=== PATIENT | female | born 1960 | race Caucasian/White ===

== ENCOUNTER 2020-02-20 22:32 | Inpatient (IN) | payer MEDICAID, SELFPAY ==
--- NOTE | 2020-02-20 22:30 | ECHOD_ITS ---
Reason For Study: Arrhythmia Procedure This was a 2D Doppler, Color Flow transthoracic echocardiogram. Exam performed portable in patient room. Left Ventricle Normal size and thickness. The estimated ejection fraction is 65 %. Stage 1 diastolic dysfunction. No regional wall motion abnormalities noted. Right Ventricle Normal size and thickness. Normal systolic function. Atria Normal left atrium. Normal right atrium. Normal atrial septum. Mitral Valve The mitral valve is structurally normal. No prolapse or stenosis seen. Tricuspid Valve Normal tricuspid valve. Unable to estimate RV systolic pressure due to insufficient tricuspid regurgitant envelope. Aortic Valve Normal aortic valve. Trisinus/trileaflet aortic valve. Pulmonic Valve Normal pulmonic valve. Great Vessels Normal aortic root. Normal arch. Normal inferior vena cava. Pericardium/Pleural No pericardial effusion. MMode/2D Measurements & Calculations LVIDd: 4.0 cm IVSd: 0.87 cm LA dimension: 3.6 cm LVIDs: 2.2 cm LVPWd: 1.1 cm RVDd: 2.5 cm FS: 43.5 % LAV(MOD-bp): 28.8 ml LA A4 area: 12.6 cm2 RA A4 area: 10.4 cm2 LAV(MOD-bp) Indexed: 16.4 ml/m2 LAV(MOD-sp2): 27.7 ml LAV(MOD-sp4): 26.9 ml Time Measurements MV dec time: 0.27 sec Doppler Measurements & Calculations MV E max john: 60.9 cm/sec Lat Peak E' John: 8.5 cm/sec Med Peak E' John: 6.6 cm/sec MV A max john: 83.6 cm/sec E/E' lat: 7.2 E/E' med: 9.2 MV E/A: 0.73 MV V2 max: 94.4 cm/sec MV P1/2t max john: 66.4 cm/sec Ao V2 max: 139.6 cm/sec MV max P.6 mmHg MV P1/2t: 81.4 msec Ao max P.8 mmHg MV V2 mean: 49.4 cm/sec MV dec slope: 239.2 cm/sec2 Ao V2 mean: 88.8 cm/sec MV mean P.1 mmHg MVA(P1/2t): 2.7 cm2 Ao mean P.5 mmHg MV V2 VTI: 20.1 cm Ao V2 VTI: 22.8 cm LV V1 max: 102.5 cm/sec PA V2 max: 108.8 cm/sec LV V1 max P.2 mmHg LV V1 mean P.0 mmHg LV V1 mean: 64.5 cm/sec LV V1 VTI: 18.1 cm Interpretation Summary The estimated ejection fraction is 65 %. Stage 1 diastolic dysfunction. Unable to estimate RV systolic pressure due to insufficient tricuspid regurgitant envelope. Pt appears to have a significant amount of ascites noted around liver; recommend clinical correlation. There is no comparison study available. Ordering Physician: Zoraida Thurman Referring Physician: Denia Adrian Performed By: Anurag Page RCS
--- NOTE | 2020-02-20 22:32 | EKG12_ITS ---
Test Reason : CP ADMISSION Blood Pressure : / mmHG Vent. Rate : 078 BPM Atrial Rate : 078 BPM P-R Int : 142 ms QRS Dur : 090 ms QT Int : 392 ms P-R-T Axes : 042 026 047 degrees QTc Int : 446 ms Normal sinus rhythm Nonspecific T wave abnormality Abnormal ECG No previous ECGs available Confirmed by MARYA KAUR ([id number]), state editor DANYELLE BALDERAS ([id number]) on 02/29/2020 7:50:45 AM Referred By: GABBI Confirmed By:MARYA KAUR
--- NOTE | 2020-02-20 23:15 | PCM.HP.STD ---
Problem List (1) Chest pain Status: Acute Qualifiers: Chest pain type: unspecified Qualified Code(s): R07.9 - Chest pain, unspecified (2) Ovarian cancer Status: Chronic Qualifiers: Laterality: unspecified laterality Qualified Code(s): C56.9 - Malignant neoplasm of unspecified ovary (3) Hypothyroidism Status: Chronic Qualifiers: Hypothyroidism type: unspecified Qualified Code(s): E03.9 - Hypothyroidism, unspecified (4) Anxiety and depression Status: Chronic (5) HLD (hyperlipidemia) Status: Chronic Qualifiers: Hyperlipidemia type: unspecified Qualified Code(s): E78.5 - Hyperlipidemia, unspecified (6) Diabetes mellitus, type II Status: Chronic Qualifiers: Diabetes mellitus prison insulin use: without prison use Diabetes mellitus complication status: with other specified complication Qualified Code(s): E11.69 - Type 2 diabetes mellitus with other specified complication (7) Former tobacco use Status: Chronic History of Present Illness Date of Admission: 02/20/20 Chief Complaint: Chest pain, dyspnea The patient is a 59 y/o F w/ PMHx: Tobacco use, Depression and Anxiety, Diabetes mellitus type II, Ovarian CA with metastatic disease with recent evaluation with pending port placement the upcoming Wednesday per report following with Oncology per her report with history of recent presentations to [place] ED with abdominal pain, distention with ascites associated with her metastatic CA who now presents to the [facility] as direct admission from [place] ED on 02/20/20 secondary to history of chest discomfort with associated dyspnea, worse with exertion with near syncopal sensation over the last several days with episodes of nausea and occasional emesis however she has been having this since diagnosis of her metastatic cancer and further describes her chest discomfort is midsternal, pressure-like in sensation with no radiation prompting her outside ED evaluation. She notes at its worst discomfort is 10 of 10 in severity, currently 1-2 out of 10 in severity. Outside [place] ED evaluation included: VS: 103/55, 36.9, 98, 14, 99% on RA CBC: WBC 7.3, Hgb 14.2, Plts 229 without marked shift CMP: BUN/Cr 19/0.8, Na 131, K 4.3, Total bili 1.8 Trop: 12, repeat 11 (high sensitivity, < 12 or 18 without change unremarkable, obtained over 1 hour) EKG: Sinus tachycardia without acute evidence of ischemia CXR: No acute cardiopulmonary findings, atelectasis, minimal effusion D-dimer: 14,000 CTPA performed but bolus timing off, noted only in main pulmonary arteries, throid nodules, 10 mm subcarinal nodule coags: normal Medications: Fentanyl, morphine, ASA, therapeutic lovenox x 1. Past Medical History Past Medical History (Chronic Problems): Chronic Problems Ovarian cancer (Chronic) Hypothyroidism (Chronic) Anxiety and depression (Chronic) HLD (hyperlipidemia) (Chronic) Diabetes mellitus, type II (Chronic) Former tobacco use (Chronic) Home Medications: Ambulatory Orders Medication Instructions Recorded Atorvastatin Calcium 20 mg PO QHS 02/20/20 Cetirizine HCl 10 mg PO QHS 02/20/20 Dexamethasone [Decadron] 4 mg PO Q6H 02/20/20 Docusate Sodium 100 mg PO BID 02/20/20 Levothyroxine [Synthroid] 25 mcg PO DAILY 02/20/20 Melatonin 3 mg PO QHS 02/20/20 Ondansetron HCl [Zofran] 4 mg PO PRN PRN 02/20/20 Oxycodone [Oxyir] 5 mg PO Q6H PRN PRN 02/20/20 Polyethylene Glycol 3350 [Miralax] 17 gm PO DAILY 02/20/20 Potassium Chloride 20 meq PO DAILY 02/20/20 Reglan 10 mg PO TID 02/20/20 Surgical History: - - Unclear gallbladder intervention as noted stones removed but her gallbladder was not, x1. 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 Tobacco Use: Non-smoker Alcohol: None Drugs: None - *Family History Maternal History Items: Diabetes Paternal History Items: - - Patient denies any market paternal family history including heart disease, diabetes or cancer. Review of Systems Constitutional: Reports: Anorexia, Malaise, Weakness, Fatigue. Denies: Chills, Fever, Weight Change HEENT: Denies: Head Aches, Sinus Congestion, Sinus Drainage Cardiovascular: Reports: Chest Pain, Chest Pressure, Light Headedness, Syncope - Near syncope sensation.. Denies: Chest Tightness, Heaviness, Orthopnea, Palpitations Respiratory: Reports: Shortness of Breath, Shortness of breath upon exertion. Denies: Cough, Shortness of breath at rest, Sputum production Gastrointestinal: Reports: Abdominal Pain, Nausea, Vomiting Genitourinary: Denies: Dysuria Musculoskeletal: Reports: Joint Pain. Denies: Joint Tenderness Skin: Denies: Rash, Wounds Neurological: Denies: Numbness, Tingling, Focal weakness Psychiatric: Reports: Anxiety, Depression. Denies: Homicidal Ideations, Suicidal Ideations Hematologic/ Lymphatic: Denies: Easy Bruising, Easy Bleeding VTE Information - Inpt Only VTE Present on Admission: No VTE Mechan Device Prophylaxis: SCD's VTE Pharm Prophylaxis ordered?: Yes Patient Problems: Active and Suspected Problems Chest pain (Acute) Subjective: Patient seated upright in the PCU bed, no acute distress, chest discomfort improved since transfer. Objective: Physical Examination: General: awake, alert, oriented x 3 and cooperative, seated upright in PCU bed in no apparent distress. Skin: normal color, turgor, no icterus, cyanosis. HEENT: AT/NC, EOMI, PERRLA, MMM, lacking dentition, no carotid bruits or JVD noted. Lungs: CTA bilaterally, moderate effort, moderate decrease BL bases, no rales, ronchi or wheezing. Heart: Regular rate and rhythm; no gallop, rub audible. Abdomen: soft, despite chronic abdominal discomfort with metastatic ovarian cancer no specific tenderness with palpation with no rebound or guarding associated, mildly distended, normal BS, no HSM. Extremities: no cyanosis, clubbing, or edema. Neurological: patient awake, alert, oriented x 3; cognitive function appears baseline intact; pupils equally reactive to light and accomodation; cranial nerves II-XII grossly normal, moving all 4 extremities, no focal deficits, strength moderately global decrease secondary to acute complaints. Psychiatric: affect appears fatigued otherwise normal, no acute evidence of depressive or anxiety feelings. - Physical Exam Current Medications Acetaminophen (Tylenol) 650 mg PO Q6H PRN PRN PRN Reason: Pain Score 1-10/Temp > 100.7 F Al Hydroxide/Mg Hydroxide (Mylanta Ii) 30 ml PO Q6H PRN PRN PRN Reason: Gastric Burning Albuterol Sulfate (Ventolin Aerosols) 2.5 mg INHALATION Q2H PRN PRN PRN Reason: Dyspnea, wheezing Aspirin (Ecotrin) 81 mg PO DAILY@0800 [facility] Dextrose (D50w Syringe) 0 gm IV X1 PRN; Protocol PRN Reason: Hypoglycemia Enoxaparin Sodium (Lovenox) 100 mg SC Q12 ANGELA Famotidine (Pepcid) 20 mg PO BID ANGELA Glucagon () 1 mg IM .X1 PRN PRN Reason: Hypoglycemia Guaifenesin (Robitussin) 20 ml PO Q4H PRN PRN PRN Reason: COUGH Hydralazine HCl (Apresoline Iv) 10 mg IV Q4H PRN PRN PRN Reason: SBP > 160 Sodium Chloride () 1,000 mls @ 100 mls/hr IV .Q10H ANGELA Insulin Human Lispro (Humalog Kwikpen (Bkc)) 0 unit SC ACHS ANGELA; Protocol Iopamidol (Contrast Allergy Check) 0 ml IV X1 ANGELA Magnesium Hydroxide (Milk Of Magnesia) 30 ml PO DAILY PRN PRN PRN Reason: Constipation Melatonin (Melatonin) 3 mg PO QHS PRN PRN PRN Reason: INSOMNIA Morphine Sulfate () 4 mg IV Q3H PRN PRN PRN Reason: Pain Score 6-10/10 Nitroglycerin (Nitrostat) 0.4 mg SUBLINGUAL Q5M PRN PRN Reason: CARDIAC/CHEST PAIN Ondansetron HCl (Zofran) 4 mg IV Q8H PRN PRN PRN Reason: NAUSEA/VOMITING Oxycodone HCl (Oxyir) 5 mg PO Q4H PRN PRN PRN Reason: Pain Score 4-5/10 Prochlorperazine Edisylate (Compazine Iv) 5 mg IV Q4H PRN PRN PRN Reason: Breakthrough Nausea/Vomiting Psyllium Hydrophilic Mucilloid (Metamucil) 1 packet PO DAILY PRN PRN PRN Reason: Constipation Senna/Docusate Sodium (Senokot-S, Tania-Colace) 2 tablet PO BID PRN PRN PRN Reason: Constipation Throat Lozenges (Cepacol Sore Throat Lozenge) 1 lozenge MUCOUS MEM Q2H PRN PRN PRN Reason: SORE THROAT Assessment/Plan All Active Problems Chest pain (Acute) The patient is a 59 y/o F w/ PMHx: Tobacco use, Depression and Anxiety, Diabetes mellitus type II, Ovarian CA with metastatic disease with recent evaluation with pending port placement the upcoming Wednesday per report following with Oncology per her report with history of recent presentations to [place] ED with abdominal pain, distention with ascites associated with her metastatic CA who now presents to the [facility] as direct admission from [place] ED on 02/20/20 secondary to history of chest discomfort with associated dyspnea, worse with exertion with near syncopal sensation. 1. Chest Pain with exertional dyspnea: EKG in ED initially sinus tachycardia with no acute evidence of ischemia with repeat following hydration sinus rhythm, CXR w/ no acute cardiopulmonary findings with minimal effusion and some mild atelectasis with follow-up CTPA with unfortunate air in bolus timing with no obvious evidence of pulmonary emboli in the main pulmonary arteries, initial troponin and repeat after 1 hour as high-sensitivity negative x2. Will admit as direct to PCU, place on a monitored bed to assure no acute myocardial infarction with serial cardiac enzymes and EKGs. Given poor timing of CT would plan overnight hydration judiciously given ascites history with repeat CTPA in a.m. and if unremarkable may need to pursue cardiac stress testing. ECHO also requested. We will continue therapeutic Lovenox pending these results. Requested that ED prior to transfer administer aspirin therapy and therapeutic Lovenox x1. ASA, NG, morphine. 2. Ovarian cancer with metastatic disease: Recently diagnosed with history of frequent [facility] ED evaluations and admissions per discussion with ED physician for abdominal distention with ascites with planned upcoming evaluation with [facility] oncology and planned upcoming port placement. May possibly be etiology for patient presentation. High risk for VTE. 3. Hypothyroidism: Continue home synthroid regimen. 4. Diabetes mellitus type II: Previously on medications however discontinued per her report with recent cancer diagnosis, n.p.o. currently, resume ADA once appropriate, accu checks w/ ISS. 5. Tobacco Abuse: Encouraged continued cessation as patient recently quit 2 to 3 weeks prior with prior to this 1 pack/day since she been 16 years old, inpatient consultation per RT, NR if desired. 6. Hyperlipidemia: Continue home statin regimen. AM FLP. 7. Anxiety and depression: We will continue patient home Zoloft regimen once clarified. 8. DVT prophylaxis: SCDs, therapeutic Lovenox. 9. 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 Patient currently residing with her . Encouraged her especially given recent diagnosis to request assist from case management/social work job titles for information about setting these items up. Discussed CODE status at length including difference between FULL code, DNR-CCA and DNR-CC status. Following discussions about the differences in these status, requested Full Code. Advanced Care Planning Face to Face Time: 16 minutes. OBSV E&M: 88691 Initial observation care L3 Procedures: 66922 Advncd Care Plan 30 Min
[2020-02-20 23:19] VITALS: PULSE 81; BMI 25.3
[2020-02-20 23:20] VITALS: BP 126/70; PULSE 88; RESP 18; TEMP 37; O2SAT 99
[2020-02-20] MEDS: Enoxaparin 80 MG/0.8 ML Syringe 70 MG SC (23:46)
[2020-02-21] VITALS (12 sets, daily range): BP systolic 101–119; BP diastolic 63–70; PULSE 81–97; RESP 14–18; TEMP 36.7–36.8; O2SAT 93–100; BMI 25.3
[2020-02-21] MEDS: oxyCODONE 5 MG Tablet PO ×3 (00:33→21:37)
[2020-02-21] MEDS: proCHLORPERazine 10 MG/2 ML Vial 5 MG IV (05:11)
--- NOTE | 2020-02-21 05:55 | EKG12_ITS ---
Test Reason : AM EKG Blood Pressure : / mmHG Vent. Rate : 085 BPM Atrial Rate : 085 BPM P-R Int : 142 ms QRS Dur : 088 ms QT Int : 384 ms P-R-T Axes : 043 029 050 degrees QTc Int : 456 ms Sinus rhythm with Premature atrial complexes Nonspecific T wave abnormality Abnormal ECG When compared with ECG of 21-FEB-2020 00:05, MANUAL COMPARISON REQUIRED, DATA IS UNCONFIRMED Confirmed by MARYA KAUR ([id number]), make up editor DANYELLE BALDERAS ([id number]) on 02/29/2020 7:51:19 AM Referred By: GABBI Confirmed By:MARYA KAUR
[2020-02-21 06:22] LABS: Absolute Lymphocyte Count 1.43 X10^3/uL (0.83-4.51); Absolute Neutrophil Count 5.9 X10^3/uL (2.0-7.7); Basophil# 0.02 X10^3/uL; Basophil% 0.2 % (0-1); Eosinophil# 0.06 X10^3/uL; Eosinophils% 0.7 % (0-5); Hematocrit 39.5 % (37-47); Hemoglobin 13.1 g/dL (12.0-15.0); Lymphocyte # 1.43 X10^3/ul (4.0); Lymphocyte % 17.5 % (19-41); Mean Corp Hgb Conc 33.2 g/dL (32-36); Mean Corpuscular Hgb 31.3 pg (27.0-32.0); Mean Corpuscular Volume 94.5 fL (81-99); Mean Platelet Vol. 9.9 fl (6.2-12.0); Monocyte# 0.79 X10^3/uL; Monocyte% 9.7 % (0-10); NRBC Flagged by Analyzer 0 % (0-5); Neutrophil # 5.85 X10^3/uL (2.7-7.7); Neutrophil % 71.5 % (47-70); Platelet Count 197 K/mm3 (150-450); RBC Distribution Width CV 14.1 % (11.6-14.6); RBC Distribution Width SD 47.8 fl (35.1-43.9); Red Blood Count 4.18 M/mm3 (4.2-5.4); White Blood Count 8.2 K/mm3 (4.4-11.0)
[2020-02-21 06:35] LABS: Bedside Glucose 95 mg/dL (70-110)
[2020-02-21 06:51] LABS: ALB/GLOB Ratio 0.8 RATIO (0.9-2.4); AST(SGOT) 20 U/L (15-37); Alanine Aminotransfer ALT/SGPT 20 U/L (13-56); Albumin, Serum 2.4 g/dL (3.2-5.0); Alkaline Phosphatase 115 U/L (45-117); Anion Gap 9 (5-15); BUN 18 mg/dL (7-18); BUN/Creat Ratio 27.5 RATIO (10-20); Calcium,Total 8.5 mg/dL (8.5-10.1); Chloride 100 mmol/L (98-107); Cholesterol 145 mg/dL (200); Creatinine, Serum 0.66 mg/dL (0.55-1.02); EST Glomerular Filtration Rate 99 mL/min (>60); Est Glom Filt Rate - Afr Amer 119 mL/min (>60); Globulin 3.2 g/dL (2.2-4.2); Glucose 98 mg/dL (74-106); High Density Lipoprotein 39 mg/dL; Potassium 3.8 mmol/L (3.5-5.1); Protein, Total 5.6 g/dL (6.4-8.2); Sodium Level 136 mmol/L (136-145); Triglycerides 171 mg/dL; Very Low Density Lipoprotein 34 mg/dL (5-40)
--- NOTE | 2020-02-21 08:00 | NURSING ---
pt off unit for CTA chest
--- NOTE | 2020-02-21 08:00 | CT_ITS ---
STUDY: CTA CHEST REASON FOR EXAM: Female, 59 years old. CHEST PAIN, DYSPNEA. OVARIAN CANCER-NEW DIAGNOSES RADIATION DOSAGE (If Supplied By Facility): CTDIvol = ( 7.77 ) mGy, DLP = ( 560.78 ) mGycm TECHNIQUE: The examination was performed with the intravenous administration of 75 ML ISOVUE 370. Post-processing of the angiographic images was performed, with multiplanar reformation and 3D reconstruction. Individualized dose optimization techniques were used for this CT. COMPARISON: None. FINDINGS: Small bilateral benign appearing axillary lymph nodes. Normal enhancement of the main pulmonary artery and right and left pulmonary arteries. Normal enhancement of the bilateral peripheral pulmonary arteries. There is no demonstrated pulmonary embolism. Normal thoracic aorta and visualized great vessels. There is no demonstrated aortic dissection. Normal heart and pericardium. Normal mediastinum. Normal hilar regions. Normal visualized trachea and bronchi. The lungs are well expanded. Normal pulmonary parenchyma. Small left pleural effusion. Minimal right pleural thickening. Atelectasis and/or infiltrates at both lung bases worse on the left side. Normal chest wall structures. There are degenerative changes of thoracic spine. There is evidence of a ascites with fluid surrounding the liver and spleen. CT/CTA Chest W/WO Contrast IMPRESSION: Small left pleural effusion with a left basilar atelectasis and/or infiltrate. Minimal thickening of the right pleural space with minimal right basilar atelectasis. No evidence of pulmonary embolism. Ascites. Electronically Signed: Ezequiel Heredia, at 8:47 EDT , Service support ,
--- NOTE | 2020-02-21 08:05 | NURSING ---
pt taken from unit at this time for stress test
[2020-02-21] MEDS: 0.9% Saline Lock 10 ML Syringe IV ×2 (08:59→16:06)
[2020-02-21] MEDS: Aspirin E.C. 81 MG Tablet PO (09:00)
[2020-02-21] MEDS: Famotidine 20 MG Tablet PO ×2 (09:00→21:37)
--- NOTE | 2020-02-21 11:01 | NURSING ---
pt off unit for stress test
--- NOTE | 2020-02-21 12:55 | STRESSREP_ITS ---
Stress Test Report Date: 02-21-2020 Procedure: Pharmacologic stress nuclear imaging study Indications: Chest pain; Dyspnea on exertion Consent: Per the patient Procedure: The patient underwent pharmacologic (Regadenoson) evaluation with a peak heart rate of 142 beats per minute (87 %predicted maximal heart rate) and a peak blood pressure of 128/72 mmHg. The baseline ECG demonstrated normal sinus rhythm. The peak pharmacologic ECG demonstrated no obvious ECG changes. There was a rare PVC during recovery. [There was no complaint of chest discomfort during pharmacologic infusion or recovery]. The examination was discontinued secondary to completion of protocol. Impression: 1. Pharmacologic (Regadenoson) evaluation 2. Peak pharmacologic ECG with no obvious ECG changes. 3. There was a rare PVC during recovery. 4. Nuclear images pending Myocardial perfusion imaging study: Technique: The patient was injected with 12.0 millicuries of technetium 99m Cardiolite and subsequently rest SPECT Cardiolite nuclear imaging was obtained in the horizontal long, vertical long, and short axis views. The patient underwent pharmacologic (Regadenoson) evaluation with a peak heart rate of 142 beats per minute (87 % percent predicted maximal heart rate) and a peak blood pressure of 128/72 mmHg. The patient was injected with 36.0 millicuries of technetium 99m Cardiolite and subsequently stress SPECT Cardiolite nuclear imaging was obtained in the horizontal long, vertical long, and short axis views. A gated Cardiolite study at peak stress was obtained. Interpretation: Rest and stress SPECT Cardiolite nuclear imaging status post realignment, normalization, and attenuation correction demonstrate relative uniform tracer uptake and myocardial perfusion appearing within normal limits. [There is end systolic thickening and brightening]. [The gated Cardiolite study demonstrates myocardial thickening and inward wall motion]. The reported LVEF is 66 %. Impression: 1. Relative uniform tracer uptake and myocardial perfusion appearing within normal limits. 2. The gated Cardiolite study reports an LVEF of 66 %. This note was generated with [employer] software. It may contain incorrect words, spelling, and punctuation that were not noted in checking the note before signing.
--- NOTE | 2020-02-21 13:36 | CASEMGMT ---
DEX CALDWELL assessment: Face to Face with patient for initial transition planning/care coordination assessment. RN PAULETTE introduced self and role at [facility], pt voices understanding and consents to assessment at this time. Pt is lying in bed in no distress at this time. Pt is A/Ox4 at this time and answers all questions appropriately at this time. Care providers, pharmacy, and demographics verified/updated at this time. Presentation: Direct admit from [facility] for CP, dyspnea-recent dx with ovarian CA w/ mets-pt states is scheduled to get port placed on 02/22 Admitting dx: CP, dyspnea PCP: Denia Gamino Specialists: [facility] onc Preferred Pharmacy: [facility] Insurance: [employer] Prescription Benefit: [employer] Living Will/HPOA: Pt states does not have LW/HPOA but would like to complete at this time. Vasu SW aware, voices understanding. LNOK: Kevin Raymundo nader Living Arrangements: Pt states lives with nader in 1 story home and initially states difficulty caring for self but states it's because 'I want to sleep all the time.' Pt state bathes/dresses self and states has no appetite for meals. Pt is independent with ADL's. Pt states that she feels safe at home. Transportation: Pt states does have some difficulty with transportation and this RN PAULETTE asked if pt utilizes [facility] transportation and she states she does when she has enough time to set up. DME/HHC: Pt states no current DME or need for any at this time. Pt states no hx of HHC or SNF in the past. Pt states no concerns with going home at time of discharge. Pt states is on disability. Pt states quit smoking cigarettes about 3 weeks ago and does not drink ETOH. Pt states no further questions/concerns/needs at this time. CM to follow for any further discharge planning/needs. Advised pt to ask for CM if any further questions/concerns/needs arise, voices understanding. Pt Goal: Home Plan: [place] [place]
[2020-02-21 14:26] LABS: Bedside Glucose 130 mg/dL (70-110)
--- NOTE | 2020-02-21 14:32 | PCM.NTREPORT ---
Nutrition Therapy Report - History Nutrition Services has been consulted to:: Manage nutrient details of diet order Current diet / nutrition support order:: NPO - Anthropometric Measurements Height:: 5 ft 5 in Weight:: 69 kg Body Mass Index (BMI):: 25.3 - Relevant Labs Relevant Labs:: RBC 4.18 M/mm3 (4.2-5.4) L 02/21/20 06:05 RDW Std Deviation 47.8 fl (35.1-43.9) H 02/21/20 06:05 Neut % (Auto) 71.5 % (47-70) H 02/21/20 06:05 Lymph % (Auto) 17.5 % (19-41) L 02/21/20 06:05 BUN/Creatinine Ratio 27.5 RATIO (10-20) H 02/21/20 06:05 Total Bilirubin 1.40 mg/dL (0.20-1.00) H 02/21/20 06:05 Total Protein 5.6 g/dL (6.4-8.2) L 02/21/20 06:05 Albumin 2.4 g/dL (3.2-5.0) L 02/21/20 06:05 Albumin/Globulin Ratio 0.8 RATIO (0.9-2.4) L 02/21/20 06:05 HDL Cholesterol 39 mg/dL (40-) L 02/21/20 06:05 - Assessment Food / Nutrition-Related History:: Recently dx w/ cancer- has not started treatments yet. Describes appetite as not good for a couple of months. States she was able to eat very little by mouth d/t emesis after eating. Normally does not follow a special diet at home. SMBG daily- no issues w/ hyper or hypoglycemia reported. UBW 180# 2 months ago, CBW 152.1#-27.9#/15.5% wt loss is significant for malnutrition. - Nutrition Diagnosis Problem / Etiology / Signs & Symptoms (PES):: Acute, severe malnutrition related to emesis w/ eating as evidenced by 27.9#/15.5% wt loss x 2 months, estimated PO intake less than 50% of estimated nutritional needs for > 5 days Evidence of Malnutrition Exists:: Yes Severe PCM:: Acute Illness - Nutrition Intervention Nutrition Prescription:: [id number] calories/day, 70-80 g protein/day - Food / Nutrient Delivery Interventions Summary of nutrition intervention:: Pt has not had protein drinks before. States she does not like milk but is agreeable to trying Ensure when diet advanced. Education provided. Nutrition support ordered as / adjusted to:: advance diet as tolerated to regular. 120mL Ensure Enlive 4x/day when diet ordered Nutrition education provided?: Yes - Discussed oncology symptom management. Handout provided. - MNT Monitoring Further MNT monitoring and evaluation required?: Yes MNT Follow-up in:: 3-5 days - consider enteral nutrition support if unable to tolerate PO diet
--- NOTE | 2020-02-21 14:54 | DCINST_ITS ---
- Discharge Diagnoses Current Active Problems: Current Active and Chronic Problems Chest pain (Acute) Ovarian cancer (Chronic) Hypothyroidism (Chronic) Anxiety and depression (Chronic) HLD (hyperlipidemia) (Chronic) Diabetes mellitus, type II (Chronic) Former tobacco use (Chronic) You will use the following diet at home:: No restrictions Discharge Activity: Return to Normal Activity Instructions: ED Chest Pain NonCardiac Allergies/Adverse Reactions: Allergies metformin Allergy (Verified 02/20/20 23:22) Rash Medications to take at Discharge Atorvastatin Calcium 20 mg PO QHS 02/20/20 Cetirizine HCl 10 mg PO QHS 02/20/20 Dexamethasone [Decadron] 4 mg PO Q6H 02/20/20 Docusate Sodium 100 mg PO BID 02/20/20 Levothyroxine [Synthroid] 25 mcg PO DAILY 02/20/20 Melatonin 3 mg PO QHS 02/20/20 Ondansetron HCl [Zofran] 4 mg PO PRN PRN 02/20/20 Oxycodone [Oxyir] 5 mg PO Q6H PRN PRN 02/20/20 Polyethylene Glycol 3350 [Miralax] 17 gm PO DAILY 02/20/20 Potassium Chloride 20 meq PO DAILY 02/20/20 Reglan 10 mg PO TID 02/20/20 Primary Care Physician: Denia Adrian MD [Primary Care Provider] - Please follow up with your Primary Care Physician in: 1 to 2 weeks Test Results: Test results from this visit will be discussed in further detail at your follow- up appointment, if applicable. Proposed Discharge Date: 02/21/20
--- NOTE | 2020-02-21 14:55 | PCM.DC.SUM ---
Discharge Date and Diagnosis - Problem List Patient Problems: Active and Suspected Problems Chest pain (Acute) Date of Admission: 02/20/20 Date of Discharge: 02/21/20 - Primary Discharge Diagnosis Acute Problems: Active Problems Chest pain (Acute) - Secondary Discharge Diagnosis Chronic Problems: Chronic Problems Ovarian cancer (Chronic) Hypothyroidism (Chronic) Anxiety and depression (Chronic) HLD (hyperlipidemia) (Chronic) Diabetes mellitus, type II (Chronic) Former tobacco use (Chronic) Hospital Course and Treatment Imaging Results: Clinical Impression(s) from Imaging Studies Chest CTA 02/21/20 08:00 IMPRESSION: Small left pleural effusion with a left basilar atelectasis and/or infiltrate. Minimal thickening of the right pleural space with minimal right basilar atelectasis. No evidence of pulmonary embolism. Ascites. Electronically Signed: Ezequiel Heredia, at 8:47 EDT , Service support , Summary of Care Provided: The patient is a 59 year old F underlying history of ovarian CA with recurrent ascites, dyslipidemia who was transferred from [facility] with chest pain Patient was placed on a monitored bed underwent subsequent evaluation with CTA of the chest which was negative for PE. She also had a 2D echo which was all unremarkable underwent a nuclear stress test which was negative for stress-induced ischemia patient subsequently discharged home instructed to follow-up with PCP for subsequent care. Patient Problems: Active and Suspected Problems Chest pain (Acute) Objective: GENERAL: cooperative HEENT: Atraumatic; EYES; Anicteric, Normal Conjunctiva NECK; supple, normal thyroid, RESPIRATORY: Diminished to auscultation CARDIOVASCULAR: Regular S1 S2, GI: soft, normoactive bowel sounds, : No Renal angle tenderness; EXTREMITIES: No edema, no clubbing, MUSCULOSKELETAL: no muscle waisting NEURO: Awake; no lateralizing signs. SKIN: No Rash PSYCH; Flat affect - Physical Exam Vitals/I&O's: Vital Signs Temp Pulse Resp BP Pulse Ox 98.1 F 97 16 118/70 94 02/21/20 14:00 02/21/20 14:00 02/21/20 14:00 02/21/20 14:00 02/21/20 14:00 Oxygen Delivery Method Room Air Weight: 69 kg Body Mass Index (BMI) 25.3 Intake and Output for Last 24 Hours 02/19/20 02/20/20 02/21/20 23:59 23:59 23:59 Intake Total 100 / 100 1150 / 1150 Balance 100 / 100 1150 / 1150 Laboratory Results 02/21/20 00:20: Magnesium 2.0, Troponin I < 0.015 02/21/20 03:38: Troponin I < 0.015 02/21/20 06:05: WBC 8.2, RBC 4.18 L, Hgb 13.1, Hct 39.5, MCV 94.5, MCH 31.3, MCHC 33.2, RDW Std Deviation 47.8 H, RDW Coeff of Frank 14.1, Plt Count 197, MPV 9.9, Immature Gran % (Auto) 0.400, Neut % (Auto) 71.5 H, Lymph % (Auto) 17.5 L, [place] % (Auto) 9.7, Eos % (Auto) 0.7, Baso % (Auto) 0.2, Absolute Neuts (auto) 5.9, Absolute Lymphs (auto) 1.43, Nucleated RBC % 0 02/21/20 06:05: Sodium 136, Potassium 3.8, Chloride 100, Carbon Dioxide 27.0, Anion Gap 9, BUN 18, Creatinine 0.66, Estim Creat Clear Calc 83.60, Est GFR (MDRD) Af Amer 119, Est GFR (MDRD) Non-Af 99, BUN/Creatinine Ratio 27.5 H, Glucose 98, Calcium 8.5, Total Bilirubin 1.40 H, AST 20, ALT 20, Alkaline Phosphatase 115, Troponin I < 0.015, Total Protein 5.6 L, Albumin 2.4 L, Globulin 3.2, Albumin/Globulin Ratio 0.8 L, Triglycerides 171, Cholesterol 145, LDL Cholesterol 72, VLDL Cholesterol 34, HDL Cholesterol 39 L 02/21/20 06:34: POC Glucose 95 02/21/20 14:09: POC Glucose 130 H Current Medications Acetaminophen (Tylenol) 650 mg PO Q6H PRN PRN PRN Reason: Pain Score 1-10/Temp > 100.7 F Al Hydroxide/Mg Hydroxide (Mylanta Ii) 30 ml PO Q6H PRN PRN PRN Reason: Gastric Burning Albuterol Sulfate (Ventolin Aerosols) 2.5 mg INHALATION Q2H PRN PRN PRN Reason: Dyspnea, wheezing Aspirin (Ecotrin) 81 mg PO DAILY@0800 [facility] Last Admin: 02/21/20 09:00 Dose: 81 mg Documented by: Dextrose (D50w Syringe) 0 gm IV X1 PRN; Protocol PRN Reason: Hypoglycemia Enoxaparin Sodium (Lovenox) 70 mg SC Q12 [facility] Last Admin: 02/20/20 23:46 Dose: 70 mg Documented by: Famotidine (Pepcid) 20 mg PO BID [facility] Last Admin: 02/21/20 09:00 Dose: 20 mg Documented by: Glucagon () 1 mg IM .X1 PRN PRN Reason: Hypoglycemia Guaifenesin (Robitussin) 20 ml PO Q4H PRN PRN PRN Reason: COUGH Hydralazine HCl (Apresoline Iv) 10 mg IV Q4H PRN PRN PRN Reason: SBP > 160 Sodium Chloride () 1,000 mls @ 100 mls/hr IV .Q10H [facility] Last Admin: 02/21/20 14:07 Dose: Not Given Documented by: Sodium Chloride () 250 mls @ 15 mls/hr IV .[id number] PRN PRN Reason: Saline Flush Sodium Chloride () 250 mls @ 15 mls/hr IV .[id number] PRN PRN Reason: Additional IVPB Infusion Insulin Human Lispro (Humalog Kwikpen (Bkc)) 0 unit SC ACHS [facility]; Protocol Last Admin: 02/21/20 14:11 Dose: Not Given Documented by: Magnesium Hydroxide (Milk Of Magnesia) 30 ml PO DAILY PRN PRN PRN Reason: Constipation Melatonin (Melatonin) 3 mg PO QHS PRN PRN PRN Reason: INSOMNIA Morphine Sulfate () 4 mg IV Q3H PRN PRN PRN Reason: Pain Score 6-10/10 Nitroglycerin (Nitrostat) 0.4 mg SUBLINGUAL Q5M PRN PRN Reason: CARDIAC/CHEST PAIN Ondansetron HCl (Zofran) 4 mg IV Q8H PRN PRN PRN Reason: NAUSEA/VOMITING Oxycodone HCl (Oxyir) 5 mg PO Q4H PRN PRN PRN Reason: Pain Score 4-5/10 Last Admin: 02/21/20 05:11 Dose: 5 mg Documented by: Prochlorperazine Edisylate (Compazine Iv) 5 mg IV Q4H PRN PRN PRN Reason: Breakthrough Nausea/Vomiting Last Admin: 02/21/20 05:11 Dose: 5 mg Documented by: Psyllium Hydrophilic Mucilloid (Metamucil) 1 packet PO DAILY PRN PRN PRN Reason: Constipation Senna/Docusate Sodium (Senokot-S, Tania-Colace) 2 tablet PO BID PRN PRN PRN Reason: Constipation Sodium Chloride () 10 - 40 ml IV UD PRN PRN Reason: SALINE FLUSH Last Admin: 02/21/20 08:59 Dose: 10 ml Documented by: Throat Lozenges (Cepacol Sore Throat Lozenge) 1 lozenge MUCOUS MEM Q2H PRN PRN PRN Reason: SORE THROAT Discharge Activity: Return to Normal Activity Home Medications: Medications to take at Discharge Atorvastatin Calcium 20 mg PO QHS 02/20/20 Cetirizine HCl 10 mg PO QHS 02/20/20 Dexamethasone [Decadron] 4 mg PO Q6H 02/20/20 Docusate Sodium 100 mg PO BID 02/20/20 Levothyroxine [Synthroid] 25 mcg PO DAILY 02/20/20 Melatonin 3 mg PO QHS 02/20/20 Ondansetron HCl [Zofran] 4 mg PO PRN PRN 02/20/20 Oxycodone [Oxyir] 5 mg PO Q6H PRN PRN 02/20/20 Polyethylene Glycol 3350 [Miralax] 17 gm PO DAILY 02/20/20 Potassium Chloride 20 meq PO DAILY 02/20/20 Reglan 10 mg PO TID 02/20/20 Primary Care Physician: Denia Adrian MD [Primary Care Provider] - Please follow up with your Primary Care Physician in: 1 to 2 weeks Patient Instructions: ED Chest Pain NonCardiac Disposition: Home Minutes spent on discharge:: 35 Patient Condition:: Stable Medical Necessity - Tobacco Use Smoking Status: Former smoker - Patient quit cigarette tobacco usage 2 to 3 weeks prior to current presentation with prior to this 1 pack/day since she was 16 years old. Tobacco Use: Non-smoker Meaningful Use Info Meaningful Use Diagnoses (Choose all that apply): None applicable OBSV E&M: 59196 Observation care discharge
--- NOTE | 2020-02-21 15:25 | CASEMGMT ---
SW completed a Healthcare Power of Primary Class Teacher and Healthcare Living Will with patient. Copies were made and given to patient along with originals. A copy of each was also placed in her paper chart. Caryl LIU
--- NOTE | 2020-02-21 15:50 | NURSING ---
1000 lovenox not given to patient at time returned to unit. Awaited result of testing and then patient stated that she wanted to wait until right before she left to have injection, since she will not have at home. Notified at this time that discharge has been cancelled.
[2020-02-21] MEDS: 0.9% Normal Saline 1,000 ML 100 ML IV ×2 (16:06)
[2020-02-21] MEDS: Enoxaparin 80 MG/0.8 ML Syringe 70 MG SC (16:07)
[2020-02-21 16:31] LABS: Bedside Glucose 121 mg/dL (70-110)
--- NOTE | 2020-02-21 17:33 | PCM.CONS.GEN ---
Problem List (1) Ovarian cancer Status: Chronic Qualifiers: Laterality: unspecified laterality Qualified Code(s): C56.9 - Malignant neoplasm of unspecified ovary Reason for Consult Date of Consultation: 02/21/20 History of Present Illness: The patient is a 59 year old F who I have been asked to see by Dr. Shanks for surgical placement of a port during this hospitalization as patient is in need of IV chemotherapy for ovarian cancer. The patient's assembler final oncologist is Dr. Estephania Flood and apparently the patient has found difficulty in actually making and attending the appointments that have been made for her for port placement at [facility]. The patient apparently presented with chest pain and underwent chest pain protocol which is not been remarkable. She is felt to be at high risk for DVT pulmonary embolus and is been placed on Lovenox 70 mg subcutaneously twice daily. She complains of intermittent nonspecific abdominal pain but claims that she is tolerating food intake without nausea or vomiting and passing flatus. States that she has not had any surgery on her abdomen other than a previous and tubal ligation. She states that she has not had any previous ports placed or any head and chest or neck surgery Past Medical History Past Medical History (Chronic Problems): Chronic Problems Ovarian cancer (Chronic) Hypothyroidism (Chronic) Anxiety and depression (Chronic) HLD (hyperlipidemia) (Chronic) Diabetes mellitus, type II (Chronic) Former tobacco use (Chronic) Allergies metformin Allergy (Verified 02/20/20 23:22) Rash Home Medications: Ambulatory Orders Medication Instructions Recorded Atorvastatin Calcium 20 mg PO QHS 02/20/20 Cetirizine HCl 10 mg PO QHS 02/20/20 Dexamethasone [Decadron] 4 mg PO Q6H 02/20/20 Docusate Sodium 100 mg PO BID 02/20/20 Levothyroxine [Synthroid] 25 mcg PO DAILY 02/20/20 Melatonin 3 mg PO QHS 02/20/20 Ondansetron HCl [Zofran] 4 mg PO PRN PRN 02/20/20 Oxycodone [Oxyir] 5 mg PO Q6H PRN PRN 02/20/20 Polyethylene Glycol 3350 [Miralax] 17 gm PO DAILY 02/20/20 Potassium Chloride 20 meq PO DAILY 02/20/20 Reglan 10 mg PO TID 02/20/20 Surgical History: - - Unclear gallbladder intervention as noted stones removed but her gallbladder was not, x1. 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 Tobacco Use: Non-smoker Alcohol: None Drugs: None - *Family History Maternal History Items: Diabetes Paternal History Items: - - Patient denies any market paternal family history including heart disease, diabetes or cancer. Review of Systems Constitutional: Denies: Chills, Fever HEENT: Denies: Difficulty Swallowing Cardiovascular: Reports: Chest Pain Respiratory: Reports: Shortness of Breath Gastrointestinal: Reports: Abdominal Pain Musculoskeletal: Denies: Leg Pain Endocrine: Reports: Change in Body Habitus, - - [place] bloating Hematologic/ Lymphatic: Denies: Adenopathy Patient Problems: Active and Suspected Problems Chest pain (Acute) - Physical Exam Vitals/I&O's: Vital Signs Temp Pulse Resp BP Pulse Ox 98.1 F 97 16 118/70 94 02/21/20 14:00 02/21/20 14:00 02/21/20 14:00 02/21/20 14:00 02/21/20 14:00 Oxygen Delivery Method Room Air Weight: 152 lb 1.903 oz Body Mass Index (BMI) 25.3 Intake and Output for Last 24 Hours 02/19/20 02/20/20 02/21/20 23:59 23:59 23:59 Intake Total 100 / 100 1510 / 1510 Balance 100 / 100 1510 / 1510 General: Alert, Oriented x3, Cooperative, No apparent distress HEENT: Atraumatic Oral: Moist Mucosa Neck: Supple, No JVD, Negative Carotid Bruits Lungs: Clear to auscultation, - - Diminished in the bases Cardiovascular: Regular rate, Regular Rhythm Abdomen: Soft, Distended, - - Slight tenderness right upper quadrant Extremities: No Calf Tenderness Neurological: - - Cognition intact Psych/Mental Status: Normal Affect Laboratory Results 02/21/20 00:20: Magnesium 2.0, Troponin I < 0.015 02/21/20 03:38: Troponin I < 0.015 02/21/20 06:05: WBC 8.2, RBC 4.18 L, Hgb 13.1, Hct 39.5, MCV 94.5, MCH 31.3, MCHC 33.2, RDW Std Deviation 47.8 H, RDW Coeff of Frank 14.1, Plt Count 197, MPV 9.9, Immature Gran % (Auto) 0.400, Neut % (Auto) 71.5 H, Lymph % (Auto) 17.5 L, [place] % (Auto) 9.7, Eos % (Auto) 0.7, Baso % (Auto) 0.2, Absolute Neuts (auto) 5.9, Absolute Lymphs (auto) 1.43, Nucleated RBC % 0 02/21/20 06:05: Sodium 136, Potassium 3.8, Chloride 100, Carbon Dioxide 27.0, Anion Gap 9, BUN 18, Creatinine 0.66, Estim Creat Clear Calc 83.60, Est GFR (MDRD) Af Amer 119, Est GFR (MDRD) Non-Af 99, BUN/Creatinine Ratio 27.5 H, Glucose 98, Calcium 8.5, Total Bilirubin 1.40 H, AST 20, ALT 20, Alkaline Phosphatase 115, Troponin I < 0.015, Total Protein 5.6 L, Albumin 2.4 L, Globulin 3.2, Albumin/Globulin Ratio 0.8 L, Triglycerides 171, Cholesterol 145, LDL Cholesterol 72, VLDL Cholesterol 34, HDL Cholesterol 39 L 02/21/20 06:34: POC Glucose 95 02/21/20 14:09: POC Glucose 130 H 02/21/20 16:12: POC Glucose 121 H Current Medications Acetaminophen (Tylenol) 650 mg PO Q6H PRN PRN PRN Reason: Pain Score 1-10/Temp > 100.7 F Al Hydroxide/Mg Hydroxide (Mylanta Ii) 30 ml PO Q6H PRN PRN PRN Reason: Gastric Burning Albuterol Sulfate (Ventolin Aerosols) 2.5 mg INHALATION Q2H PRN PRN PRN Reason: Dyspnea, wheezing Aspirin (Ecotrin) 81 mg PO DAILY@0800 [facility] Last Admin: 02/21/20 09:00 Dose: 81 mg Documented by: Dextrose (D50w Syringe) 0 gm IV X1 PRN; Protocol PRN Reason: Hypoglycemia Enoxaparin Sodium (Lovenox) 70 mg SC Q12 [facility] Last Admin: 02/21/20 16:07 Dose: 70 mg Documented by: Famotidine (Pepcid) 20 mg PO BID [facility] Last Admin: 02/21/20 09:00 Dose: 20 mg Documented by: Glucagon () 1 mg IM .X1 PRN PRN Reason: Hypoglycemia Guaifenesin (Robitussin) 20 ml PO Q4H PRN PRN PRN Reason: COUGH Hydralazine HCl (Apresoline Iv) 10 mg IV Q4H PRN PRN PRN Reason: SBP > 160 Sodium Chloride () 1,000 mls @ 100 mls/hr IV .Q10H [facility] Last Admin: 02/21/20 16:06 Dose: 100 mls/hr Documented by: Sodium Chloride () 250 mls @ 15 mls/hr IV .[id number] PRN PRN Reason: Saline Flush Sodium Chloride () 250 mls @ 15 mls/hr IV .[id number] PRN PRN Reason: Additional IVPB Infusion Cefazolin Sodium 2 gm/ Sodium (Chloride) 110 mls @ 150 mls/hr IV X1 ONE Stop: 02/22/20 11:43 Insulin Human Lispro (Humalog Kwikpen (Bkc)) 0 unit SC [facility]; Protocol Last Admin: 02/21/20 16:13 Dose: Not Given Documented by: Magnesium Hydroxide (Milk Of Magnesia) 30 ml PO DAILY PRN PRN PRN Reason: Constipation Melatonin (Melatonin) 3 mg PO QHS PRN PRN PRN Reason: INSOMNIA Morphine Sulfate () 4 mg IV Q3H PRN PRN PRN Reason: Pain Score 6-10/10 Nitroglycerin (Nitrostat) 0.4 mg SUBLINGUAL Q5M PRN PRN Reason: CARDIAC/CHEST PAIN Ondansetron HCl (Zofran) 4 mg IV Q8H PRN PRN PRN Reason: NAUSEA/VOMITING Oxycodone HCl (Oxyir) 5 mg PO Q4H PRN PRN PRN Reason: Pain Score 4-5/10 Last Admin: 02/21/20 05:11 Dose: 5 mg Documented by: Prochlorperazine Edisylate (Compazine Iv) 5 mg IV Q4H PRN PRN PRN Reason: Breakthrough Nausea/Vomiting Last Admin: 02/21/20 05:11 Dose: 5 mg Documented by: Psyllium Hydrophilic Mucilloid (Metamucil) 1 packet PO DAILY PRN PRN PRN Reason: Constipation Senna/Docusate Sodium (Senokot-S, Tania-Colace) 2 tablet PO BID PRN PRN PRN Reason: Constipation Sodium Chloride () 10 - 40 ml IV UD PRN PRN Reason: SALINE FLUSH Last Admin: 02/21/20 16:06 Dose: 10 ml Documented by: Throat Lozenges (Cepacol Sore Throat Lozenge) 1 lozenge MUCOUS MEM Q2H PRN PRN PRN Reason: SORE THROAT Assessment/Plan All Active Problems Chest pain (Acute) I have offered the patient an placement of a right internal jugular port possible placement on the left. I have described the technique, benefit, risk, alternatives. She has had an opportunity to ask and have questions answered. We will check a COVID-19 test. We will schedule her for procedure tomorrow as an add-on procedure. I will subsequently have her Lovenox held. She has had an opportunity to ask and have questions answered. We will proceed at her discretion. I appreciate the opportunity of assisting with her surgical care. Agusto Christine M.D., F.A.C.S.
--- NOTE | 2020-02-21 19:06 | PCM.PN.HOSP ---
Patient Problems: Active and Suspected Problems Chest pain (Acute) Reason for Visit: Chest Pain Subjective: The patient is a 59 year old F underlying history of ovarian CA with recurrent ascites, dyslipidemia who was transferred from [facility] with chest pain Objective: GENERAL: cooperative HEENT: Atraumatic; EYES; Anicteric, Normal Conjunctiva NECK; supple, normal thyroid, RESPIRATORY: Diminished to auscultation CARDIOVASCULAR: Regular S1 S2, GI: soft, normoactive bowel sounds, : No Renal angle tenderness; EXTREMITIES: No edema, no clubbing, MUSCULOSKELETAL: no muscle waisting NEURO: Awake; no lateralizing signs. SKIN: No Rash PSYCH; Flat affect Vitals/I&O's: Vital Signs Temp Pulse Resp BP Pulse Ox 98.1 F 93 16 118/70 94 02/21/20 14:00 02/21/20 17:48 02/21/20 14:00 02/21/20 14:00 02/21/20 14:00 Oxygen Delivery Method Room Air Weight: 69 kg Body Mass Index (BMI) 25.3 Intake and Output for Last 24 Hours 02/19/20 02/20/20 02/21/20 23:59 23:59 23:59 Intake Total 100 / 100 1510 / 1510 Balance 100 / 100 1510 / 1510 Laboratory Results 02/21/20 00:20: Magnesium 2.0, Troponin I < 0.015 02/21/20 03:38: Troponin I < 0.015 02/21/20 06:05: WBC 8.2, RBC 4.18 L, Hgb 13.1, Hct 39.5, MCV 94.5, MCH 31.3, MCHC 33.2, RDW Std Deviation 47.8 H, RDW Coeff of Frank 14.1, Plt Count 197, MPV 9.9, Immature Gran % (Auto) 0.400, Neut % (Auto) 71.5 H, Lymph % (Auto) 17.5 L, [place] % (Auto) 9.7, Eos % (Auto) 0.7, Baso % (Auto) 0.2, Absolute Neuts (auto) 5.9, Absolute Lymphs (auto) 1.43, Nucleated RBC % 0 02/21/20 06:05: Sodium 136, Potassium 3.8, Chloride 100, Carbon Dioxide 27.0, Anion Gap 9, BUN 18, Creatinine 0.66, Estim Creat Clear Calc 83.60, Est GFR (MDRD) Af Amer 119, Est GFR (MDRD) Non-Af 99, BUN/Creatinine Ratio 27.5 H, Glucose 98, Calcium 8.5, Total Bilirubin 1.40 H, AST 20, ALT 20, Alkaline Phosphatase 115, Troponin I < 0.015, Total Protein 5.6 L, Albumin 2.4 L, Globulin 3.2, Albumin/Globulin Ratio 0.8 L, Triglycerides 171, Cholesterol 145, LDL Cholesterol 72, VLDL Cholesterol 34, HDL Cholesterol 39 L 02/21/20 06:34: POC Glucose 95 02/21/20 14:09: POC Glucose 130 H 02/21/20 16:12: POC Glucose 121 H Current Medications Acetaminophen (Tylenol) 650 mg PO Q6H PRN PRN PRN Reason: Pain Score 1-10/Temp > 100.7 F Al Hydroxide/Mg Hydroxide (Mylanta Ii) 30 ml PO Q6H PRN PRN PRN Reason: Gastric Burning Albuterol Sulfate (Ventolin Aerosols) 2.5 mg INHALATION Q2H PRN PRN PRN Reason: Dyspnea, wheezing Aspirin (Ecotrin) 81 mg PO DAILY@0800 [facility] Last Admin: 02/21/20 09:00 Dose: 81 mg Documented by: Dextrose (D50w Syringe) 0 gm IV X1 PRN; Protocol PRN Reason: Hypoglycemia Enoxaparin Sodium (Lovenox) 70 mg SC Q12 [facility] Last Admin: 02/21/20 16:07 Dose: 70 mg Documented by: Famotidine (Pepcid) 20 mg PO BID [facility] Last Admin: 02/21/20 09:00 Dose: 20 mg Documented by: Glucagon () 1 mg IM .X1 PRN PRN Reason: Hypoglycemia Guaifenesin (Robitussin) 20 ml PO Q4H PRN PRN PRN Reason: COUGH Hydralazine HCl (Apresoline Iv) 10 mg IV Q4H PRN PRN PRN Reason: SBP > 160 Sodium Chloride () 1,000 mls @ 100 mls/hr IV .Q10H [facility] Last Admin: 02/21/20 16:06 Dose: 100 mls/hr Documented by: Sodium Chloride () 250 mls @ 15 mls/hr IV .[id number] PRN PRN Reason: Saline Flush Sodium Chloride () 250 mls @ 15 mls/hr IV .[id number] PRN PRN Reason: Additional IVPB Infusion Cefazolin Sodium 2 gm/ Sodium (Chloride) 110 mls @ 150 mls/hr IV X1 ONE Stop: 02/22/20 11:43 Insulin Human Lispro (Humalog Kwikpen (Bkc)) 0 unit SC [facility]; Protocol Last Admin: 02/21/20 16:13 Dose: Not Given Documented by: Magnesium Hydroxide (Milk Of Magnesia) 30 ml PO DAILY PRN PRN PRN Reason: Constipation Melatonin (Melatonin) 3 mg PO QHS PRN PRN PRN Reason: INSOMNIA Morphine Sulfate () 4 mg IV Q3H PRN PRN PRN Reason: Pain Score 6-10/10 Nitroglycerin (Nitrostat) 0.4 mg SUBLINGUAL Q5M PRN PRN Reason: CARDIAC/CHEST PAIN Ondansetron HCl (Zofran) 4 mg IV Q8H PRN PRN PRN Reason: NAUSEA/VOMITING Oxycodone HCl (Oxyir) 5 mg PO Q4H PRN PRN PRN Reason: Pain Score 4-5/10 Last Admin: 02/21/20 05:11 Dose: 5 mg Documented by: Prochlorperazine Edisylate (Compazine Iv) 5 mg IV Q4H PRN PRN PRN Reason: Breakthrough Nausea/Vomiting Last Admin: 02/21/20 05:11 Dose: 5 mg Documented by: Psyllium Hydrophilic Mucilloid (Metamucil) 1 packet PO DAILY PRN PRN PRN Reason: Constipation Senna/Docusate Sodium (Senokot-S, Tania-Colace) 2 tablet PO BID PRN PRN PRN Reason: Constipation Sodium Chloride () 10 - 40 ml IV UD PRN PRN Reason: SALINE FLUSH Last Admin: 02/21/20 16:06 Dose: 10 ml Documented by: Throat Lozenges (Cepacol Sore Throat Lozenge) 1 lozenge MUCOUS MEM Q2H PRN PRN PRN Reason: SORE THROAT STROKE Vital Signs/Narrative: Vital Signs Pulse 02/21/20 17:48 93 Medical Necessity - Tobacco Use Smoking Status: Former smoker - Patient quit cigarette tobacco usage 2 to 3 weeks prior to current presentation with prior to this 1 pack/day since she was 16 years old. Tobacco Use: Non-smoker Assessment/Plan All Active Problems Chest pain (Acute) The patient is a 59 year old F underlying history of ovarian CA with recurrent ascites, dyslipidemia who was transferred from [facility] with chest pain 1. Chest pain Patient was placed on a monitored bed underwent subsequent evaluation with CTA of the chest which was negative for PE. She also had a 2D echo which was all unremarkable underwent a nuclear stress test which was negative for stress-induced ischemia 2. Ovarian CA with recurrent ascites ?Case was discussed with patient's oncologist Dr. Flood who felt patient ascites was contributing to significant GERD and chest pain. Patient has however not been able to have a port secured due to cancellation of follow-up. Decision was made to have patient have the port placed [place] currently admitted to prevent recurrent visits to the ED consult was subsequently placed to Dr. Christine with plans for patient to undergo port placement on 02/22/2020. 3. Dyslipidemia -Patient is on statin therapy, continued at home dose 4. Hypothyroidism - Patient is on levothyroxine home dose continued 5. Beatties mellitus type II ?Currently managed with diet only 6. Depression with anxiety ?Patient is on SSRI at home 7. Tobacco dependence - Counseled on cessation, offered nicotine patch for tobacco cravings 8. DVT prophylaxis; Lovenox. OBSV E&M: 60214 Subsequent observation care L3
[2020-02-21 22:15] LABS: Bedside Glucose 105 mg/dL (70-110)
[2020-02-22] VITALS (14 sets, daily range): BP systolic 96–123; BP diastolic 61–75; PULSE 73–95; RESP 16–20; TEMP 36.1–36.9; O2SAT 93–100; BMI 26.3
[2020-02-22] MEDS: 0.9% Normal Saline 1,000 ML 100 ML IV ×2 (01:58→09:48)
[2020-02-22 05:32] LABS: Absolute Lymphocyte Count 1.38 X10^3/uL (0.83-4.51); Absolute Neutrophil Count 6.2 X10^3/uL (2.0-7.7); Basophil# 0.02 X10^3/uL; Basophil% 0.2 % (0-1); Eosinophil# 0.06 X10^3/uL; Eosinophils% 0.7 % (0-5); Hemoglobin 13.4 g/dL (12.0-15.0); Lymphocyte # 1.38 X10^3/ul (4.0); Lymphocyte % 16.4 % (19-41); Mean Corp Hgb Conc 33.5 g/dL (32-36); Mean Corpuscular Hgb 31.1 pg (27.0-32.0); Mean Corpuscular Volume 92.8 fL (81-99); Mean Platelet Vol. 10.2 fl (6.2-12.0); Monocyte# 0.69 X10^3/uL; Monocyte% 8.2 % (0-10); NRBC Flagged by Analyzer 0 % (0-5); Neutrophil # 6.23 X10^3/uL (2.7-7.7); Neutrophil % 73.9 % (47-70); Platelet Count 231 K/mm3 (150-450); RBC Distribution Width CV 13.9 % (11.6-14.6); RBC Distribution Width SD 47.2 fl (35.1-43.9); Red Blood Count 4.31 M/mm3 (4.2-5.4); White Blood Count 8.4 K/mm3 (4.4-11.0)
[2020-02-22 05:49] LABS: International Normalized Ratio 1.1; Partial Thromboplast Time 35.5 Seconds (24.1-36.2); Prothrombin Time (Protime)PT. 13.9 SECONDS (11.7-14.9)
[2020-02-22 05:51] LABS: Bedside Glucose 126 mg/dL (70-110)
[2020-02-22 05:58] LABS: Anion Gap 9 (5-15); BUN 15 mg/dL (7-18); BUN/Creat Ratio 20.1 RATIO (10-20); Calcium,Total 8.3 mg/dL (8.5-10.1); Chloride 101 mmol/L (98-107); Creatinine, Serum 0.75 mg/dL (0.55-1.02); EST Glomerular Filtration Rate 85 mL/min (>60); Est Glom Filt Rate - Afr Amer 102 mL/min (>60); Estimated Creatinine Clearance 73.57 ml/min; Glucose 130 mg/dL (74-106); Magnesium 1.9 mg/dL (1.6-2.6); Potassium 3.4 mmol/L (3.5-5.1); Sodium Level 135 mmol/L (136-145)
[2020-02-22] MEDS: Ondansetron 4 MG/2 ML Vial IV (08:02)
[2020-02-22] MEDS: 0.9% Saline Lock 10 ML Syringe IV ×2 (08:02→15:27)
[2020-02-22] MEDS: Morphine 4 MG/ML Syringe IV ×2 (08:02→15:26)
[2020-02-22] MEDS: Cefazolin 2 GM in 0.9% Normal Saline 100 ML IV (09:48)
[2020-02-22 09:56] LABS: Bedside Glucose 105 mg/dL (70-110)
[2020-02-22] MEDS: Bupivacaine Mpf 0.5% 30 ML VIAL (11:27)
--- NOTE | 2020-02-22 11:55 | PCM.PN.BLA ---
Progress Note Despite being n.p.o. after midnight the patient had nausea preoperatively with a small amount of bilious emesis. This could suggest that she has ileus or evolving bowel obstruction. If she is discharged today then she should be made an appointment to see gynecologic oncology still this week or if not very early next week Agusto Christine M.D., F.A.C.S.
--- NOTE | 2020-02-22 11:56 | OP.PCM_ITS ---
Problem List (1) Ovarian cancer Status: Chronic Qualifiers: Laterality: unspecified laterality Qualified Code(s): C56.9 - Malignant neoplasm of unspecified ovary Report of Operation Date of Procedure: 02/22/20 Pre-Operative Diagnosis: Metastatic ovarian cancer Post-Operative Diagnosis: Same Surgery/Procedure Performed:: Right internal jugular 6 Kinyarwanda PowerPort placement Description of Surgical Findings:: Timeout and informed consent was obtained. 59-year-old female taken the operating placement table. Because of preoperative nausea and small amount of emesis she underwent general endotracheal intubation esthesia. Ancef 2 g intravenously had been written to be given preoperatively. Unfortunately this was given over an hour preoperatively on the nursing floor. Because of that she was given an additional 1 g IV at the time of her surgery. The right neck and chest were sterilely prepped and draped. Ultrasound was used to identify the right internal jugular vein. Under ultrasound guidance 1% lidocaine mixed 50-50 with 0.5% Marcaine was instilled as a local anesthetic. A micropuncture needle was used to gain access to the right internal jugular vein followed by Seldinger wire advancement. Local was instilled down upon the right chest wall. Midclavicular line second intercostal space transverse incision was created and using electrocautery a subcutaneous pocket was created. The tubing was tunneled from the chest to the neck site. Then I placed a micropuncture sheath over the wire exchanged out the wire for an 035 J-wire fluoroscopy demonstrated good positioning. Sheath dilator was placed. The wire and dilator were removed. The catheter was fed through the sheath. The sheath was split. The catheter was positioned at the SVC atrial junction. It was amputated to length connected to the port secured with the port attachment device. The port was placed in the pocket secured there with 2-0 silk. The subdermal edges were approximated up to 3-0 Vicryl. The neck site closed with interrupted 5-0 Vicryl subdermal stitch. The port was accessed and aspirated easily was flushed with saline and then 2 cc of heparinized saline. Steri-Strips and Telfa and OpSite dressings applied. Sponge and instrument and needle counts were reported to the surgeon to be correct. Specimens none. Drains none. Blood loss minimal. The patient was taken to the recovery room in satisfactory condition without apparent complication. Stat portable chest x-ray is pending. Agusto Christine M.D., F.A.C.S. Type of Anesthesia:: General Anesthesiologist: Salvatore Mccabe
--- NOTE | 2020-02-22 12:01 | DCINST_ITS ---
Discharge Diet: No Restrictions - Pain medication may cause nausea. You should typically eat light foods as you take your pain medication. Discharge Activity: Return to Normal Activity Additional Activity Instructions:: May not drive, work with heavy equipment, or sign legal documents for [address] if you are no longer taking narcotic pain medications. You may drive when you are no longer taking pain medications. Additional Dressing/Incision Instructions:: Leave the bandage on for 2-3 days. When you remove the bandage, leave the steri-strips intact until they fall off. Instructions: ED Chest Pain NonCardiac Allergies/Adverse Reactions: Allergies metformin Allergy (Verified 02/20/20 23:22) Rash Medications to take at Discharge Atorvastatin Calcium 20 mg PO QHS 02/20/20 Cetirizine HCl 10 mg PO QHS 02/20/20 Dexamethasone [Decadron] 4 mg PO Q6H 02/20/20 Docusate Sodium 100 mg PO BID 02/20/20 Levothyroxine [Synthroid] 25 mcg PO DAILY 02/20/20 Melatonin 3 mg PO QHS 02/20/20 Ondansetron HCl [Zofran] 4 mg PO PRN PRN 02/20/20 Oxycodone [Oxyir] 5 mg PO Q6H PRN PRN 02/20/20 Polyethylene Glycol 3350 [Miralax] 17 gm PO DAILY 02/20/20 Potassium Chloride 20 meq PO DAILY 02/20/20 Reglan 10 mg PO TID 02/20/20 Primary Care Physician: Denia Adrian MD [Primary Care Provider] - Please follow up with your Primary Care Physician in: 1 to 2 weeks Test Results: Test results from this visit will be discussed in further detail at your follow- up appointment, if applicable. Please Follow Up With: Agusto Christine MD - [phone] When: Notify my office with any concerns Proposed Discharge Date: 02/21/20
--- NOTE | 2020-02-22 12:16 | RAD_ITS ---
STUDY: X-RAY CHEST REASON FOR EXAM: Female, 59 years old. PORT PLACEMENT TECHNIQUE: Single AP portable view of the chest. COMPARISON: None. FINDINGS: A right-sided portacatheter has been placed. The tip is at the junction of the superior vena cava and right atrium. Blunting of left costophrenic angle with mild increased markings at the left lung base. There is no demonstrated pleural abnormality. Normal size heart. Normal mediastinum and rox. Normal visualized pulmonary arteries. Normal visualized aortic arch and descending thoracic aorta. There are degenerative changes of the visualized thoracic spine. Normal visualized ribs, clavicles, and shoulders. There is no demonstrated abnormality of the visualized soft tissue structures of the upper abdomen. RAD/CXR for Line Placement IMPRESSION: The tip of the right portacatheter is at the junction of the superior vena cava and right kidney. Blunting of the left costophrenic angle with mild increased markings at the left lung base. Electronically Signed: Ezequiel Heredia, at 12:28 EDT , Service support ,
[2020-02-22] MEDS: Famotidine 20 MG Tablet PO (13:20)
--- NOTE | 2020-02-22 15:35 | CASEMGMT ---
Social Work Multiple attempts to speak with patient about possible depression, new cancer dx, and to provide counseling and transportation resources. Will continue to attempt. Lisset Robles MSW TITLE DEPARTMENT MANAGER
[2020-02-22 15:40] LABS: Bedside Glucose 99 mg/dL (70-110)
--- NOTE | 2020-02-22 16:42 | CASEMGMT ---
Social Work SW spoke with pt regarding transportation resources and information on support groups and counseling services available. Pt was appreciative of resources. REGGIE Baker
--- NOTE | 2020-02-28 12:27 | CASEMGMT ---
Social Work followup phone call: Date of Discharge: 02/22/20 Reason for followup call: resources provided to pt for depression as well as for transportation needs. Duration of call: 2 minutes Outcome of call: Per pt spouse, pt not available at this time as she is at dialysis. Message not left. REGGIE Baker
== END 2020-02-22 18:25 | disposition home or self-care (01) | DRG 203 ==
PROVIDERS: Surgery; Admitting Provider Family Medicine; PCP Internal Medicine; Visit Provider Internal Medicine
PROC: 0JH63WZ Insertion of Totally Implantable Vascular Access Device into Chest Subcutaneous Tissue and Fascia, Percutaneous Approach (ICD-10-PCS; principal; 2020-02-22 07:15)
DX: R07.89 Other chest pain (principal); R06.09 Other forms of dyspnea; C79.9 Secondary malignant neoplasm of unspecified site; C56.9 Malignant neoplasm of unspecified ovary; E03.9 Hypothyroidism, unspecified; E78.5 Hyperlipidemia, unspecified; E11.9 Type 2 diabetes mellitus without complications; F41.9 Anxiety disorder, unspecified; F32.9 Major depressive disorder, single episode, unspecified; Z79.891 Long term (current) use of opiate analgesic; Z79.899 Other long term (current) drug therapy; Z87.891 Personal history of nicotine dependence; R11.2 Nausea with vomiting, unspecified; K21.9 Gastro-esophageal reflux disease without esophagitis
CPT/HCPCS: 36415; 71045; 71275; 77001; 78452; 80048; 80053; 80061; 82962; 83735; 84484; 85025; 85610; 85730; 87635; 93005; 93017; 93306; 94799; 97802; 99251; 99406; A9500; J7030; Q9967; A4216; G0463; J2405; J2785; U0003

== ENCOUNTER → 2020-03-01 12:23 | Outpatient (CLI) | payer MEDICAID, SELFPAY ==
[2020-02-22 07:54] VITALS: BMI 26.3
--- NOTE | 2020-03-01 | FLU_PTH ---
PATIENT: LIVIER BULLOCK LOC: U#:[id number] AGE/SX: 64/F ROOM: RE03/01/[address]: Dr. Estephania Flood MD : 1960 BED: DIS: SPEC #: [id number] RECD: 03/01/20 13:33 STATUS: PANKAJ REAntoni #: [id number] MANN: 03/01/20 00:[address]: Estephania Flood DEPT: CYTOLOGY RECD BY: Emile Reich ENTERED: 03/04/20 09:37 SP TYPE: Fluid OTHR DR: Dr. Denia Adrian MD Tissues: PARACENTESIS FLUID Procedures: Special Stain Group II Surgery Specimen Level IV Cytospin Fluid HEADER OPERATION: Ultrasound-guided left paracentesis PRE-OP DIAGNOSIS: Ascites TISSUE SUBMITTED: Paracentesis fluid for cytology DIAGNOSIS CYTOLOGY Paracentesis fluid for cytology (cytospin and cell block): Malignant cells present derived from metastatic carcinoma, consistent with ovarian primary. See comment. CARLITA:jez 03/07/20 COMMENT Immunohistochemistry ([id number]) supports the above diagnosis. Correlation with clinical, radiologic findings and appropriate follow up are necessary. As per EMR, the patient has history of metastatic ovarian carcinoma undergoing chemotherapy. Case has been reviewed in consultation with Dr. Alvarado who concurs with the above diagnosis. IDC:AM CYTOLOGY STUDY Slides are reviewed. CYTOLOGY GROSS Received is 70 ml of red cloudy fluid labeled with the patient's name and and designated per the requisition as paracentesis. Submitted for cytology preparation including cell block. / jez 03/04/20 TC:0 CPT: 32388, 86274
--- NOTE | 2020-03-01 | IMM_PTH ---
PATIENT: LIVIER BULLOCK LOC: U#:[id number] AGE/SX: 64/F ROOM: RE03/01/[address]: Dr. Estephania Flood MD : 1960 BED: DIS: SPEC #: [id number] RECD: 03/05/20 12:20 STATUS: PANKAJ REQ #: [id number] MANN: 03/01/20 00:[address]: Estephania Flood DEPT: IMMUNOHISTOCHEMISTRY RECD BY: Yolanda Levin ENTERED: 03/05/20 12:21 SP TYPE: IMMUNO OTHR DR: Dr. Denia Adrian MD Tissues: PARACENTESIS FLUID Procedures: CA-125 (add) Rell Ret (add) CEA (add) CK20 (add) CK5-6 (add) CK7 (add) CK8 (add) MACRO (add) MAMM (add) NC (add) TTF1 (add) Vimentin (add) GATA3 (add) ER (initial) PHYSICIAN & INSTITUTION [address] [address] SPECIMEN INFORMATION: Tissue Source: Paracentesis fluid Clinical Info: Ascites Specimen Number: [id number] CPT code: 54168, 52969 x13 METHODOLOGY: Deparaffinized sections of prefer/formalin-fixed tissue or PAP/DQ stained slides are incubated with monoclonal/polyclonal antibodies/oligonucleotide probes. Localization is made via biotin free immunoperoxidase method. Appropriate controls are performed and reacted as expected. Results on target cell population are indicated in the following table: RESULTS: ANTIBODY / CLONE RESULT ER (6F11) negative NC (1E2) negative Mammaglobin (31A5) negative GATA3 (L50-823) negative CK7 (OV-TL12/30) positive CK8 (30ngpjO20) positive CK20 (KS20.8) negative Vimentin (V9) negative Macro (HAM-56) negative TTF-1 (8G7G3/1) negative CALRET (polyclonal) negative CA125 (OC125) positive CEA (11-7/TF-3HB-1) positive, a few cells CK5-6 (D5 & 1684) negative These tests were developed and their performance characteristics determined by [facility]. They may not have been cleared or approved by the U.S. Food and Drug Administration. The FDA has determined that such clearance or approval is not necessary. The above immunohistochemical/dualISH markers are ordered and reviewed by the Pathologist. INTERPRETATION: Paracentesis fluid: Malignant cells present derived from metastatic carcinoma, consistent with ovarian primary. SJ:jez 03/07/20 Case has been reviewed in consultation with Dr. Alvarado who concurs with the above diagnosis. IDC:AM
--- NOTE | 2020-03-01 12:30 | US_ITS ---
PROCEDURE: Ultrasound guided paracentesis. DATE OF EXAMINATION: March 01, 2020. INDICATION: Female, 59 years old. Ascites. PHYSICIAN: Ezequiel Heredia M.D. TECHNIQUE: The risks, benefits, and alternatives to the procedure were explained to the patient. The specific risks of bleeding, infection, and damage to bowel were detailed and accepted. Witnessed informed consent was obtained. The abdomen was ultrasonographically surveyed. An appropriate pocket of fluid was identified at the left lower quadrant. The skin were cleaned and prepped in the usual sterile fashion. Using ultrasound guidance, the peritoneal cavity was accessed with a 5-[place] paracentesis needle/catheter system. The trocar was removed. A total of 5780 ml of blood-tinged fluid were removed from the peritoneal cavity. The catheter was removed and a sterile dressing was applied. A 80 mL sample was sent to the laboratory. The procedure was well tolerated. US/Paracentesis with US IMPRESSION: Ultrasound guided paracentesis. Electronically Signed: Ezequiel Heredia, at 14:04 EDT , Service support ,
[2020-03-01 12:45] VITALS: BP 101/64; BP 94/64; PULSE 107; PULSE 98; PULSE 99; RESP 14; RESP 16; RESP 18; TEMP 36.6; O2SAT 95; O2SAT 98; O2SAT 99
== END ==
PROVIDERS: PCP Internal Medicine; Referring Provider Internal Medicine Hematology & Oncology; Visit Provider Internal Medicine Hematology & Oncology
DX: R18.0 Malignant ascites (principal)
CPT/HCPCS: 49083; 88108; 88305; 88313

== ENCOUNTER 2020-03-01 13:19 | Emergency (ER) | payer MEDICAID, SELFPAY ==
[2020-02-22 07:54] VITALS: BMI 26.3
[2020-03-01 13:20] VITALS: BP 116/105; PULSE 97; RESP 18; TEMP 36.5; O2SAT 97; BMI 24.0
--- NOTE | 2020-03-01 13:39 | VDLE_ITS ---
Reason For Study: Swelling RIGHT LEFT GSV is normal. GSV is normal. CFV is compressible, spontaneous, phasic, CFV is compressible, spontaneous, phasic, competent and demonstrates normal competent, and demonstrates normal augmentation. augmentation. FV is compressible, spontaneous, phasic, FV is compressible, spontaneous, phasic, competent and demonstrates normal competent and demonstrates normal augmentation. augmentation. POP V is compressible, spontaneous, phasic, POP V is compressible, spontaneous, phasic, competent and demonstrates normal competent and demonstrates normal augmentation. augmentation. T/P Trunk is compressible. T/P Trunk is compressible. PTV is compressible. PTV is compressible. RT PerV is compressible. LT PerV is compressible. Procedure Exam performed portable in ED. A preliminary report was called and/or faxed to [facility]. Interpretation Summary No evidence for acute deep venous thrombosis bilateral lower extremities with patent and compressible bilateral great saphenous veins. Ordering Physician: Sarah Banegas Referring Physician: Denia Adrian Performed By: Loreto Vrik RVT
--- NOTE | 2020-03-01 13:39 | CT_ITS ---
STUDY: CT ABDOMEN AND PELVIS WITHOUT CONTRAST REASON FOR EXAM: Female, 59 years old. Pelvic pain, lower abdomen swelling, bilateral lower extremity edema, s/p paracentesis today (5800mL removed). Hx ovarian cancer with chemotherapy, diabetes, cholecystectomy. RADIATION DOSAGE (If Supplied By Facility): CTDIvol = ( 9.51 ) mGy, DLP = ( 402.85 ) mGycm TECHNIQUE: Transaxial images were obtained from the dome of the diaphragm to the symphysis pubis without oral contrast, and without intravenous contrast. Sagittal and coronal images were reconstructed. Individualized dose optimization techniques were used for this CT. COMPARISON: None. FINDINGS: Small to moderate-sized left pleural effusion with left basilar atelectasis. Minimal right pleural effusion. The visualized portions of the heart are within normal limits. Small amount of perihepatic and perisplenic fluid. There is a diffuse contour abnormality of the liver consistent with cirrhotic changes. There are surgical clips in the gallbladder fossa consistent with a prior cholecystectomy. There is mild splenomegaly. Normal pancreas. Normal bilateral adrenal glands. Mild to moderate degree of right hydronephrosis and right hydroureter down to the midportion of the ureter. Cortical thinning and scar in the upper lateral portion of the right kidney. Nonobstructive right intrarenal calculi. There is evidence of a 4 mm calculus in the distal portion of the right ureter. Normal left kidney. Normal visualized stomach. Normal small intestine. Normal colon. The appendix is visualized and appears normal. Normal abdominal aorta. Normal inferior vena cava. There is borderline retroperitoneal lymphadenopathy with enlarged nodes no greater than 10mm in the short axis diameter. There is evidence of a peritoneal and omental metastasis. Normal urinary bladder. There is free fluid in the pelvis. There is a 5.3 cm by centimeter by 6.8 cm inhomogeneous soft tissue mass in the pelvis extending to the left side of the pelvis. This may represent either inhomogeneous fibroid uterus versus ovarian mass. Correlation with ultrasound is recommended if clinically indicated. Normal abdominal wall. Normal osseous structures. CT/Abdomen/Pelvis W IV Cont ONLY IMPRESSION: Ascites. Small to moderate size left pleural effusion with left basilar atelectasis and tiny right pleural effusion. Findings suggestive of omental and peritoneal metastasis. 4 mm calculus in the distal portion of the right ureter causing mild to moderate degree of right hydronephrosis and right hydroureter. Inhomogeneous mass in the pelvis as described which may be either an enlarged fibroid uterus versus an adnexal mass. Correlation with ultrasound is recommended. Electronically Signed: Ezequiel Heredia, at 14:53 EDT , Service support ,
--- NOTE | 2020-03-01 13:40 | ED.DCSUM_ITS ---
History of Present Illness Chief Complaint: Abd Pain Informant: Patient Onset: Yesterday Current Severity: Moderate Maximum Severity: Moderate Narrative: Patient presents with increased lower abdominal pain and lower extremity swelling. She has a history of ovarian cancer. Last chemotherapy was 2 days ago. Patient states she developed lower abdominal pain last evening. She came into the hospital today for a scheduled ultrasound-guided paracentesis. They took 5800 cc of fluid off of her abdomen but she continued to have pain so presented to the emergency room. She denies fever or chills. She does complain of swelling in her lower abdomen and in both legs. - Past Medical History (1) Anxiety and depression Status: Chronic (2) Diabetes mellitus, type II Status: Chronic (3) HLD (hyperlipidemia) Status: Chronic (4) Hypothyroidism Status: Chronic (5) Ovarian cancer Status: Chronic Past Medical History - Allergies and Home Meds Allergies/Adverse Reactions: Allergies metformin Allergy (Verified 03/01/20 13:26) Rash Primary Care Physician: Denia Adrian MD [Primary Care Provider] - Doctors: Dr. Flood Prior records reviewed: Yes Surgical History: - - Unclear gallbladder intervention as noted stones removed but her gallbladder was not, x1. Smoking Status: Former smoker - Family History Maternal Family History: Reports: Diabetes Paternal Family History: Reports: - - Patient denies any market paternal family history including heart disease, diabetes or cancer. Review of Systems General: Denies: Chills, Fever Eyes: Denies: Visual changes - bilaterally ENT: Denies: Bilateral ear pain Cardiovascular: Denies: Chest pain Respiratory: Denies: Dyspnea, Cough Gastrointestinal: Reports: Abdominal pain, Nausea, Vomiting Genitourinary: Denies: Dysuria Musculoskeletal: Reports: Swelling Skin: Denies: Rash Neurological: Denies: Headache, Weakness, Parasthesia, Numbness Hematologic: Denies: Easy bruising, Easy bleeding Allergy: Denies: Uticaria Physical Exam Vital Signs/Narrative: Vital Signs Temp Pulse Resp BP Pulse Ox 03/01/20 13:20 97.7 F L 97 18 116/105 H 97 Inital Vital Signs reviewed: Yes General: Well nourished, Well developed Head: Normocephalic ENT: Moist mucous membranes Neck: Supple Cardiovascular: Regular rate, Regular rhythm Respiratory: No distress, CTA bilaterally Abdomen: Soft, Tender - Mild lower abdominal tenderness.. Negative for: Guarding, Rebound tenderness Extremities: Edema - 2-3+ edema bilateral lower extremities. Skin: Pallor Neurological: Alert, Oriented x3 Psychological: Normal affect Diagnostic/Tx/Re-eval Impressions Abdomen/Pelvis CT 03/01/20 13:39 IMPRESSION: Ascites. Small to moderate size left pleural effusion with left basilar atelectasis and tiny right pleural effusion. Findings suggestive of omental and peritoneal metastasis. 4 mm calculus in the distal portion of the right ureter causing mild to moderate degree of right hydronephrosis and right hydroureter. Inhomogeneous mass in the pelvis as described which may be either an enlarged fibroid uterus versus an adnexal mass. Correlation with ultrasound is recommended. Electronically Signed: Ezequiel Heredia, at 14:53 EDT , Service support , 03/01/20 13:39 Abdomen/Pelvis W IV Cont ONLY [CT] Stat Laboratory Results 03/01/20 03/01/20 03/01/20 13:40 13:40 15:21 WBC 5.3 RBC 4.01 L Hgb 12.3 Hct 36.8 L MCV 91.8 MCH 30.7 MCHC 33.4 RDW Std Deviation 48.2 H RDW Coeff of Frank 14.5 Plt Count 205 MPV 9.9 Immature Gran % (Auto) 0.600 Neut % (Auto) 86.9 H Lymph % (Auto) 7.[address] [place] % (Auto) 2.5 Eos % (Auto) 3.0 Baso % (Auto) 0.0 Absolute Neuts (auto) 4.6 Absolute Lymphs (auto) 0.37 L Nucleated RBC % 0 Rouleaux 2+ Sodium 136 Potassium 3.6 Chloride 98 Carbon Dioxide 27.0 Anion Gap 11 BUN 39 H Creatinine 0.92 Estim Creat Clear Calc 59.98 Est GFR (MDRD) Af Amer 80 Est GFR (MDRD) Non-Af 66 BUN/Creatinine Ratio 42.2 H Glucose 149 H Calcium 8.6 Urine Color Yellow Urine Clarity Sl. Cloudy Urine pH 5.0 Ur Specific [place] 1.020 Urine Protein 30 H Urine Glucose (UA) Normal Urine Ketones 15 H Urine Occult Blood 25 H Urine Nitrite Negative Urine Bilirubin Negative Urine Urobilinogen 1 H Ur Leukocyte Esterase 25 H Urine RBC 0 SEEN Urine WBC 10-25 SEEN Ur Squamous Epith Cells 0-5 SEEN Ur Transition Epith Cell 0-5 SEEN Urine Bacteria 1+ Urine Mucus 0 SEEN - Medical Decision Making Patient was initially given fentanyl, Zofran, and IV fluids. Blood work is unremarkable. Urine does show some sign of infection. Urine culture was sent and she will be treated with a 3-day course of Bactrim. CT scan does reveal a 4 mm right distal ureter stone. She will be given prescriptions for Flomax, Zofran, Bactrim, and ibuprofen. I will ensure she has enough oxycodone for pain control. She is referred to Dr. Long and her case was discussed with him on the phone. ED Disposition - Plan for ED Patient: Disposition: Home or Assisted Living Diagnosis: Kidney stone Instructions: ED Renal Stone w Colic Prescriptions: Smz/Tmp Ds [Bactrim Ds] 1 tab PO BID #6 tab Transmission Status: Pending to [id number] Tamsulosin HCl [Flomax] 0.4 mg PO DAILY #7 cap Transmission Status: Pending to [id number] Ibuprofen 600 mg PO TID PRN PRN #12 tab PRN Reason: Pain Score 4-10/10 Transmission Status: Pending to [id number] Oxycodone [Oxyir] 5 mg PO Q6H PRN PRN 4 Days #14 tablet PRN Reason: Pain Score 4-10/10 Transmission Status: Received by [id number] Ondansetron [Zofran Odt] 4 mg PO Q8H PRN PRN #10 tab PRN Reason: Nausea Transmission Status: Pending to [id number] Referrals: Tonio Long MD [STAFF PHYSICIAN] - 3-5 Days if not improving
[2020-03-01 13:45] VITALS: BP 102/61; PULSE 84; RESP 18; TEMP 36.5; O2SAT 97
[2020-03-01 13:47] LABS: Absolute Lymphocyte Count 0.37 X10^3/uL (0.83-4.51); Absolute Neutrophil Count 4.6 X10^3/uL (2.0-7.7); Eosinophil# 0.16 X10^3/uL; Hematocrit 36.8 % (37-47); Hemoglobin 12.3 g/dL (12.0-15.0); Lymphocyte # 0.37 X10^3/ul (4.0); Mean Corp Hgb Conc 33.4 g/dL (32-36); Mean Corpuscular Hgb 30.7 pg (27.0-32.0); Mean Corpuscular Volume 91.8 fL (81-99); Mean Platelet Vol. 9.9 fl (6.2-12.0); Monocyte# 0.13 X10^3/uL; Monocyte% 2.5 % (0-10); NRBC Flagged by Analyzer 0 % (0-5); Neutrophil # 4.57 X10^3/uL (2.7-7.7); Neutrophil % 86.9 % (47-70); POSITIVE DIFFERENTIAL YES; Platelet Count 205 K/mm3 (150-450); RBC Distribution Width CV 14.5 % (11.6-14.6); RBC Distribution Width SD 48.2 fl (35.1-43.9); Red Blood Count 4.01 M/mm3 (4.2-5.4); White Blood Count 5.3 K/mm3 (4.4-11.0)
[2020-03-01 13:49] LABS: Differential Indicated SCAN CRITERIA MET
[2020-03-01] MEDS: Ondansetron 4 MG/2 ML Vial IV (13:53)
[2020-03-01] MEDS: 0.9% Normal Saline 1,000 ML 150 ML IV (13:53)
[2020-03-01] MEDS: fentaNYL 100 MCG/2 ML Ampul 25 MCG IV (13:53)
[2020-03-01 14:02] LABS: Anion Gap 11 (5-15); BUN 39 mg/dL (7-18); BUN/Creat Ratio 42.2 RATIO (10-20); Calcium,Total 8.6 mg/dL (8.5-10.1); Chloride 98 mmol/L (98-107); Creatinine, Serum 0.92 mg/dL (0.55-1.02); EST Glomerular Filtration Rate 66 mL/min (>60); Est Glom Filt Rate - Afr Amer 80 mL/min (>60); Estimated Creatinine Clearance 59.98 ml/min; Glucose 149 mg/dL (74-106); Potassium 3.6 mmol/L (3.5-5.1); Sodium Level 136 mmol/L (136-145)
[2020-03-01 14:06] LABS: Rouleaux 2+
[2020-03-01 15:27] LABS: Mucous, Urine 0 SEEN /hpf (<or=2+); Red Blood Cells-Urine 0 SEEN /hpf (0-5)
[2020-03-01 15:39] LABS: Color, Urine Yellow (Yellow); Glucose, Dipstick Normal (Normal); Ketone-Dipstick 15 mg/dl (Negative); Leukocyte Esterase-Dipstick 25 /ul (Negative); Nitrite-Dipstick Negative (Negative); Occult Blood-Urine 25 /ul (Negative); Protein-Dipstick 30 mg/dl (Negative); Urine Bilirubin Dipstick Negative (Negative); Urine Clarity Sl. Cloudy (Clear); Urine Urobilinogen 1 mg/dl (Normal)
[2020-03-01 15:52] VITALS: BP 147/98; PULSE 135; RESP 28; O2SAT 97
[2020-03-01 16:12] LABS: Squamous Epithelial Cells - UA 0-5 SEEN /hpf (5-10); Transitional Epithelial - Ur 0-5 SEEN /hpf (0-5)
[2020-03-01 16:13] LABS: Bacteria 1+ /hpf (None Seen); White Blood Cells 10-25 SEEN /hpf (0-5)
[2020-03-01] MEDS: oxyCODONE 5 MG Tablet PO (16:22)
[2020-03-01] MEDS: Ketorolac 15 MG/ML Vial IV (16:35)
[2020-03-01 17:16] VITALS: BP 108/91; PULSE 88; RESP 16; O2SAT 97
== END 2020-03-01 17:55 | disposition home or self-care (01) ==
PROVIDERS: Emergency Provider Emergency Medicine; PCP Internal Medicine
DX: N20.0 Calculus of kidney (principal); R18.0 Malignant ascites; C56.9 Malignant neoplasm of unspecified ovary; F41.9 Anxiety disorder, unspecified; F32.9 Major depressive disorder, single episode, unspecified; E11.9 Type 2 diabetes mellitus without complications; E78.5 Hyperlipidemia, unspecified; E03.9 Hypothyroidism, unspecified; Z79.891 Long term (current) use of opiate analgesic; Z79.899 Other long term (current) drug therapy; Z87.891 Personal history of nicotine dependence
CPT/HCPCS: 36591; 49083; 74177; 80048; 81001; 85025; 87077; 87086; 87088; 87186; 88108; 88305; 88313; 88341; 88342; 93970; 96361; 96374; 96375; 99285; J7030; P9612; Q9967; A4216; J2405

== ENCOUNTER 2020-03-02 13:47 | Inpatient (IN) | payer MEDICAID, SELFPAY ==
[2020-03-01 13:20] VITALS: BMI 24.0
[2020-03-02 10:29] VITALS: BMI 24.5
[2020-03-02 10:30] VITALS: BP 101/53; PULSE 77; RESP 18; TEMP 36.2; O2SAT 98
[2020-03-02] MEDS: 0.9% Normal Saline 1,000 ML 150 ML IV ×3 (10:30→23:25)
--- NOTE | 2020-03-02 10:32 | PCM.HP.STD ---
History of Present Illness Date of Admission: 03/02/20 Chief Complaint: syncope The patient is a 59 year old F with an extensive PMH as outlined who was admitted with a complaint of syncope. She was admitted with a complaint of syncope. Patient says she woke up in the middle of the night and went to the bathroom but felt dizzy and fell down. She hit her head and passed out for about a minute, and came around spontaneously. She does not think she had a seizure and sees she had felt dizzy and lightheaded before falling down. She was admitted about a week ago at [facility] for complaints of chest pain and shortness of breath with exertion, and had a cardiac work-up with a negative stress test. Patient was diagnosed with metastatic ovarian cancer about 2 months ago and has been having chemotherapy. She had paracentesis 1 day prior to admission at the [facility] with removal of 5.78 L of blood-tinged fluid. She did not receive any albumin after fluid was removed. She went to [facility] ED where she was found to be orthostatics positive and hypotensive. She was hydrated with IV fluids and transferred to the [facility]. She was directly admitted to [facility]. On arrival, temperature was 97.2 with blood pressure one 1/53, pulse rate of 77 and respiratory of 18. CBC showed WBC of 3.7 with hemoglobin of 11.1 and platelets of 135. Chemistry was unremarkable with creatinine of 0.72. She has been admitted to be managed for syncope due to orthostatic hypotension. Past Medical History Past Medical History (Chronic Problems): Chronic Problems Ovarian cancer (Chronic) Hypothyroidism (Chronic) Anxiety and depression (Chronic) HLD (hyperlipidemia) (Chronic) Diabetes mellitus, type II (Chronic) Former tobacco use (Chronic) Allergies metformin Allergy (Verified 03/01/20 13:26) Rash Home Medications: Ambulatory Orders Medication Instructions Recorded Atorvastatin Calcium 20 mg PO QHS 02/20/20 Cetirizine HCl 10 mg PO QHS 02/20/20 Dexamethasone [Decadron] 4 mg PO Q6H 02/20/20 Docusate Sodium 100 mg PO BID 02/20/20 Levothyroxine [Synthroid] 100 mcg PO DAILY 02/20/20 Melatonin 3 mg PO QHS 02/20/20 Ondansetron HCl [Zofran] 4 mg PO Q8H PRN PRN 02/20/20 Oxycodone [Oxyir] 5 mg PO Q6H PRN PRN 02/20/20 Polyethylene Glycol 3350 [Miralax] 17 gm PO DAILY 02/20/20 Potassium Chloride 20 meq PO DAILY 02/20/20 Reglan 10 mg PO TID 02/20/20 Ibuprofen 600 mg PO TID PRN PRN #12 tab 03/01/20 Ondansetron [Zofran Odt] 4 mg PO Q8H PRN PRN #10 tab 03/01/20 Oxycodone [Oxyir] 5 mg PO Q6H PRN PRN 4 Days #14 tab 03/01/20 Smz/Tmp Ds [Bactrim Ds] 1 tab PO BID #6 tab 03/01/20 Tamsulosin HCl [Flomax] 0.4 mg PO DAILY #7 cap 03/01/20 Surgical History: - - Unclear gallbladder intervention as noted stones removed but her gallbladder was not, x1. 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 Review of Systems Constitutional: Reports: Malaise, Weakness, Fatigue. Denies: Chills, Fever, Weight Change Eyes: Denies: Blurred vision HEENT: Denies: Head Aches, Sinus Congestion, Sinus Drainage Cardiovascular: Denies: Chest Pain, Palpitations Respiratory: Denies: Cough, Shortness of Breath, Shortness of breath at rest, Shortness of breath upon exertion, Sputum production Gastrointestinal: Denies: Abdominal Pain, Nausea, Vomiting Genitourinary: Denies: Dysuria Musculoskeletal: Denies: Joint Pain, Joint Tenderness Skin: Denies: Rash, Wounds Neurological: Denies: Numbness, Tingling, Focal weakness Psychiatric: Denies: Anxiety, Depression, Homicidal Ideations, Suicidal Ideations Hematologic/ Lymphatic: Denies: Easy Bruising, Easy Bleeding VTE Information - Inpt Only VTE Present on Admission: No VTE Pharm Prophylaxis ordered?: Yes - Physical Exam Vitals/I&O's: Weight: 147 lb 4.301 oz Body Mass Index (BMI) 24.5 General: Alert, Oriented x3, Cooperative, No apparent distress, Lethargic HEENT: Atraumatic, PERRLA, EOMI, Normocephalic Oral: Dry Mucosa Neck: Supple, No JVD, Negative Carotid Bruits Lungs: Clear to auscultation, Normal air movement, No rhonchi, No wheeze, No rales Cardiovascular: Regular rate, Regular Rhythm, Normal S1, Normal S2, No murmurs Abdomen: Bowel Sounds Present, Soft, Non Tender, No Hepato-splenomegaly, - - mildly distended, positive shifting dullness- ascites Extremities: No clubbing, No cyanosis, No edema, Capillary Refill Less than 3 Seconds Skin: No rashes, No breakdown Musculoskeletal: No Tenderness to Palpation of Joints or Extremities Lymphatic: No Cervical, Supraclavicular, or Inguinal Adenopathy Neurological: Cranial nerves II-XII grossly intact, Neuro grossly intact, Motor Exam 5/5 strength throughout Psych/Mental Status: Normal Affect, Appropriate, Alert and oriented to time, place, person, mood and affect Assessment/Plan All Active Problems Chest pain (Acute) 59 y/o admitted with a complaint of syncope 1. Syncope due to orthostatic hypotension Orthostatics were positive at outside hospital. Admit to [facility] with telemetry. Check orthostatics. Fall precautions. PT OT consults. Hydrate aggressively with IV fluid normal saline at 150 cc/h. Give IV albumin 25 g once as she had paracentesis with removal of about 5.8 L of fluid and did not receive any albumin afterwards and this is likely contributing to her orthostatic hypotension. 2. Orthostatic hypotension due to paracentesis Under 1. 3. Metastatic ovarian cancer diagnosed ~ 2 months ago follows with Dr Flood undergoing chemotherapy 4. Hypothyroidism: on synthroid 5. Recent diagnosis of kidney stone Patient was diagnosed with kidney stone after she went to the ED yesterday with abdominal pain. She was started on Flomax which is likely also contributing to hypotension. Will DC Flomax. Hydrate with IV fluids. DVT prophylaxis: Lovenox CODE STATUS: Full code Patient counseled extensively about different types of CODE STATUS including full code, DNR CCA and DNR CCA. Patient elects to be full code. Total cqan-od-btmd time 16 minutes. OBSV E&M: 29857 Initial observation care L2 Procedures: 66024 Advncd Care Plan 30 Min
[2020-03-02 11:52] LABS: Hematocrit 33.8 % (37-47); Hemoglobin 11.1 g/dL (12.0-15.0); Mean Corp Hgb Conc 32.8 g/dL (32-36); Mean Corpuscular Volume 94.4 fL (81-99); Mean Platelet Vol. 9.8 fl (6.2-12.0); Platelet Count 135 K/mm3 (150-450); RBC Distribution Width CV 14.3 % (11.6-14.6); RBC Distribution Width SD 48.7 fl (35.1-43.9); Red Blood Count 3.58 M/mm3 (4.2-5.4); White Blood Count 3.7 K/mm3 (4.4-11.0)
[2020-03-02 12:06] LABS: ALB/GLOB Ratio 0.7 RATIO (0.9-2.4); AST(SGOT) 32 U/L (15-37); Alanine Aminotransfer ALT/SGPT 19 U/L (13-56); Alkaline Phosphatase 77 U/L (45-117); Anion Gap 8 (5-15); BUN 27 mg/dL (7-18); BUN/Creat Ratio 37.6 RATIO (10-20); Calcium,Total 7.4 mg/dL (8.5-10.1); Chloride 106 mmol/L (98-107); Creatinine, Serum 0.72 mg/dL (0.55-1.02); EST Glomerular Filtration Rate 89 mL/min (>60); Est Glom Filt Rate - Afr Amer 107 mL/min (>60); Estimated Creatinine Clearance 76.64 ml/min; Globulin 2.7 g/dL (2.2-4.2); Glucose 121 mg/dL (74-106); Magnesium 1.9 mg/dL (1.6-2.6); Potassium 3.5 mmol/L (3.5-5.1); Protein, Total 4.7 g/dL (6.4-8.2); Sodium Level 139 mmol/L (136-145)
[2020-03-02] MEDS: Ondansetron 4 MG/2 ML Vial IV ×2 (12:39→22:12)
[2020-03-02] MEDS: Albumin Human 25% (100 mL) 25 GM/100 ML BAG IV (12:43)
[2020-03-02] MEDS: oxyCODONE 5 MG Tablet PO ×2 (16:10→22:06)
[2020-03-02 16:20] VITALS: BP 109/55; PULSE 80; RESP 16; TEMP 36.8; O2SAT 97
[2020-03-02 16:56] VITALS: PULSE 84
[2020-03-02 19:31] VITALS: BP 112/60; PULSE 76; RESP 18; TEMP 36.7; O2SAT 99
[2020-03-02 20:23] VITALS: PULSE 73
[2020-03-02] MEDS: Atorvastatin Calcium 20 MG Tablet PO (22:06)
[2020-03-03] VITALS (12 sets, daily range): BP systolic 91–110; BP diastolic 52–63; PULSE 67–92; RESP 16–18; TEMP 36.6–36.8; O2SAT 97–99
[2020-03-03] MEDS: oxyCODONE 5 MG Tablet PO ×3 (04:13→18:34)
[2020-03-03] MEDS: Levothyroxine 100 MCG Tablet PO (05:40)
[2020-03-03] MEDS: 0.9% Normal Saline 1,000 ML 150 ML IV (05:40)
[2020-03-03 06:06] LABS: Absolute Neutrophil Count 2.8 X10^3/uL (2.0-7.7); Eosinophil# 0.15 X10^3/uL; Eosinophils% 4.5 % (0-5); Hematocrit 32.6 % (37-47); Hemoglobin 10.6 g/dL (12.0-15.0); Lymphocyte % 11.9 % (19-41); Mean Corp Hgb Conc 32.5 g/dL (32-36); Mean Corpuscular Hgb 30.5 pg (27.0-32.0); Mean Corpuscular Volume 93.9 fL (81-99); Mean Platelet Vol. 10.1 fl (6.2-12.0); Monocyte# 0.04 X10^3/uL; Monocyte% 1.2 % (0-10); NRBC Flagged by Analyzer 0 % (0-5); Neutrophil # 2.75 X10^3/uL (2.7-7.7); Neutrophil % 82.1 % (47-70); POSITIVE DIFFERENTIAL YES; Platelet Count 118 K/mm3 (150-450); RBC Distribution Width CV 14.2 % (11.6-14.6); Red Blood Count 3.47 M/mm3 (4.2-5.4); White Blood Count 3.4 K/mm3 (4.4-11.0)
[2020-03-03 06:09] LABS: Differential Indicated SCAN CRITERIA MET
[2020-03-03 06:31] LABS: Anion Gap 7 (5-15); BUN 20 mg/dL (7-18); BUN/Creat Ratio 29.3 RATIO (10-20); Calcium,Total 7.4 mg/dL (8.5-10.1); Chloride 106 mmol/L (98-107); Creatinine, Serum 0.68 mg/dL (0.55-1.02); EST Glomerular Filtration Rate 94 mL/min (>60); Est Glom Filt Rate - Afr Amer 114 mL/min (>60); Estimated Creatinine Clearance 81.15 ml/min; Glucose 108 mg/dL (74-106); Potassium 3.2 mmol/L (3.5-5.1); Sodium Level 138 mmol/L (136-145)
[2020-03-03 06:50] LABS: Differential Comment SCANNED
[2020-03-03] MEDS: Enoxaparin 40 MG/0.4 ML Syringe SC (08:32)
--- NOTE | 2020-03-03 09:42 | PN_ITS ---
Subjective: Patient seen and examined. SHe complains of feeling weak today and doesnt feel well. She still feels mildly dizzy. She also complains of epigstric pain, and had been vomiting since morning. She complains of frequency of urination, and per her nurse, urine looked cloudy this morning. Review of systems otherwise negative. She has remained hemodynamicallys table today. Labs and vitals reviewed, potassium is 3.2 today. Vitals/I&O's: Vital Signs Temp Pulse Resp BP Pulse Ox 97.9 F 73 18 108/55 L 97 03/03/20 02:00 03/03/20 07:45 03/03/20 02:00 03/03/20 07:19 03/03/20 02:00 Oxygen Delivery Method Room Air Weight: 147 lb 4.301 oz Body Mass Index (BMI) 24.5 Orthostatic Vital Signs Start: 03/03/20 06:40 Freq: 0800 Status: Active Protocol: Activity Type Activity Date Activity User E-Sign Co-Sign Detail Recorded Client Recorded Date Recorded By Document 03/03/20 07:19 CDS [id number] 03/03/20 07:24 CDS 03/03/20 07:19 Orthostatic Vitals Standing -Blood Pressure (90/60-120/80) 91/60 -Extremity Use Left Arm -Pulse Rate (60-100) 92 Sitting -Blood Pressure (90/60-120/80) 107/53 L -Extremity Use Left Arm -Pulse Rate (60-100) 76 Lying -Blood Pressure (90/60-120/80) 108/55 L -Extremity Use Left Arm -Pulse Rate (60-100) 76 Intake and Output for Last 24 Hours 03/01/20 03/02/20 03/03/20 23:59 23:59 23:59 Intake Total 2182.5 / 2182.5 937.5 / 937.5 Output Total 400 / 400 Balance 2182.5 / 2182.5 537.5 / 537.5 General: Alert, Oriented x3, Cooperative, No apparent distress, Lethargic HEENT: Atraumatic, PERRLA, EOMI, Normocephalic Oral: Dry Mucosa Neck: Supple, No JVD, Negative Carotid Bruits Lungs: Clear to auscultation, Normal air movement, No rhonchi, No wheeze, No rales Cardiovascular: Regular rate, Regular Rhythm, Normal S1, Normal S2, No murmurs Abdomen: Bowel Sounds Present, Soft, mild suprapubic and epigastric tenderness, No Hepato-splenomegaly, - - minimally distended, positive shifting dullness- ascites Extremities: No clubbing, No cyanosis, No edema, Capillary Refill Less than 3 Seconds Skin: No rashes, No breakdown Musculoskeletal: No Tenderness to Palpation of Joints or Extremities Lymphatic: No Cervical, Supraclavicular, or Inguinal Adenopathy Neurological: Cranial nerves II-XII grossly intact, Neuro grossly intact, Motor Exam 5/5 strength throughout Psych/Mental Status: Normal Affect, Appropriate, Alert and oriented to time, place, person, mood and affect Laboratory Results 03/02/20 11:40: WBC 3.7 L, RBC 3.58 L, Hgb 11.1 L, Hct 33.8 L, MCV 94.4, MCH 31.0, MCHC 32.8, RDW Std Deviation 48.7 H, RDW Coeff of Frank 14.3, Plt Count 135 L, MPV 9.8 03/02/20 11:40: Sodium 139, Potassium 3.5, Chloride 106, Carbon Dioxide 25.0, Anion Gap 8, BUN 27 H, Creatinine 0.72, Estim Creat Clear Calc 76.64, Est GFR (MDRD) Af Amer 107, Est GFR (MDRD) Non-Af 89, BUN/Creatinine Ratio 37.6 H, Glucose 121 H, Calcium 7.4 L, Magnesium 1.9, Total Bilirubin 0.80, AST 32, ALT 19, Alkaline Phosphatase 77, Total Protein 4.7 L, Albumin 2.0 L, Globulin 2.7, Albumin/Globulin Ratio 0.7 L 03/03/20 05:45: WBC 3.4 L, RBC 3.47 L, Hgb 10.6 L, Hct 32.6 L, MCV 93.9, MCH 30.5, MCHC 32.5, RDW Std Deviation 48.0 H, RDW Coeff of Frank 14.2, Plt Count 118 L, MPV 10.1, Immature Gran % (Auto) 0.300, Neut % (Auto) 82.1 H, Lymph % (Auto) 11.9 L, [place] % (Auto) 1.2, Eos % (Auto) 4.5, Baso % (Auto) 0.0, Absolute Neuts (auto) 2.8, Absolute Lymphs (auto) 0.40 L, Nucleated RBC % 0, Differential Comment SCANNED, Diff Path Review January03/03/20 05:45: Sodium 138, Potassium 3.2 L, Chloride 106, Carbon Dioxide 25.0, Anion Gap 7, BUN 20 H, Creatinine 0.68, Estim Creat Clear Calc 81.15, Est GFR (MDRD) Af Amer 114, Est GFR (MDRD) Non-Af 94, BUN/Creatinine Ratio 29.3 H, Glucose 108 H, Calcium 7.4 L Current Medications Atorvastatin Calcium (Lipitor) 20 mg PO QHS [facility] Last Admin: 03/02/20 22:06 Dose: 20 mg Documented by: Dextrose (D50w Syringe) 0 gm IV X1 PRN; Protocol PRN Reason: Hypoglycemia Enoxaparin Sodium (Lovenox) 40 mg SC DAILY [facility] Last Admin: 03/03/20 08:32 Dose: 40 mg Documented by: Glucagon () 1 mg IM .X1 PRN PRN Reason: Hypoglycemia Sodium Chloride () 250 mls @ 15 mls/hr IV .[id number] PRN PRN Reason: Saline Flush Sodium Chloride () 250 mls @ 15 mls/hr IV .[id number] PRN PRN Reason: Additional IVPB Infusion Sodium Chloride () 1,000 mls @ 150 mls/hr IV .[id number] [facility] Stop: 03/03/20 14:04 Last Admin: 03/03/20 05:40 Dose: 150 mls/hr Documented by: Levothyroxine Sodium (Synthroid) 100 mcg PO DAILY@0600 [facility] Last Admin: 03/03/20 05:40 Dose: 100 mcg Documented by: Nitroglycerin (Nitrostat) 0.4 mg SUBLINGUAL Q5M PRN PRN Reason: CARDIAC/CHEST PAIN Nutritional Formula (Lactose Free) (Glucerna Shake) 120 ml PO 4X/DAY [facility] Ondansetron HCl (Zofran) 4 mg IV Q8H PRN PRN PRN Reason: NAUSEA/VOMITING Last Admin: 03/02/20 22:12 Dose: 4 mg Documented by: Ondansetron HCl (Zofran Odt) 4 mg PO Q8H PRN PRN Reason: NAUSEA/VOMITING Oxycodone HCl (Oxyir) 5 mg PO Q6H PRN PRN PRN Reason: Pain Score 1-10/10 Last Admin: 03/03/20 04:13 Dose: 5 mg Documented by: Sodium Chloride () 10 - 40 ml IV UD PRN PRN Reason: SALINE FLUSH STROKE Vital Signs/Narrative: Vital Signs Pulse Pulse Pulse Pulse BP BP BP 03/03/20 07:45 73 03/03/20 07:19 76 76 92 108/55 L 107/53 L 91/60 Medical Necessity - Tobacco Use Smoking Status: Former smoker Assessment/Plan All Active Problems Chest pain (Acute) 59 y/o admitted with a complaint of syncope 1. Syncope due to orthostatic hypotension * currently on IVF * orthostatics this morning are negative, though BP on standing up is 91/60 * received IV albumin 25gram once. * fall precautions; PT/OT consult * continue IVF @ 125cc/hr * encourage liberal oral fluids * 2. Orthostatic hypotension due to paracentesis * Under 1. * 3. UTI * noted to have cloudy urine this morning and is having frequency of urination. Also a suprapubic pain and tenderness * start IV ceftriaxone; get UA * 4. Metastatic ovarian cancer * diagnosed ~ 2 months ago * follows with Dr Flood * undergoing chemotherapy * 5. Hypothyroidism: on synthroid 6. Recent diagnosis of kidney stone * stable. Flomax dc'd due to orthostatic hypotension * continue gentle hydration with IV fluids. * DVT prophylaxis: Lovenox CODE STATUS: Full code * OBSV E&M: 28915 Subsequent observation care L2
[2020-03-03 10:47] LABS: Color, Urine Yellow (Yellow); Glucose, Dipstick Normal (Normal); Ketone-Dipstick 50 mg/dl (Negative); Leukocyte Esterase-Dipstick Negative /ul (Negative); Nitrite-Dipstick Negative (Negative); Occult Blood-Urine 25 /ul (Negative); Protein-Dipstick 100 mg/dl (Negative); Urine Bilirubin Dipstick Negative (Negative); Urine Clarity Cloudy (Clear); Urine Urobilinogen 1 mg/dl (Normal)
[2020-03-03] MEDS: Glucerna Shake 120 ML LIQUID PO (10:52)
[2020-03-03] MEDS: Ondansetron 4 MG/2 ML Vial IV ×2 (11:01→18:58)
[2020-03-03 11:40] LABS: Bedside Glucose 105 mg/dL (70-110)
[2020-03-03] MEDS: 0.9% Saline Lock 10 ML Syringe IV (12:18)
--- NOTE | 2020-03-03 15:25 | NURSING ---
pt states the oxyir from earlier was effective but now having 10 out of 10 pain in her abd. Grimacing and moans at times.
--- NOTE | 2020-03-03 15:45 | NURSING ---
This nurse informed by Nohelia Anderson RN that pt is having occasional PVC's and pauses on telemonitor. Dr. Condon made aware via cortext and ordered Magnesium level via lab blood draw.
[2020-03-03 15:58] LABS: Magnesium 1.8 mg/dL (1.6-2.6)
[2020-03-03] MEDS: Ceftriaxone 1 GM/50 ML BAG IV (16:08)
[2020-03-03] MEDS: Acetaminophen 325 MG Tablet 650 MG PO (16:08)
[2020-03-03] MEDS: BENZOCAINE/MENTHOL 1 LOZENGE MUCOUS MEM (21:38)
[2020-03-03] MEDS: Atorvastatin Calcium 20 MG Tablet PO (21:38)
[2020-03-04] VITALS (10 sets, daily range): BP systolic 98–125; BP diastolic 52–66; PULSE 76–98; RESP 16–18; TEMP 36.7–36.9; O2SAT 96–98
[2020-03-04] MEDS: Ondansetron ODT 4 MG Tablet PO (00:54)
[2020-03-04] MEDS: oxyCODONE 5 MG Tablet PO ×3 (00:54→21:58)
[2020-03-04] MEDS: Ondansetron 4 MG/2 ML Vial IV ×2 (06:50→14:55)
[2020-03-04] MEDS: Ceftriaxone 1 GM/50 ML BAG IV (09:28)
[2020-03-04] MEDS: Enoxaparin 40 MG/0.4 ML Syringe SC (09:28)
--- NOTE | 2020-03-04 10:08 | PCM.PN.HOSP ---
Reason for Visit: Syncope, orthostatic hypotension and diarrhea Follow-up for right kidney stone Objective: Complaint of diffuse abdominal pain that started on her left side of the abdomen. Denies burning micturition but has increased frequency and urgency. No fever. Patient also complains of nausea and vomiting and is given Phenergan. Has diarrhea about 3 times moderate to large as per nursing staff. Patient said she was recently found kidney stone about a week ago and complained of diffuse abdominal pain. Patient had CT abdomen done on 03/01/2020 and shows mild to moderate degree of right hydroureter down to the midportion of ureter. Cortical thinning and scarring in the upper lateral portion of right kidney. 4 mm calculus in distal portion of the right ureter. Normal left kidney. I talked to her oncologist Dr. Flood. According to him, patient had previous CT scan done outside was probably in [facility]. Vitals/I&O's: Vital Signs Temp Pulse Resp BP Pulse Ox 98.1 F 90 18 125/66 H 97 03/04/20 09:37 03/04/20 09:49 03/04/20 09:37 03/04/20 09:37 03/04/20 09:37 Oxygen Delivery Method Room Air Weight: 147 lb 4.301 oz Body Mass Index (BMI) 24.5 Orthostatic Vital Signs Start: 03/03/20 06:40 Freq: Status: Active Protocol: Activity Type Activity Date Activity User E-Sign Co-Sign Detail Recorded Client Recorded Date Recorded By Document 03/03/20 07:19 CDS [id number] 03/03/20 07:24 CDS 03/03/20 07:19 Orthostatic Vitals Standing -Blood Pressure (90/60-120/80) 91/60 -Extremity Use Left Arm -Pulse Rate (60-100) 92 Sitting -Blood Pressure (90/60-120/80) 107/53 L -Extremity Use Left Arm -Pulse Rate (60-100) 76 Lying -Blood Pressure (90/60-120/80) 108/55 L -Extremity Use Left Arm -Pulse Rate (60-100) 76 Intake and Output for Last 24 Hours 03/02/20 03/03/20 03/04/20 23:59 23:59 23:59 Intake Total 2182.5 / 2182.5 2737.5 / 2737.5 222 / 222 Output Total 500 / 500 200 / 200 Balance 2182.5 / 2182.5 2237.5 / 2237.5 General: Alert, Oriented x3, Cooperative HEENT: Atraumatic, PERRLA, EOMI, Normocephalic Oral: No Gingival or Mucosal Lesions/ Ulcerations, Dry Mucosa Neck: Supple, No JVD, Negative Carotid Bruits, - - Has Mediport Lungs: Clear to auscultation, No rhonchi, No wheeze, No rales, Diminished Cardiovascular: Regular rate, Regular Rhythm, Normal S1, Normal S2, No murmurs Abdomen: Bowel Sounds Present, Soft, Tender - Mild tenderness present over upper abdomen. : Mild bilateral renal angle tenderness. No suprapubic tenderness, - Extremities: No edema, Capillary Refill Less than 3 Seconds Skin: No rashes, No breakdown Musculoskeletal: No Tenderness to Palpation of Joints or Extremities, Arthritic Changes, Muscle Wasting Neurological: Cranial nerves II-XII grossly intact Psych/Mental Status: Normal Affect, Appropriate Laboratory Results 03/03/20 10:16: Urine Color Yellow, Urine Clarity Cloudy, Urine pH 5.0, Ur Specific [place] 1.020, Urine Protein 100 H, Urine Glucose (UA) Normal, Urine Ketones 50 H, Urine Occult Blood 25 H, Urine Nitrite Negative, Urine Bilirubin Negative, Urine Urobilinogen 1 H, Ur Leukocyte Esterase Negative 03/03/20 11:19: POC Glucose 105 03/03/20 11:40: Magnesium 1.8 Current Medications Acetaminophen (Tylenol) 650 mg PO Q6H PRN PRN PRN Reason: Pain Score 1-10/10 Last Admin: 03/03/20 16:08 Dose: 650 mg Documented by: Atorvastatin Calcium (Lipitor) 20 mg PO QHS [facility] Last Admin: 03/03/20 21:38 Dose: 20 mg Documented by: Dextrose (D50w Syringe) 0 gm IV X1 PRN; Protocol PRN Reason: Hypoglycemia Enoxaparin Sodium (Lovenox) 40 mg SC DAILY [facility] Last Admin: 03/04/20 09:28 Dose: 40 mg Documented by: Glucagon () 1 mg IM .X1 PRN PRN Reason: Hypoglycemia Sodium Chloride () 250 mls @ 15 mls/hr IV .[id number] PRN PRN Reason: Saline Flush Last Admin: 03/04/20 06:04 Dose: 15 mls/hr Documented by: Sodium Chloride () 250 mls @ 15 mls/hr IV .[id number] PRN PRN Reason: Additional IVPB Infusion Ceftriaxone Sodium (Rocephin) 1 gm in 50 mls @ 100 mls/hr IV Q24 [facility] Last Admin: 03/04/20 09:28 Dose: 100 mls/hr Documented by: Sodium Chloride () 1,000 mls @ 75 mls/hr IV .[id number] [facility] Levothyroxine Sodium (Synthroid) 100 mcg PO DAILY@0600 [facility] Last Admin: 03/04/20 05:21 Dose: Not Given Documented by: Nitroglycerin (Nitrostat) 0.4 mg SUBLINGUAL Q5M PRN PRN Reason: CARDIAC/CHEST PAIN Nutritional Formula (Lactose Free) (Glucerna Shake) 120 ml PO 4X/DAY [facility] Last Admin: 03/04/20 09:28 Dose: Not Given Documented by: Ondansetron HCl (Zofran) 4 mg IV Q8H PRN PRN PRN Reason: NAUSEA/VOMITING Last Admin: 03/04/20 06:50 Dose: 4 mg Documented by: Ondansetron HCl (Zofran Odt) 4 mg PO Q8H PRN PRN Reason: NAUSEA/VOMITING Last Admin: 03/04/20 00:54 Dose: 4 mg Documented by: Oxycodone HCl (Oxyir) 5 mg PO Q6H PRN PRN PRN Reason: Pain Score 1-10/10 Last Admin: 03/04/20 06:51 Dose: 5 mg Documented by: Promethazine HCl (Phenergan) 12.5 mg IV Q6H PRN PRN PRN Reason: NAUSEA/VOMITING Sodium Chloride () 10 - 40 ml IV UD PRN PRN Reason: SALINE FLUSH Last Admin: 03/03/20 12:18 Dose: 20 ml Documented by: Throat Lozenges (Cepacol Sore Throat Lozenge) 1 lozenge MUCOUS MEM Q2H PRN PRN PRN Reason: SORE THROAT Last Admin: 03/03/20 21:38 Dose: 1 lozenge Documented by: STROKE Vital Signs/Narrative: Vital Signs Temp Pulse Resp BP Pulse Ox 03/04/20 09:49 90 03/04/20 09:37 98.1 F 76 18 125/66 H 97 03/04/20 07:30 92 Medical Necessity - Tobacco Use Smoking Status: Former smoker Assessment/Plan All Active Problems Chest pain (Acute) This is a 59-year-old female with history of ovarian cancer, had first cycle of chemotherapy on 02/28/[address] Flood was directly admitted from [place] ER for syncope. 1. Syncope due to orthostatic hypotension: Patient is still has orthostatic hypotension, feeling weak and abdominal pain. Patient having diarrhea and vomiting. Continue IV fluid. IV albumin 25 g once ordered. PT and OT. 2. Orthostatic hypotension due to paracentesis, nausea and vomiting and post chemotherapeutic adverse effect. Diarrhea with suspicion of C. difficile as patient was on Bactrim at home: Stool for C. difficile, occult blood, leukocytes and enteric bacteriology panel ordered. If negative, will order Imodium for symptomatic control of diarrhea. 3. UTI: Patient complain of suprapubic pain and tenderness. Increased frequency and urgency but denies dysuria. On IV ceftriaxone. UA is negative for pyuria, nitrite. Urine culture ordered. 4. Metastatic ovarian cancer with paracentesis: Diagnosed 2 months ago. Follow[address] with Dr Flood. Patient had 5.8 L paracentesis done on 03/01/2020. 5. Hypothyroidism: on synthroid 6. Recent diagnosis of kidney stone: Flomax resumed. CT scan reviewed and shows 4 mm stone in distal right ureter with right hydroureter, mild to moderate in severity. Urologist Dr. Long consulted. DVT prophylaxis: Lovenox CODE STATUS: Full code Total time of the visit including total time spent in counseling or coordination of care, (more than 50% of the total time, spent in obtaining medical information from nurses and other ancillary care providers), discussion with oncologist, Dr. Flood and urologist Dr. Long, review of labs and imaging is 30 minutes Inpatient E&M: [id number] [facility] Hosp L3
[2020-03-04] MEDS: 0.9% Saline Lock 10 ML Syringe IV ×5 (10:26→22:33)
[2020-03-04] MEDS: proMETHazine 25 MG/ML Syringe 12.5 MG IV ×2 (10:26→22:33)
[2020-03-04] MEDS: 0.9% Normal Saline 1,000 ML 75 ML IV (10:34)
[2020-03-04 10:45] LABS: Anion Gap 6 (5-15); BUN 16 mg/dL (7-18); BUN/Creat Ratio 24.1 RATIO (10-20); Calcium,Total 7.7 mg/dL (8.5-10.1); Chloride 106 mmol/L (98-107); Creatinine, Serum 0.66 mg/dL (0.55-1.02); EST Glomerular Filtration Rate 97 mL/min (>60); Est Glom Filt Rate - Afr Amer 118 mL/min (>60); Glucose 133 mg/dL (74-106); Potassium 3.1 mmol/L (3.5-5.1); Sodium Level 139 mmol/L (136-145)
--- NOTE | 2020-03-04 11:43 | CASEMGMT ---
Social Work Note CHAPITO reviewed chart. Pt was recently at [facility] 02/20/2020-02/22/2020 and was provided resources for transportation, support groups, and counseling. Pt was recently diagnosed with Metastatic Ovarian Cancer. SW met with pt and introduced self and role at [facility]. Pt is alert and orientated x3. Pt states that she hasn't really had a chance to review resources yet. SW asked pt about any depressive symptoms currently and pt denied. Pt denied the need for any additional resources or any needs or concerns at this time. SW completed Palliative Care screening tool. Pt scored 3, doesn't meet criteria for referral at this time. Loreto Raymundo ASSISTANT FACILITY MANAGER, FACILITIES SUPERVISOR
[2020-03-04 12:18] LABS: Pathologist Review Reviewed
[2020-03-04] MEDS: Albumin Human 25% (100 mL) 25 GM/100 ML BAG IV (14:35)
--- NOTE | 2020-03-04 15:15 | CHAPLAIN ---
Type of Pastoral Visit _x__ Initial Visit ___ Follow-up Visit ___ On-call Visit ___ General Patient Visit ___ Spiritual Assessment ___ Family Conference ___ Bereavement ___ Rapid Response ___ Code Blue ___ Other (describe below) Pastoral Care Referral From ___ Patient ___ Family _x__ Nurse ___ Physician ___ Reheater Helper ___ Continuous Improvement Engineer ___ Other (describe below) Sacrament/Intervention ___ Active listening ___ Anointing ___ Mu-Ism ___ Bereavement ___ Communion ___ Mayr exploration ___ ___ Life review ___ Prayer ___ Reconciliation ___ Sacrament of Sick _x__ Supportive presence ___ Wedding ___ Other (describe below) Pastoral Comments patient states that she is not feeling good and does not need anything; pt offered spiritual and emotional care support but says I am fine
--- NOTE | 2020-03-04 16:45 | CON.PCM_ITS ---
Reason for Consult Date of Consultation: 03/04/20 Reason for Consultation: Right ureteral calculi History of Present Illness: The patient is a 59 year old female admitted to the hospital with abdominal pain CAT scan was done demonstrates a stone in the distal right ureter with mild hy dronephrosis unclear if she is passed a stone but she still having abdominal pain nausea vomiting Past Medical History Past Medical History (Chronic Problems): Chronic Problems Ovarian cancer (Chronic) Hypothyroidism (Chronic) Anxiety and depression (Chronic) HLD (hyperlipidemia) (Chronic) Diabetes mellitus, type II (Chronic) Former tobacco use (Chronic) Allergies metformin Allergy (Verified 03/01/20 13:26) Rash Home Medications: Ambulatory Orders Medication Instructions Recorded Atorvastatin Calcium 20 mg PO QHS 02/20/20 Cetirizine HCl 10 mg PO QHS 02/20/20 Dexamethasone [Decadron] 4 mg PO Q6H 02/20/20 Docusate Sodium 100 mg PO BID 02/20/20 Levothyroxine [Synthroid] 100 mcg PO DAILY 02/20/20 Melatonin 3 mg PO QHS 02/20/20 Ondansetron HCl [Zofran] 4 mg PO Q8H PRN PRN 02/20/20 Oxycodone [Oxyir] 5 mg PO Q6H PRN PRN 02/20/20 Polyethylene Glycol 3350 [Miralax] 17 gm PO DAILY 02/20/20 Potassium Chloride 20 meq PO DAILY 02/20/20 Reglan 10 mg PO TID 02/20/20 Ibuprofen 600 mg PO TID PRN PRN #12 tab 03/01/20 Smz/Tmp Ds [Bactrim Ds] 1 tab PO BID #6 tab 03/01/20 Tamsulosin HCl [Flomax] 0.4 mg PO DAILY #7 cap 03/01/20 Surgical History: - - Unclear gallbladder intervention as noted stones removed but her gallbladder was not, x1. Psychiatric History: Anxiety, Depression [employer]OM[employer] History: ovarian cancer Lives: Spouse/ Significant Other Smoking Status: Former smoker Alcohol: None Drugs: None - *Family History Maternal History Items: Diabetes Paternal History Items: - - Patient denies any market paternal family history including heart disease, diabetes or cancer. Review of Systems Constitutional: Denies: Chills, Fever, Weight Change HEENT: Denies: Head Aches, Sinus Congestion, Sinus Drainage Cardiovascular: Denies: Chest Pain, Palpitations Respiratory: Denies: Cough, Shortness of breath at rest, Sputum production Gastrointestinal: Denies: Abdominal Pain, Nausea, Vomiting Genitourinary: Denies: Dysuria Musculoskeletal: Denies: Joint Pain, Joint Tenderness Skin: Denies: Rash, Wounds Neurological: Denies: Numbness, Tingling, Focal weakness Psychiatric: Denies: Anxiety, Depression, Homicidal Ideations, Suicidal Ideations Hematologic/ Lymphatic: Denies: Easy Bruising, Easy Bleeding Physical Exam - Physical Exam Vital Signs Temp 98.1 F 03/04/20 09:37 Pulse 94 03/04/20 11:27 Resp 18 03/04/20 09:37 BP 125/66 H 03/04/20 09:37 Pulse Ox 97 03/04/20 09:37 Intake & Output 03/02/20 03/03/20 03/04/20 23:59 23:59 23:59 Intake Total 2182.5 / 2182.5 2737.5 / 2737.5 351.75 / 351.75 Output Total 500 / 500 300 / 300 Balance 2182.5 / 2182.5 2237.5 / 2237.5 51.75 / 51.75 Weight: 66.8 kg 66.8 kg Intake: Oral 180 / 180 750 / 750 Intake, IV Amount 2001.5 / 2001.5 1986.5 / 1986.5 351.75 / 351.75 0.9% Normal Saline 1,000 ML @ 1902.5 / 1902.5 1937.5 / 1937.5 150 mls/hr IV .Q6H40M [facility] Rx#: [id number] 0.9% Normal Saline 250 ML @ 15 301.75 / 301.75 mls/hr IV .[id number] PRN Rx#: [id number] Albumin Human 25% (100 mL) 25 100 / 100 GM/100 ML25 gm In 100 ml @ 60 mls/hr IV X1 ONE Rx#:[id number] Rocephin 1 gm In 50 ml @ 100 50 / 50 50 / 50 mls/hr IV Q24 [facility] Rx#:[id number] Output: Urine 400 / 400 200 / 200 Emesis 100 / 100 100 / 100 Other: Number of Voids 1 3 Number of Bowel Movements 3 General: Alert, Oriented x3 HEENT: Atraumatic Oral: Moist Mucosa Neck: Supple Lungs: Normal air movement Cardiovascular: Regular rate Abdomen: Soft Laboratory Tests Past 24 Hrs 03/03/20 03/04/20 05:45 10:14 Diff Path Review Reviewed Sodium 139 Potassium 3.1 L Chloride 106 Carbon Dioxide 27.0 Anion Gap 6 BUN 16 Creatinine 0.66 Estim Creat Clear Calc 83.60 Est GFR (MDRD) Af Amer 118 Est GFR (MDRD) Non-Af 97 BUN/Creatinine Ratio 24.1 H Glucose 133 H Calcium 7.7 L Assessment/Plan All Active Problems Chest pain (Acute) 59-year-old female with a right ureteral calculi obstruction still symptomatic plan to proceed with cystoscopy right ureteroscopy laser lithotripsy of stone and stent placement wire on the schedule for this Wednesday n.p.o. at midnight
[2020-03-04] MEDS: Tamsulosin HCl 0.4 MG Capsule PO (18:26)
[2020-03-04] MEDS: Menthol/Lanolin/Calamine/Znox 113 GM Tube 1 APPLIC TOPICAL (21:44)
[2020-03-04] MEDS: Atorvastatin Calcium 20 MG Tablet PO (21:45)
[2020-03-05] VITALS (11 sets, daily range): BP systolic 102–117; BP diastolic 51–65; PULSE 81–97; RESP 14–20; TEMP 36.8; O2SAT 97–98
--- NOTE | 2020-03-05 | IMM_PTH ---
PATIENT: LIVIER BULLOCK LOC: MS3 U#:[id number] AGE/SX: 59/F ROOM: MS319 RE03/04/[address]: Dr. Marcos Garcia MD : 1960 BED: 1 DIS: 03/08/2020 SPEC #: [id number] RECD: 03/07/20 12:08 STATUS: SOUT REQ #: [id number] MANN: 03/05/20 00:[address]: Marcos Garcia DEPT: IMMUNOHISTOCHEMISTRY RECD BY: Yolanda Levin ENTERED: 03/07/20 12:09 SP TYPE: IMMUNO OTHR DR: MD Dr. Bay Villanueva DO Dr. Eric Jopperi, DO Dr. Juan Miguel Proano, MD Dr. Lapman Lun, MD Dr. Robert Leininger, MD Tissues: PARACENTESIS FLUID Procedures: Calretinin (initial) CA-125 (add) CK7 (add) CK8 (add) Vimentin (add) PHYSICIAN & [place] [id number] SPECIMEN INFORMATION: Tissue Source: Paracentesis fluid Clinical Info: Ascites Specimen Number: [id number] CPT code: 24342, 09088 x4 METHODOLOGY: Deparaffinized sections of prefer/formalin-fixed tissue or PAP/DQ stained slides are incubated with monoclonal/polyclonal antibodies/oligonucleotide probes. Localization is made via biotin free immunoperoxidase method. Appropriate controls are performed and reacted as expected. Results on target cell population are indicated in the following table: RESULTS: ANTIBODY / CLONE RESULT CALRET (polyclonal) negative Vimentin (V9) negative CK7 (OV-TL12/30) positive CK8 (15wfshQ21) positive, focal and weak CA125 (OC125) positive These tests were developed and their performance characteristics determined by [facility]. They may not have been cleared or approved by the U.S. Food and Drug Administration. The FDA has determined that such clearance or approval is not necessary. The above immunohistochemical/dualISH markers are ordered and reviewed by the Pathologist. INTERPRETATION: Paracentesis fluid: Malignant cells present derived from metastatic carcinoma, consistent with ovarian primary. CARLITA:jez 03/08/20
[2020-03-05 05:54] LABS: Absolute Neutrophil Count 0.5 X10^3/uL (2.0-7.7); Basophil# 0.01 X10^3/uL; Basophil% 0.9 % (0-1); Eosinophil# 0.07 X10^3/uL; Eosinophils% 6.3 % (0-5); Hematocrit 28.7 % (37-47); Hemoglobin 9.6 g/dL (12.0-15.0); Mean Corp Hgb Conc 33.4 g/dL (32-36); Mean Corpuscular Volume 92.6 fL (81-99); Mean Platelet Vol. 10.1 fl (6.2-12.0); Monocyte# 0.02 X10^3/uL; Monocyte% 1.8 % (0-10); NRBC Flagged by Analyzer 0 % (0-5); Neutrophil # 0.49 X10^3/uL (2.7-7.7); Neutrophil % 44.2 % (47-70); POSITIVE COUNT YES; POSITIVE DIFFERENTIAL YES; POSITIVE MORPHOLOGY YES; Platelet Count 74 K/mm3 (150-450); RBC Distribution Width CV 14.1 % (11.6-14.6); RBC Distribution Width SD 47.7 fl (35.1-43.9)
[2020-03-05 06:19] LABS: Differential Indicated SCAN CRITERIA MET; White Blood Count 1.1 K/mm3 (4.4-11.0)
[2020-03-05 06:34] LABS: Differential Comment SCANNED
[2020-03-05] MEDS: proMETHazine 25 MG/ML Syringe 12.5 MG IV (06:38)
[2020-03-05] MEDS: 0.9% Saline Lock 10 ML Syringe IV ×3 (06:38→15:52)
[2020-03-05] MEDS: Levothyroxine 100 MCG Tablet PO (06:39)
[2020-03-05] MEDS: Menthol/Lanolin/Calamine/Znox 113 GM Tube 1 APPLIC TOPICAL ×3 (06:42→23:22)
[2020-03-05 07:51] LABS: ALB/GLOB Ratio 0.9 RATIO (0.9-2.4); AST(SGOT) 30 U/L (15-37); Alanine Aminotransfer ALT/SGPT 17 U/L (13-56); Albumin, Serum 2.2 g/dL (3.2-5.0); Alkaline Phosphatase 60 U/L (45-117); Anion Gap 7 (5-15); BUN 14 mg/dL (7-18); BUN/Creat Ratio 21.8 RATIO (10-20); Calcium,Total 7.7 mg/dL (8.5-10.1); Chloride 106 mmol/L (98-107); Creatinine, Serum 0.64 mg/dL (0.55-1.02); EST Glomerular Filtration Rate 101 mL/min (>60); Est Glom Filt Rate - Afr Amer 122 mL/min (>60); Estimated Creatinine Clearance 86.22 ml/min; Globulin 2.4 g/dL (2.2-4.2); Glucose 110 mg/dL (74-106); Potassium 3.1 mmol/L (3.5-5.1); Protein, Total 4.6 g/dL (6.4-8.2); Sodium Level 140 mmol/L (136-145)
--- NOTE | 2020-03-05 07:55 | RAD_ITS ---
STUDY: X-RAY CHEST REASON FOR EXAM: Female, 59 years old. Tachypnea TECHNIQUE: Single AP portable view of the chest. COMPARISON: Comparison is made with prior study dated March 02, 2020. FINDINGS: A right-sided port catheter is in situ. The tip is at the junction of the superior vena cava and right atrium. EKG electrodes are seen. Mild increased markings at the left lung base with blunting of the left costophrenic angle. Soft tissue density with air is seen along the medial aspect of the spine behind the heart shadow and left lower lobe suggestive of a hiatal hernia. Normal size heart. Normal mediastinum and rox. Normal visualized pulmonary arteries. Normal visualized aortic arch and descending thoracic aorta. Normal visualized thoracic spine. Normal visualized ribs, clavicles, and shoulders. Findings suggestive of a hiatal hernia. RAD/Chest 1 View (Portable) IMPRESSION: Blunting of the left costophrenic angle with mild increased markings at the left lung bases. Findings suggestive of a hiatal hernia. Electronically Signed: Ezequiel Heredia, at 9:20 EDT , Service support ,
--- NOTE | 2020-03-05 08:06 | PN_ITS ---
Patient Problems: Active and Suspected Problems Neutropenia (Acute) Taxol and carboplatin Diarrhea (Acute) Reason for Visit: Follow-up for nausea, vomiting, diarrhea. Patient was admitted with fall and syncope. Objective: Patient still complains of pain on the right side of abdomen. Had 3-4vomiting, yellowish/bilious in nature. Also had 3-4 times of loose bowel movement with no obvious blood. Blood pressure on lower side 98/52 last night the morning 102/59. No obvious fever patient felt subjective chills. No tachypnea or hypoxia. Patient was seen by urologist Dr. Trejo for right ureteral stone with right hydroureter and plan for cystoscopy on Wednesday. Vitals/I&O's: Vital Signs Temp Pulse Resp BP Pulse Ox 98.3 F 91 16 102/59 L 98 03/05/20 03:22 03/05/20 04:24 03/05/20 03:22 03/05/20 03:22 03/05/20 03:22 Oxygen Delivery Method Room Air Weight: 147 lb 4.301 oz Body Mass Index (BMI) 24.5 Orthostatic Vital Signs Start: 03/03/20 06:40 Freq: Status: Active Protocol: Activity Type Activity Date Activity User E-Sign Co-Sign Detail Recorded Client Recorded Date Recorded By Document 03/03/20 07:19 CDS [id number] 03/03/20 07:24 CDS 03/03/20 07:19 Orthostatic Vitals Standing -Blood Pressure (90/60-120/80) 91/60 -Extremity Use Left Arm -Pulse Rate (60-100) 92 Sitting -Blood Pressure (90/60-120/80) 107/53 L -Extremity Use Left Arm -Pulse Rate (60-100) 76 Lying -Blood Pressure (90/60-120/80) 108/55 L -Extremity Use Left Arm -Pulse Rate (60-100) 76 Intake and Output for Last 24 Hours 03/03/20 03/04/20 03/05/20 23:59 23:59 23:59 Intake Total 2737.5 / 2737.5 1751.75 / 2231.75 780 / 780 Output Total 500 / 500 300 / 300 Balance 2237.5 / 2237.5 1451.75 / 1931.75 780 / 780 General: Alert, Oriented x3, Cooperative HEENT: Atraumatic, PERRLA, EOMI, Normocephalic Neck: Supple, No JVD, Negative Carotid Bruits Lungs: Clear to auscultation, No rhonchi, No wheeze, No rales, Diminished - Diminished on the left lung base. Cardiovascular: Regular rate, Regular Rhythm, Normal S1, Normal S2, No murmurs Abdomen: Bowel Sounds Present, Soft, Non-Distended, Tender - Mild tenderness present on the right lower quadrant. : Mild right renal angle tenderness. No right angle fullness or swelling. No suprapubic tenderness. Extremities: No edema, Capillary Refill Less than 3 Seconds Skin: No rashes, No breakdown, - - Mild bruise on the right side of forehead Musculoskeletal: No Tenderness to Palpation of Joints or Extremities, Arthritic Changes Neurological: Cranial nerves II-XII grossly intact Psych/Mental Status: Normal Affect, Appropriate Microbiology Past 72 Hours 03/04/20 19:55 Stool C. difficile DNA Amplification - Final 03/04/20 19:55 Stool Stool Lactoferrin - Final 03/04/20 19:55 Stool Stool Occult Blood (FOREST) - Final Occult Blood Positive Laboratory Results 03/03/20 05:45: Diff Path Review Reviewed 03/04/20 10:14: Sodium 139, Potassium 3.1 L, Chloride 106, Carbon Dioxide 27.0, Anion Gap 6, BUN 16, Creatinine 0.66, Estim Creat Clear Calc 83.60, Est GFR (MDRD) Af Amer 118, Est GFR (MDRD) Non-Af 97, BUN/Creatinine Ratio 24.1 H, Glucose 133 H, Calcium 7.7 L 03/05/20 05:25: WBC 1.1 L*, RBC 3.10 L, Hgb 9.6 L, Hct 28.7 L, MCV 92.6, MCH 31.0, MCHC 33.4, RDW Std Deviation 47.7 H, RDW Coeff of Frank 14.1, Plt Count 74 L , MPV 10.1, Immature Gran % (Auto) 1.800 H, Neut % (Auto) 44.2 L, Lymph % (Auto) 45.0 H, [place] % (Auto) 1.8, Eos % (Auto) 6.3 H, Baso % (Auto) 0.9, Absolute Neuts (auto) 0.5 L, Absolute Lymphs (auto) 0.50 L, Nucleated RBC % 0, Differential Comment SCANNED, Diff Path Review January foll 03/05/20 05:25: Sodium 140, Potassium 3.1 L, Chloride 106, Carbon Dioxide 27.0, Anion Gap 7, BUN 14, Creatinine 0.64, Estim Creat Clear Calc 86.22, Est GFR (MDRD) Af Amer 122, Est GFR (MDRD) Non-Af 101, BUN/Creatinine Ratio 21.8 H, Glucose 110 H, Calcium 7.7 L, Total Bilirubin 0.70, AST 30, ALT 17, Alkaline Phosphatase 60, Total Protein 4.6 L, Albumin 2.2 L, Globulin 2.4, Albumin/Globulin Ratio 0.9 03/05/20 05:25: Phosphorus Pending, Magnesium Pending 03/05/20 07:40: COVID-19 (SHAW) Pending Current Medications Acetaminophen (Tylenol) 650 mg PO Q6H PRN PRN PRN Reason: Pain Score 1-10/10 Last Admin: 03/03/20 16:08 Dose: 650 mg Documented by: Atorvastatin Calcium (Lipitor) 20 mg PO QHS ANGELA Last Admin: 03/04/20 21:45 Dose: 20 mg Documented by: Calamine/Phenol (Calmoseptine Ointment) 1 applic TOPICAL TID ANGELA; Protocol Last Admin: 03/05/20 06:42 Dose: 1 applicatio Documented by: Dextrose (D50w Syringe) 0 gm IV X1 PRN; Protocol PRN Reason: Hypoglycemia Glucagon () 1 mg IM .X1 PRN PRN Reason: Hypoglycemia Sodium Chloride () 250 mls @ 15 mls/hr IV .[id number] PRN PRN Reason: Saline Flush Last Infusion: 03/04/20 11:23 Dose: 0 mls/hr Documented by: Sodium Chloride () 250 mls @ 15 mls/hr IV .[id number] PRN PRN Reason: Additional IVPB Infusion Ceftriaxone Sodium (Rocephin) 1 gm in 50 mls @ 100 mls/hr IV Q24 ANGELA Last Infusion: 03/04/20 10:03 Dose: Infused Documented by: Sodium Chloride () 1,000 mls @ 999 mls/hr IV .Q1H1M ONE Stop: 03/05/20 08:23 Sodium Chloride () 1,000 mls @ 100 mls/hr IV .Q10H [facility] Potassium Chloride () 10 meq in 100 mls @ 100 mls/hr IV BOLUS Q1H [facility] Stop: 03/05/20 11:59 Levothyroxine Sodium (Synthroid) 100 mcg PO DAILY@0600 [facility] Last Admin: 03/05/20 06:39 Dose: 100 mcg Documented by: Nitroglycerin (Nitrostat) 0.4 mg SUBLINGUAL Q5M PRN PRN Reason: CARDIAC/CHEST PAIN Nutritional Formula (Lactose Free) (Glucerna Shake) 120 ml PO 4X/DAY [facility] Last Admin: 03/04/20 21:45 Dose: Not Given Documented by: Ondansetron HCl (Zofran) 4 mg IV Q8H PRN PRN PRN Reason: NAUSEA/VOMITING Last Admin: 03/04/20 14:55 Dose: 4 mg Documented by: Ondansetron HCl (Zofran Odt) 4 mg PO Q8H PRN PRN Reason: NAUSEA/VOMITING Last Admin: 03/04/20 00:54 Dose: 4 mg Documented by: Oxycodone HCl (Oxyir) 5 mg PO Q6H PRN PRN PRN Reason: Pain Score 1-10/10 Last Admin: 03/04/20 21:58 Dose: 5 mg Documented by: Potassium Chloride (Potassium Chl Soln) [facility] Promethazine HCl (Phenergan) 12.5 mg IV Q6H PRN PRN PRN Reason: NAUSEA/VOMITING Last Admin: 03/05/20 06:38 Dose: 12.5 mg Documented by: Sodium Chloride () 10 - 40 ml IV UD PRN PRN Reason: SALINE FLUSH Last Admin: 03/05/20 06:38 Dose: 20 ml Documented by: Tamsulosin HCl (Flomax) 0.4 mg PO DAILY@1730 [facility] Last Admin: 03/04/20 18:26 Dose: 0.4 mg Documented by: Throat Lozenges (Cepacol Sore Throat Lozenge) 1 lozenge MUCOUS MEM Q2H PRN PRN PRN Reason: SORE THROAT Last Admin: 03/03/20 21:38 Dose: 1 lozenge Documented by: STROKE Vital Signs/Narrative: Vital Signs Pulse 03/05/20 04:24 91 Medical Necessity - Tobacco Use Smoking Status: Former smoker Assessment/Plan All Active Problems Chest pain (Acute) Neutropenia (Acute) Diarrhea (Acute) This is a 59-year-old female with history of ovarian cancer, had first cycle of chemotherapy on 02/28/[address] Flood was directly admitted from [place] ER for syncope. 1. Syncope due to orthostatic hypotension: Patient is still has orthostatic hypotension, feeling weak and abdominal pain. Patient having diarrhea and vomiting. Continue IV fluid. IV albumin 25 g once ordered. PT and OT. 03/05: Blood pressure on lower side. Lactic acid ordered. 1 L IV fluid normal saline ordered and then 100 mils per hour. 2. Orthostatic hypotension due to paracentesis, nausea and vomiting and post chemotherapeutic adverse effect. Diarrhea with suspicion of C. difficile as patient was on Bactrim at home 02/23: Stool for C. difficile negative. Occult blood positive. Stool for leukocytes positive. Enteric bacteriology panel negative. If negative, will order Imodium for symptomatic control of diarrhea. 3. Asymptomatic bacteriuria/colonization/suspicion of peritonitis: Increased frequency and urgency but denies dysuria. On IV ceftriaxone. UA is negative for pyuria, nitrite. Urine culture from 03/01 shows E. coli less than 1000 colonies suggestive of asymptomatic bacteriuria. There was plan for discharge on Bactrim by ER physician patient was later on admitted. Discussed with ID Dr. Kelly and advised paracentesis for cell count, chemistry, culture. 4. Metastatic ovarian cancer with paracentesis: Diagnosed 2 months ago[address] Follow[address] with Dr Flood. Patient had 5.8 L paracentesis done on 03/01/2020. There is no ascitic fluid labs. There is also suspicion of peritonitis as patient is having diffuse abdominal pain but mainly on the right side. Patient had 2 doses of 25 g IV albumin. Patient will need IV albumin at time of paracentesis. PT/INR ordered. 5. Hypothyroidism: on synthroid 6. Recent diagnosis of kidney stone: Flomax resumed. CT scan reviewed and shows 4 mm stone in distal right ureter with right hydroureter, mild to moderate in severity. Urologist Dr. Long consulted. 02/23: Flomax discontinued because of low blood pressure. Plan for cystoscopy on 03/06. 7. Severe protein calorie malnutrition associated with subcutaneous loss of fat and mild muscle atrophy: Regional Geodetic Advisor consult DVT prophylaxis: Lovenox discontinued CODE STATUS: Full code Total time of the visit including total time spent in counseling or coordination of care, (more than 50% of the total time, spent in obtaining medical information from nurses and other ancillary care providers), discussion with consultants Dr. Kelly, Dr. Flood and urologist Dr. Long, review of labs and imaging is 30 minutes Inpatient E&M: [id number] [facility] L[facility]
--- NOTE | 2020-03-05 08:07 | PCM.CONS.B ---
Problem List (1) Ovarian cancer Status: Chronic Qualifiers: Laterality: left Qualified Code(s): C56.2 - Malignant neoplasm of left ovary (2) Neutropenia Status: Acute Qualifiers: Neutropenia type: secondary to cancer chemotherapy Qualified Code(s): D70.1 - Agranulocytosis secondary to cancer chemotherapy; T45.1X5A - Adverse effect of antineoplastic and immunosuppressive drugs, initial encounter Comment: Taxol and carboplatin (3) Diarrhea Status: Acute Qualifiers: Diarrhea type: unspecified type Qualified Code(s): R19.7 - Diarrhea, unspecified - Consult Date of Consult: 03/05/[address] Garcia regarding patient with ovarian cancer present with near syncope and neutropenia after chemotherapy. My final recommendation will be communicated to Dr. Garcia by electronic medical records - Reason for Consult History of Present Illness Date of Admission: 03/02/20 The patient is a 59 year old F with an extensive PMH as outlined who was admitted with a complaint of syncope. e. Patient says she woke up in the middle of the night and went to the bathroom but felt dizzy and fell down after a large-volume paracentesis on Wednesday for malignant ascites. She did not had any seizure riveting, and sees she had felt dizzy and lightheaded before falling down. She was admitted about a week ago at [facility] for complaints of chest pain and shortness of breath with exertion, and had a cardiac work-up with a negative stress test. She was diagnosed with metastatic ovarian cancer about 2 months ago, but was told to start chemotherapy because of social determinant and follow-up. She started her first cycle of chemotherapy with paclitaxel carboplatin last Wednesday and she had paracentesis 1 day prior to admission at the [facility] with removal of 5.78 L of blood-tinged fluid. She did not receive any albumin after fluid was removed. She went to [facility] ED where she was found to be orthostatics positive and hypotensive. She was hydrated with IV fluids and transferred to the [facility] further evaluation. She was started on Bactrim last week because of urinary tract infection. She was directly admitted to [facility]. On arrival, temperature was 97.2 with blood pressure one 1/53, pulse rate of 77 and respiratory of 18. CBC showed WBC of 3.7 with hemoglobin of 11.1 and platelets of 135. Chemistry was unremarkable with creatinine of 0.72. She started an increased diarrhea the last couple days with abdominal pain. She had 2 previous paracentesis in [place] and also in my office. Past Medical History Past Medical History (Chronic Problems): Chronic Problems Ovarian cancer (Chronic) Hypothyroidism (Chronic) Anxiety and depression (Chronic) HLD (hyperlipidemia) (Chronic) Diabetes mellitus, type II (Chronic) Former tobacco use (Chronic) Allergies metformin Allergy (Verified 03/01/20 13:26) Rash Home Medications: Ambulatory Orders Medication Instructions Recorded Atorvastatin Calcium 20 mg PO QHS 02/20/20 Cetirizine HCl 10 mg PO QHS 02/20/20 Dexamethasone [Decadron] 4 mg PO Q6H 02/20/20 Docusate Sodium 100 mg PO BID 02/20/20 Levothyroxine [Synthroid] 100 mcg PO DAILY 02/20/20 Melatonin 3 mg PO QHS 02/20/20 Ondansetron HCl [Zofran] 4 mg PO Q8H PRN PRN 02/20/20 Oxycodone [Oxyir] 5 mg PO Q6H PRN PRN 02/20/20 Polyethylene Glycol 3350 [Miralax] 17 gm PO DAILY 02/20/20 Potassium Chloride 20 meq PO DAILY 02/20/20 Reglan 10 mg PO TID 02/20/20 Ibuprofen 600 mg PO TID PRN PRN #12 tab 03/01/20 Ondansetron [Zofran Odt] 4 mg PO Q8H PRN PRN #10 tab 03/01/20 Oxycodone [Oxyir] 5 mg PO Q6H PRN PRN 4 Days #14 tab 03/01/20 Smz/Tmp Ds [Bactrim Ds] 1 tab PO BID #6 tab 03/01/20 Tamsulosin HCl [Flomax] 0.4 mg PO DAILY #7 cap 03/01/20 Surgical History: - - Unclear gallbladder intervention as noted stones removed but her gallbladder was not, x1. 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 Review of Systems Constitutional: Reports: Malaise, Weakness, Fatigue. Denies: Chills, Fever, Weight Change Eyes: Denies: Blurred vision HEENT: Denies: Head Aches, Sinus Congestion, Sinus Drainage Cardiovascular: Denies: Chest Pain, Palpitations Respiratory: Denies: Cough, Shortness of Breath, Shortness of breath at rest, Shortness of breath upon exertion, Sputum production Gastrointestinal: Denies: Abdominal Pain, Nausea, Vomiting Genitourinary: Denies: Dysuria Musculoskeletal: Denies: Joint Pain, Joint Tenderness Skin: Denies: Rash, Wounds Neurological: Denies: Numbness, Tingling, Focal weakness Psychiatric: Denies: Anxiety, Depression, Homicidal Ideations, Suicidal Ideations Hematologic/ Lymphatic: Denies: Easy Bruising, Easy Bleeding VTE Information - Inpt Only VTE Present on Admission: No VTE Pharm Prophylaxis ordered?: Yes - Physical Exam Vitals/I&O's: Weight: 147 lb 4.301 oz Body Mass Index (BMI) 24.5 Vital Signs - 24 hr Temp Pulse Resp BP Pulse Ox 03/05/20 04:24 91 03/05/20 03:22 98.3 F 93 16 102/59 L 98 03/05/20 00:00 91 03/04/20 21:36 98.2 F 82 16 98/52 L 96 03/04/20 21:00 78 03/04/20 17:55 82 03/04/20 17:49 98.5 F 80 16 111/60 97 03/04/20 11:27 94 03/04/20 09:49 90 03/04/20 09:37 98.1 F 76 18 125/66 H 97 General: Alert, Oriented x3, Cooperative, No apparent distress, HEENT: Atraumatic, PERRLA, EOMI, Normocephalic Oral: Dry Mucosa Neck: Supple, No JVD, Negative Carotid Bruits Lungs: Clear to auscultation, Normal air movement, No rhonchi, No wheeze, No rales Cardiovascular: Regular rate, Regular Rhythm, Normal S1, Normal S2, No murmurs Abdomen: Bowel Sounds Present, slightly generalized tender, No Hepato-splenomegaly, - - mildly distended, positive shifting dullness- ascites Extremities: No clubbing, No cyanosis, No edema, Capillary Refill Less than 3 Seconds Skin: No rashes, No breakdown Musculoskeletal: No Tenderness to Palpation of Joints or Extremities Lymphatic: No Cervical, Supraclavicular, or Inguinal Adenopathy Neurological: Cranial nerves II-XII grossly intact, Neuro grossly intact, Motor Exam 5/5 strength throughout Psych/Mental Status: Normal Affect, Appropriate, Alert and oriented to time, place, person, mood and affect Assessment/Plan All Active Problems Mrs. Lynn is a 59-year-old female with stage IIIc ovarian cancer, severe protein and caloric malnutrition with malignant ascites who presented with near syncope after chemotherapy and paracentesis. She also presented with neutropenia with possible infection (bacterial peritonitis & UTI). 1. Stage III ovarian cancer; status-post first cycle of Pacitaxel & carboplatin Plan: -Continue supportive care; zofran for nausea - LMWH for DVT prophylaxis 2. Neutropenia secondary to chemotherapy Plan: -Start Granix 300mcg sq daily 3. Severe protein and caloric malnutrition secondary to above Plan: -Dietary consult and nutritional therapy 4. Diarrhea and heme positive stool -C. difficile is negative -Malabsorption and chemotherapy related Plan: -Continue supportive care and Imodium as needed 5. Possible bacterial peritonitis versus UTI -On Rocephin Plan: -Consult ID -Possible repeat paracentesis for bacterial culture and cell counts -Urology on board. cc: Dr. Denia Gamino, Dr. Estephania Flood, Dr. Marcos Garcia Office Visits / Consults: [id number] New
[2020-03-05] MEDS: 0.9% Normal Saline 1,000 ML 999 ML IV (08:20)
[2020-03-05] MEDS: Potassium Chloride 10mEq/100mL 10 MEQ/100 ML IV.SOLN. 100 MEQ IV BOLUS ×4 (08:26→13:32)
[2020-03-05 08:35] LABS: Magnesium 1.6 mg/dL (1.6-2.6); Phosphorus 1.5 mg/dL (2.5-4.9)
[2020-03-05 08:47] LABS: Lactic Acid 0.9 mmol/L (0.4-1.9)
[2020-03-05] MEDS: TBO-FILGRASTIM 300 MCG/0.5 ML ML SC (09:36)
[2020-03-05] MEDS: 0.9% Normal Saline 1,000 ML 100 ML IV ×2 (09:36→21:58)
--- NOTE | 2020-03-05 10:02 | CON.PCM_ITS ---
Reason for Consult: abd pain Consulted by: Dr. Garcia History of Present Illness: The patient is a 59 year old F with recent dx of ovarian cancer, started chemo last week, presented with orthostasis and fall at home. Paracentesis done 03/01. Went to [place] ED, transferred here, was given bactrim for suspected uti. No dysuria or other urinary symptoms. No fever or chills, no cough or SOB. Having abd pain across her abd, stabbing, not improving with BM. Had some loose stool yesterday, cdiff was neg. On ceftriaxone, not feeling better. No redness or drainage at recent paracentesis site. No issues with R chest port. No sick contacts, no change in taste/smell. Full ROS performed and neg except as noted above. - Medical History Past Medical History (Chronic Problems): Chronic Problems Ovarian cancer (Chronic) Hypothyroidism (Chronic) Anxiety and depression (Chronic) HLD (hyperlipidemia) (Chronic) Diabetes mellitus, type II (Chronic) Former tobacco use (Chronic) Allergies/Adverse Reactions: Allergies metformin Allergy (Verified 03/01/20 13:26) Rash Home Medications: Ambulatory Orders Medication Instructions Recorded Atorvastatin Calcium 20 mg PO QHS 02/20/20 Cetirizine HCl 10 mg PO QHS 02/20/20 Dexamethasone [Decadron] 4 mg PO Q6H 02/20/20 Docusate Sodium 100 mg PO BID 02/20/20 Levothyroxine [Synthroid] 100 mcg PO DAILY 02/20/20 Melatonin 3 mg PO QHS 02/20/20 Ondansetron HCl [Zofran] 4 mg PO Q8H PRN PRN 02/20/20 Oxycodone [Oxyir] 5 mg PO Q6H PRN PRN 02/20/20 Polyethylene Glycol 3350 [Miralax] 17 gm PO DAILY 02/20/20 Potassium Chloride 20 meq PO DAILY 02/20/20 Reglan 10 mg PO TID 02/20/20 Ibuprofen 600 mg PO TID PRN PRN #12 tab 03/01/20 Smz/Tmp Ds [Bactrim Ds] 1 tab PO BID #6 tab 03/01/20 Tamsulosin HCl [Flomax] 0.4 mg PO DAILY #7 cap 03/01/20 - Social History SMOKING STATUS:: Former smoker Vital Signs Temp Pulse Resp BP Pulse Ox 98.3 F 91 16 102/59 L 98 03/05/20 03:22 03/05/20 04:24 03/05/20 03:22 03/05/20 03:22 03/05/20 03:22 Oxygen Delivery Method Room Air Weight: 66.8 kg Body Mass Index (BMI) 24.5 Orthostatic Vital Signs Start: 03/03/20 06:40 Freq: Status: Active Protocol: Activity Type Activity Date Activity User E-Sign Co-Sign Detail Recorded Client Recorded Date Recorded By Document 03/03/20 07:19 CDS [id number] 03/03/20 07:24 CDS 03/03/20 07:19 Orthostatic Vitals Standing -Blood Pressure (90/60-120/80) 91/60 -Extremity Use Left Arm -Pulse Rate (60-100) 92 Sitting -Blood Pressure (90/60-120/80) 107/53 L -Extremity Use Left Arm -Pulse Rate (60-100) 76 Lying -Blood Pressure (90/60-120/80) 108/55 L -Extremity Use Left Arm -Pulse Rate (60-100) 76 Microbiology Past 72 Hours 03/04/20 19:55 C. difficile DNA Amplification - Final Stool 03/04/20 19:55 Stool Lactoferrin - Final Stool 03/04/20 19:55 Stool Occult Blood (FOREST) - Final Stool Occult Blood Positive Laboratory Tests Past 24 Hrs 03/03/20 03/04/20 03/05/20 05:45 10:14 05:25 WBC 1.1 L* RBC 3.10 L Hgb 9.6 L Hct 28.7 L MCV 92.6 MCH 31.0 MCHC 33.4 RDW Std Deviation 47.7 H RDW Coeff of Frank 14.1 Plt Count 74 L MPV 10.1 Immature Gran % (Auto) 1.800 H Neut % (Auto) 44.2 L Lymph % (Auto) 45.0 H [place] % (Auto) 1.8 Eos % (Auto) 6.3 H Baso % (Auto) 0.9 Absolute Neuts (auto) 0.5 L Absolute Lymphs (auto) 0.50 L Nucleated RBC % 0 Differential Comment SCANNED Diff Path Review Reviewed January Sodium 139 Potassium 3.1 L Chloride 106 Carbon Dioxide 27.0 Anion Gap 6 BUN 16 Creatinine 0.66 Estim Creat Clear Calc 83.60 Est GFR (MDRD) Af Amer 118 Est GFR (MDRD) Non-Af 97 BUN/Creatinine Ratio 24.1 H Glucose 133 H Lactic Acid Calcium 7.7 L Phosphorus Magnesium Total Bilirubin AST ALT Alkaline Phosphatase Total Protein Albumin Globulin Albumin/Globulin Ratio COVID-19 (SHAW) 03/05/20 03/05/20 03/05/20 05:25 05:25 07:40 WBC RBC Hgb Hct MCV MCH MCHC RDW Std Deviation RDW Coeff of Frank Plt Count MPV Immature Gran % (Auto) Neut % (Auto) Lymph % (Auto) [place] % (Auto) Eos % (Auto) Baso % (Auto) Absolute Neuts (auto) Absolute Lymphs (auto) Nucleated RBC % Differential Comment Diff Path Review Sodium 140 Potassium 3.1 L Chloride 106 Carbon Dioxide 27.0 Anion Gap 7 BUN 14 Creatinine 0.64 Estim Creat Clear Calc 86.22 Est GFR (MDRD) Af Amer 122 Est GFR (MDRD) Non-Af 101 BUN/Creatinine Ratio 21.8 H Glucose 110 H Lactic Acid Calcium 7.7 L Phosphorus 1.5 L Magnesium 1.6 Total Bilirubin 0.70 AST 30 ALT 17 Alkaline Phosphatase 60 Total Protein 4.6 L Albumin 2.2 L Globulin 2.4 Albumin/Globulin Ratio 0.9 COVID-19 (SHAW) Not Detected 03/05/20 08:10 WBC RBC Hgb Hct MCV MCH MCHC RDW Std Deviation RDW Coeff of Frank Plt Count MPV Immature Gran % (Auto) Neut % (Auto) Lymph % (Auto) [place] % (Auto) Eos % (Auto) Baso % (Auto) Absolute Neuts (auto) Absolute Lymphs (auto) Nucleated RBC % Differential Comment Diff Path Review Sodium Potassium Chloride Carbon Dioxide Anion Gap BUN Creatinine Estim Creat Clear Calc Est GFR (MDRD) Af Amer Est GFR (MDRD) Non-Af BUN/Creatinine Ratio Glucose Lactic Acid 0.9 Calcium Phosphorus Magnesium Total Bilirubin AST ALT Alkaline Phosphatase Total Protein Albumin Globulin Albumin/Globulin Ratio COVID-19 (SHAW) - Other Studies Radiology: [] reviewed Other Studies: [] Route of nutrition/ use of supplements: [] Nutritional Intake: [] IV Site: [] Khanna Catheter: [] - Physical Exam General: Alert, Oriented x3, Cooperative, No apparent distress HEENT: Atraumatic, PERRLA, EOMI Neck: Supple, No Nodes Lungs: Clear to auscultation, Normal air movement Cardiovascular: Regular rate, Regular Rhythm, No murmurs Abdomen: Distended, Tender - mild Extremities: No edema Skin: No rashes IV Site: Central Line, without redness Musculoskeletal: No Tenderness to Palpation of Joints or Extremities Neurological: Cranial nerves II-XII grossly intact - Assessment/Plan Antibiotics: [] Assessment/Plan: [] Active and Suspected Problems Neutropenia (Acute) Taxol and carboplatin Diarrhea (Acute) With abd pain, would recommend paracentesis. No fever here. Now neutropenic. Dr. Flood following. Recent UA with mild pyuria, but less than 1k ecoli. Cdiff neg, covid neg. Cont ceftriaxone for now. Will follow, thank you, d/w Dr. Garcia.
--- NOTE | 2020-03-05 10:03 | US_ITS ---
PROCEDURE: Ultrasound guided paracentesis. DATE OF EXAMINATION: March 05, 2020. INDICATION: Female, 59 years old. Ascites. PHYSICIAN: Ezequiel Heredia M.D. TECHNIQUE: The risks, benefits, and alternatives to the procedure were explained to the patient. The specific risks of bleeding, infection, and damage to bowel were detailed and accepted. Witnessed informed consent was obtained. The abdomen was ultrasonographically surveyed. An appropriate pocket of fluid was identified at the right lower quadrant. The skin were cleaned and prepped in the usual sterile fashion. Using ultrasound guidance, the peritoneal cavity was accessed with a 5-Yakut paracentesis needle/catheter system. The trocar was removed. A total of 2500 ml of blood tinge fluid were removed from the peritoneal cavity. A 100 mL sample was sent to the laboratory for analysis. The catheter was removed and a sterile dressing was applied. The procedure was well tolerated. US/Paracentesis with US IMPRESSION: Ultrasound guided paracentesis. Electronically Signed: Ezequiel Heredia, at 14:45 EDT , Service support ,
[2020-03-05] MEDS: Ceftriaxone 1 GM/50 ML BAG IV (10:59)
[2020-03-05 11:57] LABS: International Normalized Ratio 1.1; Partial Thromboplast Time 31.6 Seconds (24.1-36.2)
--- NOTE | 2020-03-05 14:15 | FLU_PTH ---
PATIENT: LIVIER BULLOCK LOC: MS3 U#:[id number] AGE/SX: 59/F ROOM: MS319 RE03/04/[address]: Dr. Marcos Garcia MD : 1960 BED: 1 DIS: 03/08/2020 SPEC #: [id number] RECD: 03/05/20 14:25 STATUS: SOUT REQ #: [id number] MANN: 03/05/20 14:[address]: Marcos Garcia DEPT: CYTOLOGY RECD BY: Tor Hanley ENTERED: 03/06/20 08:57 SP TYPE: Fluid OTHR DR: MD Dr. Dioni Villanueva DO Dr. Juan Miguel Proano, MD Dr. Lapman Lun, MD Dr. Robert Leininger, MD Tissues: PARACENTESIS FLUID Procedures: Special Stain Group II Surgery Specimen Level IV Cytospin Fluid HEADER OPERATION: Paracentesis fluid PRE-OP DIAGNOSIS: Ascites TISSUE SUBMITTED: Paracentesis fluid for cytology DIAGNOSIS CYTOLOGY Paracentesis fluid for cytology (cytospin and cell block): Malignant cells present derived from metastatic carcinoma, consistent with ovarian primary. See comment. CARLITA:jze 03/07/20 COMMENT Immunohistochemistry ([id number]) supports the above diagnosis. Please make reference to previous cytology ([id number]) Paracentesis fluid for cytology with diagnosis of malignant cells present derived from metastatic carcinoma, consistent with ovarian primary. Case has been reviewed in consultation with Dr. Alvarado who concurs with the above diagnosis. IDC:AM CYTOLOGY STUDY Slides are reviewed. CYTOLOGY GROSS Received is 70 ml of red cloudy fluid labeled with the patient's name and and designated per the requisition as paracentesis. Submitted for cytology preparation including cell block. / jez 03/06/20 TC:0 CPT: 12178, 59474
--- NOTE | 2020-03-05 14:23 | NURSING ---
pt off unit for paracentesis at this time.
--- NOTE | 2020-03-05 14:25 | CASEMGMT ---
RN CM Chart review: Patient was admitted 02/20/20-02/22/20 for chest pain with negative stress test. Patient had port placed during this stay. Patient was discharged to home. See RN CM assessment from 02/21/2020. SW provided transportation, support group, and counseling information Patient readmitted on 03/02/2020 for syncope and orthostatic hypotension. Patient had paracentesis on 03/01 at [facility] with removal of 5.78L of fluids. Patient has history of metastatic ovarian cancer, with resources given at previous visit. CM to follow for discharge plans. Disposition plan: Patient to discharge home with family support and follow-up plans in place.
[2020-03-05 14:55] LABS: Body Fluid Mononuclear WBC # 0.438 10^3/uL; Body Fluid Mononuclear WBC % 96.3 %; Body Fluid Polynuclear WBC # 0.017 10^3/uL; Body Fluid Polynuclear WBC % 3.7 %; Body Fluid Total Cells Counted 0.793 10^3/ul; Red Cell Count/Body Fluid 0.047 10^6/ul; White Blood Count/Body Fluid 0.455 10^3/uL
[2020-03-05 15:32] LABS: Cytology, Body Fluid / CSF SEE PATHOLOGY REPORT
[2020-03-05 15:36] LABS: Appearance/Body Fluid CLOUDY; Auto B Fluid Analyzer BKGD Ct COUNTS W/IN LIMITS (W/IN LIMITS); Color/Body Fluid RED; Source- Body Fluid OTHER
[2020-03-05 15:37] LABS: Body Fluid QC Type(s) BF3Q; Lymphocytes 33 %; Mesothelial Cells 52 %; Monocytes 5 %; Neutrophil (Segs) 1 %; Other Cell Type/BF 9 %
[2020-03-05] MEDS: Albumin Human 25% (100 mL) 25 GM/100 ML BAG IV (15:42)
[2020-03-05 16:20] LABS: Glucose, Body Fluid 113 mg/dL (40-70); LDH,Body Fluid 313 Units/l (Not Establ.); Protein, Body Fluid 2.5 g/dL (Not Establ.)
[2020-03-05] MEDS: oxyCODONE 5 MG Tablet PO (22:15)
[2020-03-05] MEDS: Atorvastatin Calcium 20 MG Tablet PO (23:23)
[2020-03-06] VITALS (16 sets, daily range): BP systolic 101–117; BP diastolic 55–69; PULSE 77–100; RESP 16–18; TEMP 36.3–37.1; O2SAT 94–99; BMI 24.5
[2020-03-06] MEDS: Menthol/Lanolin/Calamine/Znox 113 GM Tube 1 APPLIC TOPICAL ×2 (05:11→22:22)
[2020-03-06] MEDS: Ondansetron 4 MG/2 ML Vial 8 MG IV ×2 (05:11→16:57)
--- NOTE | 2020-03-06 05:55 | EKG12_ITS ---
Test Reason : PRE-OP Blood Pressure : / mmHG Vent. Rate : 084 BPM Atrial Rate : 084 BPM P-R Int : 146 ms QRS Dur : 100 ms QT Int : 402 ms P-R-T Axes : 029 034 147 degrees QTc Int : 475 ms Normal sinus rhythm Nonspecific T wave abnormality Abnormal ECG When compared with ECG of 21-FEB-2020 04:54, Premature atrial complexes are no longer Present Confirmed by FELISA LANDRY, SHAD ([id number]), general expeditor DANYELLE BALDERAS ([id number]) on 03/11/2020 9:55:30 AM Referred By: DR MELISSA Confirmed By:EDDIE ROBERTO MD
[2020-03-06 06:33] LABS: Absolute Lymphocyte Count 0.42 X10^3/uL (0.83-4.51); Absolute Neutrophil Count 0.4 X10^3/uL (2.0-7.7); Basophil# 0.01 X10^3/uL; Eosinophil# 0.06 X10^3/uL; Eosinophils% 6.2 % (0-5); Hematocrit 26.9 % (37-47); Hemoglobin 8.9 g/dL (12.0-15.0); Lymphocyte # 0.42 X10^3/ul (4.0); Lymphocyte % 43.3 % (19-41); Mean Corp Hgb Conc 33.1 g/dL (32-36); Mean Corpuscular Hgb 30.7 pg (27.0-32.0); Mean Corpuscular Volume 92.8 fL (81-99); Mean Platelet Vol. 10.7 fl (6.2-12.0); Monocyte# 0.04 X10^3/uL; Monocyte% 4.1 % (0-10); NRBC Flagged by Analyzer 0 % (0-5); Neutrophil # 0.43 X10^3/uL (2.7-7.7); Neutrophil % 44.4 % (47-70); POSITIVE COUNT YES; POSITIVE DIFFERENTIAL YES; POSITIVE MORPHOLOGY YES; Platelet Count 52 K/mm3 (150-450); RBC Distribution Width SD 47.3 fl (35.1-43.9)
[2020-03-06] MEDS: proMETHazine 25 MG/ML Syringe 12.5 MG IV (06:42)
[2020-03-06 06:43] LABS: Differential Indicated SCAN CRITERIA MET
[2020-03-06 07:06] LABS: AST(SGOT) 25 U/L (15-37); Alanine Aminotransfer ALT/SGPT 15 U/L (13-56); Albumin, Serum 2.2 g/dL (3.2-5.0); Alkaline Phosphatase 57 U/L (45-117); Anion Gap 3 (5-15); BUN 8 mg/dL (7-18); BUN/Creat Ratio 16.9 RATIO (10-20); Calcium,Total 7.2 mg/dL (8.5-10.1); Chloride 109 mmol/L (98-107); Creatinine, Serum 0.47 mg/dL (0.55-1.02); EST Glomerular Filtration Rate 144 mL/min (>60); Est Glom Filt Rate - Afr Amer 174 mL/min (>60); Globulin 2.2 g/dL (2.2-4.2); Glucose 102 mg/dL (74-106); Protein, Total 4.4 g/dL (6.4-8.2); Sodium Level 140 mmol/L (136-145)
[2020-03-06 07:19] LABS: Differential Comment SCANNED; Platelet Estimate MKD DEC (ADEQ)
[2020-03-06 08:00] LABS: Hemoglobin A1c 5.7 % (3.8-5.6)
--- NOTE | 2020-03-06 08:33 | PN_ITS ---
Patient Problems: Active and Suspected Problems Neutropenia (Acute) Taxol and carboplatin Diarrhea (Acute) Reason for Visit: Follow-up for hypertension, nausea, vomiting, pancytopenia with predominant leukopenia and right ureteric stone. Objective: Patient has no fever. Blood pressure has improved to 110/57, no tachycardia. Patient still feels generalized abdominal pain although CT scan shows right ureteric stone. Patient had 2500 mL of total blood tinge paracentesis on 03/05/2020. On physical exam General: Alert, Oriented x3, Cooperative HEENT: Atraumatic, PERRLA, EOMI, Normocephalic Neck: Supple, No JVD, Negative Carotid Bruits Lungs: Clear to auscultation, No rhonchi, No wheeze, No rales, Diminished - Diminished on the left lung base. Cardiovascular: Regular rate, Regular Rhythm, Normal S1, Normal S2, No murmurs Abdomen: Bowel Sounds Present, Soft, Non-Distended, diffuse mild to moderate tenderness present. : Mild right renal angle tenderness. No right angle fullness or swelling. No suprapubic tenderness. Extremities: Mild edema, Capillary Refill Less than 3 Seconds Skin: No rashes, No breakdown, - - Mild bruise on the right side of forehead Musculoskeletal: No Tenderness to Palpation of Joints or Extremities, Arthritic Changes Neurological: Cranial nerves II-XII grossly intact Psych/Mental Status: Normal Affect, Appropriate Vitals/I&O's: Vital Signs Temp Pulse Resp BP Pulse Ox 98.3 F 77 18 110/57 L 98 03/06/20 04:09 03/06/20 04:29 03/06/20 04:09 03/06/20 04:09 03/06/20 04:09 Oxygen Delivery Method [3] Room Air Oxygen Delivery Method [2] Room Air Oxygen Delivery Method [1 ( Room Air Initial Baseline)] Oxygen Delivery Method Room Air Weight: 147 lb 4.301 oz Body Mass Index (BMI) 24.5 Orthostatic Vital Signs Start: 03/03/20 06:40 Freq: Status: Active Protocol: Activity Type Activity Date Activity User E-Sign Co-Sign Detail Recorded Client Recorded Date Recorded By Document 03/03/20 07:19 CDS [id number] 03/03/20 07:24 CDS 03/03/20 07:19 Orthostatic Vitals Standing -Blood Pressure (90/60-120/80) 91/60 -Extremity Use Left Arm -Pulse Rate (60-100) 92 Sitting -Blood Pressure (90/60-120/80) 107/53 L -Extremity Use Left Arm -Pulse Rate (60-100) 76 Lying -Blood Pressure (90/60-120/80) 108/55 L -Extremity Use Left Arm -Pulse Rate (60-100) 76 Intake and Output for Last 24 Hours 03/04/20 03/05/20 03/06/20 23:59 23:59 23:59 Intake Total 1751.75 / 2231.75 3423.5 / 3743.5 320 / 320 Output Total 300 / 300 3500 / 3500 2600 / 2600 Balance 1451.75 / 1931.75 -76.5 / 243.5 -2280 / -2280 Microbiology Past 72 Hours 03/04/20 10:45 Stool Enteric Bacteriology - Final 03/04/20 19:55 Stool C. difficile DNA Amplification - Final 03/04/20 19:55 Stool Stool Lactoferrin - Final 03/04/20 19:55 Stool Stool Occult Blood (FOREST) - Final Occult Blood Positive Laboratory Results 03/05/20 05:25: Phosphorus 1.5 L, Magnesium 1.6 03/05/20 07:40: COVID-19 (SHAW) Not Detected 03/05/20 08:10: Lactic Acid 0.9 03/05/20 11:30: PT 14.0, INR 1.1, APTT 31.6 03/05/20 14:15: Fluid Source OTHER, Fluid Color RED, Fluid Appearance CLOUDY, Fluid WBC 0.455, Fluid RBC 0.047, Fluid Tot Cell Count 0.793 H, Fld Polynuclear WBCs # 0.017, Fld Polynuclear WBCs % 3.7, Fluid Mononuclear WBCs 0.438, Fld Mononuclear WBCs % 96.3, Fluid Neutrophils 1, Fluid Lymphocytes 33, Fluid Monocytes 5, Fld Mesothelial Cells 52, Fluid Other Cells 9, Fl Pathologist Comment May follow, Fluid Comment 2 Not Reportable 03/05/20 14:15: Fluid Amylase Pending 03/05/20 14:15: Miscellaneous Cytology Pending 03/05/20 14:28: Miscellaneous Test Pending 03/05/20 14:28: Fluid Glucose 113 H, Fluid Total Protein 2.5, Fluid LDH 313 03/06/20 05:52: WBC 1.0 L*, RBC 2.90 L, Hgb 8.9 L, Hct 26.9 L, MCV 92.8, MCH 30.7, MCHC 33.1, RDW Std Deviation 47.3 H, RDW Coeff of Frank 14.0, Plt Count 52 L , MPV 10.7, Immature Gran % (Auto) 1.000 H, Neut % (Auto) 44.4 L, Lymph % (Auto) 43.3 H, Bertie % (Auto) 4.1, Eos % (Auto) 6.2 H, Baso % (Auto) 1.0, Absolute Neuts (auto) 0.4 L, Absolute Lymphs (auto) 0.42 L, Nucleated RBC % 0, Differential Comment SCANNED, Diff Path Review January, Platelet Estimate MKD 03/06/20 05:52: Sodium 140, Potassium 3.0 L, Chloride 109 H, Carbon Dioxide 28.0, Anion Gap 3 L, BUN 8, Creatinine 0.47 L, Estim Creat Clear Calc 117.40, Est GFR (MDRD) Af Amer 174, Est GFR (MDRD) Non-Af 144, BUN/Creatinine Ratio 16.9, Glucose 102, Calcium 7.2 L, Total Bilirubin 0.80, AST 25, ALT 15, Alkaline Phosphatase 57, Total Protein 4.4 L, Albumin 2.2 L, Globulin 2.2, Albumin/Globulin Ratio 1.0 03/06/20 05:52: Hemoglobin A1c 5.7 H Current Medications Acetaminophen (Tylenol) 650 mg PO Q6H PRN PRN PRN Reason: Pain Score 1-10/10 Last Admin: 03/03/20 16:08 Dose: 650 mg Documented by: Atorvastatin Calcium (Lipitor) 20 mg PO QHS [facility]GELA Last Admin: 03/05/20 23:23 Dose: 20 mg Documented by: Calamine/Phenol (Calmoseptine Ointment) 1 applic TOPICAL TID [facility]; Protocol Last Admin: 03/06/20 05:11 Dose: 1 applicatio Documented by: Dextrose (D50w Syringe) 0 gm IV X1 PRN; Protocol PRN Reason: Hypoglycemia Glucagon () 1 mg IM .X1 PRN PRN Reason: Hypoglycemia Sodium Chloride () 250 mls @ 15 mls/hr IV .[id number] PRN PRN Reason: Saline Flush Last Infusion: 03/05/20 14:42 Dose: 0 mls/hr Documented by: Sodium Chloride () 250 mls @ 15 mls/hr IV .[id number] PRN PRN Reason: Additional IVPB Infusion Ceftriaxone Sodium (Rocephin) 1 gm in 50 mls @ 100 mls/hr IV Q24 [facility] Last Infusion: 03/05/20 11:29 Dose: Infused Documented by: Sodium Chloride () 1,000 mls @ 100 mls/hr IV .Q10H [facility] Last Admin: 03/05/20 21:58 Dose: 100 mls/hr Documented by: Albumin Human () 25 gm in 100 mls @ 60 mls/hr IV X1 ONE Stop: 03/06/20 09:39 Potassium Phosphate 30 mm/ (Sodium Chloride) 260 mls @ 42 mls/hr IV X1 ONE Stop: 03/06/20 14:11 Magnesium Sulfate 2 gm/ Sodium (Chloride) 104 mls @ 52 mls/hr IV X1 ONE Stop: 03/06/20 09:59 Levothyroxine Sodium (Synthroid) 100 mcg PO DAILY@0600 [facility] Last Admin: 03/06/20 07:31 Dose: Not Given Documented by: Nitroglycerin (Nitrostat) 0.4 mg SUBLINGUAL Q5M PRN PRN Reason: CARDIAC/CHEST PAIN Nutritional Formula (Lactose Free) (Glucerna Shake) 120 ml PO 4X/DAY [facility] Last Admin: 03/05/20 23:23 Dose: Not Given Documented by: Ondansetron HCl (Zofran) 8 mg IV Q6H PRN PRN PRN Reason: NAUSEA/VOMITING Last Admin: 03/06/20 05:11 Dose: 8 mg Documented by: Oxycodone HCl (Oxyir) 5 mg PO Q6H PRN PRN PRN Reason: Pain Score 1-10/10 Last Admin: 03/05/20 22:15 Dose: 5 mg Documented by: Potassium Chloride (Potassium Chl Soln) 40 meq PO BIDCM [facility] Promethazine HCl (Phenergan) 12.5 mg IV Q6H PRN PRN PRN Reason: NAUSEA/VOMITING Last Admin: 03/06/20 06:42 Dose: 12.5 mg Documented by: Sodium Chloride () 10 - 40 ml IV UD PRN PRN Reason: SALINE FLUSH Last Admin: 03/05/20 15:52 Dose: 10 ml Documented by: Tbo-Filgrastim (Granix) 300 mcg SC DAILY [facility] Throat Lozenges (Cepacol Sore Throat Lozenge) 1 lozenge MUCOUS MEM Q2H PRN PRN PRN Reason: SORE THROAT Last Admin: 03/03/20 21:38 Dose: 1 lozenge Documented by: Medical Necessity - Tobacco Use Smoking Status: Former smoker Assessment/Plan All Active Problems Chest pain (Acute) Neutropenia (Acute) Diarrhea (Acute) This is a 59-year-old female with history of ovarian cancer, had first cycle of chemotherapy on 02/28/[address] Flood was directly admitted from [place] [facility] for syncope. 1. Syncope due to orthostatic hypotension: Patient is still has orthostatic hypotension, feeling weak and abdominal pain. Patient having diarrhea and vomiting. Continue IV fluid. IV albumin 25 g once ordered. PT and OT. 03/05: Blood pressure on lower side. Lactic acid ordered. 1 L IV fluid normal saline ordered and then 100 mils per hour. 03/06: 1 more dose of IV albumin 25 g ordered. Cutdown IV fluid to 75 mils per hour. 2. Orthostatic hypotension due to paracentesis, nausea and vomiting and post chemotherapeutic adverse effect. Diarrhea with suspicion of C. difficile as patient was on Bactrim at home 03/05: Stool for C. difficile negative. Occult blood positive. Stool for leukocytes positive. Enteric bacteriology panel negative. If negative, will order Imodium for symptomatic control of diarrhea. 3. Asymptomatic bacteriuria/colonization/suspicion of peritonitis: Increased frequency and urgency but denies dysuria. On IV ceftriaxone. UA is negative for pyuria, nitrite. Urine culture from 03/01 shows E. coli less than 1000 colonies suggestive of asymptomatic bacteriuria. There was plan for discharge on Bactrim by ER physician patient was later on admitted. 03/06: 2500 mL peritoneal blood-tinged tap was done. Glucose 113, total protein 2.5. LDH 213. Total WBC 155 cells, predominantly mononuclear cells. Polynuclear cells 3.7%. Peritoneal fluid Gram stain and culture pending. Rest as mentioned above 4. Metastatic ovarian cancer with paracentesis: Diagnosed 2 months ago[address] Follow[address] with [address] Flood. Patient had 5.8 L paracentesis done on 03/01/2020. There is no ascitic fluid labs. There is also suspicion of peritonitis as patient is having diffuse abdominal pain but mainly on the right side. 5. Hypothyroidism: on synthroid 6. Recent diagnosis of kidney stone: Flomax resumed. CT scan reviewed and shows 4 mm stone in distal right ureter with right hydroureter, mild to moderate in severity. Urologist Dr. Long consulted. 03/05: Flomax discontinued because of low blood pressure. 03/06: Plan for cystoscopy today. 7. Severe protein calorie malnutrition associated with subcutaneous loss of fat and mild muscle atrophy: Construction Area Manager consult DVT prophylaxis: Lovenox discontinued CODE STATUS: Full code Total time of the visit including total time spent in counseling or coordination of care, (more than 50% of the total time, spent in obtaining medical information from nurses and other ancillary care providers), discussion with consultants Dr. Kelly, Dr. Flood and urologist Dr. Long, review of labs and imaging is 30 minutes Inpatient E&M: [id number] [facility] [[email or web address]] Hosp L3
[2020-03-06] MEDS: Albumin Human 25% (100 mL) 25 GM/100 ML BAG IV (09:12)
[2020-03-06] MEDS: TBO-FILGRASTIM 300 MCG/0.5 ML ML SC (09:28)
[2020-03-06] MEDS: 0.9% Normal Saline 1,000 ML 100 ML IV (09:39)
[2020-03-06] MEDS: Ceftriaxone 1 GM/50 ML BAG IV (11:07)
--- NOTE | 2020-03-06 11:38 | NURSING ---
Call placed to Kevin abreu to give daily update, message left
[2020-03-06 11:58] LABS: Pathologist Comment/Body Fluid Reviewed
[2020-03-06 11:59] LABS: Pathologist Review Reviewed
[2020-03-06 12:02] LABS: Magnesium 2.2 mg/dL (1.6-2.6); Phosphorus 1.5 mg/dL (2.5-4.9)
[2020-03-06 13:20] LABS: Bedside Glucose 89 mg/dL (70-110)
--- NOTE | 2020-03-06 13:59 | PCM.OPRPT ---
Report of Operation Date of Procedure: 03/06/20 Pre-Operative Diagnosis: Right ureteral calculi with obstruction Post-Operative Diagnosis: The same Surgery/Procedure Performed:: Cystoscopy, right ureteroscopy, basket extraction of stone and right stent placement Description of Surgical Findings:: 59-year-old female taken back to the operating room at the smooth induction of general anesthesia she was placed supine on the table and indoors in dorsolithotomy position, the urethra vaginally are prepped and draped in usual sterile fashion, went into the bladder with a 21 [place] rigid cystourethroscope cannula cannulated the right ureteral orifice with a Glidewire advanced up to the kidney left the wire in place, next the wire went in with the SlimLine offset Olympus ureteroscope was able to get into the ureter quite easily and atraumatic fashion went up the ureter and encountered the stone it was a small stone I used the basket and extracted the stone from the ureter it was given off as a specimen. I then put a wire up on the right kidney, and then over the wire I placed a stent it was 6 [place] by 26 cm stent left the string on the stent for extraction in a week in the office. Bladder was drained patient acetic was reversed she can see me next week in the office to remove the stent on a string. Type of Anesthesia:: General Drains: stent - Admit VTE Documentation VTE Present on Admission: No VTE Mechan Device Prophylaxis: SCD's
[2020-03-06 14:55] LABS: Bedside Glucose 76 mg/dL (70-110)
[2020-03-06] MEDS: 0.9% Normal Saline 1,000 ML 75 ML IV (15:35)
--- NOTE | 2020-03-06 16:27 | PN.ID_ITS ---
Patient Problems: Active and Suspected Problems Neutropenia (Acute) Taxol and carboplatin Diarrhea (Acute) Subjective: OR today for stone removal. Feeling a little better. Paracentesis done yesterday. No fever. - Physical Exam Vitals/I&O's: Vital Signs Temp Pulse Resp BP Pulse Ox 98.0 F 85 18 108/55 L 95 03/06/20 15:19 03/06/20 15:19 03/06/20 15:19 03/06/20 15:19 03/06/20 15:19 Oxygen Delivery Method [3] Room Air Oxygen Delivery Method [2] Room Air Oxygen Delivery Method [1 ( Room Air Initial Baseline)] Oxygen Delivery Method Room Air Weight: 66.8 kg Body Mass Index (BMI) 24.5 Finger Stick Blood Glucose 76 Orthostatic Vital Signs Start: 03/03/20 06:40 Freq: Status: Active Protocol: Activity Type Activity Date Activity User E-Sign Co-Sign Detail Recorded Client Recorded Date Recorded By Document 03/03/20 07:19 CDS [id number] 03/03/20 07:24 CDS 03/03/20 07:19 Orthostatic Vitals Standing -Blood Pressure (90/60-120/80) 91/60 -Extremity Use Left Arm -Pulse Rate (60-100) 92 Sitting -Blood Pressure (90/60-120/80) 107/53 L -Extremity Use Left Arm -Pulse Rate (60-100) 76 Lying -Blood Pressure (90/60-120/80) 108/55 L -Extremity Use Left Arm -Pulse Rate (60-100) 76 Intake and Output for Last 24 Hours 03/04/20 03/05/20 03/06/20 23:59 23:59 23:59 Intake Total 1751.75 / 2231.75 3423.5 / 3743.5 1860.25 / 1860.25 Output Total 300 / 300 3500 / 3500 2625 / 2625 Balance 1451.75 / 1931.75 -76.5 / 243.5 -764.75 / -764.75 General: Alert, Cooperative, No apparent distress Lungs: Clear to auscultation, Normal air movement Cardiovascular: Regular rate, Regular Rhythm Abdomen: Soft, Non Tender, Non-Distended Skin: No rashes Microbiology Past 72 Hours 03/04/20 14:45 Urine, Clean Catch Urine Culture - Preliminary Yeast Like Organism Gram negative cayetano 03/05/20 14:15 Fluid - Paracentesis (Abd) Gram Stain - Final 03/05/20 14:15 Fluid - Paracentesis (Abd) Body Fluid Culture - Preliminary No growth-Final to follow 03/04/20 10:45 Stool Enteric Bacteriology - Final 03/04/20 19:55 Stool C. difficile DNA Amplification - Final 03/04/20 19:55 Stool Stool Lactoferrin - Final 03/04/20 19:55 Stool Stool Occult Blood (FOR[facility]) - Final Occult Blood Positive Laboratory Results 03/05/20 05:25: Diff Path Review Reviewed 03/05/20 14:15: Fl Pathologist Comment Reviewed 03/06/20 05:52: WBC 1.0 L*, RBC 2.90 L, Hgb 8.9 L, Hct 26.9 L, MCV 92.8, MCH 30.7, MCHC 33.1, RDW Std Deviation 47.3 H, RDW Coeff of Frank 14.0, Plt Count 52 L , MPV 10.7, Immature Gran % (Auto) 1.000 H, Neut % (Auto) 44.4 L, Lymph % (Auto) 43.3 H, Swain % (Auto) 4.1, Eos % (Auto) 6.2 H, Baso % (Auto) 1.0, Absolute Neuts (auto) 0.4 L, Absolute Lymphs (auto) 0.42 L, Nucleated RBC % 0, Differential Comment SCANNED, Diff Path Review January, Platelet Estimate MKD 03/06/20 05:52: Sodium 140, Potassium 3.0 L, Chloride 109 H, Carbon Dioxide 28.0, Anion Gap 3 L, BUN 8, Creatinine 0.47 L, Estim Creat Clear Calc 117.40, Est GFR (MDRD) Af Amer 174, Est GFR (MDRD) Non-Af 144, BUN/Creatinine Ratio 16.9, Glucose 102, Calcium 7.2 L, Total Bilirubin 0.80, AST 25, ALT 15, Alkaline Phosphatase 57, Total Protein 4.4 L, Albumin 2.2 L, Globulin 2.2, Albumin/Globulin Ratio 1.0 03/06/20 05:52: Hemoglobin A1c 5.7 H 03/06/20 11:26: Phosphorus 1.5 L, Magnesium 2.2 03/06/20 13:16: POC Glucose 89 03/06/20 14:48: POC Glucose 76 Current Medications Acetaminophen (Tylenol) 650 mg PO Q6H PRN PRN PRN Reason: Pain Score 1-1010 Last Admin: 03/03/20 16:08 Dose: 650 mg Documented by: Atorvastatin Calcium (Lipitor) 20 mg PO QHS [facility] Last Admin: 03/05/20 23:23 Dose: 20 mg Documented by: Calamine/Phenol (Calmoseptine Ointment) 1 applic TOPICAL TID [facility]; Protocol Last Admin: 03/06/20 12:21 Dose: Not Given Documented by: Dextrose (D50w Syringe) 0 gm IV X1 PRN; Protocol PRN Reason: Hypoglycemia Glucagon () 1 mg IM .X1 PRN PRN Reason: Hypoglycemia Sodium Chloride () 250 mls @ 15 mls/hr IV .[id number] PRN PRN Reason: Saline Flush Last Infusion: 03/05/20 14:42 Dose: 0 mls/hr Documented by: Sodium Chloride () 250 mls @ 15 mls/hr IV .[id number] PRN PRN Reason: Additional IVPB Infusion Ceftriaxone Sodium (Rocephin) 1 gm in 50 mls @ 100 mls/hr IV Q24 [facility] Last Infusion: 03/06/20 11:46 Dose: Infused Documented by: Sodium Chloride () 1,000 mls @ 75 mls/hr IV .[id number] [facility] Last Admin: 03/06/20 15:35 Dose: 75 mls/hr Documented by: Levothyroxine Sodium (Synthroid) 100 mcg PO DAILY@0600 [facility] Last Admin: 03/06/20 07:31 Dose: Not Given Documented by: Nitroglycerin (Nitrostat) 0.4 mg SUBLINGUAL Q5M PRN PRN Reason: CARDIAC/CHEST PAIN Nutritional Formula (Lactose Free) (Ensure Clear) 120 ml PO 4X/DAY [facility] Last Admin: 03/06/20 12:45 Dose: Not Given Documented by: Ondansetron HCl (Zofran) 8 mg IV Q6H PRN PRN PRN Reason: NAUSEA/VOMITING Last Admin: 03/06/20 05:11 Dose: 8 mg Documented by: Oxycodone HCl (Oxyir) 5 mg PO Q6H PRN PRN PRN Reason: Pain Score 1-10/10 Last Admin: 03/05/20 22:15 Dose: 5 mg Documented by: Potassium Chloride (Potassium Chl Soln) 40 meq PO BIDCM [facility] Last Admin: 03/06/20 09:27 Dose: 40 meq Documented by: Promethazine HCl (Phenergan) 12.5 mg IV Q6H PRN PRN PRN Reason: NAUSEA/VOMITING Last Admin: 03/06/20 06:42 Dose: 12.5 mg Documented by: Sodium Chloride () 10 - 40 ml IV UD PRN PRN Reason: SALINE FLUSH Last Admin: 03/05/20 15:52 Dose: 10 ml Documented by: Tbo-Filgrastim (Granix) 300 mcg SC DAILY [facility] Last Admin: 03/06/20 09:28 Dose: 300 mcg Documented by: Throat Lozenges (Cepacol Sore Throat Lozenge) 1 lozenge MUCOUS MEM Q2H PRN PRN PRN Reason: SORE THROAT Last Admin: 03/03/20 21:38 Dose: 1 lozenge Documented by: Medical Necessity - Tobacco Use Smoking Status: Former smoker Route of nutrition/ use of supplements: [] Nutritional Intake: [] IV Site: [] Khanna Catheter: [] - Assessment/Plan Antibiotics: [] Assessment/Plan: [] Active and Suspected Problems Neutropenia (Acute) Taxol and carboplatin Diarrhea (Acute) No fever here. Now neutropenic. Dr. Flood following. Recent UA with mild pyuria, but less than 1k ecoli, repeat ucx now with yeast and minimal GNR. Cdiff neg, covid neg. Cont ceftriaxone for now. Paracentesis with bloody fluid, mild inflammation. Cx pending. Will follow, d/w Dr. Garcia.
[2020-03-06] MEDS: 0.9% Saline Lock 10 ML Syringe IV (16:57)
[2020-03-06] MEDS: Atorvastatin Calcium 20 MG Tablet PO (22:23)
[2020-03-06] MEDS: oxyCODONE 5 MG Tablet PO (22:31)
[2020-03-07] VITALS (10 sets, daily range): BP systolic 111–132; BP diastolic 61–73; PULSE 70–91; RESP 16–18; TEMP 36.5–37.3; O2SAT 94–98
[2020-03-07] MEDS: 0.9% Normal Saline 1,000 ML 75 ML IV (05:03)
[2020-03-07 06:02] LABS: Absolute Lymphocyte Count 0.51 X10^3/uL (0.83-4.51); Absolute Neutrophil Count 0.3 X10^3/uL (2.0-7.7); Eosinophil# 0.05 X10^3/uL; Eosinophils% 5.4 % (0-5); Hematocrit 26.5 % (37-47); Hemoglobin 8.8 g/dL (12.0-15.0); Lymphocyte # 0.51 X10^3/ul (4.0); Lymphocyte % 54.8 % (19-41); Mean Corp Hgb Conc 33.2 g/dL (32-36); Mean Corpuscular Hgb 30.4 pg (27.0-32.0); Mean Corpuscular Volume 91.7 fL (81-99); Mean Platelet Vol. 10.9 fl (6.2-12.0); Monocyte% 10.8 % (0-10); NRBC Flagged by Analyzer 0 % (0-5); Neutrophil # 0.25 X10^3/uL (2.7-7.7); Neutrophil % 26.8 % (47-70); POSITIVE COUNT YES; POSITIVE DIFFERENTIAL YES; POSITIVE MORPHOLOGY YES; RBC Distribution Width CV 13.9 % (11.6-14.6); RBC Distribution Width SD 46.5 fl (35.1-43.9); Red Blood Count 2.89 M/mm3 (4.2-5.4)
[2020-03-07] MEDS: Menthol/Lanolin/Calamine/Znox 113 GM Tube 1 APPLIC TOPICAL ×3 (06:15→21:05)
[2020-03-07 06:17] LABS: Differential Indicated SCAN CRITERIA MET; Platelet Count 45 K/mm3 (150-450); White Blood Count 0.9 K/mm3 (4.4-11.0)
[2020-03-07] MEDS: Ondansetron 4 MG/2 ML Vial 8 MG IV ×2 (06:17→21:08)
[2020-03-07 06:34] LABS: AST(SGOT) 28 U/L (15-37); Alanine Aminotransfer ALT/SGPT 16 U/L (13-56); Albumin, Serum 2.3 g/dL (3.2-5.0); Alkaline Phosphatase 58 U/L (45-117); Anion Gap 7 (5-15); BUN 7 mg/dL (7-18); BUN/Creat Ratio 14.1 RATIO (10-20); Calcium,Total 7.3 mg/dL (8.5-10.1); Chloride 109 mmol/L (98-107); EST Glomerular Filtration Rate 136 mL/min (>60); Est Glom Filt Rate - Afr Amer 164 mL/min (>60); Estimated Creatinine Clearance 110.36 ml/min; Globulin 2.3 g/dL (2.2-4.2); Glucose 91 mg/dL (74-106); Potassium 3.5 mmol/L (3.5-5.1); Protein, Total 4.6 g/dL (6.4-8.2); Sodium Level 140 mmol/L (136-145)
[2020-03-07 06:56] LABS: Atypical Lymphocyte 1+ %; Differential Comment SCANNED; Platelet Estimate MKD DEC (ADEQ)
--- NOTE | 2020-03-07 07:26 | DCINST_ITS ---
Allergies/Adverse Reactions: Allergies metformin Allergy (Verified 03/01/20 13:26) Rash Medications to take at Discharge Atorvastatin Calcium 20 mg PO QHS 02/20/20 Cetirizine HCl 10 mg PO QHS 02/20/20 Dexamethasone [Decadron] 4 mg PO Q6H 02/20/20 Docusate Sodium 100 mg PO BID 02/20/20 Levothyroxine [Synthroid] 100 mcg PO DAILY 02/20/20 Melatonin 3 mg PO QHS 02/20/20 Ondansetron HCl [Zofran] 4 mg PO Q8H PRN PRN 02/20/20 Oxycodone [Oxyir] 5 mg PO Q6H PRN PRN 02/20/20 Polyethylene Glycol 3350 [Miralax] 17 gm PO DAILY 02/20/20 Potassium Chloride 20 meq PO DAILY 02/20/20 Reglan 10 mg PO TID 02/20/20 Ibuprofen 600 mg PO TID PRN PRN #12 tab 03/01/20 Smz/Tmp Ds [Bactrim Ds] 1 tab PO BID #6 tab 03/01/20 Tamsulosin HCl [Flomax] 0.4 mg PO DAILY #7 cap 03/01/20 Primary Care Physician: Denia Adrian MD [Primary Care Provider] - Test Results: Test results from this visit will be discussed in further detail at your follow- up appointment, if applicable. Please Follow Up With: Tonio Long MD - [phone] When: in 2 weeks, please call to make an appointment to get stent out.
[2020-03-07] MEDS: oxyCODONE 5 MG Tablet PO ×2 (08:26→23:56)
[2020-03-07] MEDS: Ceftriaxone 1 GM/50 ML BAG IV (10:23)
[2020-03-07] MEDS: TBO-FILGRASTIM 300 MCG/0.5 ML ML SC (10:24)
[2020-03-07] MEDS: fentaNYL 25 MCG Patch TRANSDERM. (10:36)
[2020-03-07] MEDS: Pantoprazole Sodium 40 MG Tablet PO (11:08)
--- NOTE | 2020-03-07 12:50 | PCM.PN.HOSP ---
Patient Problems: Active and Suspected Problems Neutropenia (Acute) Taxol and carboplatin Diarrhea (Acute) Reason for Visit: Follow-up for abdominal pain, diarrhea, right ureteral stone, pancytopenia with predominant leukopenia and thrombocytopenia. Objective: Seen and examined. Patient blood pressure is improved 132/68, 123/23. No fever or chills. Still complaining of moderate to severe abdominal pain. Very little mobility from bed to bathroom. Had right ureteric stone removal and stent placement. On exam General: Alert, Oriented x3, Cooperative HEENT: Atraumatic, PERRLA, EOMI, Normocephalic Neck: Supple, No JVD, Negative Carotid Bruits Lungs: Clear to auscultation, No rhonchi, No wheeze, No rales, air entry diminished on the left lung base. Cardiovascular: Regular rate, Regular Rhythm, Normal S1, Normal S2, No murmurs Abdomen: Bowel Sounds Present, Soft, Non-Distended, diffuse mild to moderate tenderness present, no rigidity but guarding present : no renal angle tenderness. No angle fullness or swelling. No suprapubic tenderness. Extremities: Mild edema, Capillary Refill Less than 3 Seconds Skin: No rashes, No breakdown, - - Mild bruise on the right side of forehead Musculoskeletal: No Tenderness to Palpation of Joints or Extremities, Arthritic Changes Neurological: Cranial nerves II-XII grossly intact Psych/Mental Status: Normal Affect, Appropriate Vitals/I&O's: Vital Signs Temp Pulse Resp BP Pulse Ox 97.7 F L 87 18 123/73 H 97 03/07/20 09:00 03/07/20 09:00 03/07/20 09:00 03/07/20 09:00 03/07/20 09:00 Oxygen Delivery Method [3] Room Air Oxygen Delivery Method [2] Room Air Oxygen Delivery Method [1 ( Room Air Initial Baseline)] Oxygen Delivery Method Room Air Weight: 147 lb 4.301 oz Body Mass Index (BMI) 24.5 Finger Stick Blood Glucose 76 Orthostatic Vital Signs Start: 03/03/20 06:40 Freq: Status: Active Protocol: Activity Type Activity Date Activity User E-Sign Co-Sign Detail Recorded Client Recorded Date Recorded By Document 03/03/20 07:19 CDS [id number] 03/03/20 07:24 CDS 03/03/20 07:19 Orthostatic Vitals Standing -Blood Pressure (90/60-120/80) 91/60 -Extremity Use Left Arm -Pulse Rate (60-100) 92 Sitting -Blood Pressure (90/60-120/80) 107/53 L -Extremity Use Left Arm -Pulse Rate (60-100) 76 Lying -Blood Pressure (90/60-120/80) 108/55 L -Extremity Use Left Arm -Pulse Rate (60-100) 76 Intake and Output for Last 24 Hours 03/05/20 03/06/20 03/07/20 23:59 23:59 23:59 Intake Total 3423.5 / 3743.5 2120.25 / 2220.25 1800 / 1800 Output Total 3500 / 3500 2880 / 3180 750 / 750 Balance -76.5 / 243.5 -759.75 / -959.75 1050 / 1050 Microbiology Past 72 Hours 03/04/20 14:45 Urine, Clean Catch Urine Culture - Preliminary Yeast Like Organism Gram negative cayetano 03/05/20 14:15 Fluid - Paracentesis (Abd) Gram Stain - Final 03/05/20 14:15 Fluid - Paracentesis (Abd) Body Fluid Culture - Preliminary No growth-Final to follow 03/05/20 14:15 Fluid - Paracentesis (Abd) Anaerobic Culture - Preliminary No growth in 48 hours. 03/04/20 10:45 Stool Enteric Bacteriology - Final 03/04/20 19:55 Stool C. difficile DNA Amplification - Final 03/04/20 19:55 Stool Stool Lactoferrin - Final 03/04/20 19:55 Stool Stool Occult Blood (FOREST) - Final Occult Blood Positive Laboratory Results 03/06/20 13:16: POC Glucose 89 03/06/20 14:48: POC Glucose 76 03/07/20 05:30: WBC 0.9 L*, RBC 2.89 L, Hgb 8.8 L, Hct 26.5 L, MCV 91.7, MCH 30.4, MCHC 33.2, RDW Std Deviation 46.5 H, RDW Coeff of Frank 13.9, Plt Count 45 L*, MPV 10.9, Immature Gran % (Auto) 2.200 H, Neut % (Auto) 26.8 L, Lymph % (Auto) 54.8 H, [place] % (Auto) 10.8 H, Eos % (Auto) 5.4 H, Baso % (Auto) 0.0, Absolute Neuts (auto) 0.3 L, Absolute Lymphs (auto) 0.51 L, Nucleated RBC % 0, Differential Comment SCANNED, Diff Path Review May foll, Atypical Lymphocytes 1+, Platelet Estimate MKD 03/07/20 05:30: Sodium 140, Potassium 3.5, Chloride 109 H, Carbon Dioxide 24.0, Anion Gap 7, BUN 7, Creatinine 0.50 L, Estim Creat Clear Calc 110.36, Est GFR (MDRD) Af Amer 164, Est GFR (MDRD) Non-Af 136, BUN/Creatinine Ratio 14.1, Glucose 91, Calcium 7.3 L, Total Bilirubin 0.90, AST 28, ALT 16, Alkaline Phosphatase 58, Total Protein 4.6 L, Albumin 2.3 L, Globulin 2.3, Albumin/Globulin Ratio 1.0 Current Medications Acetaminophen (Tylenol) 650 mg PO Q6H PRN PRN PRN Reason: Pain Score 1-10/10 Last Admin: 03/03/20 16:08 Dose: 650 mg Documented by: Atorvastatin Calcium (Lipitor) 20 mg PO QHS [facility] Last Admin: 03/06/20 22:23 Dose: 20 mg Documented by: Calamine/Phenol (Calmoseptine Ointment) 1 applic TOPICAL TID [facility]; Protocol Last Admin: 03/07/20 06:15 Dose: 1 applicatio Documented by: Dextrose (D50w Syringe) 0 gm IV X1 PRN; Protocol PRN Reason: Hypoglycemia Fentanyl (Duragesic Patch) 25 mcg TRANSDERM. Q3D [facility] Last Admin: 03/07/20 10:36 Dose: 25 mcg Documented by: Glucagon () 1 mg IM .X1 PRN PRN Reason: Hypoglycemia Sodium Chloride () 250 mls @ 15 mls/hr IV .[id number] PRN PRN Reason: Saline Flush Last Infusion: 03/05/20 14:42 Dose: 0 mls/hr Documented by: Sodium Chloride () 250 mls @ 15 mls/hr IV .[id number] PRN PRN Reason: Additional IVPB Infusion Ceftriaxone Sodium (Rocephin) 1 gm in 50 mls @ 100 mls/hr IV Q24 [facility] Last Infusion: 03/07/20 10:53 Dose: Infused Documented by: Potassium Phosphate 30 mm/ (Sodium Chloride) 260 mls @ 42 mls/hr IV X1 ONE Stop: 03/07/20 17:11 Last Admin: 03/07/20 12:22 Dose: 42 mls/hr Documented by: Levothyroxine Sodium (Synthroid) 100 mcg PO DAILY@0600 [facility] Last Admin: 03/07/20 08:28 Dose: Not Given Documented by: Nitroglycerin (Nitrostat) 0.4 mg SUBLINGUAL Q5M PRN PRN Reason: CARDIAC/CHEST PAIN Nutritional Formula (Lactose Free) (Ensure Clear) 120 ml PO 4X/DAY [facility] Last Admin: 03/07/20 10:35 Dose: Not Given Documented by: Ondansetron HCl (Zofran) 8 mg IV Q6H PRN PRN PRN Reason: NAUSEA/VOMITING Last Admin: 03/07/20 06:17 Dose: 8 mg Documented by: Oxycodone HCl (Oxyir) 5 mg PO Q6H PRN PRN PRN Reason: Pain Score 1-10/10 Last Admin: 03/07/20 08:26 Dose: 5 mg Documented by: Pantoprazole Sodium (Protonix) 40 mg PO DAILY [facility] Last Admin: 03/07/20 11:08 Dose: 40 mg Documented by: [facility]assium [facility]) [facility] Last Admin: 03/07/20 10:31 Dose: 40 meq Documented by: Promethazine HCl (Phenergan) 12.5 mg IV Q6H PRN PRN PRN Reason: NAUSEA/VOMITING Last Admin: 03/06/20 06:42 Dose: 12.5 mg Documented by: Sodium Chloride () 10 - 40 ml IV UD PRN PRN Reason: SALINE FLUSH Last Admin: 03/06/20 16:57 Dose: 20 ml Documented by: Tbo-Filgrastim (Granix) 300 mcg SC DAILY [facility] Last Admin: 03/07/20 10:24 Dose: 300 mcg Documented by: Throat Lozenges (Cepacol Sore Throat Lozenge) 1 lozenge MUCOUS MEM Q2H PRN PRN PRN Reason: SORE THROAT Last Admin: 03/03/20 21:38 Dose: 1 lozenge Documented by: STROKE Vital Signs/Narrative: Vital Signs Temp Pulse Resp BP Pulse Ox 03/07/20 09:00 97.7 F L 87 18 123/73 H 97 Medical Necessity - Tobacco Use Smoking Status: Former smoker Assessment/Plan All Active Problems Chest pain (Acute) Neutropenia (Acute) Diarrhea (Acute) This is a 59-year-old female with history of ovarian cancer, had first cycle of chemotherapy on 02/28/[address] Flood was directly admitted from [place] ER for syncope. 1. Syncope due to orthostatic hypotension: Patient is still has orthostatic hypotension, feeling weak and abdominal pain. Patient having diarrhea and vomiting. Continue IV fluid. IV albumin 25 g once ordered. PT and OT. 03/05: Blood pressure on lower side. Lactic acid ordered. 1 L IV fluid normal saline ordered and then 100 mils per hour. 03/06: 1 more dose of IV albumin 25 g ordered. Cutdown IV fluid to 75 mils per hour. 03/06 blood pressure stable. Discontinue IV fluid. No more IV albumin. Patient still has abdominal pain advised palliative care for pain management although patient still wants to be full code and continue further treatment for ovarian cancer. On 25 mcg fentanyl patch 2. Orthostatic hypotension due to paracentesis, nausea and vomiting and post chemotherapeutic adverse effect. Diarrhea with suspicion of C. difficile as patient was on Bactrim at home 03/05: Stool for C. difficile negative. Occult blood positive. Stool for leukocytes positive. Enteric bacteriology panel negative. If negative, will order Imodium for symptomatic control of diarrhea. 3. Asymptomatic bacteriuria/colonization/suspicion of peritonitis: Increased frequency and urgency but denies dysuria. On IV ceftriaxone. UA is negative for pyuria, nitrite. Urine culture from 03/01 shows E. coli less than 1000 colonies suggestive of asymptomatic bacteriuria. There was plan for discharge on Bactrim by ER physician patient was later on admitted. 03/06: 2500 mL peritoneal blood-tinged tap was done. Glucose 113, total protein 2.5. LDH 213. Total WBC 155 cells, predominantly mononuclear cells. Polynuclear cells 3.7%. Peritoneal fluid Gram stain and culture pending. Repeat urine culture shows gram-negative cayetano less than 1000 colonies and yeastlike organism more than 100,000. Rest as mentioned above 03/07: Peritoneal fluid shows no organisms; full culture pending. 4. Pancytopenia metastatic ovarian cancer with paracentesis: Diagnosed 2 months ago[address] Follows with [address] Flood. Patient had 5.8 L paracentesis done on 03/01/2020. As mentioned above 03/07: Patient continues to have leukopenia, 0.9 thousand, ANC 300 on Granix 10 mg subcu daily. Severe thrombocytopenia 45,000 H&H 8.8 still normochromic anemia secondary to neoplastic ovarian cancer 5. Hypothyroidism: on synthroid 6. Recent diagnosis of kidney stone: Flomax resumed. CT scan reviewed and shows 4 mm stone in distal right ureter with right hydroureter, mild to moderate in severity. Urologist Dr. Long consulted. 03/05: Flomax discontinued because of low blood pressure. 03/06: Plan for cystoscopy today. 03/07: Patient had cystoscopy, right ureteroscopy, basket extraction of stone and right retrograde stent placement. 7. Severe protein calorie malnutrition associated with subcutaneous loss of fat and mild muscle atrophy: Life Agent consult DVT prophylaxis: Lovenox discontinued CODE STATUS: Full code Discharge plan: PT OT and SNF placement Total time of the visit including total time spent in counseling or coordination of care, (more than 50% of the total time, spent in obtaining medical information from nurses and other ancillary care providers), discussion with consultants Dr. Kelly, Dr. Flood and urologist Dr. Long, review of labs and imaging is 30 minutes Inpatient E&M: 72151 Subs Hosp L3
--- NOTE | 2020-03-07 14:19 | CASEMGMT ---
Social Work Note SW received message from [facility] requesting update and pt's discharge plan. SW updated that pt is agreeable to SNF for therapy. CHAPITO placed a call to [facility] and spoke with Karina. CHAPITO updated Karina that plan is SNF pending acceptance and pre-cert and [facility] can be updated when pt discharges and to where. Karina states understanding. Loreto Raymundo MEDICAL CLINIC MANAGER, BEHAVIORAL HEALTH RN
--- NOTE | 2020-03-07 14:30 | CASEMGMT ---
SW spoke with patient as she is interested in going to a penitentiary. SW had a list of places that are in network with her insurance. She did not have any idea where she wants to go. SW told her that none of the nursing homes are allowing visitors. She said she would prefer to stay in [place]. SW read off the 3 facilities that are in [place] and she asked that SW make referrals to all 3 places. SW also asked her about Palliative Care and she agreed to talk with them. SW told her SW will work on making referrals and SW will get back to her when more. SW notified [facility] 3 SW about Palliative Care. SW called [facility] with referral as well as faxed referral. SW also called [facility], but they will not have a bed until next week. SW called [facility] and they may not be able to accept patients at this time. Alba from [facility] will get back with SW. CHAPITO spoke with Saumya, nurse from Dr Flood's office. Patient is getting 2 chemo treatments via IV every 3 weeks. Her next treatment is due March 20. SW let her know patient may be going to a penitentiary. Patient may not be able to get her chemo treatments while in the penitentiary due to cost and/or COVID 19. Saumya asked that SW let them know what patient ends up doing. Await return call from [facility]. SW will also talk with patient about where else she may be willing to go. Caryl ARTEAGA PROFESSIONAL ATHLETE
--- NOTE | 2020-03-07 15:18 | CASEMGMT ---
[facility] is another facility in [place] that accepts [facility]. CHAPITO faxed referral to [facility] and CHAPITO Dangelo spoke with Nydia from [facility]. Await return calls from [facility] and [facility]. Caryl LIU
--- NOTE | 2020-03-07 15:38 | CASEMGMT ---
CHAPITO received a return call from Patrica at [facility]. She said they can accept patient as long as she is willing to hold off on her chemo treatment until she is discharged from there due to cost. CHAPITO told her SW did make a referral to another facility and once we hear from them we can let them know which facility patient chooses. Caryl LIU
--- NOTE | 2020-03-07 15:46 | CASEMGMT ---
Social Work Note SW updated that [facility] able to accept pt. Referral was sent to [facility] at [place] as well. CHAPITO updated that Dr. Flood will need to complete a standing order for paracentesis for pt. CHAPITO placed note on pt's chart that Dr. Flood will need to put in standing order for paracentesis. Plan: SNF pending acceptance and pre-cert Loreto Raymundo RN ENT, CUTTING MACHINE OFFBEARER
--- NOTE | 2020-03-07 17:19 | PN.ID_ITS ---
Patient Problems: Active and Suspected Problems Neutropenia (Acute) Taxol and carboplatin Diarrhea (Acute) Subjective: Feeling ok, still abd pain, no fever - Physical Exam Vitals/I&O's: Vital Signs Temp Pulse Resp BP Pulse Ox 98.0 F 74 18 122/72 H 98 03/07/20 16:02 03/07/20 16:02 03/07/20 16:02 03/07/20 16:02 03/07/20 16:02 Oxygen Delivery Method [3] Room Air Oxygen Delivery Method [2] Room Air Oxygen Delivery Method [1 ( Room Air Initial Baseline)] Oxygen Delivery Method Room Air Weight: 66.8 kg Body Mass Index (BMI) 24.5 Finger Stick Blood Glucose 76 Orthostatic Vital Signs Start: 03/03/20 06:40 Freq: Status: Active Protocol: Activity Type Activity Date Activity User E-Sign Co-Sign Detail Recorded Client Recorded Date Recorded By Document 03/03/20 07:19 CDS [id number] 03/03/20 07:24 CDS 03/03/20 07:19 Orthostatic Vitals Standing -Blood Pressure (90/60-120/80) 91/60 -Extremity Use Left Arm -Pulse Rate (60-100) 92 Sitting -Blood Pressure (90/60-120/80) 107/53 L -Extremity Use Left Arm -Pulse Rate (60-100) 76 Lying -Blood Pressure (90/60-120/80) 108/55 L -Extremity Use Left Arm -Pulse Rate (60-100) 76 Intake and Output for Last 24 Hours 03/05/20 03/06/20 03/07/20 23:59 23:59 23:59 Intake Total 3423.5 / 3743.5 2120.25 / 2220.25 1800 / 1800 Output Total 3500 / 3500 2880 / 3180 750 / 750 Balance -76.5 / 243.5 -759.75 / -959.75 1050 / 1050 General: Alert, Cooperative, No apparent distress Lungs: Clear to auscultation, Normal air movement Cardiovascular: Regular rate, Regular Rhythm Abdomen: Soft, Distended, Tender - mild Skin: No rashes Microbiology Past 72 Hours 03/04/20 14:45 Urine, Clean Catch Urine Culture - Preliminary Yeast Like Organism Gram negative cayetano 03/05/20 14:15 Fluid - Paracentesis (Abd) Gram Stain - Final 03/05/20 14:15 Fluid - Paracentesis (Abd) Body Fluid Culture - Preliminary No growth-Final to follow 03/05/20 14:15 Fluid - Paracentesis (Abd) Anaerobic Culture - Preliminary No growth in 48 hours. 03/04/20 10:45 Stool Enteric Bacteriology - Final 03/04/20 19:55 Stool C. difficile DNA Amplification - Final 03/04/20 19:55 Stool Stool Lactoferrin - Final 03/04/20 19:55 Stool Stool Occult Blood ([facility]) - Final Occult Blood Positive Laboratory Results 03/07/20 05:30: WBC 0.9 L*, RBC 2.89 L, Hgb 8.8 L, Hct 26.5 L, MCV 91.7, MCH 30.4, MCHC 33.2, RDW Std Deviation 46.5 H, RDW Coeff of Frank 13.9, Plt Count 45 L*, MPV 10.9, Immature Gran % (Auto) 2.200 H, Neut % (Auto) 26.8 L, Lymph % (Auto) 54.8 H, [place] % (Auto) 10.8 H, Eos % (Auto) 5.4 H, Baso % (Auto) 0.0, Absolute Neuts (auto) 0.3 L, Absolute Lymphs (auto) 0.51 L, Nucleated RBC % 0, Differential Comment SCANNED, Diff Path Review January, Atypical Lymphocytes 1+, Platelet Estimate MKD 03/07/20 05:30: Sodium 140, Potassium 3.5, Chloride 109 H, Carbon Dioxide 24.0, Anion Gap 7, BUN 7, Creatinine 0.50 L, Estim Creat Clear Calc 110.36, Est GFR (MDRD) Af Amer 164, Est GFR (MDRD) Non-Af 136, BUN/Creatinine Ratio 14.1, Glucose 91, Calcium 7.3 L, Total Bilirubin 0.90, AST 28, ALT 16, Alkaline Phosphatase 58, Total Protein 4.6 L, Albumin 2.3 L, Globulin 2.3, Albumin/Globulin Ratio 1.0 Current Medications Acetaminophen (Tylenol) 650 mg PO Q6H PRN PRN PRN Reason: Pain Score 1-10/10 Last Admin: 03/03/20 16:08 Dose: 650 mg Documented by: Atorvastatin Calcium (Lipitor) 20 mg PO QHS [facility] Last Admin: 03/06/20 22:23 Dose: 20 mg Documented by: Calamine/Phenol (Calmoseptine Ointment) 1 applic TOPICAL TID [facility]; Protocol Last Admin: 03/07/20 15:08 Dose: 1 applicatio Documented by: Dextrose (D50w Syringe) 0 gm IV X1 PRN; Protocol PRN Reason: Hypoglycemia Fentanyl (Duragesic Patch) 25 mcg TRANSDERM. Q3D [facility] Last Admin: 03/07/20 10:36 Dose: 25 mcg Documented by: Glucagon () 1 mg IM .X1 PRN PRN Reason: Hypoglycemia Sodium Chloride () 250 mls @ 15 mls/hr IV .[id number] PRN PRN Reason: Saline Flush Last Infusion: 03/05/20 14:42 Dose: 0 mls/hr Documented by: Sodium Chloride () 250 mls @ 15 mls/hr IV .[id number] PRN PRN Reason: Additional IVPB Infusion Levothyroxine Sodium (Synthroid) 100 mcg PO DAILY@0600 [facility] Last Admin: 03/07/20 08:28 Dose: Not Given Documented by: Nitroglycerin (Nitrostat) 0.4 mg SUBLINGUAL Q5M PRN PRN Reason: CARDIAC/CHEST PAIN Nutritional Formula (Lactose Free) (Ensure Clear) 120 ml PO 4X/DAY [facility] Last Admin: 03/07/20 15:09 Dose: Not Given Documented by: Ondansetron HCl (Zofran) 8 mg IV Q6H PRN PRN PRN Reason: NAUSEA/VOMITING Last Admin: 03/07/20 06:17 Dose: 8 mg Documented by: Oxycodone HCl (Oxyir) 5 mg PO Q6H PRN PRN PRN Reason: Pain Score 1-10/10 Last Admin: 03/07/20 08:26 Dose: 5 mg Documented by: Pantoprazole Sodium (Protonix) 40 mg PO DAILY [facility] Last Admin: 03/07/20 11:08 Dose: 40 mg Documented by: Potassium [facility]) [facility] Last Admin: 03/07/20 10:31 Dose: 40 meq Documented by: Promethazine HCl (Phenergan) 12.5 mg IV Q6H PRN PRN PRN Reason: NAUSEA/VOMITING Last Admin: 03/06/20 06:42 Dose: 12.5 mg Documented by: Sodium Chloride () 10 - 40 ml IV UD PRN PRN Reason: SALINE FLUSH Last Admin: 03/06/20 16:57 Dose: 20 ml Documented by: Tbo-Filgrastim (Granix) 300 mcg SC DAILY [facility] Last Admin: 03/07/20 10:24 Dose: 300 mcg Documented by: Throat Lozenges (Cepacol Sore Throat Lozenge) 1 lozenge MUCOUS MEM Q2H PRN PRN PRN Reason: SORE THROAT Last Admin: 03/03/20 21:38 Dose: 1 lozenge Documented by: Medical Necessity - Tobacco Use Smoking Status: Former smoker Route of nutrition/ use of supplements: [] Nutritional Intake: [] IV Site: [] Khanna Catheter: [] - Assessment/Plan Antibiotics: [] Assessment/Plan: [] Active and Suspected Problems Neutropenia (Acute) Taxol and carboplatin Diarrhea (Acute) No fever here. Still neutropenic. Dr. Flood following. Recent UA with mild pyuria, but less than 1k ecoli, repeat ucx now with yeast and minimal GNR. Cdiff neg, covid neg. On ceftriaxone. Paracentesis with bloody fluid, mild inflammation. Cx neg so far of fluid. Will stop abx today. Will follow, d/w Dr. Garcia.
[2020-03-07] MEDS: Atorvastatin Calcium 20 MG Tablet PO (21:05)
[2020-03-08] VITALS (8 sets, daily range): BP systolic 112–125; BP diastolic 67–77; PULSE 81–88; RESP 16–18; TEMP 36.6–37.2; O2SAT 95–98
[2020-03-08] MEDS: Levothyroxine 100 MCG Tablet PO (05:25)
[2020-03-08] MEDS: Menthol/Lanolin/Calamine/Znox 113 GM Tube 1 APPLIC TOPICAL ×2 (05:25→14:16)
[2020-03-08 07:08] LABS: Absolute Lymphocyte Count 0.51 X10^3/uL (0.83-4.51); Absolute Neutrophil Count 0.2 X10^3/uL (2.0-7.7); Eosinophil# 0.03 X10^3/uL; Eosinophils% 3.1 % (0-5); Hematocrit 27.1 % (37-47); Hemoglobin 8.9 g/dL (12.0-15.0); Lymphocyte # 0.51 X10^3/ul (4.0); Mean Corp Hgb Conc 32.8 g/dL (32-36); Mean Corpuscular Hgb 30.6 pg (27.0-32.0); Mean Corpuscular Volume 93.1 fL (81-99); Mean Platelet Vol. 10.1 fl (6.2-12.0); Monocyte% 20.4 % (0-10); NRBC Flagged by Analyzer 0 % (0-5); Neutrophil # 0.22 X10^3/uL (2.7-7.7); Neutrophil % 22.5 % (47-70); POSITIVE COUNT YES; POSITIVE DIFFERENTIAL YES; POSITIVE MORPHOLOGY YES; Platelet Count 34 K/mm3 (150-450); RBC Distribution Width SD 47.7 fl (35.1-43.9); Red Blood Count 2.91 M/mm3 (4.2-5.4)
[2020-03-08 07:13] LABS: Differential Indicated SCAN CRITERIA MET
[2020-03-08 07:29] LABS: Phosphorus 1.9 mg/dL (2.5-4.9)
[2020-03-08 07:34] LABS: ALB/GLOB Ratio 0.9 RATIO (0.9-2.4); AST(SGOT) 21 U/L (15-37); Alanine Aminotransfer ALT/SGPT 16 U/L (13-56); Albumin, Serum 2.3 g/dL (3.2-5.0); Alkaline Phosphatase 66 U/L (45-117); Anion Gap 5 (5-15); BUN 9 mg/dL (7-18); BUN/Creat Ratio 18.4 RATIO (10-20); Calcium,Total 7.7 mg/dL (8.5-10.1); Chloride 109 mmol/L (98-107); Creatinine, Serum 0.49 mg/dL (0.55-1.02); EST Glomerular Filtration Rate 138 mL/min (>60); Est Glom Filt Rate - Afr Amer 167 mL/min (>60); Estimated Creatinine Clearance 112.61 ml/min; Globulin 2.5 g/dL (2.2-4.2); Glucose 100 mg/dL (74-106); Magnesium 1.6 mg/dL (1.6-2.6); Potassium 3.6 mmol/L (3.5-5.1); Protein, Total 4.8 g/dL (6.4-8.2); Sodium Level 140 mmol/L (136-145)
[2020-03-08] MEDS: oxyCODONE 5 MG Tablet PO ×2 (07:37→16:38)
[2020-03-08] MEDS: Ondansetron 4 MG/2 ML Vial 8 MG IV ×2 (07:37→14:14)
--- NOTE | 2020-03-08 08:04 | PN_ITS ---
Progress Note Hematology/oncology progress note: S/P Cystoscopy, right ureteroscopy, basket extraction of stone and right stent placement ON 03/06/20 Paracentesis: 03/05 & 03/06/20 Patient complained of nausea this morning along with generalized abdominal discomfort. She has no fever, stomatitis, diarrhea, or shortness of breath. Fluid cultures and urine cultures were negative and antibiotic was discontinued yesterday. She remains neutropenic and thrombocytopenic from chemotherapy. ASSESSMENT/PLAN: 1. Stage III ovarian cancer; status-post first cycle of Pacitaxel & carboplatin -day 10 counts magi Plan: - Continue supportive care; zofran for nausea - OxyIR prn for pain - Paracentesis weekly ( every Wednesday ) as outpatient at [facility] (04/11/20 & 04/18/20) - CBC, PT/PTT before procedure & - Give Albumin 50 grams afterward. - Follow up in my office on 03/21/2020 for her second cycle of chemotherapy 2. Neutropenia secondary to chemotherapy Plan: -Continue Granix 300mcg sq today & stop when ANC > 1000 3. Severe protein and caloric malnutrition secondary to above Plan: -Dietary consult and nutritional therapy 4. Debility Plan: - intermediate placement for Rehabs cc: Dr. Estephania Flood, Dr. Marcos Garcia, Dr. Tonio Long, Dr. Denia Gamino, STROKE Vital Signs/Narrative: Vital Signs Temp Pulse Resp BP Pulse Ox 03/08/20 07:54 97.9 F 81 18 112/77 96 03/08/20 07:41 84
[2020-03-08] MEDS: Pantoprazole Sodium 40 MG Tablet PO (09:56)
[2020-03-08] MEDS: TBO-FILGRASTIM 300 MCG/0.5 ML ML SC (09:57)
--- NOTE | 2020-03-08 11:46 | CASEMGMT ---
Social Work Return call from [facility] and they are able to accept pt. SW met with pt and informed that [facility] and [facility] have accepted pt. Pt choosing to go to [facility]. SW made pt aware that she will not be able to receive chemo treatments while at [facility] and pt is understanding of that. Return call to [facility] and VM left requesting precert be started. Phone call to [facility] and informed that pt will not be coming. Plan: [facility], preckari pending REGGIE Baker
[2020-03-08 12:10] LABS: Pathologist Review Reviewed
[2020-03-08 12:17] LABS: Pathologist Review Reviewed
[2020-03-08 12:47] LABS: Amylase Body Fluid 67 U/L (.)
--- NOTE | 2020-03-08 12:50 | PCM.PN.HOSP ---
Patient Problems: Active and Suspected Problems Neutropenia (Acute) Taxol and carboplatin Diarrhea (Acute) Reason for Visit: Multiple problems. Persistent neutropenia, abdominal pain. Metastatic ovarian cancer with ascites Objective: Patient abdominal pain is better. No fever or chills. Antibiotic discontinued yesterday. She continues to have neutropenia. Patient is still on Granix. Her blood pressure is stable. On physical exam General: Alert, Oriented x3, Cooperative HEENT: Atraumatic, PERRLA, EOMI, Normocephalic Neck: Supple, No JVD, Negative Carotid Bruits Lungs: Clear to auscultation, No rhonchi, No wheeze, No rales, air entry diminished on the left lung base. Cardiovascular: Regular rate, Regular Rhythm, Normal S1, Normal S2, No murmurs Abdomen: Bowel Sounds Present, Soft, Non-Distended, diffuse mild tenderness present, no rigidity but guarding present. Mild to moderate ascites; had paracentesis twice in the last 1 week : no renal angle tenderness. No angle fullness or swelling. No suprapubic tenderness. Extremities: Mild edema, Capillary Refill Less than 3 Seconds Skin: No rashes, No breakdown, - - Mild bruise on the right side of forehead Musculoskeletal: No Tenderness to Palpation of Joints or Extremities, Arthritic Changes Neurological: Cranial nerves II-XII grossly intact Psych/Mental Status: Normal Affect, Appropriate Vitals/I&O's: Vital Signs Temp Pulse Resp BP Pulse Ox 98.4 F 86 16 119/69 98 03/08/20 11:31 03/08/20 11:31 03/08/20 11:31 03/08/20 11:31 03/08/20 11:31 Oxygen Delivery Method [3] Room Air Oxygen Delivery Method [2] Room Air Oxygen Delivery Method [1 ( Room Air Initial Baseline)] Oxygen Delivery Method Room Air Weight: 147 lb 4.301 oz Body Mass Index (BMI) 24.5 Finger Stick Blood Glucose 76 Orthostatic Vital Signs Start: 03/03/20 06:40 Freq: Status: Active Protocol: Activity Type Activity Date Activity User E-Sign Co-Sign Detail Recorded Client Recorded Date Recorded By Document 03/03/20 07:19 CDS [id number] 03/03/20 07:24 CDS 03/03/20 07:19 Orthostatic Vitals Standing -Blood Pressure (90/60-120/80) 91/60 -Extremity Use Left Arm -Pulse Rate (60-100) 92 Sitting -Blood Pressure (90/60-120/80) 107/53 L -Extremity Use Left Arm -Pulse Rate (60-100) 76 Lying -Blood Pressure (90/60-120/80) 108/55 L -Extremity Use Left Arm -Pulse Rate (60-100) 76 Intake and Output for Last 24 Hours 03/06/20 03/07/20 03/08/20 23:59 23:59 23:59 Intake Total 2120.25 / 2220.25 2631.25 / 3011.25 1200 / 1200 Output Total 2880 / 3180 750 / 1050 700 / 700 Balance -759.75 / -959.75 1881.25 / 1961.25 500 / 500 Microbiology Past 72 Hours 03/05/20 14:15 Fluid - Paracentesis (Abd) Gram Stain - Final 03/05/20 14:15 Fluid - Paracentesis (Abd) Body Fluid Culture - Preliminary No growth aerobically. 03/05/20 14:15 Fluid - Paracentesis (Abd) Anaerobic Culture - Preliminary No growth in 48 hours. 03/04/20 14:45 Urine, Clean Catch Urine Culture - Final Mixed Gram Pos & Gram Neg Org 03/04/20 10:45 Stool Enteric Bacteriology - Final Laboratory Results 03/05/20 14:15: Fluid Amylase 67 03/05/20 14:28: Miscellaneous Test 03/06/20 05:52: Diff Path Review Reviewed 03/07/20 05:30: Diff Path Review Reviewed 03/08/20 06:57: WBC 1.0 L*, RBC 2.91 L, Hgb 8.9 L, Hct 27.1 L, MCV 93.1, MCH 30.6, MCHC 32.8, RDW Std Deviation 47.7 H, RDW Coeff of Frank 14.0, Plt Count 34 L*, MPV 10.1, Immature Gran % (Auto) 2.000 H, Neut % (Auto) 22.5 L, Lymph % (Auto) 52.0 H, [place] % (Auto) 20.4 H, Eos % (Auto) 3.1, Baso % (Auto) 0.0, Absolute Neuts (auto) 0.2 L, Absolute Lymphs (auto) 0.51 L, Nucleated RBC % 0, Diff Path Review January foll 03/08/20 06:57: Sodium 140, Potassium 3.6, Chloride 109 H, Carbon Dioxide 26.0, Anion Gap 5, BUN 9, Creatinine 0.49 L, Estim Creat Clear Calc 112.61, Est GFR (MDRD) Af Amer 167, Est GFR (MDRD) Non-Af 138, BUN/Creatinine Ratio 18.4, Glucose 100, Calcium 7.7 L, Magnesium 1.6, Total Bilirubin 0.90, AST 21, ALT 16, Alkaline Phosphatase 66, Total Protein 4.8 L, Albumin 2.3 L, Globulin 2.5, Albumin/Globulin Ratio 0.9 03/08/20 06:57: Phosphorus 1.9 L Current Medications Acetaminophen (Tylenol) 650 mg PO Q6H PRN PRN PRN Reason: Pain Score 1-10 Last Admin: 03/03/20 16:08 Dose: 650 mg Documented by: Atorvastatin Calcium (Lipitor) 20 mg PO QHS [facility] Last Admin: 03/07/20 21:05 Dose: 20 mg Documented by: Calamine/Phenol (Calmoseptine Ointment) 1 applic TOPICAL TID [facility]; Protocol Last Admin: 03/08/20 05:25 Dose: 1 applicatio Documented by: Dextrose (D50w Syringe) 0 gm IV X1 PRN; Protocol PRN Reason: Hypoglycemia Fentanyl (Duragesic Patch) 25 mcg TRANSDERM. Q3D [facility] Last Admin: 03/07/20 10:36 Dose: 25 mcg Documented by: Glucagon () 1 mg IM .X1 PRN PRN Reason: Hypoglycemia Sodium Chloride () 250 mls @ 15 mls/hr IV .[id number] PRN PRN Reason: Saline Flush Last Infusion: 03/05/20 14:42 Dose: 0 mls/hr Documented by: Sodium Chloride () 250 mls @ 15 mls/hr IV .[id number] PRN PRN Reason: Additional IVPB Infusion Levothyroxine Sodium (Synthroid) 100 mcg PO DAILY@0600 [facility] Last Admin: 03/08/20 05:25 Dose: 100 mcg Documented by: Nitroglycerin (Nitrostat) 0.4 mg SUBLINGUAL Q5M PRN PRN Reason: CARDIAC/CHEST PAIN Nutritional Formula (Lactose Free) (Ensure Clear) 120 ml PO 4X/DAY [facility] Last Admin: 03/08/20 09:52 Dose: Not Given Documented by: Ondansetron HCl (Zofran) 8 mg IV Q6H PRN PRN PRN Reason: NAUSEA/VOMITING Last Admin: 03/08/20 07:37 Dose: 8 mg Documented by: Oxycodone HCl (Oxyir) 5 mg PO Q6H PRN PRN PRN Reason: Pain Score 1-10/10 Last Admin: 03/08/20 07:37 Dose: 5 mg Documented by: Pantoprazole Sodium (Protonix) 40 mg PO DAILY [facility] Last Admin: 03/08/20 09:56 Dose: 40 mg Documented by: Potassium [facility] ([facility] Last Admin: 03/07/20 10:31 Dose: 40 meq Documented by: Promethazine HCl (Phenergan) 12.5 mg IV Q6H PRN PRN PRN Reason: NAUSEA/VOMITING Last Admin: 03/06/20 06:42 Dose: 12.5 mg Documented by: Sodium Chloride () 10 - 40 ml IV UD PRN PRN Reason: SALINE FLUSH Last Admin: 03/06/20 16:57 Dose: 20 ml Documented by: Tbo-Filgrastim (Granix) 300 mcg SC DAILY [facility] Last Admin: 03/08/20 09:57 Dose: 300 mcg Documented by: Throat Lozenges (Cepacol Sore Throat Lozenge) 1 lozenge MUCOUS MEM Q2H PRN PRN PRN Reason: SORE THROAT Last Admin: 03/03/20 21:38 Dose: 1 lozenge Documented by: STROKE Vital Signs/Narrative: Vital Signs Temp Pulse Resp BP Pulse Ox 03/08/20 11:31 98.4 F 86 16 119/69 98 03/08/20 11:10 88 Medical Necessity - Tobacco Use Smoking Status: Former smoker Assessment/Plan All Active Problems Chest pain (Acute) Neutropenia (Acute) Diarrhea (Acute) This is a 59-year-old female with history of ovarian cancer, had first cycle of chemotherapy on 02/28/[address] Flood was directly admitted from [facility] for syncope. 1. Syncope due to orthostatic hypotension: Patient is still has orthostatic hypotension, feeling weak and abdominal pain. Patient having diarrhea and vomiting. Continue IV fluid. IV albumin 25 g once ordered. PT and OT. 03/05: Blood pressure on lower side. Lactic acid ordered. 1 L IV fluid normal saline ordered and then 100 mils per hour. 03/06: 1 more dose of IV albumin 25 g ordered. Cutdown IV fluid to 75 mils per hour. 03/06 blood pressure stable. Discontinue IV fluid. No more IV albumin. Patient still has abdominal pain advised palliative care for pain management although patient still wants to be full code and continue further treatment for ovarian cancer. On 25 mcg fentanyl patch 03/07: Blood pressure is stable. Mild abdominal pain. Plan for discharge to SNF 2. Orthostatic hypotension due to paracentesis, nausea and vomiting and post chemotherapeutic adverse effect. Diarrhea with suspicion of C. difficile as patient was on Bactrim at home 03/05: Stool for C. difficile negative. Occult blood positive. Stool for leukocytes positive. Enteric bacteriology panel negative. If negative, will order Imodium for symptomatic control of diarrhea. 3. Asymptomatic bacteriuria/colonization/suspicion of peritonitis: Increased frequency and urgency but denies dysuria. On IV ceftriaxone. UA is negative for pyuria, nitrite. Urine culture from 03/01 shows E. coli less than 1000 colonies suggestive of asymptomatic bacteriuria. There was plan for discharge on Bactrim by ER physician patient was later on admitted. 03/06: 2500 mL peritoneal blood-tinged tap was done. Glucose 113, total protein 2.5. LDH 213. Total WBC 155 cells, predominantly mononuclear cells. Polynuclear cells 3.7%. Peritoneal fluid Gram stain and culture pending. Repeat urine culture shows gram-negative cayetano less than 1000 colonies and yeastlike organism more than 100,000. Rest as mentioned above 03/07: Peritoneal fluid shows no organisms; full culture pending. 4. Pancytopenia metastatic ovarian cancer with paracentesis: Diagnosed 2 months ago[address] Follows with [address] Flood. Patient had 5.8 L paracentesis done on 03/01/2020. As mentioned above 03/07: Patient continues to have leukopenia, 0.9 thousand, ANC 300 on Granix 10 mg subcu daily. Severe thrombocytopenia 45,000 H&H 8.8 still normochromic anemia secondary to neoplastic ovarian cancer 03/08: ANC 0.2 thousand, Granix continued 5. Hypothyroidism: on synthroid 6. Recent diagnosis of kidney stone: Flomax resumed. CT scan reviewed and shows 4 mm stone in distal right ureter with right hydroureter, mild to moderate in severity. Urologist Dr. Long consulted. 03/05: Flomax discontinued because of low blood pressure. 03/06: Plan for cystoscopy today. 03/07: Patient had cystoscopy, right ureteroscopy, basket extraction of stone and right retrograde stent placement. 03/08: Paracentesis fluid is negative for growth in more than 48 hours. Antibiotic ceftriaxone was discontinued yesterday. 7. Severe protein calorie malnutrition associated with subcutaneous loss of fat and mild muscle atrophy: Public Opinion Survey Taker consult DVT prophylaxis: Lovenox discontinued CODE STATUS: Full code Discharge plan: PT OT and SNF placement Total time of the visit including total time spent in counseling or coordination of care, (more than 50% of the total time, spent in obtaining medical information from nurses and other ancillary care providers), discussion with consultants Dr. Kelly, Dr. Flood and urologist Dr. Long, review of labs and imaging is 30 minutes Discharge pending pre-CERT. Inpatient E&M: [id number] [facility] Hosp L2
--- NOTE | 2020-03-08 13:30 | PCM.TXEXTCAR ---
- Diet 03/06/20 14:01 Diet: Regular Diet Is pt able to select menu?: Yes - Routine Orders/Code Status Suppository Type: Dulcolax 10mg Suppository Frequency: Daily PRN Routine Lab Work: CBC - every day, BMP - Twice a week Code Status: Full Code - Wound(s) rt 2nd toe Wound Type: Abrasion BLADDER SITE UNSEEN Wound Type: Surgical Incision - Therapies Weight Bearing: Weight bearing as tolerated Extremity Affected:: Bilateral Lower Physical Therapy: Eval and Treat Occupational Therapy: Eval and Treat Speech Therapy: Eval and Treat - Allergies/Procedures Done in Hospital Allergies/Adverse Reactions: Allergies metformin Allergy (Verified 03/01/20 13:26) Rash - Type of Care/Length of Stay Estimated LOS: Convalescent Care Less Than 30 days Type of Care Needed: Skilled Rehab Potential: Fair Prognosis: Fair - Additional Orders/Day of Discharge Additional Orders: Paracentesis weekly every Wednesday as outpatient at the procedure H, 04/11/2020 and 04/18/2020. CBC, PT/PTT before procedure, albumin 50 g afterward paracentesis. Day of Discharge: 03/08/20 - Dietary and Speech Recommendations Dietitian Recommendations/Changes: Recommend advance diet as tolerated to Regular s/p surgery as pt w/ s/s of malnutrition. - Follow Up Care Primary Care Physician: Denia Adrian MD [Primary Care Provider] - Please follow up with your Primary Care Physician in: in 1-2 week Please Follow Up With: Tonio Long MD - [phone] When: in 2 weeks, please call to make an appointment to get stent out. Please Follow Up With: Estephania Flood MD When: On 03/21/2020 for second cycle of chemotherapy
--- NOTE | 2020-03-08 13:33 | DS.PCM_ITS ---
Discharge Date and Diagnosis - Problem List Patient Problems: Active and Suspected Problems Neutropenia (Acute) Taxol and carboplatin Diarrhea (Acute) Date of Admission: 03/02/20 Date of Discharge: 03/08/20 - Primary Discharge Diagnosis Acute Problems: Active Problems Neutropenia (Acute) Taxol and carboplatin Diarrhea (Acute) - Secondary Discharge Diagnosis Chronic Problems: Chronic Problems Ovarian cancer (Chronic) Hypothyroidism (Chronic) Anxiety and depression (Chronic) HLD (hyperlipidemia) (Chronic) Diabetes mellitus, type II (Chronic) Former tobacco use (Chronic) Hospital Course and Treatment Summary of Care Provided: [] This is a 59-year-old female with history of malignant ovarian cancer, had first cycle of chemotherapy on 02/28/[address] Gutierres was directly admitted from [facility] for syncope. 1. Syncope due to orthostatic hypotension: Patient is still has orthostatic hypotension, feeling weak and abdominal pain. Patient having diarrhea and vomiting. Continue IV fluid. IV albumin 25 g once ordered. PT and OT. Patient was resuscitated with IV fluid and IV albumin infusion was given. Blood pressure is stabilized. 2. Orthostatic hypotension due to paracentesis, nausea and vomiting and post chemotherapeutic adverse effect. Diarrhea with suspicion of C. difficile as patient was on Bactrim at home Stool for C. difficile negative. Occult blood positive. Stool for leukocytes positive. Enteric bacteriology panel negative. Bactrim discontinued. 3. Asymptomatic bacteriuria/colonization: Increased frequency and urgency but denies dysuria. On IV ceftriaxone. UA is negative for pyuria, nitrite. Urine culture from 03/01 shows E. coli less than 1000 colonies suggestive of asymptomatic bacteriuria. There was plan for discharge on Bactrim by ER physician patient was later on admitted. Patient had 2500 mL peritoneal blood- tinged tap was done. Glucose 113, total protein 2.5. LDH 213. Total WBC 155 cells, predominantly mononuclear cells. Polynuclear cells 3.7%. Peritoneal fluid Gram stain and culture was negative for more than 48 hours. Repeat urine culture shows gram-negative cayetano less than 1000 colonies and yeastlike organism more than 100,000. Patient had 5 days of IV ceftriaxone that was discontinued. Peritonitis ruled out. UTI ruled out. ID was consulted. 4. Pancytopenia metastatic ovarian cancer with paracentesis: Diagnosed 2 months ago[address] Follows with [address] Gutierres. Patient had 5.8 L paracentesis done on 03/01/2020. Patient continued to have ANC less than 500 therefore Granix continued. Continue Granix and to ANC is more than 500. Patient was seen by oncologist Dr. GUTIERRES. 5. Hypothyroidism: on synthroid 6. Recent diagnosis of kidney stone: Flomax resumed. CT scan reviewed and shows 4 mm stone in distal right ureter with right hydroureter, mild to moderate in severity. Urologist Dr. Long consulted. Patient had cystoscopy, right ureteroscopy, basket extraction of stone and right retrograde stent placement. 7. 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 DVT prophylaxis: Lovenox discontinued CODE STATUS: Full code Discharge medication reconciliation done. Discharge follow-up instructions completed. Discharge process discussed with the patient and all questions were answered to patient's satisfaction. Patient given a prescription for oxycodone, 5 mg every 6 hourly as needed for severe pain, malignant abdominal pain. Total time spent, exact 35 minutes on discharge meds reconciliation, examination, coordination of care with nurses and ancillary staff, review of imaging and blood test and discussion with the patient on follow-up instructions Patient Problems: Active and Suspected Problems Neutropenia (Acute) Taxol and carboplatin Diarrhea (Acute) Objective: Please see progress note of the same date for exam findings. - Physical Exam Vitals/I&O's: Vital Signs Temp Pulse Resp BP Pulse Ox 98.4 F 86 16 119/69 98 03/08/20 11:31 03/08/20 11:31 03/08/20 11:31 03/08/20 11:31 03/08/20 11:31 Oxygen Delivery Method [3] Room Air Oxygen Delivery Method [2] Room Air Oxygen Delivery Method [1 ( Room Air Initial Baseline)] Oxygen Delivery Method Room Air Weight: 147 lb 4.301 oz Body Mass Index (BMI) 24.5 Finger Stick Blood Glucose 76 Orthostatic Vital Signs Start: 03/03/20 06:40 Freq: Status: Active Protocol: Activity Type Activity Date Activity User E-Sign Co-Sign Detail Recorded Client Recorded Date Recorded By Document 03/03/20 07:19 CDS [id number] 03/03/20 07:24 CDS 03/03/20 07:19 Orthostatic Vitals Standing -Blood Pressure (90/60-120/80) 91/60 -Extremity Use Left Arm -Pulse Rate (60-100) 92 Sitting -Blood Pressure (90/60-120/80) 107/53 L -Extremity Use Left Arm -Pulse Rate (60-100) 76 Lying -Blood Pressure (90/60-120/80) 108/55 L -Extremity Use Left Arm -Pulse Rate (60-100) 76 Intake and Output for Last 24 Hours 03/06/20 03/07/20 03/08/20 23:59 23:59 23:59 Intake Total 2120.25 / 2220.25 2631.25 / 3011.25 1200 / 1200 Output Total 2880 / 3180 750 / 1050 700 / 700 Balance -759.75 / -959.75 1881.25 / 1961.25 500 / 500 Microbiology Past 72 Hours 03/05/20 14:15 Fluid - Paracentesis (Abd) Gram Stain - Final 03/05/20 14:15 Fluid - Paracentesis (Abd) Body Fluid Culture - Preliminary No growth aerobically. 03/05/20 14:15 Fluid - Paracentesis (Abd) Anaerobic Culture - Preliminary No growth in 48 hours. 03/04/20 14:45 Urine, Clean Catch Urine Culture - Final Mixed Gram Pos & Gram Neg Org 03/04/20 10:45 Stool Enteric Bacteriology - Final Laboratory Results 03/05/20 14:15: Fluid Amylase 67 03/05/20 14:28: Miscellaneous Test 03/06/20 05:52: Diff Path Review Reviewed 03/07/20 05:30: Diff Path Review Reviewed 03/08/20 06:57: WBC 1.0 L*, RBC 2.91 L, Hgb 8.9 L, Hct 27.1 L, MCV 93.1, MCH 30.6, MCHC 32.8, RDW Std Deviation 47.7 H, RDW Coeff of Frank 14.0, Plt Count 34 L*, MPV 10.1, Immature Gran % (Auto) 2.000 H, Neut % (Auto) 22.5 L, Lymph % (Auto) 52.0 H, [place] % (Auto) 20.4 H, Eos % (Auto) 3.1, Baso % (Auto) 0.0, Absolute Neuts (auto) 0.2 L, Absolute Lymphs (auto) 0.51 L, Nucleated RBC % 0, Diff Path Review May 03/08/20 06:57: Sodium 140, Potassium 3.6, Chloride 109 H, Carbon Dioxide 26.0, Anion Gap 5, BUN 9, Creatinine 0.49 L, Estim Creat Clear Calc 112.61, Est GFR (MDRD) Af Amer 167, Est GFR (MDRD) Non-Af 138, BUN/Creatinine Ratio 18.4, Glucose 100, Calcium 7.7 L, Magnesium 1.6, Total Bilirubin 0.90, AST 21, ALT 16, Alkaline Phosphatase 66, Total Protein 4.8 L, Albumin 2.3 L, Globulin 2.5, Albumin/Globulin Ratio 0.9 03/08/20 06:57: Phosphorus 1.9 L Current Medications Acetaminophen (Tylenol) 650 mg PO Q6H PRN PRN PRN Reason: Pain Score 1-10 Last Admin: 03/03/20 16:08 Dose: 650 mg Documented by: Atorvastatin Calcium (Lipitor) 20 mg PO QHS [facility] Last Admin: 03/07/20 21:05 Dose: 20 mg Documented by: Calamine/Phenol (Calmoseptine Ointment) 1 applic TOPICAL TID [facility]; Protocol Last Admin: 03/08/20 05:25 Dose: 1 applicatio Documented by: Dextrose (D50w Syringe) 0 gm IV X1 PRN; Protocol PRN Reason: Hypoglycemia Fentanyl (Duragesic Patch) 25 mcg TRANSDERM. Q3D [facility] Last Admin: 03/07/20 10:36 Dose: 25 mcg Documented by: Glucagon () 1 mg IM .X1 PRN PRN Reason: Hypoglycemia Sodium Chloride () 250 mls @ 15 mls/hr IV .[id number] PRN PRN Reason: Saline Flush Last Infusion: 03/05/20 14:42 Dose: 0 mls/hr Documented by: Sodium Chloride () 250 mls @ 15 mls/hr IV .[id number] PRN PRN Reason: Additional IVPB Infusion Levothyroxine Sodium (Synthroid) 100 mcg PO DAILY@0600 [facility] Last Admin: 03/08/20 05:25 Dose: 100 mcg Documented by: Nitroglycerin (Nitrostat) 0.4 mg SUBLINGUAL Q5M PRN PRN Reason: CARDIAC/CHEST PAIN Nutritional Formula (Lactose Free) (Ensure Clear) 120 ml PO 4X/DAY [facility] Last Admin: 03/08/20 09:52 Dose: Not Given Documented by: Ondansetron HCl (Zofran) 8 mg IV Q6H PRN PRN PRN Reason: NAUSEA/VOMITING Last Admin: 03/08/20 07:37 Dose: 8 mg Documented by: Oxycodone HCl (Oxyir) 5 mg PO Q6H PRN PRN PRN Reason: Pain Score 1-10/10 Last Admin: 03/08/20 07:37 Dose: 5 mg Documented by: Pantoprazole Sodium (Protonix) 40 mg PO DAILY [facility] Last Admin: 03/08/20 09:56 Dose: 40 mg Documented by: Potassium Chloride ([facility]-Dur) [facility] Last Admin: 03/07/20 10:31 Dose: 40 meq Documented by: Promethazine HCl (Phenergan) 12.5 mg IV Q6H PRN PRN PRN Reason: NAUSEA/VOMITING Last Admin: 03/06/20 06:42 Dose: 12.5 mg Documented by: Senna/Docusate Sodium (Senokot-S, Tania-Colace) 2 tablet PO BID PRN PRN Reason: constipation Sodium Chloride () 10 - 40 ml IV UD PRN PRN Reason: SALINE FLUSH Last Admin: 03/06/20 16:57 Dose: 20 ml Documented by: Tbo-Filgrastim (Granix) 300 mcg SC DAILY [facility] Last Admin: 03/08/20 09:57 Dose: 300 mcg Documented by: Throat Lozenges (Cepacol Sore Throat Lozenge) 1 lozenge MUCOUS MEM Q2H PRN PRN PRN Reason: SORE THROAT Last Admin: 03/03/20 21:38 Dose: 1 lozenge Documented by: Home Medications: Medications to take at Discharge Atorvastatin Calcium 20 mg PO QHS 02/20/20 Dexamethasone [Decadron] 4 mg PO Q6H 02/20/20 Levothyroxine [Synthroid] 100 mcg PO DAILY 02/20/20 Melatonin 3 mg PO QHS 02/20/20 Ondansetron HCl [Zofran] 4 mg PO Q8H PRN PRN 02/20/20 Polyethylene Glycol 3350 [Miralax] 17 gm PO DAILY 02/20/20 Ibuprofen 600 mg PO TID PRN PRN #12 tab 03/01/20 Acetaminophen [Tylenol Tablet] 650 mg PO Q6H PRN PRN tab 03/08/20 Cetirizine HCl 10 mg PO QHS PRN PRN #0 03/08/20 Menthol/Lanolin/Calamine/Znox [Calmoseptine Ointment] 1 applic TOPICAL TID tube 03/08/20 Oxycodone [Oxyir] 5 mg PO Q6H PRN PRN #10 tab 03/08/20 Pantoprazole Sodium [Protonix] 40 mg PO DAILY tab 03/08/20 Potassium Chloride [K-Dur] 40 meq PO DAILYCM tab 03/08/20 Reglan 10 mg PO TID PRN PRN #0 03/08/20 Senna/Docusate Sodium [Senokot-S] 2 tab PO BID PRN tab 03/08/20 Tamsulosin HCl [Flomax] 0.4 mg PO DAILY #7 cap 03/08/20 Following Prescrptions Were Given to Patient: Oxycodone [Oxyir] 5 mg PO Q6H PRN PRN #10 tab PRN Reason: Pain Score 6-10/10 Prescription Printed Primary Care Physician: Denia Adrian MD [Primary Care Provider] - Please follow up with your Primary Care Physician in: in 1-2 week Please Follow Up With: Tonio Long MD - [phone] When: in 2 weeks, please call to make an appointment to get stent out. Please Follow Up With: Estephania Gutierres MD When: On 03/21/2020 for second cycle of chemotherapy Medical Necessity - Tobacco Use Smoking Status: Former smoker Meaningful Use Info Meaningful Use Diagnoses (Choose all that apply): None applicable Please cancel charge of today's progress note Inpatient E&M: [id number] [facility] H[facility]
--- NOTE | 2020-03-08 14:17 | NURSING ---
pt talked with her boyfriend
[2020-03-08] MEDS: Senna/Docusate Sodium 1 Tablet 2 TABLET PO (14:33)
--- NOTE | 2020-03-08 15:43 | CASEMGMT ---
Social Work Phone call to [facility] and they have not received precert yet. Phone number for the unit provided for [facility] to call should precert come in later today. Pt aware that if insurance auth is not obtained by 5:00 pt will be here until Wednesday when insurance opens back up. REGGIE Baker
--- NOTE | 2020-03-08 16:19 | CASEMGMT ---
Social Work [facility] call from [facility] and precert has been obtained. SW informed pt who is agreeable to discharge. Charge nurse made aware and contacted physician. Transportation set up with [facility] for 6:30 picking table worker. RN aware and to fax orders when obtained. REGGIE Baker
[2020-03-08] MEDS: 0.9% Saline Lock 10 ML Syringe IV (18:02)
--- NOTE | 2020-03-08 18:22 | NURSING ---
called [facility] and gave report to beulah bazan
--- NOTE | 2020-03-08 19:37 | NURSING ---
Called [facility] to see about pickup for this pt. Day shift scrap charger stated they had scheduled pickup for [id number]. Dispatch at [facility] told me they had scheduled pickup for around 1999. They have a truck coming from [place] and they will call and have them swing by here to pick this pt up.
--- NOTE | 2020-03-08 20:37 | NURSING ---
Carla here at [phone] to flower picker this pt.
[2020-03-12 09:36] LABS: Pathologist Review Reviewed
== END 2020-03-08 20:45 | DRG 952 ==
PROVIDERS: Student in an Organized Health Care Education/Training Program; Urology; PCP Internal Medicine; Visit Provider Internal Medicine
PROC: 0TJ98ZZ Inspection of Ureter, Via Natural or Artificial Opening Endoscopic (ICD-10-PCS; CPT 52352; principal; 2020-03-06 14:00)
DX: I95.1 Orthostatic hypotension (principal); R18.0 Malignant ascites; N13.2 Hydronephrosis with renal and ureteral calculous obstruction; R19.7 Diarrhea, unspecified; D61.818 Other pancytopenia; R11.2 Nausea with vomiting, unspecified; T45.1X5A Adverse effect of antineoplastic and immunosuppressive drugs, initial encounter; R82.71 Bacteriuria; B96.89 Other specified bacterial agents as the cause of diseases classified elsewhere; C56.2 Malignant neoplasm of left ovary; E03.9 Hypothyroidism, unspecified; E43 Unspecified severe protein-calorie malnutrition; F41.9 Anxiety disorder, unspecified; F32.9 Major depressive disorder, single episode, unspecified; E11.9 Type 2 diabetes mellitus without complications; E78.5 Hyperlipidemia, unspecified; Z79.891 Long term (current) use of opiate analgesic; Z79.899 Other long term (current) drug therapy; Z87.891 Personal history of nicotine dependence; C79.9 Secondary malignant neoplasm of unspecified site; R53.81 Other malaise
CPT/HCPCS: 36415; 36591; 49083; 71045; 74177; 76000; 80048; 80053; 81001; 81002; 82150; 82274; 82945; 82962; 83036; 83605; 83615; 83630; 83735; 84100; 84157; 85025; 85027; 85610; 85730; 87070; 87075; 87077; 87086; 87088; 87186; 87205; 87493; 87506; 87635; 88108; 88305; 88313; 88341; 88342; 89050; 93005; 93970; 96361; 96374; 96375; 97110; 97162; 97165; 97530; 97535; 97802; 99285; G2023; J7030; J7040; J7050; P9047; P9612; Q9967; A4216; C1769; C2617; J1447; J2405; U0003

== ENCOUNTER → 2020-03-12 | Outpatient (CLI) | payer MEDICAID, SELFPAY ==
[2020-03-06 12:21] VITALS: BMI 24.5
--- NOTE | 2020-03-12 13:33 | US_ITS ---
PROCEDURE: ULTRASOUND GUIDED PARACENTESIS CLINICAL HISTORY: Female, 59 years old. ASCITES CONSENT: Informed consent obtained Time-Out Called: Yes. Consent form signed: Yes. PT-PTT Levels Checked: Yes. SEDATION: Local with 2% Xylocaine TECHNIQUE: Ultrasound guided FINDINGS: FLUID PRE-PROCEDURE There is posterior enhancement. The findings appear anechoic. There is no loculation. After informed consent was obtained, patient was placed in the supine position on the sonographic table and appropriate site for paracentesis was determined. The area was prepped and draped in a sterile manner percent Xylocaine was used as local anesthetic. Under sonographic guidance, a 15-gauge drainage catheter was advanced into the peritoneal cavity without difficulty and approximately 3150 mL of wilber color serous fluid was withdrawn from the abdomen. Patient tolerated the procedure well with no immediate complications and was sent to infusion lab for further therapy FLUID POST-PROCEDURE Amount of fluid drained: 3150 ml. US/Paracentesis with US IMPRESSION: Successful sonographically guided paracentesis Electronically Signed: Terence Barraza MD at 14:51 EDT , Service support ,
[2020-03-12 13:43] LABS: Hematocrit 31.1 % (37-47); Hemoglobin 10.3 g/dL (12.0-15.0); Mean Corp Hgb Conc 33.1 g/dL (32-36); Mean Corpuscular Volume 90.7 fL (81-99); Mean Platelet Vol. 12.6 fl (6.2-12.0); POSITIVE COUNT YES; RBC Distribution Width CV 13.5 % (11.6-14.6); RBC Distribution Width SD 44.8 fl (35.1-43.9); Red Blood Count 3.43 M/mm3 (4.2-5.4); White Blood Count 3.2 K/mm3 (4.4-11.0)
[2020-03-12 13:45] LABS: International Normalized Ratio 1.1; Prothrombin Time (Protime)PT. 13.4 SECONDS (11.7-14.9); Scan Indicated on CBC? Y/N YES- FLAGS NOTED
[2020-03-12 13:46] LABS: Partial Thromboplast Time 25.8 Seconds (24.1-36.2)
[2020-03-12 14:13] LABS: Platelet Count 14 K/mm3 (150-450)
[2020-03-12 14:41] VITALS: BP 107/65; BP 112/68; BP 114/65; PULSE 87; PULSE 91; RESP 16; RESP 18; TEMP 36.6; O2SAT 97; O2SAT 98
[2020-03-12] MEDS: Albumin Human 25% (100 mL) 25 GM/100 ML BAG IV ×2 (14:46→16:19)
[2020-03-12 14:49] VITALS: BP 103/55; PULSE 93; RESP 16; O2SAT 100; BMI 26.1
[2020-03-12] MEDS: 0.9% NaCl Peripheral Flush Adult/Peds IV ×2 (15:15→15:52)
[2020-03-12] MEDS: Ondansetron 4 MG/2 ML Vial 8 MG IV (15:52)
[2020-03-13 12:53] LABS: Pathologist Review Reviewed
== END | disposition home or self-care (01) ==
LOC: US 13:29 → MEDOUTP 14:20
PROVIDERS: PCP Internal Medicine; Referring Provider Internal Medicine Hematology & Oncology; Visit Provider Internal Medicine Hematology & Oncology
DX: R18.8 Other ascites (principal); C56.9 Malignant neoplasm of unspecified ovary
CPT/HCPCS: 96365; 96366; 96375; 36415; 49083; 85027; 85610; 85730; 86900; 86901; P9047; A4216; J2405

== ENCOUNTER → 2020-03-13 | Outpatient (CLI) | payer MEDICAID, SELFPAY ==
[2020-03-06 12:21] VITALS: BMI 24.5
[2020-03-13] MEDS: 0.9% NaCl Peripheral Flush Adult/Peds IV ×2 (14:45→15:52)
[2020-03-13] MEDS: Acetaminophen 325 MG Tablet 650 MG PO (14:46)
[2020-03-13 15:08] VITALS: BP 121/59; PULSE 55; RESP 16; TEMP 36.2; O2SAT 100
[2020-03-13 15:10] VITALS: BP 121/59; PULSE 55; RESP 18; TEMP 36.2; O2SAT 100; BMI 26.1
[2020-03-13 15:23] VITALS: BP 89/50; PULSE 71; RESP 18; TEMP 36.6; O2SAT 97
[2020-03-13 16:15] VITALS: BP 82/44; PULSE 69; RESP 16; TEMP 36.6; O2SAT 96
[2020-03-13 16:23] VITALS: BP 82/44; PULSE 69; RESP 16; TEMP 36.6; O2SAT 96
== END | disposition home or self-care (01) ==
LOC: MEDOUTP 14:17
PROVIDERS: PCP Internal Medicine; Referring Provider Internal Medicine Hematology & Oncology; Visit Provider Internal Medicine Hematology & Oncology
DX: D69.59 Other secondary thrombocytopenia (principal); T45.1X5A Adverse effect of antineoplastic and immunosuppressive drugs, initial encounter; C56.9 Malignant neoplasm of unspecified ovary
CPT/HCPCS: 36430; 86900; 86901; 86965; J7040; P9035; A4216

== ENCOUNTER 2020-03-25 23:21 | Inpatient (IN) | payer MEDICAID, SELFPAY ==
[2020-03-13 15:10] VITALS: BMI 26.1
[2020-03-25 23:23] VITALS: BP 107/66; PULSE 113; RESP 19; TEMP 36.9; O2SAT 98; BMI 20.9
--- NOTE | 2020-03-25 23:41 | ED.VIS.GEN ---
History of Present Illness Chief Complaint: Nausea/Vomiting Informant: Patient Onset: Weeks Context: Gradual Onset Current Severity: Moderate Maximum Severity: Moderate Narrative: Patient presents secondary abdominal pain, nausea, and vomiting for the past 1 week. She has a history of ovarian cancer and is currently getting chemotherapy. Last chemo was a week ago. It appears as though the patient has been receiving Zofran and Reglan without improvement. Patient states she has trouble keeping the pills down to help with her nausea. She denies having fever or chills. She does report abdominal pain in addition to feeling nauseous. She has not had abdominal surgery. - Past Medical History (1) Anxiety and depression Status: Chronic (2) Diabetes mellitus, type II Status: Chronic (3) HLD (hyperlipidemia) Status: Chronic (4) Hypothyroidism Status: Chronic (5) Ovarian cancer Status: Chronic Past Medical History - Allergies and Home Meds Allergies/Adverse Reactions: Allergies metformin Allergy (Verified 03/25/20 23:22) Rash Primary Care Physician: Denia Adrian MD [Primary Care Provider] - Prior records reviewed: Yes Surgical History: - - Unclear gallbladder intervention as noted stones removed but her gallbladder was not, x1. Lives: [facility] Smoking Status: Former smoker - Family History Maternal Family History: Reports: Diabetes Paternal Family History: Reports: - - Patient denies any market paternal family history including heart disease, diabetes or cancer. Review of Systems General: Denies: Chills, Fever Eyes: Denies: Visual changes - bilaterally ENT: Denies: Bilateral ear pain Cardiovascular: Denies: Chest pain Respiratory: Denies: Dyspnea, Cough Gastrointestinal: Reports: Abdominal pain, Nausea, Vomiting Genitourinary: Denies: Dysuria Musculoskeletal: Denies: Extremity Pain Skin: Denies: Rash Neurological: Denies: Headache Hematologic: Denies: Easy bruising, Easy bleeding Allergy: Denies: Uticaria Physical Exam Vital Signs/Narrative: Vital Signs Temp Pulse Resp BP Pulse Ox 03/25/20 23:23 98.4 F 113 H 19 H 107/66 98 Inital Vital Signs reviewed: Yes General: Well nourished, Well developed Head: Normocephalic ENT: Moist mucous membranes Neck: Supple Cardiovascular: Regular rate, Regular rhythm Respiratory: No distress, CTA bilaterally Abdomen: Soft, Tender - Mild diffuse tenderness palpation., Hypoactive bowel sounds. Negative for: Guarding, Rebound tenderness Extremities: Nontender Skin: Normal color Neurological: Alert, Oriented x3 Psychological: Normal affect Diagnostic/Tx/Re-eval Laboratory Results 03/26/20 03/26/20 00:20 00:20 RBC 2.67 L Hgb 8.0 L Hct 23.5 L MCV 88.0 MCH 30.0 MCHC 34.0 RDW Std Deviation 40.6 RDW Coeff of Frank 14.2 Plt Count 166 MPV 10.7 Neut % (Auto) Not Reportable Sodium 140 Potassium 2.7 L* Chloride 98 Carbon Dioxide 33.0 H Anion Gap 9 BUN 37 H Creatinine 0.72 Estim Creat Clear Calc 76.64 Est GFR (MDRD) Af Amer 108 Est GFR (MDRD) Non-Af 89 BUN/Creatinine Ratio 51.7 H Glucose 156 H Calcium 8.7 Total Bilirubin 2.10 H Direct Bilirubin 0.74 H AST 30 ALT 42 Alkaline Phosphatase 130 H Total Protein 6.3 L Albumin 3.3 Globulin 3.0 Lipase 123 - Medical Decision Making Patient is observed on cardiac exercise specialist. She is given IV fluids along with Zofran and a small dose of fentanyl. On repeat evaluation she is still complaining of some mild nausea but has not been spitting up as much. She is given a dose of Reglan. Patient's white count returned at 1.5. She was placed on neutropenic precautions. Her potassium is low at 2.7. 40 mEq IV have been ordered. I will speak with hospitalist regarding admission for potassium replacement. ED Disposition - Plan for ED Patient: Disposition: Home or Assisted Living Diagnosis: Hypokalemia, Vomiting, Ovarian cancer Referrals: Denia Adrian MD [Primary Care Provider] -
[2020-03-26] VITALS (19 sets, daily range): BP systolic 100–118; BP diastolic 54–73; PULSE 73–105; RESP 14–20; TEMP 36.5–36.8; O2SAT 95–100; BMI 19.8
[2020-03-26] MEDS: Ondansetron 4 MG/2 ML Vial IV (00:11)
[2020-03-26] MEDS: fentaNYL 100 MCG/2 ML Ampul 12.5 MCG IV (00:16)
[2020-03-26 00:32] LABS: Hematocrit 23.5 % (37-47); Mean Platelet Vol. 10.7 fl (6.2-12.0); POSITIVE COUNT YES; POSITIVE DIFFERENTIAL YES; POSITIVE MORPHOLOGY YES; Platelet Count 166 K/mm3 (150-450); RBC Distribution Width CV 14.2 % (11.6-14.6); RBC Distribution Width SD 40.6 fl (35.1-43.9); Red Blood Count 2.67 M/mm3 (4.2-5.4)
[2020-03-26 00:35] LABS: Differential Indicated MANUAL DIFF
[2020-03-26 00:42] LABS: White Blood Count 1.5 K/mm3 (4.4-11.0)
--- NOTE | 2020-03-26 00:43 | ED.RN ---
dr dee notified of wbc 1.5
[2020-03-26 00:52] LABS: AST(SGOT) 30 U/L (15-37); Alanine Aminotransfer ALT/SGPT 42 U/L (13-56); Albumin, Serum 3.3 g/dL (3.2-5.0); Alkaline Phosphatase 130 U/L (45-117); Anion Gap 9 (5-15); BUN 37 mg/dL (7-18); BUN/Creat Ratio 51.7 RATIO (10-20); Bilirubin, Direct 0.74 mg/dL (0.00-0.30); Calcium,Total 8.7 mg/dL (8.5-10.1); Chloride 98 mmol/L (98-107); Creatinine, Serum 0.72 mg/dL (0.55-1.02); EST Glomerular Filtration Rate 89 mL/min (>60); Est Glom Filt Rate - Afr Amer 108 mL/min (>60); Estimated Creatinine Clearance 76.64 ml/min; Glucose 156 mg/dL (74-106); Lipase 123 U/L (73-393); Potassium 2.7 mmol/L (3.5-5.1); Protein, Total 6.3 g/dL (6.4-8.2); Sodium Level 140 mmol/L (136-145)
[2020-03-26 01:01] LABS: Mucous, Urine 0 SEEN /hpf (<or=2+); Squamous Epithelial Cells - UA 0 SEEN /hpf (5-10)
[2020-03-26 01:04] LABS: Color, Urine Straw (Yellow); Glucose, Dipstick Normal (Normal); Ketone-Dipstick 5 mg/dl (Negative); Leukocyte Esterase-Dipstick 500 /ul (Negative); Nitrite-Dipstick Negative (Negative); Occult Blood-Urine 25 /ul (Negative); Protein-Dipstick 100 mg/dl (Negative); Urine Bilirubin Dipstick Negative (Negative); Urine Clarity Cloudy (Clear); Urine Urobilinogen 4 mg/dl (Normal)
[2020-03-26] MEDS: 0.9% Normal Saline 1,000 ML 150 ML IV (01:08)
[2020-03-26] MEDS: Metoclopramide 10 MG/2 ML Vial 5 MG IV ×5 (01:09→23:24)
[2020-03-26] MEDS: Potassium Chloride 10mEq/100mL 10 MEQ/100 ML IV.SOLN. 100 MEQ IV BOLUS ×4 (01:11→04:43)
[2020-03-26 01:14] LABS: Bacteria 4+ /hpf (None Seen); Red Blood Cells-Urine 5-10 SEEN /hpf (0-5); White Blood Cells 10-25 SEEN /hpf (0-5)
--- NOTE | 2020-03-26 01:16 | ED.RN ---
[facility] was called and informed on pt admission.
[2020-03-26 01:22] LABS: Eosinophil 4 % (0-5); Lymphocyte 20 % (19-41); Monocyte 4 % (0-10); Neutrophil-Segmented 72 % (47-70); Total Cells Counted 50 (MANUAL DIFF)
[2020-03-26 01:24] LABS: Hypochromasia 3+; Microcytosis 3+; Platelet Estimate ADEQUATE (ADEQ)
[2020-03-26 01:25] LABS: Absolute Neutrophil Count 1.1 X10^3/uL (2.0-7.7); Neutrophil # 1.08 X10^3/uL (2.7-7.7)
[2020-03-26 01:26] LABS: Absolute Lymphocyte Count 0.29 X10^3/uL (0.83-4.51); Lymphocyte # 0.29 X10^3/ul (4.0)
--- NOTE | 2020-03-26 01:26 | HP.PCM_ITS ---
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 Diabetes mellitus complication status: with other specified complication Qualified Code(s): E11.69 - Type 2 diabetes mellitus with other specified complication (6) Former tobacco use Status: Chronic (7) Neutropenia Status: Acute Qualifiers: Neutropenia type: secondary to cancer chemotherapy Qualified Code(s): D70.1 - Agranulocytosis secondary to cancer chemotherapy; T45.1X5A - Adverse effect of antineoplastic and immunosuppressive drugs, initial encounter Comment: Taxol and carboplatin (8) Hypokalemia Status: Acute (9) Vomiting Status: Acute History of Present Illness Date of Admission: 03/26/20 Chief Complaint: intractable nausea and vomiting The patient is a 59 year old female with a history of ovarian cancer who presents the emergency room from care home due to ongoing nausea and vomiting for 1 week. She currently denies chest pain shortness of breath or fevers or chills. She has had ongoing chemotherapy for her ovarian cancer. Despite receiving antiemetic therapy at the care home the patient was still throwing up and becoming more dehydrated. Laboratory studies here reveal a white blood cell count of 1.5, hemoglobin 8.0, potassium 2.7, sodium 140 with a BUN/c reatinine ratio greater than 50. Other studies are unremarkable at this point. The patient did receive some relief from Zofran but continued to have nausea therefore Reglan was administered in the emergency room as well. The patient will be admitted for her nausea and vomiting and correction of her electrolyte imbalance. Past Medical History Past Medical History (Chronic Problems): Chronic Problems Ovarian cancer (Chronic) Hypothyroidism (Chronic) Anxiety and depression (Chronic) HLD (hyperlipidemia) (Chronic) Diabetes mellitus, type II (Chronic) Former tobacco use (Chronic) Allergies metformin Allergy (Verified 03/25/20 23:22) Rash Home Medications: Ambulatory Orders Medication Instructions Recorded Levothyroxine [Synthroid] 100 mcg PO DAILY 02/20/20 Melatonin mg PO QHS 02/20/20 Polyethylene Glycol 3350 [Miralax] 17 gm PO DAILY PRN PRN 02/20/20 Ibuprofen 600 mg PO TID PRN PRN #12 tab 03/01/20 Acetaminophen [Tylenol Tablet] 650 mg PO Q6H PRN PRN tab 03/08/20 Menthol/Lanolin/Calamine/Znox 1 applic TOPICAL TID tube 03/08/20 [Calmoseptine Ointment] Oxycodone [Oxyir] 5 mg PO Q6H PRN PRN #10 tab 03/08/20 Tamsulosin HCl [Flomax] 0.4 mg PO DAILY #7 cap 03/08/20 Cetirizine HCl 10 mg PO QHS PRN PRN 03/25/20 Magnesium Hydroxide [Milk Of 30 ml PO DAILY PRN PRN 03/25/20 Magnesia] Mineral Oil 1 bottle [place] DAILY PRN PRN 03/25/20 Olanzapine [Zyprexa] 2.5 mg PO QHS 03/25/20 Omeprazole 20 mg PO DAILY 03/25/20 Ondansetron HCl [Zofran] 8 mg PO Q12H PRN PRN 03/25/20 Surgical History: - - Unclear gallbladder intervention as noted stones removed but her gallbladder was not, x1. 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 Review of Systems Constitutional: Reports: Anorexia, Weakness. Denies: Chills, Fever, Weight Change HEENT: Denies: Head Aches, Sinus Congestion, Sinus Drainage Cardiovascular: Denies: Chest Pain, Palpitations Respiratory: Denies: Cough, Shortness of breath at rest, Sputum production Gastrointestinal: Reports: Nausea, Vomiting Genitourinary: Denies: Dysuria Musculoskeletal: Denies: Joint Pain, Joint Tenderness Skin: Denies: Rash, Wounds Neurological: Denies: Numbness, Tingling, Focal weakness Psychiatric: Reports: Anxiety. Denies: Depression, Homicidal Ideations, Suicidal Ideations Hematologic/ Lymphatic: Denies: Easy Bruising, Easy Bleeding VTE Information - Inpt Only VTE Present on Admission: No VTE Mechan Device Prophylaxis: None VTE Pharm Prophylaxis ordered?: Yes Patient Problems: Active and Suspected Problems Hypokalemia (Acute) Vomiting (Acute) - Physical Exam Vitals/I&O's: Vital Signs Temp Pulse Resp BP Pulse Ox 97.9 F 80 14 114/57 L 100 03/26/20 01:14 03/26/20 01:14 03/26/20 01:14 03/26/20 01:14 03/26/20 01:14 Oxygen Delivery Method Room Air Weight: 126 lb 5.198 oz Body Mass Index (BMI) 20.9 Finger Stick Blood Glucose 76 Intake and Output for Last 24 Hours 03/24/20 03/25/20 03/26/20 23:59 23:59 23:59 Intake Total 610 / 610 Balance 610 / 610 General: Alert, Oriented x3, Cooperative HEENT: Atraumatic, Normocephalic, - - alopecia Neck: Supple Lungs: Clear to auscultation, Normal air movement, No rhonchi, No wheeze, No rales Cardiovascular: Regular rate, Regular Rhythm, Normal S1, Normal S2, No murmurs Abdomen: Bowel Sounds Present, Soft, Non Tender Extremities: No edema Skin: No rashes, No breakdown Musculoskeletal: No Tenderness to Palpation of Joints or Extremities Neurological: Neuro grossly intact Psych/Mental Status: Normal Affect, Appropriate Laboratory Results 03/26/20 00:20: WBC 1.5 L, RBC 2.67 L, Hgb 8.0 L, Hct 23.5 L, MCV 88.0, MCH 30.0, MCHC 34.0, RDW Std Deviation 40.6, RDW Coeff of Frank 14.2, Plt Count 166, MPV 10.7, Neut % (Auto) Not Reportable, Absolute Neuts (auto) Pending, Absolute Lymphs (auto) Pending, Total Counted 50, Neutrophils % (Manual) 72 H, Lymphocytes % (Manual) 20, Monocytes % (Manual) 4, Eosinophils % (Manual) 4, Platelet Estimate ADEQUATE, Hypochromasia 3+, Microcytosis 3+ 03/26/20 00:20: Sodium 140, Potassium 2.7 L*, Chloride 98, Carbon Dioxide 33.0 H , Anion Gap 9, BUN 37 H, Creatinine 0.72, Estim Creat Clear Calc 76.64, Est GFR (MDRD) Af Amer 108, Est GFR (MDRD) Non-Af 89, BUN/Creatinine Ratio 51.7 H, Glucose 156 H, Calcium 8.7, Total Bilirubin 2.10 H, Direct Bilirubin 0.74 H, AST 30, ALT 42, Alkaline Phosphatase 130 H, Total Protein 6.3 L, Albumin 3.3, Globulin 3.0, Lipase 123 03/26/20 00:55: Urine Color Straw, Urine Clarity Cloudy, Urine pH 8.0, Ur Specific Enloe 1.010, Urine Protein 100 H, Urine Glucose (UA) Normal, Urine Ketones 5 H, Urine Occult Blood 25 H, Urine Nitrite Negative, Urine Bilirubin Negative, Urine Urobilinogen 4 H, Ur Leukocyte Esterase 500 H, Urine RBC 5-10 SEEN, Urine WBC 10-25 SEEN, Ur Squamous Epith Cells 0 SEEN, Urine Bacteria 4+, Urine Mucus 0 SEEN Current Medications Sodium Chloride () 1,000 mls @ 150 mls/hr IV .[id number] [facility] Last Admin: 03/26/20 01:08 Dose: 150 mls/hr Documented by: Potassium Chloride () 10 meq in 100 mls @ 100 mls/hr IV BOLUS Q1H [facility] Stop: 03/26/20 04:59 Last Admin: 03/26/20 01:11 Dose: 100 mls/hr Documented by: Assessment/Plan All Active Problems Chest pain (Acute) Neutropenia (Acute) Diarrhea (Acute) Hypokalemia (Acute) Vomiting (Acute) Chronic Problems Ovarian cancer (Chronic) Hypothyroidism (Chronic) Anxiety and depression (Chronic) HLD (hyperlipidemia) (Chronic) Diabetes mellitus, type II (Chronic) Former tobacco use (Chronic) Plan 1. Intractable nausea/vomiting secondary to ovarian cancer with chemotherapy?Place patient in progressive care unit due to hypokalemia and monitoring for cardiac dysrhythmia. Will give Zofran 8 mg IV every 6 hours as needed nausea along with Reglan 5 mg IV 4 times daily as needed nausea. We will add Ativan IV 3 times daily PRN nausea as well. Repeat CBC BMP in the morning. Due to light white blood cell count patient will be placed on neutropenic protection. Will place patient on D5 half-normal saline with 20 of K at 125 cc/h 2. Hypothyroidism?continue medication 3. Hyperlipidemia?continue statin 4. Diabetes?continue home medications 5. DVT prophylaxis?low molecular weight heparin Inpatient E&M: 34668 Init Hosp L3
[2020-03-26 06:00] LABS: Absolute Lymphocyte Count 0.47 X10^3/uL (0.83-4.51); Absolute Neutrophil Count 0.7 X10^3/uL (2.0-7.7); Hemoglobin 7.1 g/dL (12.0-15.0); Lymphocyte # 0.47 X10^3/ul (4.0); Lymphocyte % 37.6 % (19-41); Mean Corp Hgb Conc 32.3 g/dL (32-36); Mean Corpuscular Hgb 29.6 pg (27.0-32.0); Mean Corpuscular Volume 91.7 fL (81-99); Mean Platelet Vol. 10.9 fl (6.2-12.0); Monocyte# 0.04 X10^3/uL; Monocyte% 3.2 % (0-10); NRBC Flagged by Analyzer 0 % (0-5); POSITIVE COUNT YES; POSITIVE DIFFERENTIAL YES; POSITIVE MORPHOLOGY YES; Platelet Count 142 K/mm3 (150-450); RBC Distribution Width CV 14.1 % (11.6-14.6); RBC Distribution Width SD 42.3 fl (35.1-43.9)
[2020-03-26 06:02] LABS: Differential Indicated SCAN CRITERIA MET; White Blood Count 1.3 K/mm3 (4.4-11.0)
[2020-03-26] MEDS: Menthol/Lanolin/Calamine/Znox 113 GM Tube 1 APPLIC TOPICAL ×3 (06:02→21:11)
[2020-03-26 06:25] LABS: Anion Gap 8 (5-15); BUN 32 mg/dL (7-18); Calcium,Total 8.1 mg/dL (8.5-10.1); Chloride 102 mmol/L (98-107); EST Glomerular Filtration Rate 92 mL/min (>60); Est Glom Filt Rate - Afr Amer 111 mL/min (>60); Estimated Creatinine Clearance 74.82 ml/min; Glucose 177 mg/dL (74-106); Potassium 3.7 mmol/L (3.5-5.1); Sodium Level 141 mmol/L (136-145)
[2020-03-26 06:35] LABS: Differential Comment SCANNED
[2020-03-26 07:16] LABS: Bedside Glucose 180 mg/dL (70-110)
[2020-03-26] MEDS: Ondansetron 4 MG/2 ML Vial 8 MG IV (08:42)
[2020-03-26] MEDS: LORazepam 2 MG/ML Syringe 0.5 MG IV (10:19)
[2020-03-26] MEDS: Enoxaparin 40 MG/0.4 ML Syringe SC (10:20)
[2020-03-26 11:55] LABS: Pathologist Review Reviewed
[2020-03-26 11:55] LABS: Pathologist Review Reviewed
[2020-03-26 12:05] LABS: Bedside Glucose 154 mg/dL (70-110)
--- NOTE | 2020-03-26 12:33 | PN_ITS ---
<Sara Bermeo - Last Filed: 03/26/20 12:59> Patient Problems: Active and Suspected Problems Hypokalemia (Acute) Subjective: Patient seen and examined. Reports intractable nausea, vomiting. Denies abdominal pain, diarrhea. Denies other current complaints. - Physical Exam Vitals/I&O's: Vital Signs Temp Pulse Resp BP Pulse Ox 97.7 F L 86 18 115/54 L 96 03/26/20 10:20 03/26/20 10:20 03/26/20 10:20 03/26/20 10:20 03/26/20 10:20 Oxygen Delivery Method Room Air Weight: 119 lb 4.321 oz Body Mass Index (BMI) 19.8 Finger Stick Blood Glucose 76 Intake and Output for Last 24 Hours 03/24/20 03/25/20 03/26/20 23:59 23:59 23:59 Intake Total 3092.50 / 3092.50 Output Total 400 / 400 Balance 2692.50 / 2692.50 General: Alert, Oriented x3, Cooperative, - - Cachectic, frail-appearing HEENT: Atraumatic, PERRLA, EOMI, Normocephalic Oral: Dry Mucosa Neck: Supple, No JVD, Negative Carotid Bruits Lungs: Clear to auscultation, Diminished Cardiovascular: Regular rate, No murmurs Abdomen: Bowel Sounds Present, Soft, Non Tender, Non-Distended Extremities: No clubbing, No cyanosis, No edema, Capillary Refill Less than 3 Seconds Skin: No rashes, No breakdown Musculoskeletal: No Tenderness to Palpation of Joints or Extremities, Cachexia, Muscle Wasting Neurological: Cranial nerves II-XII grossly intact, Neuro grossly intact Psych/Mental Status: Normal Affect, Appropriate Laboratory Results 03/26/20 00:20: WBC 1.5 L, RBC 2.67 L, Hgb 8.0 L, Hct 23.5 L, MCV 88.0, MCH 30.0, MCHC 34.0, RDW Std Deviation 40.6, RDW Coeff of Frank 14.2, Plt Count 166, MPV 10.7, Neut % (Auto) Not Reportable, Absolute Neuts (auto) 1.1 L, Absolute Lymphs (auto) 0.29 L, Total Counted 50, Neutrophils % (Manual) 72 H, Lymphocytes % (Manual) 20, Monocytes % (Manual) 4, Eosinophils % (Manual) 4, Diff Path Review Reviewed, Platelet Estimate ADEQUATE, Hypochromasia 3+, Microcytosis 3+ 03/26/20 00:20: Sodium 140, Potassium 2.7 L*, Chloride 98, Carbon Dioxide 33.0 H , Anion Gap 9, BUN 37 H, Creatinine 0.72, Estim Creat Clear Calc 76.64, Est GFR (MDRD) Af Amer 108, Est GFR (MDRD) Non-Af 89, BUN/Creatinine Ratio 51.7 H, Glucose 156 H, Calcium 8.7, Total Bilirubin 2.10 H, Direct Bilirubin 0.74 H, AST 30, ALT 42, Alkaline Phosphatase 130 H, Total Protein 6.3 L, Albumin 3.3, Globulin 3.0, Lipase 123 03/26/20 00:55: Urine Color Straw, Urine Clarity Cloudy, Urine pH 8.0, Ur Specific Harrell 1.010, Urine Protein 100 H, Urine Glucose (UA) Normal, Urine Ketones 5 H, Urine Occult Blood 25 H, Urine Nitrite Negative, Urine Bilirubin Negative, Urine Urobilinogen 4 H, Ur Leukocyte Esterase 500 H, Urine RBC 5-10 SEEN, Urine WBC 10-25 SEEN, Ur Squamous Epith Cells 0 SEEN, Urine Bacteria 4+, Urine Mucus 0 SEEN 03/26/20 05:28: Sodium 141, Potassium 3.7, Chloride 102, Carbon Dioxide 31.0, Anion Gap 8, BUN 32 H, Creatinine 0.70, Estim Creat Clear Calc 74.82, Est GFR (MDRD) Af Amer 111, Est GFR (MDRD) Non-Af 92, BUN/Creatinine Ratio 46.0 H, Glucose 177 H, Calcium 8.1 L 03/26/20 05:28: WBC 1.3 L*, RBC 2.40 L, Hgb 7.1 L, Hct 22.0 L, MCV 91.7, MCH 29.6, MCHC 32.3, RDW Std Deviation 42.3, RDW Coeff of Frank 14.1, Plt Count 142 L, MPV 10.9, Immature Gran % (Auto) 3.200 H, Neut % (Auto) 56.0, Lymph % (Auto) 37.6, [place] % (Auto) 3.2, Eos % (Auto) 0.0, Baso % (Auto) 0.0, Absolute Neuts (auto) 0.7 L, Absolute Lymphs (auto) 0.47 L, Nucleated RBC % 0, Differential Comment SCANNED, Diff Path Review Reviewed 03/26/20 07:10: POC Glucose 180 H 03/26/20 11:00: Blood Type Pending, Antibody Screen Pending, Crossmatch See Detail 03/26/20 11:55: POC Glucose 154 H Current Medications Acetaminophen (Tylenol) 650 mg PO Q6H PRN PRN PRN Reason: Pain Score 1-10/10 Calamine/Phenol (Calmoseptine Ointment) 1 applic TOPICAL TID ANGELA; Protocol Last Admin: 03/26/20 06:02 Dose: 1 applicatio Documented by: Dextrose (D50w Syringe) 0 gm IV X1 PRN; Protocol PRN Reason: Hypoglycemia Enoxaparin Sodium (Lovenox) 40 mg SC DAILY [facility] Last Admin: 03/26/20 10:20 Dose: 40 mg Documented by: Glucagon () 1 mg IM .X1 PRN PRN Reason: Hypoglycemia Heparin Sodium (Beef Lung) () 50 units IV UD PRN PRN Reason: R Port Heparin Flush Potassium Chloride/Dextrose/Sod Cl () 1,000 mls @ 125 mls/hr IV .Q8H ANGELA Last Admin: 03/26/20 10:14 Dose: 125 mls/hr Documented by: Sodium Chloride () 250 mls @ 15 mls/hr IV .[id number] PRN PRN Reason: Saline Flush Pantoprazole Sodium 40 mg/ (Sodium Chloride) 110 mls @ 330 mls/hr IV Q12 [facility] Last Infusion: 03/26/20 10:34 Dose: Infused Documented by: Ibuprofen (Motrin) 600 mg PO TID PRN PRN PRN Reason: Pain Score 4-10/10 Levothyroxine Sodium (Synthroid) 100 mcg PO DAILY@0600 [facility] Last Admin: 03/26/20 08:38 Dose: Not Given Documented by: Loratadine (Claritin) 10 mg PO QHS PRN PRN PRN Reason: STUFFINESS Lorazepam (Ativan) 0.5 mg IV Q6H PRN PRN PRN Reason: ANXIETY Last Admin: 03/26/20 10:19 Dose: 0.5 mg Documented by: Magnesium Hydroxide (Milk Of Magnesia) 30 ml PO DAILY PRN PRN PRN Reason: Constipation Metoclopramide HCl (Reglan) 5 mg IV Q6 [facility] Last Admin: 03/26/20 11:58 Dose: 5 mg Documented by: Olanzapine (Zyprexa) 2.5 mg PO QHS [facility] Ondansetron HCl (Zofran) 8 mg IV Q6H PRN PRN PRN Reason: NAUSEA Last Admin: 03/26/20 08:42 Dose: 8 mg Documented by: Oxycodone HCl (Oxyir) 5 mg PO Q6H PRN PRN PRN Reason: Pain Score 6-10/10 Polyethylene Glycol (Miralax) 17 gm PO DAILY PRN PRN PRN Reason: Constipation Promethazine HCl (Phenergan) 6.25 mg IV Q6H PRN PRN PRN Reason: NAUSEA/VOMITING Sodium Chloride () 10 - 40 ml IV UD PRN PRN Reason: R Port Sal[place] Flush Sodium Chloride (0.9% Nacl (Sterile) Posiflush) 10 - 40 ml IV UD PRN PRN Reason: Port access or dressing change Medical Necessity - Tobacco Use Smoking Status: Former smoker Tobacco Use: Non-smoker Assessment/Plan All Active Problems Neutropenia (Acute) Hypokalemia (Acute) 1. Intractable nausea/vomiting secondary to chemotherapy regimen-IV fluids. PRN antiemetics. Supportive management. 2. Metastatic stage III ovarian cancer-undergoes weekly paracentesis for ascites. Follows with Dr. Flood. Palliative care discussed with patient in the past however she was not amenable at that time. Recommend continued discussion with oncology. 3. Pancytopenia- will begin granix 300mcg sq until ANC >1000. Trend CBC. 4. Hypokalemia-secondary to #1. Replace per protocol. Trend BMP. Check mag. 5. Type 2 diabetes mellitus- not on regimen. Diet controlled. Hemoglobin A1c 5.7% in February. 6. Hypothyroidism-continue Synthroid regimen. 7. Hyperlipidemia- continue statin. 8. GERD-IV PPI given nausea vomiting. 9. Severe protein calorie malnutrition-as evidenced by weight loss, poor oral intake, cachectic appearance and muscle loss. Dietitian consult. 10. Debility-currently resides in SNF. PT/OT. DVT prophylaxis- Lovenox sc This patient was seen by KING Murdock under the supervision of Dr. Goldberg. <Anoop Goldberg Last Filed: 03/26/20 13:14> - Physical Exam Vitals/I&O's: Vital Signs Temp Pulse Resp BP Pulse Ox 97.7 F L 86 18 115/54 L 96 03/26/20 10:20 03/26/20 10:20 03/26/20 10:20 03/26/20 10:20 03/26/20 10:20 Oxygen Delivery Method Room Air Weight: 119 lb 4.321 oz Body Mass Index (BMI) 19.8 Finger Stick Blood Glucose 76 Intake and Output for Last 24 Hours 03/24/20 03/25/20 03/26/20 23:59 23:59 23:59 Intake Total 3092.50 / 3092.50 Output Total 400 / 400 Balance 2692.50 / 2692.50 Laboratory Results 03/26/20 00:20: WBC 1.5 L, RBC 2.67 L, Hgb 8.0 L, Hct 23.5 L, MCV 88.0, MCH 30.0, MCHC 34.0, RDW Std Deviation 40.6, RDW Coeff of Frank 14.2, Plt Count 166, MPV 10.7, Neut % (Auto) Not Reportable, Absolute Neuts (auto) 1.1 L, Absolute Lymphs (auto) 0.29 L, Total Counted 50, Neutrophils % (Manual) 72 H, Lymphocytes % (Manual) 20, Monocytes % (Manual) 4, Eosinophils % (Manual) 4, Diff Path Re view Reviewed, Platelet Estimate ADEQUATE, Hypochromasia 3+, Microcytosis 3+ 03/26/20 00:20: Sodium 140, Potassium 2.7 L*, Chloride 98, Carbon Dioxide 33.0 H , Anion Gap 9, BUN 37 H, Creatinine 0.72, Estim Creat Clear Calc 76.64, Est GFR (MDRD) Af Amer 108, Est GFR (MDRD) Non-Af 89, BUN/Creatinine Ratio 51.7 H, Glucose 156 H, Calcium 8.7, Total Bilirubin 2.10 H, Direct Bilirubin 0.74 H, AST 30, ALT 42, Alkaline Phosphatase 130 H, Total Protein 6.3 L, Albumin 3.3, Globulin 3.0, Lipase 123 03/26/20 00:55: Urine Color Straw, Urine Clarity Cloudy, Urine pH 8.0, Ur Specific Harrell 1.010, Urine Protein 100 H, Urine Glucose (UA) Normal, Urine Ketones 5 H, Urine Occult Blood 25 H, Urine Nitrite Negative, Urine Bilirubin Negative, Urine Urobilinogen 4 H, Ur Leukocyte Esterase 500 H, Urine RBC 5-10 SEEN, Urine WBC 10-25 SEEN, Ur Squamous Epith Cells 0 SEEN, Urine Bacteria 4+, Urine Mucus 0 SEEN 03/26/20 05:28: Sodium 141, Potassium 3.7, Chloride 102, Carbon Dioxide 31.0, Anion Gap 8, BUN 32 H, Creatinine 0.70, Estim Creat Clear Calc 74.82, Est GFR (MDRD) Af Amer 111, Est GFR (MDRD) Non-Af 92, BUN/Creatinine Ratio 46.0 H, Glucose 177 H, Calcium 8.1 L 03/26/20 05:28: WBC 1.3 L*, RBC 2.40 L, Hgb 7.1 L, Hct 22.0 L, MCV 91.7, MCH 29.6, MCHC 32.3, RDW Std Deviation 42.3, RDW Coeff of Frank 14.1, Plt Count 142 L, MPV 10.9, Immature Gran % (Auto) 3.200 H, Neut % (Auto) 56.0, Lymph % (Auto) 37.6, [place] % (Auto) 3.2, Eos % (Auto) 0.0, Baso % (Auto) 0.0, Absolute Neuts (auto) 0.7 L, Absolute Lymphs (auto) 0.47 L, Nucleated RBC % 0, Differential Comment SCANNED, Diff Path Review Reviewed 03/26/20 05:28: Magnesium 1.9 03/26/20 07:10: POC Glucose 180 H 03/26/20 11:00: Blood Type B NEGATIVE, Antibody Screen NEGATIVE, Crossmatch See Detail 03/26/20 11:55: POC Glucose 154 H Current Medications Acetaminophen (Tylenol) 650 mg PO Q6H PRN PRN PRN Reason: Pain Score 1-10/10 Calamine/Phenol (Calmoseptine Ointment) 1 applic TOPICAL TID ANGELA; Protocol Last Admin: 03/26/20 06:02 Dose: 1 applicatio Documented by: Dextrose (D50w Syringe) 0 gm IV X1 PRN; Protocol PRN Reason: Hypoglycemia Enoxaparin Sodium (Lovenox) 40 mg SC DAILY [facility] Last Admin: 03/26/20 10:20 Dose: 40 mg Documented by: Glucagon () 1 mg IM .X1 PRN PRN Reason: Hypoglycemia Heparin Sodium (Beef Lung) () 50 units IV UD PRN PRN Reason: R Port Heparin Flush Potassium Chloride/Dextrose/Sod Cl () 1,000 mls @ 125 mls/hr IV .Q8H [facility] Last Admin: 03/26/20 10:14 Dose: 125 mls/hr Documented by: Sodium Chloride () 250 mls @ 15 mls/hr IV .[id number] PRN PRN Reason: Saline Flush Pantoprazole Sodium 40 mg/ (Sodium Chloride) 110 mls @ 330 mls/hr IV Q12 [facility] Last Infusion: 03/26/20 10:34 Dose: Infused Documented by: Ceftriaxone Sodium (Rocephin) 1 gm in 50 mls @ 100 mls/hr IV Q24 [facility] Ibuprofen (Motrin) 600 mg PO TID PRN PRN PRN Reason: Pain Score 4-10/10 Levothyroxine Sodium (Synthroid) 100 mcg PO DAILY@0600 [facility] Last Admin: 03/26/20 08:38 Dose: Not Given Documented by: Loratadine (Claritin) 10 mg PO QHS PRN PRN PRN Reason: STUFFINESS Lorazepam (Ativan) 0.5 mg IV Q6H PRN PRN PRN Reason: ANXIETY Last Admin: 03/26/20 10:19 Dose: 0.5 mg Documented by: Magnesium Hydroxide (Milk Of Magnesia) 30 ml PO DAILY PRN PRN PRN Reason: Constipation Metoclopramide HCl (Reglan) 5 mg IV Q6 [facility] Last Admin: 03/26/20 11:58 Dose: 5 mg Documented by: Olanzapine (Zyprexa) 2.5 mg PO QHS [facility] Ondansetron HCl (Zofran) 8 mg IV Q6H PRN PRN PRN Reason: NAUSEA Last Admin: 03/26/20 08:42 Dose: 8 mg Documented by: Oxycodone HCl (Oxyir) 5 mg PO Q6H PRN PRN PRN Reason: Pain Score 6-10/10 Polyethylene Glycol (Miralax) 17 gm PO DAILY PRN PRN PRN Reason: Constipation Promethazine HCl (Phenergan) 6.25 mg IV Q6H PRN PRN PRN Reason: NAUSEA/VOMITING Sodium Chloride () 10 - 40 ml IV UD PRN PRN Reason: R [place] Flush Sodium Chloride (0.9% Nacl (Sterile) Posiflush) 10 - 40 ml IV UD PRN PRN Reason: Port access or dressing change Tbo-Filgrastim (Granix) 300 mcg SC X1 ONE Stop: 03/26/20 12:56 Assessment/Plan Hospitalist note: I am seeing this patient in conjunction with Sara Bermeo. I independently seen and examined the patient. Progress note above, laboratory data and imaging studies reviewed and I concur with the above treatment plan. Today, patient mentioned that her nausea and vomiting is improving but still there. She denied abdominal pain, no diarrhea. Her vital signs are stable. - Physical Exam General: Alert, Oriented x3, Cooperative, cachectic, chronically ill patient. HEENT: Atraumatic, PERRLA, EOMI. Neck: Supple, No JVD, Negative Carotid Bruits, Trachea Midline, Thyroid Normal. Lungs: Diminished breath sounds bilateral, otherwise clear, no rhonchi, No wheeze, No rales. Cardiovascular: Regular rate, Regular Rhythm, Normal S1, Normal S2, PMI Normal. Abdomen: Bowel Sounds Present, Soft, Non Tender, Non-Distended, No Hepato- splenomegaly. Extremities: No clubbing, No cyanosis, No edema Skin: No rashes, No breakdown Neurological: Cranial nerves are intact, neuro grossly intact Vital Signs are stable. Assessment and plan: #1 intractable nausea and vomiting: Chemotherapy-induced. She is on IV fluids, IV antiemetics PRN. Patient reported some improvement in her symptoms. Denied abdominal pain. Abdomen exertion is benign. She is on IV Protonix. Plan to continue same treatment, repeat CBC and BMP tomorrow morning. #2 severe hypokalemia: Secondary to nausea and vomiting. She has been on replacement. Potassium replaced and corrected. Serum magnesium is normal. #3 pancytopenia: Secondary to chemotherapy. WBC is 1.3, she does have neutropenia, ANC is 700 today. No evidence of fever. Hemoglobin is 7.1 g/dL, came down from 8 on admission. Platelet count was normal yesterday, it is 1 42,000 today which is slightly low. Plan: Subcu Granix, transfuse 1 unit of packed RBCs, repeat CBC with differential tomorrow morning. #4 probable acute cystitis: Start IV Rocephin, urine culture. #5 other chronic medical problems: Stable, continue current medications as above. This note was generated with [employer] dictation software. It may contain incorrect words, spelling, and punctuation that were not noted in checking the note before signing. Inpatient E&M: 70026 Subs Hosp L2
[2020-03-26 12:57] LABS: Magnesium 1.9 mg/dL (1.6-2.6)
--- NOTE | 2020-03-26 13:07 | PCM.NTREPORT ---
Nutrition Therapy Report - History Nutrition Services has been consulted to:: Manage nutrient details of diet order Current diet / nutrition support order:: Full Liquids advance to Regular as tolerated - Anthropometric Measurements Height:: 5 ft 5 in Weight:: 54.1 kg Body Mass Index (BMI):: 19.8 - Relevant Labs Relevant Labs:: WBC 1.3 K/mm3 (4.4-11.0) L* 03/26/20 05:28 RBC 2.40 M/mm3 (4.2-5.4) L 03/26/20 05:28 Hgb 7.1 g/dL (12.0-15.0) L 03/26/20 05:28 Hct 22.0 % (37-47) L 03/26/20 05:28 Plt Count 142 K/mm3 (150-450) L 03/26/20 05:28 Immature Gran % (Auto) 3.200 % (0.0-0.9) H 03/26/20 05:28 Absolute Neuts (auto) 0.7 X10^3/uL (2.0-7.7) L 03/26/20 05:28 Absolute Lymphs (auto) 0.47 X10^3/uL (0.83-4.51) L 03/26/20 05:28 Neutrophils % (Manual) 72 % (47-70) H 03/26/20 00:20 Potassium 2.7 mmol/L (3.5-5.1) L* 03/26/20 00:20 Carbon Dioxide 33.0 mmol/L (21.0-32.0) H 03/26/20 00:20 BUN 32 mg/dL (7-18) H 03/26/20 05:28 BUN/Creatinine Ratio 46.0 RATIO (10-20) H 03/26/20 05:28 Glucose 177 mg/dL (74-106) H 03/26/20 05:28 Calcium 8.1 mg/dL (8.5-10.1) L 03/26/20 05:28 Total Bilirubin 2.10 mg/dL (0.20-1.00) H 03/26/20 00:20 Direct Bilirubin 0.74 mg/dL (0.00-0.30) H 03/26/20 00:20 Alkaline Phosphatase 130 U/L (45-117) H 03/26/20 00:20 Total Protein 6.3 g/dL (6.4-8.2) L 03/26/20 00:20 - Assessment Food / Nutrition-Related History:: Pt is difficult to awaken but, reports overall poor berry x past 1-2 months & N/V x past 1 week with significant wt loss noted. Pt appears to have physical signs of malnutrition including muscle & fat wasting in the face & upper body. Per EMR review-- UBW ~180 lbs 3-4 months ago (~33% wt loss) & wt ~150 lbs 1 month ago (~20-22% wt loss calculated). Wt loss is significant for severe malnutrition of chronic disease in addition to overall poor oral intake & +NFPA. Pt has a hx of refusing ONS but, has tolerated ensure clear in the past--will offfer for tolerance at this time. May need to consider TF support for nutrition repletion; it is doubtful that pt will be able to replete kcal/protein orally at this time. - Nutrition Diagnosis Problem / Etiology / Signs & Symptoms (PES):: Severe pro/adelia malnutrition r/t chronic disease as evidenced by overall poor intake/berry x past 1-2 months, N/V x past 1 week, severe muscle & fat wasting in the face & upper body and ~20-22% wt loss x past 1 month. Evidence of Malnutrition Exists:: Yes Severe PCM:: Chronic Illness - Nutrition Intervention Nutrition Prescription:: Estimated caloric need~[id number] kcal/day. Estimated protein needs~65-75 gm pro/day - Food / Nutrient Delivery Interventions Summary of nutrition intervention:: Will offer ONS with meals as tolerated but, pt has a hx of refusing ensure enlive. Will try ensure pudding & ensure clear for tolerance. Suggest consideration for TF support for nutrition repletion given signs/sx of severe pro/adelia malnutrition and ongoing poor intake; N/V. TF support will help prevent further pro/adelia depletion especially if intake remains poor & inadequate. Nutrition support ordered as / adjusted to:: No nutrition support at this time. Nutrition education provided?: Yes - MNT Monitoring Further MNT monitoring and evaluation required?: Yes MNT Follow-up in:: 3-5 days
--- NOTE | 2020-03-26 13:55 | CASEMGMT ---
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 Her significant other Kevin is her POA. Caryl ARTEAGA MSW
[2020-03-26] MEDS: proMETHazine 25 MG/ML Syringe 6.25 MG IV (14:10)
--- NOTE | 2020-03-26 14:21 | CASEMGMT ---
Readmission chart review: Pt was a direct admit from [place] [facility] on 03/04-03/08/2020 for syncope and was discharged to [place] [facility] at that time. Pt was also admitted 02/19-02/22/2020 at [facility] for CP, dyspnea as a direct admit from [place] and was discharged home but pt then c/o increased weakness and states sig other is unable to help d/t work. Pt with recent ovarian CA w/ mets diagnosis and had been on chemo. Pt then readmitted to [facility] PCU on 03/25/2020 for intractable N/V from [place]. Plan at this time is for pt to return to [place]. CM to follow for any further discharge planning/needs. Kay KOWALSKI CM
[2020-03-26] MEDS: TBO-FILGRASTIM 300 MCG/0.5 ML ML SC (16:32)
[2020-03-26 16:45] LABS: Bedside Glucose 115 mg/dL (70-110)
[2020-03-26] MEDS: Ceftriaxone 1 GM/50 ML BAG IV (17:25)
[2020-03-26] MEDS: 0.9% Saline Lock 10 ML Syringe IV (17:25)
[2020-03-26 22:16] LABS: Bedside Glucose 136 mg/dL (70-110)
[2020-03-27] VITALS (10 sets, daily range): BP systolic 99–126; BP diastolic 49–90; PULSE 88–98; RESP 16–18; TEMP 36.5–37.2; O2SAT 97–100
[2020-03-27] MEDS: LORazepam 2 MG/ML Syringe 0.5 MG IV (01:01)
[2020-03-27] MEDS: Menthol/Lanolin/Calamine/Znox 113 GM Tube 1 APPLIC TOPICAL ×3 (06:05→21:30)
[2020-03-27] MEDS: Metoclopramide 10 MG/2 ML Vial 5 MG IV ×4 (06:07→23:52)
[2020-03-27 06:20] LABS: Bedside Glucose 127 mg/dL (70-110)
[2020-03-27 06:22] LABS: Absolute Lymphocyte Count 0.55 X10^3/uL (0.83-4.51); Absolute Neutrophil Count 1.2 X10^3/uL (2.0-7.7); Basophil# 0.01 X10^3/uL; Basophil% 0.5 % (0-1); Hematocrit 25.4 % (37-47); Hemoglobin 8.4 g/dL (12.0-15.0); Lymphocyte # 0.55 X10^3/ul (4.0); Lymphocyte % 28.8 % (19-41); Mean Corp Hgb Conc 33.1 g/dL (32-36); Mean Corpuscular Hgb 30.5 pg (27.0-32.0); Mean Corpuscular Volume 92.4 fL (81-99); Mean Platelet Vol. 11.1 fl (6.2-12.0); Monocyte% 5.2 % (0-10); NRBC Flagged by Analyzer 0 % (0-5); Neutrophil # 1.24 X10^3/uL (2.7-7.7); POSITIVE DIFFERENTIAL YES; POSITIVE MORPHOLOGY YES; Platelet Count 102 K/mm3 (150-450); RBC Distribution Width CV 13.8 % (11.6-14.6); RBC Distribution Width SD 42.6 fl (35.1-43.9); Red Blood Count 2.75 M/mm3 (4.2-5.4); White Blood Count 1.9 K/mm3 (4.4-11.0)
[2020-03-27 06:25] LABS: Differential Indicated SCAN CRITERIA MET
[2020-03-27 06:48] LABS: Differential Comment SCANNED
[2020-03-27 06:49] LABS: Anion Gap 6 (5-15); BUN 27 mg/dL (7-18); Calcium,Total 7.7 mg/dL (8.5-10.1); Chloride 114 mmol/L (98-107); Creatinine, Serum 0.69 mg/dL (0.55-1.02); EST Glomerular Filtration Rate 92 mL/min (>60); Est Glom Filt Rate - Afr Amer 112 mL/min (>60); Glucose 136 mg/dL (74-106); Potassium 3.5 mmol/L (3.5-5.1); Sodium Level 145 mmol/L (136-145)
[2020-03-27] MEDS: Enoxaparin 40 MG/0.4 ML Syringe SC (09:28)
[2020-03-27] MEDS: 0.9% Saline Lock 10 ML Syringe IV ×4 (09:30→23:51)
[2020-03-27] MEDS: Ondansetron 4 MG/2 ML Vial 8 MG IV (09:30)
[2020-03-27] MEDS: Ceftriaxone 1 GM/50 ML BAG IV (10:17)
--- NOTE | 2020-03-27 10:59 | PN_ITS ---
<Sara Bermeo - Last Filed: 03/27/20 11:09> Patient Problems: Active and Suspected Problems Hypokalemia (Acute) Subjective: Patient seen and examined. Reports continued nausea. Emesis improved. States she would like to try an orange or real food, plan to advance diet. - Physical Exam Vitals/I&O's: Vital Signs Temp Pulse Resp BP Pulse Ox 98.5 F 98 16 115/66 98 03/27/20 09:12 03/27/20 09:12 03/27/20 09:12 03/27/20 09:12 03/27/20 09:12 Oxygen Delivery Method Room Air Weight: 119 lb 4.321 oz Body Mass Index (BMI) 19.8 Finger Stick Blood Glucose 76 Intake and Output for Last 24 Hours 03/25/20 03/26/20 03/27/20 23:59 23:59 23:59 Intake Total 5102.75 / 5102.75 1530.83 / 1530.83 Output Total 575 / 575 100 / 100 Balance 4527.75 / 4527.75 1430.83 / 1430.83 General: Alert, Oriented x3, Cooperative, - - Fatigued appearing HEENT: Atraumatic, PERRLA, EOMI, Normocephalic Oral: Dry Mucosa Neck: Supple, No JVD, Negative Carotid Bruits Lungs: Clear to auscultation, Diminished Cardiovascular: Regular rate, No murmurs Abdomen: Bowel Sounds Present, Soft, Non Tender, Non-Distended Extremities: No clubbing, No cyanosis, No edema, Capillary Refill Less than 3 Seconds Skin: No rashes, No breakdown Musculoskeletal: No Tenderness to Palpation of Joints or Extremities, Cachexia, Muscle Wasting Neurological: Cranial nerves II-XII grossly intact, Neuro grossly intact Psych/Mental Status: Normal Affect, Appropriate Microbiology Past 72 Hours 03/26/20 00:55 Urine Catheter - Catheter Urine Culture - Preliminary Gram negative cayetano Laboratory Results 03/26/20 00:20: Diff Path Review Reviewed 03/26/20 05:28: Diff Path Review Reviewed 03/26/20 05:28: Magnesium 1.9 03/26/20 11:00: Blood Type B NEGATIVE, Antibody Screen NEGATIVE, Crossmatch See Detail 03/26/20 11:55: POC Glucose 154 H 03/26/20 13:12: COVID-19 (SHAW) Not Detected 03/26/20 16:33: POC Glucose 115 H 03/26/20 22:12: POC Glucose 136 H 03/27/20 06:02: Sodium 145, Potassium 3.5, Chloride 114 H, Carbon Dioxide 25.0, Anion Gap 6, BUN 27 H, Creatinine 0.69, Estim Creat Clear Calc 75.90, Est GFR (MDRD) Af Amer 112, Est GFR (MDRD) Non-Af 92, BUN/Creatinine Ratio 39.0 H, Glucose 136 H, Calcium 7.7 L 03/27/20 06:02: WBC 1.9 L, RBC 2.75 L, Hgb 8.4 L, Hct 25.4 L, MCV 92.4, MCH 30.5, MCHC 33.1, RDW Std Deviation 42.6, RDW Coeff of Frank 13.8, Plt Count 102 L, MPV 11.1, Immature Gran % (Auto) 0.500, Neut % (Auto) 65.0, Lymph % (Auto) 28.8, [place] % (Auto) 5.2, Eos % (Auto) 0.0, Baso % (Auto) 0.5, Absolute Neuts (auto) 1.2 L, Absolute Lymphs (auto) 0.55 L, Nucleated RBC % 0, Differential Comment SCANNED, Diff Path Review January03/27/20 06:15: POC Glucose 127 H Current Medications Acetaminophen (Tylenol) 650 mg PO Q6H PRN PRN PRN Reason: Pain Score 1-10/10 Calamine/Phenol (Calmoseptine Ointment) 1 applic TOPICAL TID [facility]; Protocol Last Admin: 03/27/20 06:05 Dose: 1 applicatio Documented by: Dextrose (D50w Syringe) 0 gm IV X1 PRN; Protocol PRN Reason: Hypoglycemia Enoxaparin Sodium (Lovenox) 40 mg SC DAILY [facility] Last Admin: 03/27/20 09:28 Dose: 40 mg Documented by: Glucagon () 1 mg IM .X1 PRN PRN Reason: Hypoglycemia Heparin Sodium (Beef Lung) () 50 units IV UD PRN PRN Reason: R Port Heparin Flush Sodium Chloride () 250 mls @ 15 mls/hr IV .[id number] PRN PRN Reason: Saline Flush Pantoprazole Sodium 40 mg/ (Sodium Chloride) 110 mls @ 330 mls/hr IV Q12 [facility] Last Infusion: 03/27/20 09:39 Dose: Infused Documented by: Ceftriaxone Sodium (Rocephin) 1 gm in 50 mls @ 100 mls/hr IV Q24 [facility] Last Admin: 03/27/20 10:17 Dose: 100 mls/hr Documented by: Sodium Chloride () 500 mls @ 15 mls/hr IV PRN PRN PRN Reason: Blood Transfusion Last Infusion: 03/26/20 17:25 Dose: Infused Documented by: Ibuprofen (Motrin) 600 mg PO TID PRN PRN PRN Reason: Pain Score 4-10/10 Levothyroxine Sodium (Synthroid) 100 mcg PO DAILY@0600 [facility] Last Admin: 03/27/20 06:05 Dose: Not Given Documented by: Loratadine (Claritin) 10 mg PO QHS PRN PRN PRN Reason: STUFFINESS Lorazepam (Ativan) 0.5 mg IV Q6H PRN PRN PRN Reason: ANXIETY Last Admin: 03/27/20 01:01 Dose: 0.5 mg Documented by: Magnesium Hydroxide (Milk Of Magnesia) 30 ml PO DAILY PRN PRN PRN Reason: Constipation Metoclopramide HCl (Reglan) 5 mg IV Q6 [facility] Last Admin: 03/27/20 06:07 Dose: 5 mg Documented by: Olanzapine (Zyprexa) 2.5 mg PO QHS [facility] Last Admin: 03/26/20 21:04 Dose: Not Given Documented by: Ondansetron HCl (Zofran) 8 mg IV Q6H PRN PRN PRN Reason: NAUSEA Last Admin: 03/27/20 09:30 Dose: 8 mg Documented by: Oxycodone HCl (Oxyir) 5 mg PO Q6H PRN PRN PRN Reason: Pain Score 6-10/10 Polyethylene Glycol (Miralax) 17 gm PO DAILY PRN PRN PRN Reason: Constipation Potassium Chloride (K-Dur) 20 meq PO BIDCM [facility] Promethazine HCl (Phenergan) 6.25 mg IV Q6H PRN PRN PRN Reason: NAUSEA/VOMITING Last Admin: 03/26/20 14:10 Dose: 6.25 mg Documented by: Sodium Chloride () 10 - 40 ml IV UD PRN PRN Reason: R Port Saline Flush Last Admin: 03/27/20 09:30 Dose: 20 ml Documented by: Sodium Chloride (0.9% Nacl (Sterile) Posiflush) 10 - 40 ml IV UD PRN PRN Reason: Port access or dressing change Medical Necessity - Tobacco Use Smoking Status: Former smoker Tobacco Use: Non-smoker Assessment/Plan All Active Problems Neutropenia (Acute) Hypokalemia (Acute) 1. Intractable nausea/vomiting secondary to chemotherapy regimen-IV fluids. PRN antiemetics. Supportive management. Will advance diet and monitor if patient is able to tolerate. 2. Metastatic stage III ovarian cancer-undergoes weekly paracentesis for ascites. Follows with Dr. Flood. Palliative care discussed with patient in the past however she was not amenable at that time. Recommend continued discussion with oncology. 3. Pancytopenia- s/p granix 300mcg sq X1. ANC improved to 1200. S/P one unit PRBC for hgb 7.1. Hgb now stable. Trend CBC. 4. Hypokalemia-secondary to #1. Replaced per protocol. Resolved. Trend BMP. 5. Acute cystitis-urine culture greater than 100,000 GNR. Continue IV Rocephin pending final culture and sensitivities. 6. Type 2 diabetes mellitus- not on regimen. Diet controlled. Hemoglobin A1c 5.7% in February. 7. Hypothyroidism-continue Synthroid regimen. 8. Hyperlipidemia- continue statin. 9. GERD-IV PPI given nausea/vomiting. 10. Severe protein calorie malnutrition-as evidenced by weight loss, poor oral intake, cachectic appearance and muscle loss. Dietitian consult. 11. Debility-currently resides in SNF. PT/OT. DVT prophylaxis- Lovenox sc Discharge planning: Return to SN[facility] when medically stable. This patient was seen by K[facility] Murdock under the supervision of Dr. Goldberg. <Anoop Goldberg - Last Filed: 03/27/20 14:24> - Physical Exam Vitals/I&O's: Vital Signs Temp Pulse Resp BP Pulse Ox 98.5 F 98 16 115/66 98 03/27/20 09:12 03/27/20 09:12 03/27/20 09:12 03/27/20 09:12 03/27/20 09:12 Oxygen Delivery Method Room Air Weight: 119 lb 4.321 oz Body Mass Index (BMI) 19.8 Finger Stick Blood Glucose 76 Intake and Output for Last 24 Hours 03/25/20 03/26/20 03/27/20 23:59 23:59 23:59 Intake Total 5102.75 / 5102.75 1530.83 / 1530.83 Output Total 575 / 575 100 / 100 Balance 4527.75 / 4527.75 1430.83 / 1430.83 Microbiology Past 72 Hours 03/26/20 00:55 Urine Catheter - Catheter Urine Culture - Preliminary Gram negative cayetano Laboratory Results 03/26/20 11:00: Crossmatch See Detail 03/26/20 13:12: COVID-19 (SHAW) Not Detected 03/26/20 16:33: POC Glucose 115 H 03/26/20 22:12: POC Glucose 136 H 03/27/20 06:02: Sodium 145, Potassium 3.5, Chloride 114 H, Carbon Dioxide 25.0, Anion Gap 6, BUN 27 H, Creatinine 0.69, Estim Creat Clear Calc 75.90, Est GFR (MDRD) Af Amer 112, Est GFR (MDRD) Non-Af 92, BUN/Creatinine Ratio 39.0 H, Glucose 136 H, Calcium 7.7 L 03/27/20 06:02: WBC 1.9 L, RBC 2.75 L, Hgb 8.4 L, Hct 25.4 L, MCV 92.4, MCH 30.5, MCHC 33.1, RDW Std Deviation 42.6, RDW Coeff of Frank 13.8, Plt Count 102 L, MPV 11.1, Immature Gran % (Auto) 0.500, Neut % (Auto) 65.0, Lymph % (Auto) 28.8, [place] % (Auto) 5.2, Eos % (Auto) 0.0, Baso % (Auto) 0.5, Absolute Neuts (auto) 1.2 L, Absolute Lymphs (auto) 0.55 L, Nucleated RBC % 0, Differential Comment SCANNED, Diff Path Review Reviewed 03/27/20 06:15: POC Glucose 127 H Current Medications Acetaminophen (Tylenol) 650 mg PO Q6H PRN PRN PRN Reason: Pain Score 1-10/10 Calamine/Phenol (Calmoseptine Ointment) 1 applic TOPICAL TID [facility]; Protocol Last Admin: 03/27/20 06:05 Dose: 1 applicatio Documented by: Dextrose (D50w Syringe) 0 gm IV X1 PRN; Protocol PRN Reason: Hypoglycemia Enoxaparin Sodium (Lovenox) 40 mg SC DAILY [facility] Last Admin: 03/27/20 09:28 Dose: 40 mg Documented by: Glucagon () 1 mg IM .X1 PRN PRN Reason: Hypoglycemia Heparin Sodium (Beef Lung) () 50 units IV UD PRN PRN Reason: R Port Heparin Flush Sodium Chloride () 250 mls @ 15 mls/hr IV .[id number] PRN PRN Reason: Saline Flush Pantoprazole Sodium 40 mg/ (Sodium Chloride) 110 mls @ 330 mls/hr IV Q12 [facility] Last Infusion: 03/27/20 09:39 Dose: Infused Documented by: Ceftriaxone Sodium (Rocephin) 1 gm in 50 mls @ 100 mls/hr IV Q24 [facility] Last Admin: 03/27/20 10:17 Dose: 100 mls/hr Documented by: Sodium Chloride () 500 mls @ 15 mls/hr IV PRN PRN PRN Reason: Blood Transfusion Last Infusion: 03/26/20 17:25 Dose: Infused Documented by: Ibuprofen (Motrin) 600 mg PO TID PRN PRN PRN Reason: Pain Score 4-10/10 Levothyroxine Sodium (Synthroid) 100 mcg PO DAILY@0600 [facility] Last Admin: 03/27/20 06:05 Dose: Not Given Documented by: Loratadine (Claritin) 10 mg PO QHS PRN PRN PRN Reason: STUFFINESS Lorazepam (Ativan) 0.5 mg IV Q6H PRN PRN PRN Reason: ANXIETY Last Admin: 03/27/20 01:01 Dose: 0.5 mg Documented by: Magnesium Hydroxide (Milk Of Magnesia) 30 ml PO DAILY PRN PRN PRN Reason: Constipation Metoclopramide HCl (Reglan) 5 mg IV Q6 [facility] Last Admin: 03/27/20 12:42 Dose: 5 mg Documented by: Olanzapine (Zyprexa) 2.5 mg PO QHS [facility] Last Admin: 03/26/20 21:04 Dose: Not Given Documented by: Ondansetron HCl (Zofran) 8 mg IV Q6H PRN PRN PRN Reason: NAUSEA Last Admin: 03/27/20 09:30 Dose: 8 mg Documented by: Oxycodone HCl (Oxyir) 5 mg PO Q6H PRN PRN PRN Reason: Pain Score 6-10/10 Polyethylene Glycol (Miralax) 17 gm PO DAILY PRN PRN PRN Reason: Constipation Potassium Chloride (K-Dur) 20 meq PO BIDCM [facility] Promethazine HCl (Phenergan) 6.25 mg IV Q6H PRN PRN PRN Reason: NAUSEA/VOMITING Last Admin: 03/26/20 14:10 Dose: 6.25 mg Documented by: Sodium Chloride () 10 - 40 ml IV UD PRN PRN Reason: R Port Saline Flush Last Admin: 03/27/20 12:42 Dose: 20 ml Documented by: Sodium Chloride (0.9% Nacl (Sterile) Posiflush) 10 - 40 ml IV UD PRN PRN Reason: Port access or dressing change Assessment/Plan Hospitalist note: I am seeing this patient in conjunction with Sara Bermeo. I independently seen and examined the patient. Progress note above, laboratory data and imaging studies reviewed and I concur with the above treatment plan. She is still complaining of nausea, no significant vomiting. Denied abdominal pain. Her vital signs are stable. - Physical Exam General: Alert, Oriented x3, Cooperative, cachectic, chronically ill patient. HEENT: Atraumatic, PERRLA, EOMI. Neck: Supple, No JVD, Negative Carotid Bruits, Trachea Midline, Thyroid Normal. Lungs: Diminished breath sounds bilateral, otherwise clear, no rhonchi, No wheeze, No rales. Cardiovascular: Regular rate, Regular Rhythm, Normal S1, Normal S2, PMI Normal. Abdomen: Bowel Sounds Present, Soft, Non Tender, Non-Distended, No Hepato- splenomegaly. Extremities: No clubbing, No cyanosis, No edema Skin: No rashes, No breakdown Neurological: Cranial nerves are intact, neuro grossly intact Vital Signs are stable. Assessment and plan: #1 intractable nausea and vomiting: Chemotherapy-induced. Patient still symptomatic, minimal improvement. She is on IV fluids, IV antiemetics PRN. Abdomen exam is benign. She is on IV Protonix. Plan to continue same treatment, advance diet as tolerated. #2 severe hypokalemia: Secondary to nausea and vomiting. She has been on replacement. Potassium replaced and corrected. Today's potassium is 3.5. Serum magnesium is normal. #3 pancytopenia: Secondary to chemotherapy. WBC is 1.9, she does have neutropenia, ANC is 1200, both are improving. No evidence of fever. Hemoglobin is 7.1 g/dL, came down from 8 on admission. She received 1 unit of packed RBCs, today's hemoglobin is 8.4 g/dL, improved. Platelet count today is 102,000. Plan to monitor. #4 probable acute cystitis: Continue IV Rocephin, urine culture revealed gram- negative rods, final is pending. #5 other chronic medical problems: Stable, continue current medications as above. This note was generated with [employer] dictation software. It may contain incorrect words, spelling, and punctuation that were not noted in checking the note before signing. Inpatient E&M: 90006 Subs Hosp L2
[2020-03-27 11:00] LABS: Pathologist Review Reviewed
--- NOTE | 2020-03-27 15:49 | CASEMGMT ---
[facility] faxed clinicals to [facility] and asked that Nydia start the request to obtain pre-cert. Caryl ARTEAGA MSW
[2020-03-27 17:15] LABS: Bedside Glucose 144 mg/dL (70-110)
[2020-03-27 22:00] LABS: Bedside Glucose 101 mg/dL (70-110)
[2020-03-28] VITALS (9 sets, daily range): BP systolic 95–128; BP diastolic 51–65; PULSE 72–99; RESP 16–18; TEMP 36.5–36.9; O2SAT 96–99
[2020-03-28] MEDS: Menthol/Lanolin/Calamine/Znox 113 GM Tube 1 APPLIC TOPICAL ×3 (05:34→21:02)
[2020-03-28] MEDS: Metoclopramide 10 MG/2 ML Vial 5 MG IV (05:35)
[2020-03-28] MEDS: 0.9% Saline Lock 10 ML Syringe IV ×5 (05:35→15:57)
[2020-03-28 06:01] LABS: Hematocrit 23.9 % (37-47); Hemoglobin 8.1 g/dL (12.0-15.0); Mean Corp Hgb Conc 33.9 g/dL (32-36); Mean Corpuscular Hgb 30.8 pg (27.0-32.0); Mean Corpuscular Volume 90.9 fL (81-99); Mean Platelet Vol. 11.2 fl (6.2-12.0); POSITIVE COUNT YES; Platelet Count 92 K/mm3 (150-450); RBC Distribution Width CV 14.4 % (11.6-14.6); RBC Distribution Width SD 43.9 fl (35.1-43.9); Red Blood Count 2.63 M/mm3 (4.2-5.4); White Blood Count 2.5 K/mm3 (4.4-11.0)
[2020-03-28 06:11] LABS: Scan Indicated on CBC? Y/N YES- FLAGS NOTED
[2020-03-28 06:33] LABS: Anion Gap 8 (5-15); BUN 22 mg/dL (7-18); BUN/Creat Ratio 34.2 RATIO (10-20); Calcium,Total 7.8 mg/dL (8.5-10.1); Chloride 108 mmol/L (98-107); Creatinine, Serum 0.64 mg/dL (0.55-1.02); EST Glomerular Filtration Rate 101 mL/min (>60); Est Glom Filt Rate - Afr Amer 122 mL/min (>60); Estimated Creatinine Clearance 81.83 ml/min; Glucose 113 mg/dL (74-106); Potassium 3.1 mmol/L (3.5-5.1); Sodium Level 141 mmol/L (136-145)
[2020-03-28 06:41] LABS: Bedside Glucose 105 mg/dL (70-110)
[2020-03-28 06:46] LABS: Differential Comment SCANNED
[2020-03-28] MEDS: Ceftriaxone 1 GM/50 ML BAG IV (08:15)
[2020-03-28] MEDS: TBO-FILGRASTIM 300 MCG/0.5 ML ML SC (09:06)
[2020-03-28] MEDS: Enoxaparin 40 MG/0.4 ML Syringe SC (09:06)
[2020-03-28] MEDS: proMETHazine 25 MG/ML Syringe 6.25 MG IV (09:24)
[2020-03-28] MEDS: Potassium Chloride 10mEq/100mL 10 MEQ/100 ML IV.SOLN. 100 MEQ IV BOLUS ×3 (09:26→12:28)
[2020-03-28] MEDS: Haloperidol Lactate 5 MG/ML Vial 1 MG IV ×3 (11:02→22:57)
[2020-03-28] MEDS: Morphine 2 MG/ML Syringe 1 MG IV (12:27)
--- NOTE | 2020-03-28 12:43 | PN_ITS ---
<Jerson Harvey - Last Filed: 03/28/20 12:43> Patient Problems: Active and Suspected Problems Hypokalemia (Acute) Reason for Visit: Intractable nausea and vomiting Subjective: Patient resting in bed, obvious distress, left recumbent position. She is actively nauseous, dry heaving, vomiting this morning. She does complain of 7 out of 10 generalized abdominal pain. No diarrhea. No fevers or chills. Denies dysuria, or urinary frequency. Vitals/I&O's: Vital Signs Temp Pulse Resp BP Pulse Ox 97.9 F 84 18 103/61 96 03/28/20 09:10 03/28/20 09:10 03/28/20 09:10 03/28/20 09:10 03/28/20 09:10 Oxygen Delivery Method Room Air Weight: 119 lb 4.321 oz Body Mass Index (BMI) 19.8 Finger Stick Blood Glucose 76 Intake and Output for Last 24 Hours 03/26/20 03/27/20 03/28/20 23:59 23:59 23:59 Intake Total 5102.75 / 5102.75 2690.83 / 2690.83 800 / 800 Output Total 575 / 575 950 / 950 250 / 250 Balance 4527.75 / 4527.75 1740.83 / 1740.83 550 / 550 General: Alert, Oriented x3, Cooperative, - - Cachectic HEENT: Atraumatic, PERRLA, EOMI, Normocephalic Neck: Supple, No JVD, Negative Carotid Bruits Lungs: Clear to auscultation, Normal air movement Cardiovascular: Regular rate, No murmurs Abdomen: Bowel Sounds Present, Soft, Non Tender Extremities: No edema, Capillary Refill Less than 3 Seconds Skin: No rashes, No breakdown Musculoskeletal: No Tenderness to Palpation of Joints or Extremities Neurological: Cranial nerves II-XII grossly intact Psych/Mental Status: Normal Affect, Appropriate Microbiology Past 72 Hours 03/26/20 00:55 Urine Catheter - Catheter Urine Culture - Final Citrobacter species Laboratory Results 03/27/20 17:12: POC Glucose 144 H 03/27/20 21:35: POC Glucose 101 03/28/20 05:42: WBC 2.5 L, RBC 2.63 L, Hgb 8.1 L, Hct 23.9 L, MCV 90.9, MCH 30.8, MCHC 33.9, RDW Std Deviation 43.9, RDW Coeff of Frank 14.4, Plt Count 92 L, MPV 11.2, Differential Comment SCANNED 03/28/20 05:42: Sodium 141, Potassium 3.1 L, Chloride 108 H, Carbon Dioxide 25.0, Anion Gap 8, BUN 22 H, Creatinine 0.64, Estim Creat Clear Calc 81.83, Est GFR (MDRD) Af Amer 122, Est GFR (MDRD) Non-Af 101, BUN/Creatinine Ratio 34.2 H, Glucose 113 H, Calcium 7.8 L 03/28/20 06:34: POC Glucose 105 Current Medications Acetaminophen (Tylenol) 650 mg PO Q6H PRN PRN PRN Reason: Pain Score 1-10/10 Calamine/Phenol (Calmoseptine Ointment) 1 applic TOPICAL TID [facility]; Protocol Last Admin: 03/28/20 05:34 Dose: 1 applicatio Documented by: Dextrose (D50w Syringe) 0 gm IV X1 PRN; Protocol PRN Reason: Hypoglycemia Enoxaparin Sodium (Lovenox) 40 mg SC DAILY [facility] Last Admin: 03/28/20 09:06 Dose: 40 mg Documented by: Glucagon () 1 mg IM .X1 PRN PRN Reason: Hypoglycemia Haloperidol Lactate (Haldol) 1 mg IV Q4H PRN PRN PRN Reason: NAUSEA Last Admin: 03/28/20 11:02 Dose: 1 mg Documented by: Heparin Sodium (Beef Lung) () 50 units IV UD PRN PRN Reason: R Port Heparin Flush Sodium Chloride () 250 mls @ 15 mls/hr IV .[id number] PRN PRN Reason: Saline Flush Pantoprazole Sodium 40 mg/ (Sodium Chloride) 110 mls @ 330 mls/hr IV Q12 [facility] Last Infusion: 03/28/20 09:32 Dose: Infused Documented by: Sodium Chloride () 500 mls @ 15 mls/hr IV PRN PRN PRN Reason: Blood Transfusion Last Infusion: 03/26/20 17:25 Dose: Infused Documented by: Ciprofloxacin (Cipro) 400 mg in 200 mls @ 200 mls/hr IV Q12 [facility] Levothyroxine Sodium (Synthroid) 100 mcg PO DAILY@0600 [facility] Last Admin: 03/28/20 05:35 Dose: Not Given Documented by: Loratadine (Claritin) 10 mg PO QHS PRN PRN PRN Reason: STUFFINESS Lorazepam (Ativan) 0.5 mg IV Q6H PRN PRN PRN Reason: ANXIETY Last Admin: 03/27/20 01:01 Dose: 0.5 mg Documented by: Magnesium Hydroxide (Milk Of Magnesia) 30 ml PO DAILY PRN PRN PRN Reason: Constipation Morphine Sulfate () 1 mg IV Q2H PRN PRN PRN Reason: Pain Score 6-10/10 Last Admin: 03/28/20 12:27 Dose: 1 mg Documented by: Olanzapine (Zyprexa) 2.5 mg PO QHS [facility] Last Admin: 03/27/20 21:32 Dose: Not Given Documented by: Ondansetron HCl (Zofran) 4 mg IV Q6H PRN PRN PRN Reason: NAUSEA Oxycodone HCl (Oxyir) 5 mg PO Q6H PRN PRN PRN Reason: Pain Score 6-10/10 Polyethylene Glycol (Miralax) 17 gm PO DAILY PRN PRN PRN Reason: Constipation Potassium Chloride (K-Dur) 20 meq PO BIDCM [facility] Last Admin: 03/28/20 08:18 Dose: Not Given Documented by: Sodium Chloride () 10 - 40 ml IV UD PRN PRN Reason: R Port Saline Flush Last Admin: 03/28/20 12:28 Dose: 10 ml Documented by: Sodium Chloride (0.9% Nacl (Sterile) Posiflush) 10 - 40 ml IV UD PRN PRN Reason: Port access or dressing change Tbo-Filgrastim (Granix) 300 mcg SC DAILY [facility] Last Admin: 03/28/20 09:06 Dose: 300 mcg Documented by: STROKE Vital Signs/Narrative: Vital Signs Temp Pulse Resp BP Pulse Ox 03/28/20 09:10 97.9 F 84 18 103/61 96 Medical Necessity - Tobacco Use Smoking Status: Former smoker Tobacco Use: Non-smoker Assessment/Plan All Active Problems Neutropenia (Acute) Hypokalemia (Acute) 1. Intractable nausea and vomiting secondary to chemotherapy-patient undergoing chemotherapy for metastatic ovarian cancer, stage III. No improvement with Reglan, Phenergan, Zofran. Discontinue Phenergan and Reglan, start IV Haldol. Continue IV fluids. Replace potassium with IV. She is not tolerant of any oral intake at this time. Will check mag / phos given continued PO intolerance and malnutrition. 2. Stage III ovarian cancer with mets-patient of Dr. Flood. Palliative care was addressed and the patient was not interested at this time. 3. Pancytopenia-continue Granix daily. 4. Acute cystitis-urine culture with Citrobacter, resistant to Rocephin. Antibiotics changed from Rocephin to ciprofloxacin. Need to continue on cardiac monitor QTC. 5. Type 2 diabetes [id number] only, not on home regimen. Hem oglobin A1c 5.7. 6. Hypothyroidism-Synthroid 7. Hyperlipidemia-statin 8. GERD-IV PPI, and tolerating p.o. 9. Severe protein calorie malnutrition-dietitian consult. 10. Debility-SNF resident, continue PT OT. DVT prophylaxis: Lovenox Discharge planning, return to SNF once stable, minimal improvement at this point. This patient was seen by Jerson Harvey PA-C under the supervision of Dr. Goldberg <Anoop Goldberg E - Last Filed: 03/28/20 12:58> Vitals/I&O's: Vital Signs Temp Pulse Resp BP Pulse Ox 97.9 F 84 18 103/61 96 03/28/20 09:10 03/28/20 09:10 03/28/20 09:10 03/28/20 09:10 03/28/20 09:10 Oxygen Delivery Method Room Air Weight: 119 lb 4.321 oz Body Mass Index (BMI) 19.8 Finger Stick Blood Glucose 76 Intake and Output for Last 24 Hours 03/26/20 03/27/20 03/28/20 23:59 23:59 23:59 Intake Total 5102.75 / 5102.75 2690.83 / 2690.83 800 / 800 Output Total 575 / 575 950 / 950 250 / 250 Balance 4527.75 / 4527.75 1740.83 / 1740.83 550 / 550 Microbiology Past 72 Hours 03/26/20 00:55 Urine Catheter - Catheter Urine Culture - Final Citrobacter species Laboratory Results 03/27/20 17:12: POC Glucose 144 H 03/27/20 21:35: POC Glucose 101 03/28/20 05:42: WBC 2.5 L, RBC 2.63 L, Hgb 8.1 L, Hct 23.9 L, MCV 90.9, MCH 30.8, MCHC 33.9, RDW Std Deviation 43.9, RDW Coeff of Frank 14.4, Plt Count 92 L, MPV 11.2, Differential Comment SCANNED 03/28/20 05:42: Sodium 141, Potassium 3.1 L, Chloride 108 H, Carbon Dioxide 25.0, Anion Gap 8, BUN 22 H, Creatinine 0.64, Estim Creat Clear Calc 81.83, Est GFR (MDRD) Af Amer 122, Est GFR (MDRD) Non-Af 101, BUN/Creatinine Ratio 34.2 H, Glucose 113 H, Calcium 7.8 L 03/28/20 06:34: POC Glucose 105 Current Medications Acetaminophen (Tylenol) 650 mg PO Q6H PRN PRN PRN Reason: Pain Score 1-10/10 Calamine/Phenol (Calmoseptine Ointment) 1 applic TOPICAL TID [facility]; Protocol Last Admin: 03/28/20 05:34 Dose: 1 applicatio Documented by: Dextrose (D50w Syringe) 0 gm IV X1 PRN; Protocol PRN Reason: Hypoglycemia Enoxaparin Sodium (Lovenox) 40 mg SC DAILY [facility] Last Admin: 03/28/20 09:06 Dose: 40 mg Documented by: Glucagon () 1 mg IM .X1 PRN PRN Reason: Hypoglycemia Haloperidol Lactate (Haldol) 1 mg IV Q4H PRN PRN PRN Reason: NAUSEA Last Admin: 03/28/20 11:02 Dose: 1 mg Documented by: Heparin Sodium (Beef Lung) () 50 units IV UD PRN PRN Reason: R Port Heparin Flush Sodium Chloride () 250 mls @ 15 mls/hr IV .[id number] PRN PRN Reason: Saline Flush Pantoprazole Sodium 40 mg/ (Sodium Chloride) 110 mls @ 330 mls/hr IV Q12 [facility] Last Infusion: 03/28/20 09:32 Dose: Infused Documented by: Sodium Chloride () 500 mls @ 15 mls/hr IV PRN PRN PRN Reason: Blood Transfusion Last Infusion: 03/26/20 17:25 Dose: Infused Documented by: Ciprofloxacin (Cipro) 400 mg in 200 mls @ 200 mls/hr IV Q12 [facility] Levothyroxine Sodium (Synthroid) 100 mcg PO DAILY@0600 [facility] Last Admin: 03/28/20 05:35 Dose: Not Given Documented by: Loratadine (Claritin) 10 mg PO QHS PRN PRN PRN Reason: STUFFINESS Lorazepam (Ativan) 0.5 mg IV Q6H PRN PRN PRN Reason: ANXIETY Last Admin: 03/27/20 01:01 Dose: 0.5 mg Documented by: Magnesium Hydroxide (Milk Of Magnesia) 30 ml PO DAILY PRN PRN PRN Reason: Constipation Morphine Sulfate () 1 mg IV Q2H PRN PRN PRN Reason: Pain Score 6-10/10 Last Admin: 03/28/20 12:27 Dose: 1 mg Documented by: Olanzapine (Zyprexa) 2.5 mg PO QHS [facility] Last Admin: 03/27/20 21:32 Dose: Not Given Documented by: Ondansetron HCl (Zofran) 4 mg IV Q6H PRN PRN PRN Reason: NAUSEA Oxycodone HCl (Oxyir) 5 mg PO Q6H PRN PRN PRN Reason: Pain Score 6-10/10 Polyethylene Glycol (Miralax) 17 gm PO DAILY PRN PRN PRN Reason: Constipation Potassium Chloride (K-Dur) 20 meq PO BIDCM [facility] Last Admin: 03/28/20 08:18 Dose: Not Given Documented by: Sodium Chloride () 10 - 40 ml IV UD PRN PRN Reason: R Port Saline Flush Last Admin: 03/28/20 12:28 Dose: 10 ml Documented by: Sodium Chloride (0.9% Nacl (Sterile) Posiflush) 10 - 40 ml IV UD PRN PRN Reason: Port access or dressing change Tbo-Filgrastim (Granix) 300 mcg SC DAILY [facility] Last Admin: 03/28/20 09:06 Dose: 300 mcg Documented by: STROKE Vital Signs/Narrative: Vital Signs Temp Pulse Resp BP Pulse Ox 03/28/20 09:10 97.9 F 84 18 103/61 96 Assessment/Plan Hospitalist note: I am seeing this patient in conjunction with Jerson Harvey. I independently seen and examined the patient. Progress note above and laboratory data and I. Reviewed and I concur with the above treatment plan. She is still symptomatic, still having nausea, intermittent vomiting. She complained of abdominal pain as well. Her vital signs are stable. - Physical Exam General: Alert, Oriented x3, Cooperative, cachectic, chronically ill patient. HEENT: Atraumatic, PERRLA, EOMI. Neck: Supple, No JVD, Negative Carotid Bruits, Trachea Midline, Thyroid Normal. Lungs: Diminished breath sounds bilateral, otherwise clear, no rhonchi, No wheeze, No rales. Cardiovascular: Regular rate, Regular Rhythm, Normal S1, Normal S2, PMI Normal. Abdomen: Bowel Sounds Present, Soft, Tender, Non-Distended, No Hepato- splenomegaly. Extremities: No clubbing, No cyanosis, No edema Skin: No rashes, No breakdown Neurological: Cranial nerves are intact, neuro grossly intact Vital Signs are stable. Assessment and plan: #1 intractable nausea and vomiting: Chemotherapy-induced. This morning, still having significant nausea, intermittent abdominal pain. She is Reglan and Phenergan, minimal improvement. Abdomen exam is benign. She is on IV Protonix. Plan to switch her to Haldol and Compazine if needed, advance diet as tolerated. #2 severe hypokalemia: Secondary to nausea and vomiting. She has been on replacement. Potassium is again down to 3.1 today. She is on replacement. Serum magnesium is normal. We will repeat BMP tomorrow morning. #3 pancytopenia: Secondary to chemotherapy. WBC is 1.9, she does have neutropenia, ANC is 1200, both are improving. She is on Granix. No evidence of fever. Hemoglobin is 7.1 g/dL, came down from 8 on admission. She received 1 unit of packed RBCs, today's hemoglobin is 8.1 g/dL, improved. Platelet count today is 102,000. Plan to repeat CBC tomorrow morning. #4 Citrobacter acute cystitis: She is on IV Rocephin, urine culture revealed Citrobacter species which was resistant to Rocephin. Will change antibiotics to IV ciprofloxacin. #5 other chronic medical problems: Stable, continue current medications as above. This note was generated with [employer] software. It may contain incorrect words, spelling, and punctuation that were not noted in checking the note before signing. Inpatient E&M: [id number] Subs Hosp L2
[2020-03-28 13:27] LABS: Magnesium 1.5 mg/dL (1.6-2.6); Phosphorus 1.6 mg/dL (2.5-4.9)
[2020-03-28] MEDS: Ciprofloxacin 400 MG/200 ML BAG 200 MG IV ×2 (14:19→21:14)
[2020-03-28] MEDS: Ondansetron 4 MG/2 ML Vial IV (14:24)
[2020-03-28] MEDS: Lactated Ringers 1,000 ML 125 ML IV ×2 (14:30→22:30)
[2020-03-28 16:50] LABS: Bedside Glucose 118 mg/dL (70-110)
[2020-03-28 21:16] LABS: Bedside Glucose 114 mg/dL (70-110)
[2020-03-29] VITALS (11 sets, daily range): BP systolic 98–113; BP diastolic 57–84; PULSE 70–92; RESP 16–18; TEMP 36.5–36.7; O2SAT 96–100
[2020-03-29] MEDS: Menthol/Lanolin/Calamine/Znox 113 GM Tube 1 APPLIC TOPICAL ×3 (05:23→21:47)
[2020-03-29 05:35] LABS: Hematocrit 22.9 % (37-47); Hemoglobin 7.8 g/dL (12.0-15.0); Mean Corp Hgb Conc 34.1 g/dL (32-36); Mean Corpuscular Hgb 30.8 pg (27.0-32.0); Mean Corpuscular Volume 90.5 fL (81-99); Mean Platelet Vol. 11.2 fl (6.2-12.0); POSITIVE COUNT YES; POSITIVE DIFFERENTIAL YES; POSITIVE MORPHOLOGY YES; Platelet Count 80 K/mm3 (150-450); RBC Distribution Width CV 14.2 % (11.6-14.6); RBC Distribution Width SD 43.7 fl (35.1-43.9); Red Blood Count 2.53 M/mm3 (4.2-5.4); White Blood Count 2.5 K/mm3 (4.4-11.0)
[2020-03-29 05:38] LABS: Differential Indicated MANUAL DIFF
[2020-03-29 05:46] LABS: Anion Gap 3 (5-15); BUN 15 mg/dL (7-18); BUN/Creat Ratio 29.6 RATIO (10-20); Calcium,Total 7.7 mg/dL (8.5-10.1); Chloride 106 mmol/L (98-107); Creatinine, Serum 0.51 mg/dL (0.55-1.02); EST Glomerular Filtration Rate 132 mL/min (>60); Est Glom Filt Rate - Afr Amer 160 mL/min (>60); Estimated Creatinine Clearance 102.69 ml/min; Glucose 109 mg/dL (74-106); Potassium 3.7 mmol/L (3.5-5.1); Sodium Level 139 mmol/L (136-145)
[2020-03-29 06:30] LABS: Blast 1 % (0-0); Lymphocyte 48 % (19-41); Metamyelocyte 2 % (0-1); Monocyte 5 % (0-10); Myelocyte 1 (0-0); Neutrophil-Band 1 % (0-5); Neutrophil-Segmented 42 % (47-70); Nucleated Red Bld Cells,Manual 1 % (0-5); Total Cells Counted 100 (MANUAL DIFF)
[2020-03-29] MEDS: Lactated Ringers 1,000 ML 125 ML IV (06:30)
[2020-03-29 06:32] LABS: Red Cell Morphology NORM C+C NORMAL (NORM C&C)
[2020-03-29 06:34] LABS: Absolute Neutrophil Count 1.1 X10^3/uL (2.0-7.7); Neutrophil # 1.08 X10^3/uL (2.7-7.7)
[2020-03-29 06:55] LABS: Bedside Glucose 101 mg/dL (70-110)
[2020-03-29] MEDS: Ciprofloxacin 400 MG/200 ML BAG 200 MG IV ×2 (09:22→22:11)
[2020-03-29] MEDS: Enoxaparin 40 MG/0.4 ML Syringe SC (09:22)
[2020-03-29] MEDS: TBO-FILGRASTIM 300 MCG/0.5 ML ML SC (09:22)
[2020-03-29] MEDS: 0.9% Saline Lock 10 ML Syringe IV (10:47)
[2020-03-29] MEDS: proCHLORPERazine 10 MG/2 ML Vial 5 MG IV ×3 (10:47→23:50)
--- NOTE | 2020-03-29 13:22 | CASEMGMT ---
CHAPITO called Nydia at [facility] and she has not yet received approval for patient. Patient has refused therapy both yesterday and today. Therefore if insurance asks for updates they will not have any recent therapy notes to review which will result in a delay in getting an answer from insurance. CHAPITO did put a green sheet on patient's chart in the event we do receive insurance approval and she is ready for d/c. Plan: d/c back to [facility] pending insurance approval and patient being medically ready. Caryl ARTEAGA MSW
--- NOTE | 2020-03-29 13:36 | PN_ITS ---
<Jerson Harvey - Last Filed: 03/29/20 13:36> Patient Problems: Active and Suspected Problems Hypokalemia (Acute) Reason for Visit: Intractable nausea. Subjective: No improvement in nausea with alternative regimen yesterday. Her abdominal pain however has markedly improved. No fevers or chills. No dysuria. No shortness of breath or cough. Vitals/I&O's: Vital Signs Temp Pulse Resp BP Pulse Ox 97.8 F 74 18 113/84 H 100 03/29/20 09:18 03/29/20 09:18 03/29/20 09:18 03/29/20 09:18 03/29/20 09:18 Oxygen Delivery Method Room Air Weight: 119 lb 4.321 oz Body Mass Index (BMI) 19.8 Finger Stick Blood Glucose 76 Intake and Output for Last 24 Hours 03/27/20 03/28/20 03/29/20 23:59 23:59 23:59 Intake Total 2690.83 / 2690.83 3094 / 3094 1320 / 1320 Output Total 950 / 950 800 / 800 175 / 175 Balance 1740.83 / 1740.83 2294 / 2294 1145 / 1145 General: Alert, Oriented x3, Cooperative HEENT: Atraumatic, PERRLA, EOMI, Normocephalic Neck: Supple, No JVD, Negative Carotid Bruits Lungs: Clear to auscultation, Normal air movement Cardiovascular: Regular rate, No murmurs Abdomen: Bowel Sounds Present, Soft, Non Tender Extremities: No edema, Capillary Refill Less than 3 Seconds Skin: No rashes, No breakdown Musculoskeletal: No Tenderness to Palpation of Joints or Extremities Neurological: Cranial nerves II-XII grossly intact Psych/Mental Status: Normal Affect, Appropriate, Alert and oriented to time, place, person, mood and affect Microbiology Past 72 Hours 03/26/20 00:55 Urine Catheter - Catheter Urine Culture - Final Citrobacter species Laboratory Results 03/28/20 15:55: POC Glucose 118 H 03/28/20 21:08: POC Glucose 114 H 03/29/20 05:05: WBC 2.5 L, RBC 2.53 L, Hgb 7.8 L, Hct 22.9 L, MCV 90.5, MCH 30.8, MCHC 34.1, RDW Std Deviation 43.7, RDW Coeff of Frank 14.2, Plt Count 80 L, MPV 11.2, Neut % (Auto) Not Reportable, Absolute Neuts (auto) 1.1 L, Absolute Lymphs (auto) 1.20, Total Counted 100, Neutrophils % (Manual) 42 L, Band Neutrophils % 1, Lymphocytes % (Manual) 48 H, Monocytes % (Manual) 5, Metamyelocytes % 2 H, Myelocytes % 1 H, Blast Cells % 1 H*, Nucleated RBCs/100 WBC 1, Diff Path Review January foll, Platelet Estimate ADEQUATE, RBC Morphology NORM C+C 03/29/20 05:05: Sodium 139, Potassium 3.7, Chloride 106, Carbon Dioxide 30.0, Anion Gap 3 L, BUN 15, Creatinine 0.51 L, Estim Creat Clear Calc 102.69, Est GFR (MDRD) Af Amer 160, Est GFR (MDRD) Non-Af 132, BUN/Creatinine Ratio 29.6 H, Glucose 109 H, Calcium 7.7 L 03/29/20 06:52: POC Glucose 101 Current Medications Acetaminophen (Tylenol) 650 mg PO Q6H PRN PRN PRN Reason: Pain Score 1-06/29 Calamine/Phenol (Calmoseptine Ointment) 1 applic TOPICAL TID [facility]; Protocol Last Admin: 03/29/20 05:23 Dose: 1 applicatio Documented by: Dextrose (D50w Syringe) 0 gm IV X1 PRN; Protocol PRN Reason: Hypoglycemia Enoxaparin Sodium (Lovenox) 40 mg SC DAILY [facility] Last Admin: 03/29/20 09:22 Dose: 40 mg Documented by: Glucagon () 1 mg IM .X1 PRN PRN Reason: Hypoglycemia Haloperidol Lactate (Haldol) 1 mg IV Q4H PRN PRN PRN Reason: NAUSEA Last Admin: 03/28/20 22:57 Dose: 1 mg Documented by: Heparin Sodium (Beef Lung) () 50 units IV UD PRN PRN Reason: R Port Heparin Flush Sodium Chloride () 250 mls @ 15 mls/hr IV .[id number] PRN PRN Reason: Saline Flush Pantoprazole Sodium 40 mg/ (Sodium Chloride) 110 mls @ 330 mls/hr IV Q12 [facility] Last Admin: 03/29/20 10:48 Dose: 330 mls/hr Documented by: Sodium Chloride () 500 mls @ 15 mls/hr IV PRN PRN PRN Reason: Blood Transfusion Last Infusion: 03/26/20 17:25 Dose: Infused Documented by: Ciprofloxacin (Cipro) 400 mg in 200 mls @ 200 mls/hr IV Q12 [facility] Last Infusion: 03/29/20 10:50 Dose: Infused Documented by: Sodium Chloride () 1,000 mls @ 100 mls/hr IV .Q10H [facility] Levothyroxine Sodium (Synthroid) 100 mcg PO DAILY@0600 [facility] Last Admin: 03/29/20 05:22 Dose: Not Given Documented by: Loratadine (Claritin) 10 mg PO QHS PRN PRN PRN Reason: STUFFINESS Lorazepam (Ativan) 0.5 mg IV Q6H PRN PRN PRN Reason: ANXIETY Last Admin: 03/27/20 01:01 Dose: 0.5 mg Documented by: Magnesium Hydroxide (Milk Of Magnesia) 30 ml PO DAILY PRN PRN PRN Reason: Constipation Morphine Sulfate () 2 mg IV Q2H PRN PRN PRN Reason: Pain Score 6-10/10 Olanzapine (Zyprexa) 2.5 mg PO QHS [facility] Last Admin: 03/28/20 20:56 Dose: Not Given Documented by: Oxycodone HCl (Oxyir) 5 mg PO Q6H PRN PRN PRN Reason: Pain Score 6-10/10 Polyethylene Glycol (Miralax) 17 gm PO DAILY PRN PRN PRN Reason: Constipation Prochlorperazine Edisylate (Compazine Iv) 5 mg IV Q6H PRN PRN PRN Reason: NAUSEA/VOMITING Last Admin: 03/29/20 10:47 Dose: 5 mg Documented by: Sodium Chloride () 10 - 40 ml IV UD PRN PRN Reason: R Port Saline Flush Last Admin: 03/29/20 10:47 Dose: 10 ml Documented by: Sodium Chloride (0.9% Nacl (Sterile) Posiflush) 10 - 40 ml IV UD PRN PRN Reason: Port access or dressing change Medical Necessity - Tobacco Use Smoking Status: Former smoker Tobacco Use: Non-smoker Assessment/Plan All Active Problems Neutropenia (Acute) Hypokalemia (Acute) 1. Intractable nausea and vomiting secondary to chemotherapy-patient undergoing chemotherapy for metastatic ovarian cancer, stage III. No improvement with Reglan, Phenergan, Zofran, Haldol. Trial Compazine. Continue IV fluids. Electrolytes replaced. She is only tolerant of small sips of water and ice chips. 2. Stage III ovarian cancer with mets-patient of Dr. Flood. Palliative care was addressed and the patient was not interested at this time. Per oncology, discontinue Granix after today's dose. 3. Pancytopenia-as above, stop Granix after today's dose. 4. Acute cystitis-urine culture with Citrobacter, resistant to Rocephin. Continue ciprofloxacin. Continue to monitor QTC. Currently normal QTC. 5. Type 2 diabetes [id number] only, not on home regimen. Hemoglobin A1c 5.7. 6. Hypothyroidism-Synthroid 7. Hyperlipidemia-statin 8. GERD-IV PPI, and tolerating p.o. 9. Severe protein calorie malnutrition-dietitian consult. 10. Debility-SNF resident, continue PT OT. DVT prophylaxis: Lovenox Discharge planning, return to SNF once stable, minimal improvement at this point. This patient was seen by Jerson Harvey PA-C under the supervision of Dr. Goldberg <Anoop Goldberg - Last Filed: 03/29/20 13:44> Vitals/I&O's: Vital Signs Temp Pulse Resp BP Pulse Ox 97.8 F 74 18 113/84 H 100 03/29/20 09:18 03/29/20 09:18 03/29/20 09:18 03/29/20 09:18 03/29/20 09:18 Oxygen Delivery Method Room Air Weight: 119 lb 4.321 oz Body Mass Index (BMI) 19.8 Finger Stick Blood Glucose 76 Intake and Output for Last 24 Hours 03/27/20 03/28/20 03/29/20 23:59 23:59 23:59 Intake Total 2690.83 / 2690.83 3094 / 3094 1320 / 1320 Output Total 950 / 950 800 / 800 175 / 175 Balance 1740.83 / 1740.83 2294 / 2294 1145 / 1145 Microbiology Past 72 Hours 03/26/20 00:55 Urine Catheter - Catheter Urine Culture - Final Citrobacter species Laboratory Results 03/28/20 15:55: POC Glucose 118 H 03/28/20 21:08: POC Glucose 114 H 03/29/20 05:05: WBC 2.5 L, RBC 2.53 L, Hgb 7.8 L, Hct 22.9 L, MCV 90.5, MCH 30.8, MCHC 34.1, RDW Std Deviation 43.7, RDW Coeff of Frank 14.2, Plt Count 80 L, MPV 11.2, Neut % (Auto) Not Reportable, Absolute Neuts (auto) 1.1 L, Absolute L ymphs (auto) 1.20, Total Counted 100, Neutrophils % (Manual) 42 L, Band Neutrophils % 1, Lymphocytes % (Manual) 48 H, Monocytes % (Manual) 5, Metamyelocytes % 2 H, Myelocytes % 1 H, Blast Cells % 1 H*, Nucleated RBCs/100 WBC 1, Diff Path Review January, Platelet Estimate SLT DEC, RBC Morphology NORM C+C 03/29/20 05:05: Sodium 139, Potassium 3.7, Chloride 106, Carbon Dioxide 30.0, Anion Gap 3 L, BUN 15, Creatinine 0.51 L, Estim Creat Clear Calc 102.69, Est GFR (MDRD) Af Amer 160, Est GFR (MDRD) Non-Af 132, BUN/Creatinine Ratio 29.6 H, Glucose 109 H, Calcium 7.7 L 03/29/20 06:52: POC Glucose 101 Current Medications Acetaminophen (Tylenol) 650 mg PO Q6H PRN PRN PRN Reason: Pain Score 1-10/10 Calamine/Phenol (Calmoseptine Ointment) 1 applic TOPICAL TID [facility]; Protocol Last Admin: 03/29/20 05:23 Dose: 1 applicatio Documented by: Dextrose (D50w Syringe) 0 gm IV X1 PRN; Protocol PRN Reason: Hypoglycemia Enoxaparin Sodium (Lovenox) 40 mg SC DAILY [facility] Last Admin: 03/29/20 09:22 Dose: 40 mg Documented by: Glucagon () 1 mg IM .X1 PRN PRN Reason: Hypoglycemia Haloperidol Lactate (Haldol) 1 mg IV Q4H PRN PRN PRN Reason: NAUSEA Last Admin: 03/28/20 22:57 Dose: 1 mg Documented by: Heparin Sodium (Beef Lung) () 50 units IV UD PRN PRN Reason: R Port Heparin Flush Sodium Chloride () 250 mls @ 15 mls/hr IV .[id number] PRN PRN Reason: Saline Flush Pantoprazole Sodium 40 mg/ (Sodium Chloride) 110 mls @ 330 mls/hr IV Q12 [facility] Last Admin: 03/29/20 10:48 Dose: 330 mls/hr Documented by: Sodium Chloride () 500 mls @ 15 mls/hr IV PRN PRN PRN Reason: Blood Transfusion Last Infusion: 03/26/20 17:25 Dose: Infused Documented by: Ciprofloxacin (Cipro) 400 mg in 200 mls @ 200 mls/hr IV Q12 [facility] Last Infusion: 03/29/20 10:50 Dose: Infused Documented by: Sodium Chloride () 1,000 mls @ 100 mls/hr IV .Q10H [facility] Levothyroxine Sodium (Synthroid) 100 mcg PO DAILY@0600 [facility] Last Admin: 03/29/20 05:22 Dose: Not Given Documented by: Loratadine (Claritin) 10 mg PO QHS PRN PRN PRN Reason: STUFFINESS Lorazepam (Ativan) 0.5 mg IV Q6H PRN PRN PRN Reason: ANXIETY Last Admin: 03/27/20 01:01 Dose: 0.5 mg Documented by: Magnesium Hydroxide (Milk Of Magnesia) 30 ml PO DAILY PRN PRN PRN Reason: Constipation Morphine Sulfate () 2 mg IV Q2H PRN PRN PRN Reason: Pain Score 6-10/10 Olanzapine (Zyprexa) 2.5 mg PO QHS [facility] Last Admin: 03/28/20 20:56 Dose: Not Given Documented by: Oxycodone HCl (Oxyir) 5 mg PO Q6H PRN PRN PRN Reason: Pain Score 6-10/10 Polyethylene Glycol (Miralax) 17 gm PO DAILY PRN PRN PRN Reason: Constipation Prochlorperazine Edisylate (Compazine Iv) 5 mg IV Q6H PRN PRN PRN Reason: NAUSEA/VOMITING Last Admin: 03/29/20 10:47 Dose: 5 mg Documented by: Sodium Chloride () 10 - 40 ml IV UD PRN PRN Reason: R Port Saline Flush Last Admin: 03/29/20 10:47 Dose: 10 ml Documented by: Sodium Chloride (0.9% Nacl (Sterile) Posiflush) 10 - 40 ml IV UD PRN PRN Reason: Port access or dressing change Assessment/Plan Hospitalist note: I am seeing this patient in conjunction with Jerson Harvey. I independently seen and examined the patient. Progress note above and laboratory data and I. Reviewed and I concur with the above treatment plan. Today, patient began having significant nausea and vomiting, even worse than yesterday. Has been complaining of abdominal pain as well but improved. Her vital signs are stable. - Physical Exam General: Alert, Oriented x3, Cooperative, cachectic, chronically ill patient. HEENT: Atraumatic, PERRLA, EOMI. Neck: Supple, No JVD, Negative Carotid Bruits, Trachea Midline, Thyroid Normal. Lungs: Diminished breath sounds bilateral, otherwise clear, no rhonchi, No wheeze, No rales. Cardiovascular: Regular rate, Regular Rhythm, Normal S1, Normal S2, PMI Normal. Abdomen: Bowel Sounds Present, Soft, Tender, Non-Distended, No Hepato- splenomegaly. Extremities: No clubbing, No cyanosis, No edema Skin: No rashes, No breakdown Neurological: Cranial nerves are intact, neuro grossly intact Vital Signs are stable. Assessment and plan: #1 intractable nausea and vomiting: Chemotherapy-induced. Still symptomatic, minimal improvement. Started on IV Compazine today, she has been on Haldol and IV Protonix as well. Continue above treatment. #2 severe hypokalemia: Secondary to nausea and vomiting. She has been on replacement. Today's potassium is 3.7, replaced and corrected. She received IV magnesium sulfate yesterday. Plan to repeat CBC and BMP as well as mag and phosphorus tomorrow morning. #3 pancytopenia: Secondary to chemotherapy. WBC is 2.9, improving. ANC is 1100 today. She is on Granix. No evidence of fever. Hemoglobin is 7.8 g/dL.no active bleeding. She received 1 unit of packed RBCs. Platelet count today is 80,000. Oncology recommended to discontinue Granix, plan to repeat CBC tomorrow morning. #4 Citrobacter acute cystitis: She is on IV ciprofloxacin, sensitivity reviewed. #5 other chronic medical problems: Stable, continue current medications as above. This note was generated with [employer] software. It may contain incorrect words, spelling, and punctuation that were not noted in checking the note before signing. Inpatient E&M: [id number] Subs Hosp L2
[2020-03-29 13:37] LABS: Platelet Estimate SLT DEC (ADEQ)
[2020-03-29] MEDS: 0.9% Normal Saline 1,000 ML 100 ML IV ×2 (13:53→23:18)
[2020-03-29] MEDS: Morphine 2 MG/ML Syringe IV ×2 (13:56→23:12)
[2020-03-29 17:30] LABS: Bedside Glucose 104 mg/dL (70-110)
[2020-03-29 22:05] LABS: Bedside Glucose 95 mg/dL (70-110)
[2020-03-30] VITALS (11 sets, daily range): BP systolic 103–111; BP diastolic 61–78; PULSE 77–95; RESP 14–16; TEMP 36.5–37.3; O2SAT 96–100
[2020-03-30] MEDS: Haloperidol Lactate 5 MG/ML Vial 1 MG IV ×2 (02:40→22:23)
[2020-03-30] MEDS: Menthol/Lanolin/Calamine/Znox 113 GM Tube 1 APPLIC TOPICAL ×2 (05:30→13:26)
[2020-03-30 06:45] LABS: Hematocrit 24.9 % (37-47); Hemoglobin 8.1 g/dL (12.0-15.0); Mean Corp Hgb Conc 32.5 g/dL (32-36); Mean Corpuscular Hgb 30.5 pg (27.0-32.0); Mean Corpuscular Volume 93.6 fL (81-99); Mean Platelet Vol. 11.3 fl (6.2-12.0); POSITIVE COUNT YES; POSITIVE DIFFERENTIAL YES; POSITIVE MORPHOLOGY YES; Platelet Count 79 K/mm3 (150-450); RBC Distribution Width CV 14.7 % (11.6-14.6); RBC Distribution Width SD 45.3 fl (35.1-43.9); Red Blood Count 2.66 M/mm3 (4.2-5.4); White Blood Count 3.3 K/mm3 (4.4-11.0)
[2020-03-30 06:46] LABS: Differential Indicated MANUAL DIFF
[2020-03-30 06:56] LABS: Bedside Glucose 111 mg/dL (70-110)
[2020-03-30 07:16] LABS: Lymphocyte 33 % (19-41); Metamyelocyte 9 % (0-1); Monocyte 4 % (0-10); Neutrophil-Band 20 % (0-5); Neutrophil-Segmented 34 % (47-70); Total Cells Counted 100 (MANUAL DIFF)
[2020-03-30 07:18] LABS: Absolute Neutrophil Count 1.8 X10^3/uL (2.0-7.7); Lymphocyte # 1.09 X10^3/ul (4.0); Neutrophil # 1.79 X10^3/uL (2.7-7.7)
[2020-03-30 07:19] LABS: Absolute Lymphocyte Count 1.09 X10^3/uL (0.83-4.51); Dohle Bodies RARE
[2020-03-30 07:20] LABS: Anisocytosis 1+; Macrocytosis 1+; Platelet Estimate MOD DEC (ADEQ); Polychromasia RARE
[2020-03-30 08:38] LABS: ALB/GLOB Ratio 0.9 RATIO (0.9-2.4); AST(SGOT) 18 U/L (15-37); Alanine Aminotransfer ALT/SGPT 28 U/L (13-56); Albumin, Serum 2.2 g/dL (3.2-5.0); Alkaline Phosphatase 116 U/L (45-117); Anion Gap 8 (5-15); BUN 13 mg/dL (7-18); Calcium,Total 7.5 mg/dL (8.5-10.1); Chloride 106 mmol/L (98-107); Creatinine, Serum 0.48 mg/dL (0.55-1.02); EST Glomerular Filtration Rate 140 mL/min (>60); Est Glom Filt Rate - Afr Amer 170 mL/min (>60); Estimated Creatinine Clearance 109.11 ml/min; Globulin 2.4 g/dL (2.2-4.2); Glucose 106 mg/dL (74-106); Magnesium 1.8 mg/dL (1.6-2.6); Phosphorus 1.8 mg/dL (2.5-4.9); Potassium 3.2 mmol/L (3.5-5.1); Protein, Total 4.6 g/dL (6.4-8.2); Sodium Level 138 mmol/L (136-145)
[2020-03-30] MEDS: 0.9% Normal Saline 1,000 ML 100 ML IV ×2 (09:22→19:39)
[2020-03-30] MEDS: Enoxaparin 40 MG/0.4 ML Syringe SC (09:28)
[2020-03-30] MEDS: Ciprofloxacin 400 MG/200 ML BAG 200 MG IV ×2 (10:45→22:59)
--- NOTE | 2020-03-30 11:52 | CT_ITS ---
STUDY: CT ABDOMEN AND PELVIS WITH CONTRAST REASON FOR EXAM: Female, 59 years old. PT STATED OVARIAN CA WITH CHEMO, DIFFUSE ABDOM PAIN TODAY RADIATION DOSAGE (If Supplied By Facility): CTDIvol = ( 14.98 ) mGy, DLP = ( 934.12 ) mGycm TECHNIQUE: Transaxial images were obtained from the dome of the diaphragm to the symphysis pubis without oral contrast. IV 100mL Isovue-300 was administered. Sagittal and coronal images were reconstructed. Individualized dose optimization techniques were used for this CT. COMPARISON: None. FINDINGS: Small right pleural effusion with some right lower lobe atelectasis and a large left pleural effusion with left lower lobe atelectasis. The visualized portions of the heart are within normal limits. Large amount of ascites. There is a diffuse contour abnormality of the liver consistent with cirrhotic changes. There are surgical clips in the gallbladder fossa consistent with a prior cholecystectomy. There is mild splenomegaly. Normal pancreas. Normal bilateral adrenal glands. Normal right kidney. Normal left kidney. Normal visualized stomach. Normal small intestine. Normal colon. There are surgical clips in the region of the appendix consistent with a prior appendectomy. Normal abdominal aorta. Normal inferior vena cava. Normal retroperitoneum. Normal urinary bladder. Normal abdominal wall. Normal osseous structures. CT/Abdomen/Pelvis W IV Cont ONLY IMPRESSION: Large amount of ascites and a large left pleural effusion. Electronically Signed: Jeff Cordero MD at 14:05 EDT Tel , Service support ,
[2020-03-30 12:15] LABS: Bedside Glucose 114 mg/dL (70-110)
[2020-03-30] MEDS: 0.9% Saline Lock 10 ML Syringe IV ×3 (13:24→22:23)
--- NOTE | 2020-03-30 13:56 | NURSING ---
Attempted to provide Kevin, significant other with update. No answer. Message left to return call with PCU phone number for update.
--- NOTE | 2020-03-30 14:52 | PN_ITS ---
<Jerson Harvey - Last Filed: 03/30/20 14:52> Patient Problems: Active and Suspected Problems Hypokalemia (Acute) Reason for Visit: pt still unable to eat or drink. Ongoing nausea and vomiting. abd pain improved with morphine. no fever/chills. no dysuria. Vitals/I&O's: Vital Signs Temp Pulse Resp BP Pulse Ox 97.7 F L 92 16 111/72 99 03/30/20 08:58 03/30/20 11:03 03/30/20 08:58 03/30/20 08:58 03/30/20 08:58 Oxygen Delivery Method Room Air Weight: 119 lb 4.321 oz Body Mass Index (BMI) 19.8 Finger Stick Blood Glucose 76 Intake and Output for Last 24 Hours 03/28/20 03/29/20 03/30/20 23:59 23:59 23:59 Intake Total 3094 / 3094 3651.25 / 3651.25 1658.33 / 1658.33 Output Total 800 / 800 700 / 700 200 / 200 Balance 2294 / 2294 2951.25 / 2951.25 1458.33 / 1458.33 General: Alert, Oriented x3, Cooperative HEENT: Atraumatic, PERRLA, EOMI, Normocephalic Neck: Supple, No JVD, Negative Carotid Bruits Lungs: Clear to auscultation, Normal air movement Cardiovascular: Regular rate, No murmurs Abdomen: Bowel Sounds Present, Soft, Non Tender Extremities: No edema, Capillary Refill Less than 3 Seconds Skin: No rashes, No breakdown Musculoskeletal: No Tenderness to Palpation of Joints or Extremities Neurological: Cranial nerves II-XII grossly intact Psych/Mental Status: Normal Affect, Appropriate, Alert and oriented to time, place, person, mood and affect Microbiology Past 72 Hours 03/26/20 00:55 Urine Catheter - Catheter Urine Culture - Final Citrobacter species Laboratory Results 03/29/20 16:13: POC Glucose 104 03/29/20 21:57: POC Glucose 95 03/30/20 06:15: WBC 3.3 L, RBC 2.66 L, Hgb 8.1 L, Hct 24.9 L, MCV 93.6, MCH 30.5, MCHC 32.5, RDW Std Deviation 45.3 H, RDW Coeff of Frank 14.7 H, Plt Count 79 L, MPV 11.3, Neut % (Auto) Not Reportable, Absolute Neuts (auto) 1.8 L, Absolute Lymphs (auto) 1.09, Total Counted 100, Neutrophils % (Manual) 34 L, Band Neutrophils % 20 H, Lymphocytes % (Manual) 33, Monocytes % (Manual) 4, Metamyelocytes % 9 H, Diff Path Review May foll, Dohle Bodies RARE, Platelet Estimate MOD DEC, Polychromasia RARE, Anisocytosis 1+, Macrocytosis 1+ 03/30/20 06:15: Sodium 138, Potassium 3.2 L, Chloride 106, Carbon Dioxide 24.0, Anion Gap 8, BUN 13, Creatinine 0.48 L, Estim Creat Clear Calc 109.11, Est GFR (MDRD) Af Amer 170, Est GFR (MDRD) Non-Af 140, BUN/Creatinine Ratio 27.0 H, Glucose 106, Calcium 7.5 L, Phosphorus 1.8 L, Magnesium 1.8, Total Bilirubin 1.10 H, AST 18, ALT 28, Alkaline Phosphatase 116, Total Protein 4.6 L, Albumin 2.2 L, Globulin 2.4, Albumin/Globulin Ratio 0.9 03/30/20 06:49: POC Glucose 111 H 03/30/20 12:11: POC Glucose 114 H Current Medications Acetaminophen (Tylenol) 650 mg PO Q6H PRN PRN PRN Reason: Pain Score 1-10/10 Calamine/Phenol (Calmoseptine Ointment) 1 applic TOPICAL TID ANGELA; Protocol Last Admin: 03/30/20 13:26 Dose: 1 applicatio Documented by: Dextrose (D50w Syringe) 0 gm IV X1 PRN; Protocol PRN Reason: Hypoglycemia Enoxaparin Sodium (Lovenox) 40 mg SC DAILY ANGELA Last Admin: 03/30/20 09:28 Dose: 40 mg Documented by: Glucagon () 1 mg IM .X1 PRN PRN Reason: Hypoglycemia Haloperidol Lactate (Haldol) 1 mg IV Q4H PRN PRN PRN Reason: NAUSEA Last Admin: 03/30/20 02:40 Dose: 1 mg Documented by: Heparin Sodium (Beef Lung) () 50 units IV UD PRN PRN Reason: R Port Heparin Flush Sodium Chloride () 250 mls @ 15 mls/hr IV .[id number] PRN PRN Reason: Saline Flush Pantoprazole Sodium 40 mg/ (Sodium Chloride) 110 mls @ 330 mls/hr IV Q12 [facility] Last Infusion: 03/30/20 09:45 Dose: Infused Documented by: Sodium Chloride () 500 mls @ 15 mls/hr IV PRN PRN PRN Reason: Blood Transfusion Last Infusion: 03/26/20 17:25 Dose: Infused Documented by: Ciprofloxacin (Cipro) 400 mg in 200 mls @ 200 mls/hr IV Q12 [facility] Last Infusion: 03/30/20 11:45 Dose: Infused Documented by: Sodium Chloride () 1,000 mls @ 100 mls/hr IV .Q10H [facility] Last Infusion: 03/30/20 13:23 Dose: 100 mls/hr Documented by: Levothyroxine Sodium (Synthroid) 100 mcg PO DAILY@0600 [facility] Last Admin: 03/30/20 05:29 Dose: Not Given Documented by: Loratadine (Claritin) 10 mg PO QHS PRN PRN PRN Reason: STUFFINESS Lorazepam (Ativan) 0.5 mg IV Q6H PRN PRN PRN Reason: ANXIETY Last Admin: 03/27/20 01:01 Dose: 0.5 mg Documented by: Magnesium Hydroxide (Milk Of Magnesia) 30 ml PO DAILY PRN PRN PRN Reason: Constipation Morphine Sulfate () 2 mg IV Q2H PRN PRN PRN Reason: Pain Score 6-10/10 Last Admin: 03/29/20 23:12 Dose: 2 mg Documented by: Olanzapine (Zyprexa) 2.5 mg PO QHS [facility] Last Admin: 03/29/20 22:15 Dose: Not Given Documented by: Oxycodone HCl (Oxyir) 5 mg PO Q6H PRN PRN PRN Reason: Pain Score 6-10/10 Polyethylene Glycol (Miralax) 17 gm PO DAILY PRN PRN PRN Reason: Constipation Prochlorperazine Edisylate (Compazine Iv) 5 mg IV Q6H PRN PRN PRN Reason: NAUSEA/VOMITING Last Admin: 03/29/20 23:50 Dose: 5 mg Documented by: Sodium Chloride () 10 - 40 ml IV UD PRN PRN Reason: R Port Saline Flush Last Admin: 03/30/20 13:24 Dose: 20 ml Documented by: Sodium Chloride (0.9% Nacl (Sterile) Posiflush) 10 - 40 ml IV UD PRN PRN Reason: Port access or dressing change STROKE Vital Signs/Narrative: Vital Signs Pulse 03/30/20 11:03 92 Medical Necessity - Tobacco Use Smoking Status: Former smoker Tobacco Use: Non-smoker Assessment/Plan All Active Problems Neutropenia (Acute) Hypokalemia (Acute) 1. Intractable nausea and vomiting secondary to chemotherapy-patient undergoing chemotherapy for metastatic ovarian cancer, stage III. No improvement with Reglan, Phenergan, Zofran, Haldol. Trial Compazine. Continue IV fluids. Replaced mag/phos/K, corrected calcium normal. -Seemed to respond somewhat to compazine -CT abd shows a large amount of ascites and left pleural effusion. Plan for paracentesis on wednesday. Will need to d/w IR given low platelets. -consider tpn if she continues to be unable to eat. d/w oncology, may use central line if necessary. 2. Stage III ovarian cancer with mets-patient of Dr. Flood. Palliative care was addressed and the patient was not interested at this time. 3. Pancytopenia-as above. off granix 4. Acute cystitis-urine culture with Citrobacter, resistant to Rocephin. Continue ciprofloxacin. Continue to monitor QTC. Currently normal QTC. 5. Type 2 diabetes [id number] only, not on home regimen. Hemoglobin A1c 5.7. 6. Hypothyroidism-Synthroid 7. Hyperlipidemia-statin 8. GERD-IV PPI. 9. Severe protein calorie malnutrition-dietitian consult. 10. Debility-SNF resident, continue PT OT. DVT prophylaxis: SCDs. hold lovenox with low platelets. Discharge planning, return to SNF once stable, needs paracentesis wednesday. This patient was seen by Jerson Harvey PA-C under the supervision of Dr. Goldberg <Anoop Goldberg E - Last Filed: 03/31/20 09:29> Vitals/I&O's: Vital Signs Temp Pulse Resp BP Pulse Ox 97.7 F L 93 14 103/65 99 03/30/20 14:50 03/30/20 15:00 03/30/20 14:50 03/30/20 14:50 07/11/20 14:50 Oxygen Delivery Method Room Air Weight: 119 lb 4.321 oz Body Mass Index (BMI) 19.8 Finger Stick Blood Glucose 76 Intake and Output for Last 24 Hours 03/28/20 03/29/20 03/30/20 23:59 23:59 23:59 Intake Total 3094 / 3094 3651.25 / 3651.25 2121.66 / 2121.66 Output Total 800 / 800 700 / 700 500 / 500 Balance 2294 / 2294 2951.25 / 2951.25 1621.66 / 1621.66 Microbiology Past 72 Hours 03/26/20 00:55 Urine Catheter - Catheter Urine Culture - Final Citrobacter species Laboratory Results 03/29/20 21:57: POC Glucose 95 03/30/20 06:15: WBC 3.3 L, RBC 2.66 L, Hgb 8.1 L, Hct 24.9 L, MCV 93.6, MCH 30.5, MCHC 32.5, RDW Std Deviation 45.3 H, RDW Coeff of Frank 14.7 H, Plt Count 79 L, MPV 11.3, Neut % (Auto) Not Reportable, Absolute Neuts (auto) 1.8 L, Absolute Lymphs (auto) 1.09, Total Counted 100, Neutrophils % (Manual) 34 L, Band Neutrophils % 20 H, Lymphocytes % (Manual) 33, Monocytes % (Manual) 4, Metamyelocytes % 9 H, Diff Path Review May foll, Dohle Bodies RARE, Platelet Estimate MOD DEC, Polychromasia RARE, Anisocytosis 1+, Macrocytosis 1+ 03/30/20 06:15: Sodium 138, Potassium 3.2 L, Chloride 106, Carbon Dioxide 24.0, Anion Gap 8, BUN 13, Creatinine 0.48 L, Estim Creat Clear Calc 109.11, Est GFR (MDRD) Af Amer 170, Est GFR (MDRD) Non-Af 140, BUN/Creatinine Ratio 27.0 H, Glucose 106, Calcium 7.5 L, Phosphorus 1.8 L, Magnesium 1.8, Total Bilirubin 1.10 H, AST 18, ALT 28, Alkaline Phosphatase 116, Total Protein 4.6 L, Albumin 2.2 L, Globulin 2.4, Albumin/Globulin Ratio 0.9 03/30/20 06:49: POC Glucose 111 H 03/30/20 12:11: POC Glucose 114 H Current Medications Acetaminophen (Tylenol) 650 mg PO Q6H PRN PRN PRN Reason: Pain Score 1-10/10 Calamine/Phenol (Calmoseptine Ointment) 1 applic TOPICAL TID [facility]; Protocol Last Admin: 03/30/20 13:26 Dose: 1 applicatio Documented by: Dextrose (D50w Syringe) 0 gm IV X1 PRN; Protocol PRN Reason: Hypoglycemia Glucagon () 1 mg IM .X1 PRN PRN Reason: Hypoglycemia Haloperidol Lactate (Haldol) 1 mg IV Q4H PRN PRN PRN Reason: NAUSEA Last Admin: 03/30/20 02:40 Dose: 1 mg Documented by: Heparin Sodium (Beef Lung) () 50 units IV UD PRN PRN Reason: R Port Heparin Flush Sodium Chloride () 250 mls @ 15 mls/hr IV .[id number] PRN PRN Reason: Saline Flush Pantoprazole Sodium 40 mg/ (Sodium Chloride) 110 mls @ 330 mls/hr IV Q12 [facility] Last Infusion: 03/30/20 09:45 Dose: Infused Documented by: Sodium Chloride () 500 mls @ 15 mls/hr IV PRN PRN PRN Reason: Blood Transfusion Last Infusion: 03/26/20 17:25 Dose: Infused Documented by: Ciprofloxacin (Cipro) 400 mg in 200 mls @ 200 mls/hr IV Q12 [facility] Last Infusion: 03/30/20 11:45 Dose: Infused Documented by: Sodium Chloride () 1,000 mls @ 100 mls/hr IV .Q10H [facility] Last Infusion: 03/30/20 17:31 Dose: 100 mls/hr Documented by: Levothyroxine Sodium (Synthroid) 100 mcg PO DAILY@0600 [facility] Last Admin: 03/30/20 05:29 Dose: Not Given Documented by: Loratadine (Claritin) 10 mg PO QHS PRN PRN PRN Reason: STUFFINESS Lorazepam (Ativan) 0.5 mg IV Q6H PRN PRN PRN Reason: ANXIETY Last Admin: 03/27/20 01:01 Dose: 0.5 mg Documented by: Magnesium Hydroxide (Milk Of Magnesia) 30 ml PO DAILY PRN PRN PRN Reason: Constipation Morphine Sulfate () 2 mg IV Q2H PRN PRN PRN Reason: Pain Score 6-10/10 Last Admin: 03/30/20 16:53 Dose: 2 mg Documented by: Olanzapine (Zyprexa) 2.5 mg PO QHS ANGELA Last Admin: 03/29/20 22:15 Dose: Not Given Documented by: Oxycodone HCl (Oxyir) 5 mg PO Q6H PRN PRN PRN Reason: Pain Score 6-10/10 Polyethylene Glycol (Miralax) 17 gm PO DAILY PRN PRN PRN Reason: Constipation Prochlorperazine Edisylate (Compazine Iv) 5 mg IV Q6H PRN PRN PRN Reason: NAUSEA/VOMITING Last Admin: 03/30/20 15:27 Dose: 5 mg Documented by: Sodium Chloride () 10 - 40 ml IV UD PRN PRN Reason: R Port Saline Flush Last Admin: 03/30/20 16:53 Dose: 10 ml Documented by: Sodium Chloride (0.9% Nacl (Sterile) Posiflush) 10 - 40 ml IV UD PRN PRN Reason: Port access or dressing change STROKE Vital Signs/Narrative: Vital Signs Temp Pulse Resp BP Pulse Ox 03/30/20 15:00 93 03/30/20 14:50 97.7 F L 93 14 103/65 99 Assessment/Plan Hospitalist note: I am seeing this patient in conjunction with Jerson Harvey. I independently seen and examined the patient. Progress note above and laboratory data and I. Reviewed and I concur with the above treatment plan. Again, patient complaining of nausea and vomiting as well as abdominal pain. She mentioned IV Compazine works for some time but symptoms recurred. Her vital signs are stable. - Physical Exam General: Alert, Oriented x3, Cooperative, cachectic, chronically ill patient. HEENT: Atraumatic, PERRLA, EOMI. Neck: Supple, No JVD, Negative Carotid Bruits, Trachea Midline, Thyroid Normal. Lungs: Diminished breath sounds bilateral, otherwise clear, no rhonchi, No wheeze, No rales. Cardiovascular: Regular rate, Regular Rhythm, Normal S1, Normal S2, PMI Normal. Abdomen: Bowel Sounds Present, Soft, Tender, Non-Distended, No Hepato- splenomegaly, ascites. Extremities: No clubbing, No cyanosis, No edema Skin: No rashes, No breakdown Neurological: Cranial nerves are intact, neuro grossly intact Vital Signs are stable. Assessment and plan: #1 intractable nausea and vomiting: Chemotherapy-induced. Still symptomatic, recurrent and intermittent. She is on IV Compazine and Haldol. She is on IV Protonix as well. Dr. Luna was contacted and recommended CT scan abdomen and pelvis to rule out mechanical obstruction or massive ascites. CT scan abdomen and pelvis done and revealed large ascites. Plan for paracentesis on Wednesday. Will check PT, PTT and INR. #2 severe hypokalemia: Secondary to nausea and vomiting. She has been on replacement. Today's potassium is 3.2, patient will need aggressive potassium replacement. Today's magnesium is 1.8 which is normal. Plan to repeat CBC and BMP tomorrow morning. #3 pancytopenia: Secondary to chemotherapy. WBC is 3.3, improving. ANC is 1800 today. Granix discontinued. She is on Granix. No evidence of fever. Hemoglobin is 8.1 g/dL.no active bleeding. She received 1 unit of packed RBCs. Platelet count today is 79,000. Plan as above. #4 Citrobacter acute cystitis: She is on IV ciprofloxacin, sensitivity reviewed. #5 other chronic medical problems: Stable, continue current medications as above. This note was generated with [employer] dictation software. It may contain incorrect words, spelling, and punctuation that were not noted in checking the note before signing. Inpatient E&M: 18559 Subs Hosp L2
[2020-03-30] MEDS: proCHLORPERazine 10 MG/2 ML Vial 5 MG IV (15:27)
[2020-03-30] MEDS: Morphine 2 MG/ML Syringe IV ×2 (16:53→22:26)
[2020-03-30 21:46] LABS: Bedside Glucose 105 mg/dL (70-110)
[2020-03-30 22:35] LABS: Bedside Glucose 100 mg/dL (70-110)
[2020-03-31] VITALS (15 sets, daily range): BP systolic 106–144; BP diastolic 59–83; PULSE 67–92; RESP 16–18; TEMP 36.1–37.1; O2SAT 97–99
[2020-03-31] MEDS: proCHLORPERazine 10 MG/2 ML Vial 5 MG IV (00:25)
[2020-03-31] MEDS: 0.9% Saline Lock 10 ML Syringe IV ×6 (00:25→21:43)
[2020-03-31] MEDS: 0.9% Normal Saline 1,000 ML 100 ML IV ×2 (04:01→14:59)
[2020-03-31] MEDS: Menthol/Lanolin/Calamine/Znox 113 GM Tube 1 APPLIC TOPICAL ×2 (06:22→14:58)
[2020-03-31] MEDS: Haloperidol Lactate 5 MG/ML Vial 1 MG IV ×3 (06:28→21:42)
[2020-03-31] MEDS: Morphine 2 MG/ML Syringe IV ×3 (06:28→11:53)
[2020-03-31 06:44] LABS: Hematocrit 21.5 % (37-47); Hemoglobin 7.1 g/dL (12.0-15.0); Mean Corpuscular Hgb 30.3 pg (27.0-32.0); Mean Corpuscular Volume 91.9 fL (81-99); Mean Platelet Vol. 11.4 fl (6.2-12.0); POSITIVE COUNT YES; POSITIVE MORPHOLOGY YES; Platelet Count 61 K/mm3 (150-450); RBC Distribution Width CV 15.1 % (11.6-14.6); RBC Distribution Width SD 45.8 fl (35.1-43.9); Red Blood Count 2.34 M/mm3 (4.2-5.4); White Blood Count 3.7 K/mm3 (4.4-11.0)
[2020-03-31 07:01] LABS: Bedside Glucose 121 mg/dL (70-110)
[2020-03-31 07:07] LABS: Anion Gap 6 (5-15); BUN 10 mg/dL (7-18); Calcium,Total 7.1 mg/dL (8.5-10.1); Chloride 109 mmol/L (98-107); Creatinine, Serum 0.42 mg/dL (0.55-1.02); EST Glomerular Filtration Rate 166 mL/min (>60); Est Glom Filt Rate - Afr Amer 201 mL/min (>60); Estimated Creatinine Clearance 124.69 ml/min; Glucose 113 mg/dL (74-106); Potassium 3.4 mmol/L (3.5-5.1); Sodium Level 139 mmol/L (136-145)
[2020-03-31 07:22] LABS: Metamyelocyte 5 % (0-1); Myelocyte 3 (0-0); Neutrophil-Band 4 % (0-5); Neutrophil-Segmented 69 % (47-70)
[2020-03-31 07:23] LABS: Differential Indicated MANUAL DIFF; Lymphocyte 21 % (19-41); Monocyte 3 % (0-10); Nucleated Red Bld Cells,Manual 1 % (0-5); Platelet Estimate MOD (ADEQ); Red Cell Morphology NORM C+C NORMAL (NORM C&C)
[2020-03-31 07:24] LABS: Absolute Lymphocyte Count 0.78 X10^3/uL (0.83-4.51); Absolute Neutrophil Count 2.7 X10^3/uL (2.0-7.7); Lymphocyte # 0.78 X10^3/ul (4.0); Neutrophil # 2.71 X10^3/uL (2.7-7.7)
[2020-03-31 09:55] LABS: Partial Thromboplast Time 29.2 Seconds (24.1-36.2)
[2020-03-31 10:07] LABS: International Normalized Ratio 1.2; Prothrombin Time (Protime)PT. 14.8 SECONDS (11.7-14.9)
[2020-03-31] MEDS: Ciprofloxacin 400 MG/200 ML BAG 200 MG IV ×2 (11:04→23:01)
--- NOTE | 2020-03-31 12:09 | PCM.PN.HOSP ---
<Jerson Harvey - Last Filed: 03/31/20 12:09> Patient Problems: Active and Suspected Problems Hypokalemia (Acute) Reason for Visit: nausea Subjective: no improvement. does c/o abd distention. pain responding well to morphine. no cough/sob. No le edema. Pt agreeable to paracentesis. pt very unhappy that she has not been able to eat. Vitals/I&O's: Vital Signs Temp Pulse Resp BP Pulse Ox 98.3 F 88 18 115/74 98 03/31/20 10:40 03/31/20 10:40 03/31/20 10:40 03/31/20 10:40 03/31/20 10:40 Oxygen Delivery Method Room Air Weight: 119 lb 4.321 oz Body Mass Index (BMI) 19.8 Finger Stick Blood Glucose 76 Intake and Output for Last 24 Hours 03/29/20 03/30/20 03/31/20 23:59 23:59 23:59 Intake Total 3651.25 / 3651.25 3245.99 / 3245.99 1661.67 / 1661.67 Output Total 700 / 700 900 / 900 375 / 375 Balance 2951.25 / 2951.25 2345.99 / 2345.99 1286.67 / 1286.67 General: Alert, Oriented x3, Cooperative HEENT: Atraumatic, PERRLA, EOMI, Normocephalic Neck: Supple, No JVD, Negative Carotid Bruits Lungs: Clear to auscultation, Diminished Cardiovascular: Regular rate, No murmurs Abdomen: Bowel Sounds Present, Soft, Non Tender, Distended Extremities: No edema, Capillary Refill Less than 3 Seconds Skin: No rashes, No breakdown Musculoskeletal: No Tenderness to Palpation of Joints or Extremities Neurological: Cranial nerves II-XII grossly intact Psych/Mental Status: Normal Affect, Appropriate Microbiology Past 72 Hours 03/26/20 00:55 Urine Catheter - Catheter Urine Culture - Final Citrobacter species Laboratory Results 03/30/20 12:11: POC Glucose 114 H 03/30/20 16:48: POC Glucose 105 03/30/20 22:18: POC Glucose 100 03/31/20 05:35: WBC 3.7 L, RBC 2.34 L, Hgb 7.1 L, Hct 21.5 L, MCV 91.9, MCH 30.3, MCHC 33.0, RDW Std Deviation 45.8 H, RDW Coeff of Frank 15.1 H, Plt Count 61 L, MPV 11.4, Neut % (Auto) Not Reportable, Absolute Neuts (auto) 2.7, Absolute Lymphs (auto) 0.78 L, Neutrophils % (Manual) 69, Band Neutrophils % 4, Lymphocytes % (Manual) 21, Monocytes % (Manual) 3, Metamyelocytes % 5 H, Myelocytes % 3 H, Nucleated RBCs/100 WBC 1, Diff Path Review January foll, Platelet Estimate MOD, RBC Morphology NORM C+C 03/31/20 05:35: Sodium 139, Potassium 3.4 L, Chloride 109 H, Carbon Dioxide 24.0, Anion Gap 6, BUN 10, Creatinine 0.42 L, Estim Creat Clear Calc 124.69, Est GFR (MDRD) Af Amer 201, Est GFR (MDRD) Non-Af 166, BUN/Creatinine Ratio 24.0 H, Glucose 113 H, Calcium 7.1 L 03/31/20 06:36: POC Glucose 121 H 03/31/20 09:25: PT Pending, INR Pending, APTT 29.2 03/31/20 09:25: Blood Type Pending, Antibody Screen Pending, Crossmatch See Detail Current Medications Acetaminophen (Tylenol) 650 mg PO Q6H PRN PRN PRN Reason: Pain Score 1-10/10 Calamine/Phenol (Calmoseptine Ointment) 1 applic TOPICAL TID ANGELA; Protocol Last Admin: 03/31/20 06:22 Dose: 1 applicatio Documented by: Dextrose (D50w Syringe) 0 gm IV X1 PRN; Protocol PRN Reason: Hypoglycemia Glucagon () 1 mg IM .X1 PRN PRN Reason: Hypoglycemia Haloperidol Lactate (Haldol) 1 mg IV Q4H PRN PRN PRN Reason: NAUSEA Last Admin: 03/31/20 06:28 Dose: 1 mg Documented by: Heparin Sodium (Beef Lung) () 50 units IV UD PRN PRN Reason: R Port Heparin Flush Sodium Chloride () 250 mls @ 15 mls/hr IV .[id number] PRN PRN Reason: Saline Flush Pantoprazole Sodium 40 mg/ (Sodium Chloride) 110 mls @ 330 mls/hr IV Q12 ANGELA Last Infusion: 03/31/20 10:58 Dose: Infused Documented by: Sodium Chloride () 500 mls @ 15 mls/hr IV PRN PRN PRN Reason: Blood Transfusion Last Infusion: 03/26/20 17:25 Dose: Infused Documented by: Ciprofloxacin (Cipro) 400 mg in 200 mls @ 200 mls/hr IV Q12 [facility] Last Admin: 03/31/20 11:04 Dose: 200 mls/hr Documented by: Sodium Chloride () 1,000 mls @ 100 mls/hr IV .Q10H [facility] Last Infusion: 03/31/20 10:58 Dose: 100 mls/hr Documented by: Levothyroxine Sodium (Synthroid) 100 mcg PO DAILY@0600 [facility] Last Admin: 03/31/20 06:22 Dose: Not Given Documented by: Loratadine (Claritin) 10 mg PO QHS PRN PRN PRN Reason: STUFFINESS Lorazepam (Ativan) 0.5 mg IV Q6H PRN PRN PRN Reason: ANXIETY Last Admin: 03/27/20 01:01 Dose: 0.5 mg Documented by: Magnesium Hydroxide (Milk Of Magnesia) 30 ml PO DAILY PRN PRN PRN Reason: Constipation Morphine Sulfate () 2 mg IV Q2H PRN PRN PRN Reason: Pain Score 6-10/10 Last Admin: 03/31/20 11:53 Dose: 2 mg Documented by: Olanzapine (Zyprexa) 2.5 mg PO QHS [facility] Last Admin: 03/30/20 22:30 Dose: Not Given Documented by: Oxycodone HCl (Oxyir) 5 mg PO Q6H PRN PRN PRN Reason: Pain Score 6-10/10 Polyethylene Glycol (Miralax) 17 gm PO DAILY PRN PRN PRN Reason: Constipation Prochlorperazine Edisylate (Compazine Iv) 5 mg IV Q6H PRN PRN PRN Reason: NAUSEA/VOMITING Last Admin: 03/31/20 00:25 Dose: 5 mg Documented by: Sodium Chloride () 10 - 40 ml IV UD PRN PRN Reason: R Port Saline Flush Last Admin: 03/31/20 08:56 Dose: 10 ml Documented by: Sodium Chloride (0.9% Nacl (Sterile) Posiflush) 10 - 40 ml IV UD PRN PRN Reason: Port access or dressing change STROKE Vital Signs/Narrative: Vital Signs Temp Pulse Resp BP Pulse Ox 03/31/20 10:40 98.3 F 88 18 115/74 98 Medical Necessity - Tobacco Use Smoking Status: Former smoker Tobacco Use: Non-smoker Assessment/Plan All Active Problems Neutropenia (Acute) Hypokalemia (Acute) 1. Intractable nausea and vomiting secondary to chemotherapy-patient undergoing chemotherapy for metastatic ovarian cancer, stage III. No improvement with Reglan, Phenergan, Zofran, Haldol. Trial Compazine. Continue IV fluids. Replaced mag/phos/K, corrected calcium normal. -CT with large ascites. attempt bedside tap. 2. Stage III ovarian cancer with mets-patient of Dr. Flood. Palliative care was addressed and the patient was not interested at this time. 3. Pancytopenia-as above. off granix. t/c 1 unit PRBC. 4. Acute cystitis-urine culture with Citrobacter, resistant to Rocephin. Continue ciprofloxacin. Continue to monitor QTC. Currently normal QTC.plan for 5 total days abx. 5. Type 2 diabetes oonagbxt-mqds-xyyruaeffu only, not on home regimen. Hemoglobin A1c 5.7. 6. Hypothyroidism-Synthroid 7. Hyperlipidemia-statin 8. GERD-IV PPI. 9. Severe protein calorie malnutrition-dietitian consult. 10. Debility-SNF resident, continue PT OT. DVT prophylaxis: SCDs. hold lovenox with low platelets. Discharge planning, return to SNF once stable, para today. This patient was seen by Jerson Harvey PA-C under the supervision of Dr. Goldberg <Anoop Goldberg E - Last Filed: 03/31/20 12:18> Vitals/I&O's: Vital Signs Temp Pulse Resp BP Pulse Ox 98.3 F 88 18 115/74 98 03/31/20 10:40 03/31/20 10:40 03/31/20 10:40 03/31/20 10:40 03/31/20 10:40 Oxygen Delivery Method Room Air Weight: 119 lb 4.321 oz Body Mass Index (BMI) 19.8 Finger Stick Blood Glucose 76 Intake and Output for Last 24 Hours 03/29/20 03/30/20 03/31/20 23:59 23:59 23:59 Intake Total 3651.25 / 3651.25 3245.99 / 3245.99 1661.67 / 1661.67 Output Total 700 / 700 900 / 900 375 / 375 Balance 2951.25 / 2951.25 2345.99 / 2345.99 1286.67 / 1286.67 Microbiology Past 72 Hours 03/26/20 00:55 Urine Catheter - Catheter Urine Culture - Final Citrobacter species Laboratory Results 03/30/20 12:11: POC Glucose 114 H 03/30/20 16:48: POC Glucose 105 03/30/20 22:18: POC Glucose 100 03/31/20 05:35: WBC 3.7 L, RBC 2.34 L, Hgb 7.1 L, Hct 21.5 L, MCV 91.9, MCH 30.3, MCHC 33.0, RDW Std Deviation 45.8 H, RDW Coeff of Frank 15.1 H, Plt Count 61 L, MPV 11.4, Neut % (Auto) Not Reportable, Absolute Neuts (auto) 2.7, Absolute Lymphs (auto) 0.78 L, Neutrophils % (Manual) 69, Band Neutrophils % 4, Lymphocytes % (Manual) 21, Monocytes % (Manual) 3, Metamyelocytes % 5 H, Myelocytes % 3 H, Nucleated RBCs/100 WBC 1, Diff Path Review January, Platelet Estimate MOD, RBC Morphology NORM C+C 03/31/20 05:35: Sodium 139, Potassium 3.4 L, Chloride 109 H, Carbon Dioxide 24.0, Anion Gap 6, BUN 10, Creatinine 0.42 L, Estim Creat Clear Calc 124.69, Est GFR (MDRD) Af Amer 201, Est GFR (MDRD) Non-Af 166, BUN/Creatinine Ratio 24.0 H, Glucose 113 H, Calcium 7.1 L 03/31/20 06:36: POC Glucose 121 H 03/31/20 09:25: PT Pending, INR Pending, APTT 29.2 03/31/20 09:25: Blood Type Pending, Antibody Screen Pending, Crossmatch See Detail Current Medications Acetaminophen (Tylenol) 650 mg PO Q6H PRN PRN PRN Reason: Pain Score 1-10/10 Calamine/Phenol (Calmoseptine Ointment) 1 applic TOPICAL TID [facility]; Protocol Last Admin: 03/31/20 06:22 Dose: 1 applicatio Documented by: Dextrose (D50w Syringe) 0 gm IV X1 PRN; Protocol PRN Reason: Hypoglycemia Glucagon () 1 mg IM .X1 PRN PRN Reason: Hypoglycemia Haloperidol Lactate (Haldol) 1 mg IV Q4H PRN PRN PRN Reason: NAUSEA Last Admin: 03/31/20 06:28 Dose: 1 mg Documented by: Heparin Sodium (Beef Lung) () 50 units IV UD PRN PRN Reason: R Port Heparin Flush Sodium Chloride () 250 mls @ 15 mls/hr IV .[id number] PRN PRN Reason: Saline Flush Pantoprazole Sodium 40 mg/ (Sodium Chloride) 110 mls @ 330 mls/hr IV Q12 [facility] Last Infusion: 03/31/20 10:58 Dose: Infused Documented by: Sodium Chloride () 500 mls @ 15 mls/hr IV PRN PRN PRN Reason: Blood Transfusion Last Infusion: 03/26/20 17:25 Dose: Infused Documented by: Ciprofloxacin (Cipro) 400 mg in 200 mls @ 200 mls/hr IV Q12 [facility] Last Admin: 03/31/20 11:04 Dose: 200 mls/hr Documented by: Sodium Chloride () 1,000 mls @ 100 mls/hr IV .Q10H [facility] Last Infusion: 03/31/20 10:58 Dose: 100 mls/hr Documented by: Levothyroxine Sodium (Synthroid) 100 mcg PO DAILY@0600 [facility] Last Admin: 03/31/20 06:22 Dose: Not Given Documented by: Loratadine (Claritin) 10 mg PO QHS PRN PRN PRN Reason: STUFFINESS Lorazepam (Ativan) 0.5 mg IV Q6H PRN PRN PRN Reason: ANXIETY Last Admin: 03/27/20 01:01 Dose: 0.5 mg Documented by: Magnesium Hydroxide (Milk Of Magnesia) 30 ml PO DAILY PRN PRN PRN Reason: Constipation Morphine Sulfate () 2 mg IV Q2H PRN PRN PRN Reason: Pain Score 6-10/10 Last Admin: 03/31/20 11:53 Dose: 2 mg Documented by: Olanzapine (Zyprexa) 2.5 mg PO QHS [facility] Last Admin: 03/30/20 22:30 Dose: Not Given Documented by: Oxycodone HCl (Oxyir) 5 mg PO Q6H PRN PRN PRN Reason: Pain Score 6-10/10 Polyethylene Glycol (Miralax) 17 gm PO DAILY PRN PRN PRN Reason: Constipation Prochlorperazine Edisylate (Compazine Iv) 5 mg IV Q6H PRN PRN PRN Reason: NAUSEA/VOMITING Last Admin: 03/31/20 00:25 Dose: 5 mg Documented by: Sodium Chloride () 10 - 40 ml IV UD PRN PRN Reason: R Port Saline Flush Last Admin: 03/31/20 08:56 Dose: 10 ml Documented by: Sodium Chloride (0.9% Nacl (Sterile) Posiflush) 10 - 40 ml IV UD PRN PRN Reason: Port access or dressing change STROKE Vital Signs/Narrative: Vital Signs Temp Pulse Resp BP Pulse Ox 03/31/20 10:40 98.3 F 88 18 115/74 98 Assessment/Plan Hospitalist note: I am seeing this patient in conjunction with Jerson Harvey. I independently seen and examined the patient. Progress note above and laboratory data and I. Reviewed and I concur with the above treatment plan. Patient reported no improvement, still having intermittent nausea and vomiting. Complains of abdominal distention as well as abdominal pain. CT scan abdomen pelvis reviewed, revealed large ascites. Patient was informed that and recommended paracentesis. Patient agreed to do paracentesis today. Her vital signs are stable. - Physical Exam General: Alert, Oriented x3, Cooperative, cachectic, chronically ill patient. HEENT: Atraumatic, PERRLA, EOMI. Neck: Supple, No JVD, Negative Carotid Bruits, Trachea Midline, Thyroid Normal. Lungs: Diminished breath sounds bilateral, otherwise clear, no rhonchi, No wheeze, No rales. Cardiovascular: Regular rate, Regular Rhythm, Normal S1, Normal S2, PMI Normal. Abdomen: Bowel Sounds Present, Soft, Tender, Non-Distended, No Hepato-splenomegaly, ascites. Extremities: No clubbing, No cyanosis, No edema Skin: No rashes, No breakdown Neurological: Cranial nerves are intact, neuro grossly intact Vital Signs are stable. Assessment and plan: #1 intractable nausea and vomiting: Chemotherapy-induced. No improvement. Remained on IV Compazine and Haldol. She is on IV Protonix as well. CT scan abdomen pelvis reviewed as above. Plan for paracentesis today, IV albumin if needed. #2 severe hypokalemia: Secondary to nausea and vomiting. She has been on replacement. Today's potassium is 3.4, she will need more potassium supplement. Serum magnesium was normal yesterday. Plan to repeat CBC and BMP tomorrow morning. #3 pancytopenia: Secondary to chemotherapy. WBC is 3.7, improving. ANC is 2700 today which is normal. Granix discontinued. She is on Granix. No evidence of fever. Hemoglobin is 7.1 g/dL.no active bleeding. She received 1 unit of packed RBCs. Platelet count today is 61,000. Plan to transfuse 1 more unit of packed RBCs today, repeat CBC tomorrow morning. #4 Citrobacter acute cystitis: Remained on IV ciprofloxacin, sensitivity reviewed. #5 other chronic medical problems: Stable, continue current medications as above. This note was generated with [employer] dictation software. It may contain incorrect words, spelling, and punctuation that were not noted in checking the note before signing. Inpatient E&M: 82850 Subs Hosp L2
--- NOTE | 2020-03-31 13:03 | PCM.HOSP.N ---
Hospitalist Note PARACENTESIS TIME OUT: 12:25pm ALLERGIES: Metformin INDICATION: Ascites Using US guidance, peritoneal fluid was identified on the R side of the abdomen. The area was draped with a sterile sheet and the site was cleaned with CHG. The area was anesthetized with 1% lidocaine. A small daphne was made in the skin with a blade and the safety needle inserted while aspirating for fluid through advancement. Once fluid obtained in the syringe the catheter was inserted over the needle and the needle with drawn. Tubing was attached to the catheter and then inserted in to a vacuum bottle. 2.7 L of dark wilber colored fluid was removed. The catheter was withdrawn and the area bandaged. The pt tolerated the procedure well. Procedures: Other Procedure - See Report - US guided paracentesis
[2020-03-31 13:15] LABS: Bedside Glucose 120 mg/dL (70-110)
[2020-03-31 16:45] LABS: Bedside Glucose 93 mg/dL (70-110)
[2020-03-31 23:36] LABS: Bedside Glucose 129 mg/dL (70-110)
[2020-04-01] VITALS (9 sets, daily range): BP systolic 115–126; BP diastolic 60–73; PULSE 80–89; RESP 15–18; TEMP 36.6–36.7; O2SAT 96–98
[2020-04-01] MEDS: LORazepam 2 MG/ML Syringe 0.5 MG IV (00:22)
[2020-04-01] MEDS: 0.9% Saline Lock 10 ML Syringe IV ×3 (00:23→17:48)
[2020-04-01] MEDS: 0.9% Normal Saline 1,000 ML 100 ML IV ×2 (04:23→20:06)
[2020-04-01 06:42] LABS: Hematocrit 26.6 % (37-47); Hemoglobin 8.9 g/dL (12.0-15.0); Mean Corp Hgb Conc 33.5 g/dL (32-36); Mean Corpuscular Hgb 30.1 pg (27.0-32.0); Mean Corpuscular Volume 89.9 fL (81-99); Mean Platelet Vol. 11.4 fl (6.2-12.0); POSITIVE COUNT YES; POSITIVE DIFFERENTIAL YES; POSITIVE MORPHOLOGY YES; RBC Distribution Width CV 14.9 % (11.6-14.6); RBC Distribution Width SD 44.5 fl (35.1-43.9); Red Blood Count 2.96 M/mm3 (4.2-5.4); White Blood Count 2.9 K/mm3 (4.4-11.0)
[2020-04-01 06:46] LABS: Differential Indicated MANUAL DIFF; Platelet Count 49 K/mm3 (150-450)
[2020-04-01 07:07] LABS: ALB/GLOB Ratio 0.9 RATIO (0.9-2.4); AST(SGOT) 18 U/L (15-37); Alanine Aminotransfer ALT/SGPT 20 U/L (13-56); Alkaline Phosphatase 103 U/L (45-117); Anion Gap 6 (5-15); BUN 8 mg/dL (7-18); BUN/Creat Ratio 22.8 RATIO (10-20); Calcium,Total 7.2 mg/dL (8.5-10.1); Chloride 108 mmol/L (98-107); Creatinine, Serum 0.35 mg/dL (0.55-1.02); EST Glomerular Filtration Rate 202 mL/min (>60); Est Glom Filt Rate - Afr Amer 245 mL/min (>60); Estimated Creatinine Clearance 149.63 ml/min; Globulin 2.3 g/dL (2.2-4.2); Glucose 103 mg/dL (74-106); Magnesium 1.8 mg/dL (1.6-2.6); Phosphorus 1.5 mg/dL (2.5-4.9); Potassium 2.9 mmol/L (3.5-5.1); Protein, Total 4.3 g/dL (6.4-8.2); Sodium Level 140 mmol/L (136-145)
[2020-04-01 07:11] LABS: Metamyelocyte 11 % (0-1); Neutrophil-Band 11 % (0-5); Neutrophil-Segmented 25 % (47-70); Total Cells Counted 50 (MANUAL DIFF)
[2020-04-01 07:12] LABS: Lymphocyte 12 % (19-41); Monocyte 2 % (0-10)
[2020-04-01 07:13] LABS: Absolute Lymphocyte Count 0.69 X10^3/uL (0.83-4.51); Absolute Neutrophil Count 2.1 X10^3/uL (2.0-7.7); Hypochromasia RARE; Lymphocyte # 0.69 X10^3/ul (4.0); Microcytosis RARE; Neutrophil # 2.07 X10^3/uL (2.7-7.7); Platelet Estimate MKD DEC (ADEQ)
[2020-04-01] MEDS: Haloperidol Lactate 5 MG/ML Vial 1 MG IV ×2 (09:04→17:48)
[2020-04-01] MEDS: Ciprofloxacin 400 MG/200 ML BAG 200 MG IV (09:47)
[2020-04-01] MEDS: Morphine 2 MG/ML Syringe IV (09:47)
[2020-04-01] MEDS: Potassium Chloride 10mEq/100mL 10 MEQ/100 ML IV.SOLN. 100 MEQ IV BOLUS ×4 (12:13→17:42)
[2020-04-01 12:21] LABS: Bedside Glucose 120 mg/dL (70-110)
[2020-04-01 13:06] LABS: Pathologist Review Reviewed
[2020-04-01 13:11] LABS: Pathologist Review Reviewed
--- NOTE | 2020-04-01 13:13 | PN_ITS ---
<Jerson Harvey - Last Filed: 04/01/20 13:13> Patient Problems: Active and Suspected Problems Hypokalemia (Acute) Reason for Visit: Nausea Subjective: Ongoing nausea, refused all AM meds and food/drink. No abd pain at this time but did get morphine this AM for abd pain. No dysuria. No BM. No abd distention. No SOB. Vitals/I&O's: Vital Signs Temp Pulse Resp BP Pulse Ox 97.8 F 82 15 116/67 97 04/01/20 09:11 04/01/20 11:38 04/01/20 09:11 04/01/20 09:11 04/01/20 09:11 Oxygen Delivery Method Room Air Weight: 119 lb 4.321 oz Body Mass Index (BMI) 19.8 Finger Stick Blood Glucose 76 Intake and Output for Last 24 Hours 03/30/20 03/31/20 04/01/20 23:59 23:59 23:59 Intake Total 3245.99 / 3245.99 3066.67 / 3066.67 2395.00 / 2395.00 Output Total 900 / 900 3175 / 3175 1000 / 1000 Balance 2345.99 / 2345.99 -108.33 / -108.33 1395.00 / 1395.00 General: Alert, Oriented x3, Cooperative HEENT: Atraumatic, PERRLA, EOMI, Normocephalic Neck: Supple, No JVD, Negative Carotid Bruits Lungs: Clear to auscultation, Normal air movement Cardiovascular: Regular rate, No murmurs Abdomen: Bowel Sounds Present, Soft, Non Tender Extremities: No edema, Capillary Refill Less than 3 Seconds Skin: No rashes, No breakdown Musculoskeletal: No Tenderness to Palpation of Joints or Extremities Neurological: Cranial nerves II-XII grossly intact Psych/Mental Status: Normal Affect, Appropriate, Alert and oriented to time, place, person, mood and affect Laboratory Results 03/26/20 11:00: Crossmatch See Detail 03/29/20 05:05: Diff Path Review Reviewed 03/30/20 06:15: Diff Path Review Reviewed 03/31/20 09:25: Blood Type B NEGATIVE, Antibody Screen NEGATIVE, Crossmatch See Detail 03/31/20 11:47: POC Glucose 120 H 03/31/20 16:40: POC Glucose 93 03/31/20 21:52: POC Glucose 129 H 04/01/20 06:05: WBC 2.9 L, RBC 2.96 L, Hgb 8.9 L, Hct 26.6 L, MCV 89.9, MCH 30.1, MCHC 33.5, RDW Std Deviation 44.5 H, RDW Coeff of Frank 14.9 H, Plt Count 49 L*, MPV 11.4, Neut % (Auto) Not Reportable, Absolute Neuts (auto) 2.1, Absolute Lymphs (auto) 0.69 L, Total Counted 50, Neutrophils % (Manual) 25 L, Band Neutrophils % 11 H, Lymphocytes % (Manual) 12 L, Monocytes % (Manual) 2, Metamyelocytes % 11 H, Diff Path Review January foll, Platelet Estimate MKD DEC, Hypochromasia RARE, Microcytosis RARE 04/01/20 06:05: Sodium 140, Potassium 2.9 L, Chloride 108 H, Carbon Dioxide 26.0, Anion Gap 6, BUN 8, Creatinine 0.35 L, Estim Creat Clear Calc 149.63, Est GFR (MDRD) Af Amer 245, Est GFR (MDRD) Non-Af 202, BUN/Creatinine Ratio 22.8 H, Glucose 103, Calcium 7.2 L, Phosphorus 1.5 L, Magnesium 1.8, Total Bilirubin 1.50 H, AST 18, ALT 20, Alkaline Phosphatase 103, Total Protein 4.3 L, Albumin 2.0 L, Globulin 2.3, Albumin/Globulin Ratio 0.9 04/01/20 12:17: POC Glucose 120 H Current Medications Acetaminophen (Tylenol) 650 mg PO Q6H PRN PRN PRN Reason: Pain Score 1-10/10 Calamine/Phenol (Calmoseptine Ointment) 1 applic TOPICAL TID ANGELA; Protocol Last Admin: 04/01/20 02:59 Dose: Not Given Documented by: Dextrose (D50w Syringe) 0 gm IV X1 PRN; Protocol PRN Reason: Hypoglycemia Glucagon () 1 mg IM .X1 PRN PRN Reason: Hypoglycemia Haloperidol Lactate (Haldol) 1 mg IV Q4H PRN PRN PRN Reason: NAUSEA Last Admin: 04/01/20 09:04 Dose: 1 mg Documented by: Heparin Sodium (Beef Lung) () 50 units IV UD PRN PRN Reason: R Port Heparin Flush Sodium Chloride () 250 mls @ 15 mls/hr IV .[id number] PRN PRN Reason: Saline Flush Pantoprazole Sodium 40 mg/ (Sodium Chloride) 110 mls @ 330 mls/hr IV Q12 [facility] Last Infusion: 04/01/20 09:48 Dose: Infused Documented by: Sodium Chloride () 500 mls @ 15 mls/hr IV PRN PRN PRN Reason: Blood Transfusion Last Infusion: 03/26/20 17:25 Dose: Infused Documented by: Ciprofloxacin (Cipro) 400 mg in 200 mls @ 200 mls/hr IV Q12 [facility] Last Infusion: 04/01/20 11:00 Dose: Infused Documented by: Sodium Chloride () 1,000 mls @ 100 mls/hr IV .Q10H [facility] Last Infusion: 04/01/20 09:45 Dose: 0 mls/hr Documented by: Potassium Chloride () 10 meq in 100 mls @ 100 mls/hr IV BOLUS Q1H [facility] Stop: 04/01/20 15:29 Last Admin: 04/01/20 12:13 Dose: 100 mls/hr Documented by: Levothyroxine Sodium (Synthroid) 100 mcg PO DAILY@0600 [facility] Last Admin: 04/01/20 02:59 Dose: Not Given Documented by: Loratadine (Claritin) 10 mg PO QHS PRN PRN PRN Reason: STUFFINESS Lorazepam (Ativan) 0.5 mg IV Q6H PRN PRN PRN Reason: ANXIETY Last Admin: 04/01/20 00:22 Dose: 0.5 mg Documented by: Magnesium Hydroxide (Milk Of Magnesia) 30 ml PO DAILY PRN PRN PRN Reason: Constipation Morphine Sulfate () 2 mg IV Q2H PRN PRN PRN Reason: Pain Score 6-10/10 Last Admin: 04/01/20 09:47 Dose: 2 mg Documented by: Olanzapine (Zyprexa) 2.5 mg PO QHS [facility] Last Admin: 03/31/20 21:42 Dose: Not Given Documented by: Oxycodone HCl (Oxyir) 5 mg PO Q6H PRN PRN PRN Reason: Pain Score 6-10/10 Polyethylene Glycol (Miralax) 17 gm PO DAILY PRN PRN PRN Reason: Constipation Prochlorperazine Edisylate (Compazine Iv) 5 mg IV Q6H PRN PRN PRN Reason: NAUSEA/VOMITING Last Admin: 03/31/20 00:25 Dose: 5 mg Documented by: Sodium Chloride () 10 - 40 ml IV UD PRN PRN Reason: R Port Saline Flush Last Admin: 04/01/20 00:23 Dose: 10 ml Documented by: Sodium Chloride (0.9% Nacl (Sterile) Posiflush) 10 - 40 ml IV UD PRN PRN Reason: Port access or dressing change STROKE Vital Signs/Narrative: Vital Signs Pulse 04/01/20 11:38 82 Medical Necessity - Tobacco Use Smoking Status: Former smoker Tobacco Use: Non-smoker Assessment/Plan All Active Problems Neutropenia (Acute) Hypokalemia (Acute) 1. Intractable nausea and vomiting secondary to chemotherapy-patient undergoing chemotherapy for metastatic ovarian cancer, stage III. Small improvement with IV haldol and compazine. Had paracentesis 03/31 for 2700 cc. This is day 6 of not eating. Consider short term TPN. Can trial dexamethasone. 2. Stage III ovarian cancer with mets-patient of Dr. Gutierres. Palliative care was addressed and the patient was not interested at this time. 3. Pancytopenia-as above. off granix. received 1 unit PRBC 03/31. 4. Acute cystitis-urine culture with Citrobacter, resistant to Rocephin. Continue ciprofloxacin. Continue to monitor QTC. Currently normal QTC.plan for 5 total days abx. 5. Type 2 diabetes glmunzlp-[id number]-oenslbzwyi only, not on home regimen. Hemoglobin A1c 5.7. 6. Hypothyroidism-Synthroid 7. Hyperlipidemia-statin 8. GERD-IV PPI. 9. Severe protein calorie malnutrition-as per #1 10. Debility-SNF resident, continue PT OT. DVT prophylaxis: SCDs. hold lovenox with low platelets. Discharge planning: nausea uncontrolled This patient was seen by Jerson Harvey PA-C under the supervision of Dr. Garcia <Marcos Garcia - Last Filed: 04/01/20 15:47> Reason for Visit: For intractable nausea and vomiting. Patient has history of ovarian cancer. Subjective: Patient still nauseous. On clear liquids. No abdominal pain. Patient did not had bowel movement. Denies lower urinary tract symptoms including dysuria. Very weak. Physical exam findings: General: Alert, Oriented x3, Cooperative, moderate protein calorie nutrition HEENT: Atraumatic, PERRLA, EOMI, Normocephalic Oral: No Gingival or Mucosal Lesions/ Ulcerations Neck: Supple, No JVD, Negative Carotid Bruits Lungs: Air entry diminished in bilateral lung bases. No crepitation/rhonchi Cardiovascular: Regular rate, Regular Rhythm, Normal S1, Normal S2, No murmurs Abdomen: Bowel Sounds Present, Soft, Non Tender, Non-Distended : No renal angle tenderness. No suprapubic tenderness. Extremities: No edema, Capillary Refill Less than 3 Seconds Skin: No rashes, No breakdown. Has Mediport in the right subclavicular region. Musculoskeletal: No Tenderness to Palpation of Joints or Extremities. Generalized mild to moderate muscle atrophy of extremities and loss of gamboa bcutaneous fat. Neurological: Cranial nerves II-XII grossly intact, Deep Tendon Reflexes 2+/4 and Symmetrical, Neuro grossly intact Psych/Mental Status: Normal Affect, Appropriate Vitals/I&O's: Vital Signs Temp Pulse Resp BP Pulse Ox 97.8 F 82 15 116/67 97 04/01/20 09:11 04/01/20 11:38 04/01/20 09:11 04/01/20 09:11 04/01/20 09:11 Oxygen Delivery Method Room Air Weight: 119 lb 4.321 oz Body Mass Index (BMI) 19.8 Finger Stick Blood Glucose 76 Intake and Output for Last 24 Hours 03/30/20 03/31/20 04/01/20 23:59 23:59 23:59 Intake Total 3245.99 / 3245.99 3066.67 / 3066.67 2495.00 / 2495.00 Output Total 900 / 900 3175 / 3175 1000 / 1000 Balance 2345.99 / 2345.99 -108.33 / -108.33 1495.00 / 1495.00 Laboratory Results 03/26/20 11:00: Crossmatch See Detail 03/29/20 05:05: Diff Path Review Reviewed 03/30/20 06:15: Diff Path Review Reviewed 03/31/20 09:25: Blood Type B NEGATIVE, Antibody Screen NEGATIVE, Crossmatch See Detail 03/31/20 16:40: POC Glucose 93 03/31/20 21:52: POC Glucose 129 H 04/01/20 06:05: WBC 2.9 L, RBC 2.96 L, Hgb 8.9 L, Hct 26.6 L, MCV 89.9, MCH 30.1, MCHC 33.5, RDW Std Deviation 44.5 H, RDW Coeff of Frank 14.9 H, Plt Count 49 L*, MPV 11.4, Neut % (Auto) Not Reportable, Absolute Neuts (auto) 2.1, Absolute Lymphs (auto) 0.69 L, Total Counted 50, Neutrophils % (Manual) 25 L, Band Neutrophils % 11 H, Lymphocytes % (Manual) 12 L, Monocytes % (Manual) 2, Metamyelocytes % 11 H, Diff Path Review January foll, Platelet Estimate MKD DEC, Hypochromasia RARE, Microcytosis RARE 04/01/20 06:05: Sodium 140, Potassium 2.9 L, Chloride 108 H, Carbon Dioxide 26.0, Anion Gap 6, BUN 8, Creatinine 0.35 L, Estim Creat Clear Calc 149.63, Est GFR (MDRD) Af Amer 245, Est GFR (MDRD) Non-Af 202, BUN/Creatinine Ratio 22.8 H, Glucose 103, Calcium 7.2 L, Phosphorus 1.5 L, Magnesium 1.8, Total Bilirubin 1.50 H, AST 18, ALT 20, Alkaline Phosphatase 103, Total Protein 4.3 L, Albumin 2.0 L, Globulin 2.3, Albumin/Globulin Ratio 0.9 04/01/20 12:17: POC Glucose 120 H Current Medications Acetaminophen (Tylenol) 650 mg PO Q6H PRN PRN PRN Reason: Pain Score 1-10/10 Calamine/Phenol (Calmoseptine Ointment) 1 applic TOPICAL TID ANGELA; Protocol Last Admin: 04/01/20 14:11 Dose: 1 applicatio Documented by: Dextrose (D50w Syringe) 0 gm IV X1 PRN; Protocol PRN Reason: Hypoglycemia Glucagon () 1 mg IM .X1 PRN PRN Reason: Hypoglycemia Haloperidol Lactate (Haldol) 1 mg IV Q4H PRN PRN PRN Reason: NAUSEA Last Admin: 04/01/20 09:04 Dose: 1 mg Documented by: Heparin Sodium (Beef Lung) () 50 units IV UD PRN PRN Reason: R Port Heparin Flush Sodium Chloride () 250 mls @ 15 mls/hr IV .[id number] PRN PRN Reason: Saline Flush Pantoprazole Sodium 40 mg/ (Sodium Chloride) 110 mls @ 330 mls/hr IV Q12 [facility] Last Infusion: 04/01/20 09:48 Dose: Infused Documented by: Sodium Chloride () 500 mls @ 15 mls/hr IV PRN PRN PRN Reason: Blood Transfusion Last Infusion: 03/26/20 17:25 Dose: Infused Documented by: Ciprofloxacin (Cipro) 400 mg in 200 mls @ 200 mls/hr IV Q12 [facility] Last Infusion: 04/01/20 11:00 Dose: Infused Documented by: Sodium Chloride () 1,000 mls @ 100 mls/hr IV .Q10H [facility] Last Infusion: 04/01/20 09:45 Dose: 0 mls/hr Documented by: Levothyroxine Sodium (Synthroid) 100 mcg PO DAILY@0600 [facility] Last Admin: 04/01/20 02:59 Dose: Not Given Documented by: Loratadine (Claritin) 10 mg PO QHS PRN PRN PRN Reason: STUFFINESS Lorazepam (Ativan) 0.5 mg IV Q6H PRN PRN PRN Reason: ANXIETY Last Admin: 04/01/20 00:22 Dose: 0.5 mg Documented by: Magnesium Hydroxide (Milk Of Magnesia) 30 ml PO DAILY PRN PRN PRN Reason: Constipation Morphine Sulfate () 2 mg IV Q2H PRN PRN PRN Reason: Pain Score 6-10/10 Last Admin: 04/01/20 09:47 Dose: 2 mg Documented by: Olanzapine (Zyprexa) 2.5 mg PO QHS [facility] Last Admin: 03/31/20 21:42 Dose: Not Given Documented by: Oxycodone HCl (Oxyir) 5 mg PO Q6H PRN PRN PRN Reason: Pain Score 6-10/10 Polyethylene Glycol (Miralax) 17 gm PO DAILY PRN PRN PRN Reason: Constipation Prochlorperazine Edisylate (Compazine Iv) 5 mg IV Q6H PRN PRN PRN Reason: NAUSEA/VOMITING Last Admin: 04/01/20 14:07 Dose: 5 mg Documented by: Sodium Chloride () 10 - 40 ml IV UD PRN PRN Reason: R Port Saline Flush Last Admin: 04/01/20 14:12 Dose: 20 ml Documented by: Sodium Chloride (0.9% Nacl (Sterile) Posiflush) 10 - 40 ml IV UD PRN PRN Reason: Port access or dressing change STROKE Vital Signs/Narrative: Vital Signs Pulse 04/01/20 11:38 82 Assessment/Plan This patient was seen in conjunction with Jerson DILLARD. I have independently interviewed and examined the patient and reviewed pertinent history, examination findings, laboratory and plan of management. I have reviewed the note and agree with the documented findings with the few additional points. In brief, patient is 59-year-old female with history of stage III ovarian cancer with metastasis under care of Dr. GUTIERRES is admitted for intractable nausea and vomiting secondary to chemotherapy. Patient has severe protein calorie malnutrition secondary to advanced cancer and chemotherapy and decreased calorie intake. Merchandise Flow Team Member consulted. Patient also has pancytopenia with neutropenia and normocytic normochromic anemia secondary to ovarian cancer and chemotherapy. Had 1 unit of PRBC and Granix. Citrobacter acute cystitis: Urine culture shows Enterobacter more than 100,000 colonies: On Cipro. Resistant to ceftriaxone. Currently she denies lower related symptoms including dysuria. Other multiple comorbidities include type 2 diabetes mellitus, hypothyroidism, dyslipidemia, GERD and debility I have discussed my assessment with Jerson DILLARD and orders have been reviewed. Inpatient E&M: 07315 Subs Hosp L2
[2020-04-01] MEDS: proCHLORPERazine 10 MG/2 ML Vial 5 MG IV ×2 (14:07→22:31)
[2020-04-01] MEDS: Menthol/Lanolin/Calamine/Znox 113 GM Tube 1 APPLIC TOPICAL ×2 (14:11→22:31)
--- NOTE | 2020-04-01 14:27 | CASEMGMT ---
SW received a call from [facility] and patient was approved. SW let her know that patient is not ready. SW asked her if they take patients on TPN. She said they would have to review information. SW will talk with patient about her wishes. Caryl LIU
--- NOTE | 2020-04-01 15:13 | CASEMGMT ---
SW met with patient as she is familiar to CHAPITO from past admissions. Patient told SW she is miserable. SW had a discussion with patient about what she wants. She wants to get better and be able to eat and walk again. CHAPITO spoke with her about Hospice and explained their services. She told SW, I am not ready to yet. CHAPITO encouraged her to think about quality of life. SW asked her to think about if this is the way she wants to feel the rest of the days she has left. She said she does not want to feel this way for the rest of her life. She said she would talk with someone from Hospice. CHAPITO called Hospice and spoke with Karen. CHAPITO explained patient's situation. She felt like they would be coming in to convince patient to stop chemo and go on Hospice and that is not their purpose. She said she feels the doctor needs to talk with her about her life expectancy and what her options are for treatment. CHAPITO spoke with PA and asked if Oncology could be consulted so they can come and talk with patient about her life expectancy and if the chemo is Palliative or curative. He said he would try. Caryl ARTEAGA MSW
[2020-04-01] MEDS: dexAMETHasone 4 MG/ML Vial 8 MG IV (16:36)
[2020-04-01] MEDS: Metoclopramide 10 MG/2 ML Vial 2.5 MG IV (20:06)
[2020-04-02] VITALS (15 sets, daily range): BP systolic 97–129; BP diastolic 56–73; PULSE 77–86; RESP 16–18; TEMP 36.1–36.6; O2SAT 97–100; BMI 19.8
[2020-04-02] MEDS: LORazepam 2 MG/ML Syringe 0.5 MG IV (02:01)
[2020-04-02] MEDS: proCHLORPERazine 10 MG/2 ML Vial 5 MG IV (05:33)
[2020-04-02 05:35] LABS: Hematocrit 24.5 % (37-47); Hemoglobin 8.6 g/dL (12.0-15.0); Mean Corp Hgb Conc 35.1 g/dL (32-36); Mean Corpuscular Hgb 30.1 pg (27.0-32.0); Mean Corpuscular Volume 85.7 fL (81-99); Mean Platelet Vol. 10.8 fl (6.2-12.0); POSITIVE COUNT YES; POSITIVE DIFFERENTIAL YES; POSITIVE MORPHOLOGY YES; RBC Distribution Width CV 14.7 % (11.6-14.6); RBC Distribution Width SD 42.4 fl (35.1-43.9); Red Blood Count 2.86 M/mm3 (4.2-5.4); White Blood Count 1.9 K/mm3 (4.4-11.0)
[2020-04-02 05:38] LABS: Differential Indicated MANUAL DIFF; Platelet Count 37 K/mm3 (150-450)
[2020-04-02 06:00] LABS: Anion Gap 6 (5-15); BUN 7 mg/dL (7-18); BUN/Creat Ratio 19.8 RATIO (10-20); Calcium,Total 7.3 mg/dL (8.5-10.1); Chloride 108 mmol/L (98-107); Creatinine, Serum 0.35 mg/dL (0.55-1.02); EST Glomerular Filtration Rate 201 mL/min (>60); Est Glom Filt Rate - Afr Amer 243 mL/min (>60); Estimated Creatinine Clearance 149.63 ml/min; Glucose 106 mg/dL (74-106); Magnesium 2.2 mg/dL (1.6-2.6); Phosphorus 1.3 mg/dL (2.5-4.9); Potassium 3.2 mmol/L (3.5-5.1); Sodium Level 138 mmol/L (136-145)
[2020-04-02 06:25] LABS: Lymphocyte 36 % (19-41); Metamyelocyte 7 % (0-1); Monocyte 7 % (0-10); Neutrophil-Band 20 % (0-5); Neutrophil-Segmented 37 % (47-70); Total Cells Counted 100 (MANUAL DIFF)
[2020-04-02 06:26] LABS: Absolute Lymphocyte Count 0.68 X10^3/uL (0.83-4.51); Absolute Neutrophil Count 1.1 X10^3/uL (2.0-7.7); Hypochromasia RARE; Lymphocyte # 0.68 X10^3/ul (4.0); Microcytosis RARE; Neutrophil # 1.08 X10^3/uL (2.7-7.7); Ovalocyte RARE; Platelet Estimate MKD DEC (ADEQ)
--- NOTE | 2020-04-02 09:09 | US_ITS ---
STUDY: ABDOMINAL ULTRASOUND - RIGHT UPPER QUADRANT REASON FOR VISIT: Female, 59 years old ELEVATED BILIRUBIN TECHNIQUE: Ultrasound evaluation of the right upper quadrant was performed with real-time and static beltre-scale imaging. TECHNICAL QUALITY: Adequate. COMPARISON: CT 03/30/2020 FINDINGS: Liver: The liver measures 16.5 cm. There is a heterogeneous echogenicity of the liver. The bile ducts are within normal limits. There is hepatic color flow. The direction of portal flow is hepatopetal. There is no demonstrated mass lesion. Moderate amount of surrounding ascites. Gallbladder: The patient is status post cholecystectomy.. Common Bile Duct (C.B.D.): The common bile duct measures 8 mm. Pancreas: There is nonvisualization of the pancreas.. US/Abdomen Limited IMPRESSION: Cirrhosis with a moderate amount of ascites. Electronically Signed: Jeff Cordero MD at 10:24 EDT Tel , Service support ,
[2020-04-02] MEDS: 0.9% Normal Saline 1,000 ML 100 ML IV (09:21)
[2020-04-02 10:23] LABS: Hematocrit 26.4 % (37-47); Hemoglobin 8.7 g/dL (12.0-15.0); Mean Corpuscular Hgb 29.8 pg (27.0-32.0); Mean Corpuscular Volume 90.4 fL (81-99); Mean Platelet Vol. 10.9 fl (6.2-12.0); POSITIVE COUNT YES; POSITIVE DIFFERENTIAL YES; POSITIVE MORPHOLOGY YES; RBC Distribution Width CV 15.2 % (11.6-14.6); Red Blood Count 2.92 M/mm3 (4.2-5.4); White Blood Count 2.3 K/mm3 (4.4-11.0)
[2020-04-02 10:28] LABS: Differential Indicated MANUAL DIFF
[2020-04-02 10:30] LABS: Platelet Count 37 K/mm3 (150-450)
[2020-04-02 10:43] LABS: ALB/GLOB Ratio 0.9 RATIO (0.9-2.4); AST(SGOT) 23 U/L (15-37); Alanine Aminotransfer ALT/SGPT 21 U/L (13-56); Albumin, Serum 2.1 g/dL (3.2-5.0); Alkaline Phosphatase 107 U/L (45-117); Anion Gap 5 (5-15); BUN 7 mg/dL (7-18); BUN/Creat Ratio 18.3 RATIO (10-20); Calcium,Total 7.4 mg/dL (8.5-10.1); Chloride 109 mmol/L (98-107); Creatinine, Serum 0.38 mg/dL (0.55-1.02); EST Glomerular Filtration Rate 184 mL/min (>60); Est Glom Filt Rate - Afr Amer 222 mL/min (>60); Estimated Creatinine Clearance 137.82 ml/min; Globulin 2.4 g/dL (2.2-4.2); Glucose 104 mg/dL (74-106); Protein, Total 4.5 g/dL (6.4-8.2); Sodium Level 139 mmol/L (136-145)
[2020-04-02] MEDS: 0.9% Saline Lock 10 ML Syringe IV ×5 (10:44→21:44)
[2020-04-02] MEDS: Metoclopramide 10 MG/2 ML Vial 2.5 MG IV (10:44)
[2020-04-02 11:03] LABS: Neutrophil-Segmented 26 % (47-70); Total Cells Counted 100 (MANUAL DIFF)
[2020-04-02 11:04] LABS: Atypical Lymphocyte 2+ %; Blast 1 % (0-0); Eosinophil 1 % (0-5); Lymphocyte 60 % (19-41); Monocyte 10 % (0-10); Myelocyte 1 (0-0); Promyelocyte 1 (0-0)
[2020-04-02 11:05] LABS: Hypochromasia 2+; Microcytosis RARE; Platelet Estimate MKD DEC (ADEQ)
--- NOTE | 2020-04-02 11:05 | NT.THERAPY_ITS ---
Nutrition Therapy Report - History Nutrition Services has been consulted to:: Manage parenteral nutrition Current diet / nutrition support order:: Regular--select with ensure clear TID w/meals & ensure pudding BID w/ meals--refusing PO at this time. TPN ordered to start today---2 L 4.25% amino acids/10% dextrose with electrolytes, MVI, folic acid, trace metals 2011 ml @ 84 ml/hr to provide 1020 kcal and 84 gm protein per day. - Anthropometric Measurements Height:: 5 ft 5 in Weight:: 54.1 kg Body Mass Index (BMI):: 19.8 - Relevant Labs Relevant Labs:: WBC 2.3 K/mm3 (4.4-11.0) L 04/02/20 10:14 RBC 2.92 M/mm3 (4.2-5.4) L 04/02/20 10:14 Hgb 8.7 g/dL (12.0-15.0) L 04/02/20 10:14 Hct 26.4 % (37-47) L 04/02/20 10:14 RDW Std Deviation 46.0 fl (35.1-43.9) H 04/02/20 10:14 RDW Coeff of Frank 15.2 % (11.6-14.6) H 04/02/20 10:14 Plt Count 37 K/mm3 (150-450) L* 04/02/20 05:22 Immature Gran % (Auto) 3.200 % (0.0-0.9) H 03/26/20 05:28 Absolute Neuts (auto) 1.1 X10^3/uL (2.0-7.7) L 04/02/20 05:22 Absolute Lymphs (auto) 0.68 X10^3/uL (0.83-4.51) L 04/02/20 05:22 Neutrophils % (Manual) 37 % (47-70) L 04/02/20 05:22 Band Neutrophils % 20 % (0-5) H 04/02/20 05:22 Lymphocytes % (Manual) 12 % (19-41) L 04/01/20 06:05 Metamyelocytes % 7 % (0-1) H 04/02/20 05:22 Myelocytes % 3 (0-0) H 03/31/20 05:35 Blast Cells % 1 % (0-0) H* 03/29/20 05:05 Potassium 3.0 mmol/L (3.5-5.1) L 04/02/20 10:14 Chloride 109 mmol/L (98-107) H 04/02/20 10:14 Carbon Dioxide 33.0 mmol/L (21.0-32.0) H 03/26/20 00:20 Anion Gap 3 (5-15) L 03/29/20 05:05 BUN 22 mg/dL (7-18) H 03/28/20 05:42 Creatinine 0.38 mg/dL (0.55-1.02) L 04/02/20 10:14 BUN/Creatinine Ratio 22.8 RATIO (10-20) H 04/01/20 06:05 Glucose 113 mg/dL (74-106) H 03/31/20 05:35 Calcium 7.4 mg/dL (8.5-10.1) L 04/02/20 10:14 Phosphorus 1.3 mg/dL (2.5-4.9) L 04/02/20 05:22 Magnesium 1.5 mg/dL (1.6-2.6) L 03/28/20 05:42 Total Bilirubin 1.30 mg/dL (0.20-1.00) H 04/02/20 10:14 Direct Bilirubin 0.74 mg/dL (0.00-0.30) H 03/26/20 00:20 Alkaline Phosphatase 130 U/L (45-117) H 03/26/20 00:20 Total Protein 4.5 g/dL (6.4-8.2) L 04/02/20 10:14 Albumin 2.1 g/dL (3.2-5.0) L 04/02/20 10:14 - Assessment Food / Nutrition-Related History:: Pt continues to refuse PO nutrition x day 7--received consult today for TPN support due to intractable nausea and vomiting secondary to chemotherapy-patient undergoing chemotherapy for metastatic ovarian cancer, stage III. Had paracentesis 03/31--2700 ml removed. Discussed option for TF support with GILMA Arthur--not an option at this time due to dry heaving & intractable N/V. No new wt to assess at this time. Est Nutrition Needs~1600- 1800 kcal & ~65-75 gm protein with increased nutrition needs due to malnutrition & metastatic disease & also at risk for refeeding syndrome due to refusal of PO diet/nutrition x 7 days--monitor electrolytes closely. Will initiate TPN with 10% dextrose conc instead of 20% due to extended period without adequate nutrition & to promote tolerance of TPN initiation. - Nutrition Diagnosis Problem / Etiology / Signs & Symptoms (PES):: Severe pro/adelia malnutrition r/t chronic metastatic disease requiring nutrition support as evidenced by ongoing poor oral intake, refusal of PO nutrition x past 7 days, wt loss greater than 30% x past 3-4 mos, wt loss greater than 20% x past 1 month and +NFPA indicating severe muscle/fat wasting. Evidence of Malnutrition Exists:: Yes Severe PCM:: Chronic Illness - Nutrition Intervention Nutrition Prescription:: Estimated nutrition needs~5808-9816 kcal and ~65-75 gm protein per day. Pt at risk for refeeding symdrome--monitor closely as parenteral nutrition support initiated; encourage oral intake as able; consider TF for senior living nutrition support as N/V subside. - Food / Nutrient Delivery Interventions Summary of nutrition intervention:: 1.) Consult to implement & manage TPN support---will start TPN with 2 L of 4.25% amino acid/10% dextrose with electrolytes to provide 1020 kcal and 84 gm protein will add trace elements and MVI; no lipids today. 2.) Daily weights & labs; check triglycerides--will reorder/manage TPN daily as ordered. 3.) Continue regular diet and ONS as able to tolerate PO nutrition. 4.) Strongly recommend transition to TF/enteral nutrition support for senior living nutrition as indicated especially if pt continues to refuse PO; consider PEG tube placement as able. It is doubtful that pt will be able to orally meet increased pro/adelia needs related to severe malnutrition. Will continue to monitor PO, wt, labs and follow-up with TPN managment, ONS adjustments as intake improves. Ongoing evaluation of ability to transition from TPN to TF support for senior living nutrition as medically able especially if refusal of PO nutrition continues. Nutrition support ordered as / adjusted to:: Ordered TPN to start with with 2 L of 4.25% amino acid/10% dextrose with electrolytes to provide 1020 kcal and 84 gm protein will add trace elements and MVI; no lipids today. Daily weights & labs; check triglycerides--will reorder/manage TPN daily as ordered. Nutrition education provided?: No - MNT Monitoring Further MNT monitoring and evaluation required?: Yes MNT Follow-up in:: 1-2 days - Monitor closely for refeeding syndrome--pt has been refusing oral intake x 7 days.
[2020-04-02 11:06] LABS: Absolute Neutrophil Count 0.6 X10^3/uL (2.0-7.7)
--- NOTE | 2020-04-02 11:30 | CASEMGMT ---
CHAPITO faxed updates to [facility] and let Nydia know they are starting TPN today. Caryl ARTEAGA S[employer]IOR [employer] SQL DEVELOPER
[2020-04-02] MEDS: dexAMETHasone 4 MG/ML Vial IV (12:04)
[2020-04-02 12:12] LABS: Triglycerides 144 mg/dL
[2020-04-02 12:36] LABS: Pathologist Review Reviewed
[2020-04-02 12:37] LABS: Pathologist Review Reviewed
[2020-04-02 12:37] LABS: Pathologist Review Reviewed
--- NOTE | 2020-04-02 12:52 | CASEMGMT ---
CHAPITO spoke with Criminal Attorney and recommendations for TPN currently are to have it run 12/04. CHAPITO called Nydia at [facility] and let her know. She said an RN has to administer it. She said they would not have an RN 12/04. SW will continue to follow as at this time it is not known if she will go on TPN at this rate etc. Caryl ARTEAGA FOREMAN OR SUPERVISOR AND OPERATOR
--- NOTE | 2020-04-02 13:42 | CON.PCM_ITS ---
Problem List (1) Nausea & vomiting Status: Acute Qualifiers: Vomiting type: unspecified Vomiting Intractability: intractable Qualified Code(s): R11.2 - Nausea with vomiting, unspecified (2) Ovarian cancer Status: Chronic Qualifiers: Laterality: left Qualified Code(s): C56.2 - Malignant neoplasm of left ovary Reason for Consult Date of Consultation: 04/02/20 History of Present Illness: The patient is a 59 year old F who has intractable nausea and vomiting. The pa devin is undergoing chemotherapy for ovarian cancer. The patient is having a lot of nausea vomiting and this started during her last episode of chemotherapy. She is been in the hospital for the last week and has had a bedside paracentesis 2 days ago for 2700 cc. This did not improve her nausea. She has had every medication to try to appease nausea and oncology would like an EGD. Patient is complaining of some abdominal pain as well. He had a CT scan a few days ago which was normal except for ascites. Past Medical History Past Medical History (Chronic Problems): Chronic Problems Ovarian cancer (Chronic) Hypothyroidism (Chronic) Anxiety and depression (Chronic) HLD (hyperlipidemia) (Chronic) Diabetes mellitus, type II (Chronic) Former tobacco use (Chronic) Allergies metformin Allergy (Verified 03/25/20 23:22) Rash Home Medications: Ambulatory Orders Medication Instructions Recorded Levothyroxine [Synthroid] 100 mcg PO DAILY 02/20/20 Melatonin mg PO QHS 02/20/20 Polyethylene Glycol 3350 [Miralax] 17 gm PO DAILY PRN PRN 02/20/20 Ibuprofen 600 mg PO TID PRN PRN #12 tab 03/01/20 Acetaminophen [Tylenol Tablet] 650 mg PO Q6H PRN PRN tab 03/08/20 Menthol/Lanolin/Calamine/Znox 1 applic TOPICAL TID tube 03/08/20 [Calmoseptine Ointment] Oxycodone [Oxyir] 5 mg PO Q6H PRN PRN #10 tab 03/08/20 Tamsulosin HCl [Flomax] 0.4 mg PO DAILY #7 cap 03/08/20 Cetirizine HCl 10 mg PO QHS PRN PRN 03/25/20 Magnesium Hydroxide [Milk Of 30 ml PO DAILY PRN PRN 03/25/20 Magnesia] Mineral Oil 1 bottle [place] DAILY PRN PRN 03/25/20 Olanzapine [Zyprexa] 2.5 mg PO QHS 03/25/20 Omeprazole 20 mg PO DAILY 03/25/20 Ondansetron HCl [Zofran] 8 mg PO Q12H PRN PRN 03/25/20 Surgical History: - - Unclear gallbladder intervention as noted stones removed but her gallbladder was not, x1. 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 Review of Systems Constitutional: Denies: Anorexia, Fever HEENT: Denies: Difficulty Swallowing Respiratory: Denies: Cough Gastrointestinal: Reports: Abdominal Pain, Nausea, Vomiting Genitourinary: Denies: Dysuria, Frequency Skin: Denies: Jaundice Patient Problems: Active and Suspected Problems Nausea & vomiting (Acute) Hypokalemia (Acute) - Physical Exam Vitals/I&O's: Vital Signs Temp Pulse Resp BP Pulse Ox 97.5 F L 82 18 129/68 H 99 04/02/20 12:08 04/02/20 12:08 04/02/20 12:08 04/02/20 12:08 04/02/20 12:08 Oxygen Delivery Method Room Air Weight: 119 lb 4.321 oz Body Mass Index (BMI) 19.8 Finger Stick Blood Glucose 76 Intake and Output for Last 24 Hours 03/31/20 04/01/20 04/02/20 23:59 23:59 23:59 Intake Total 3066.67 / 3066.67 3655.66 / 3655.66 1458.87 / 1458.87 Output Total 3175 / 3175 1650 / 1650 750 / 750 Balance -108.33 / -108.33 2004.66 / 708.87 / 708.87 General: Alert, Oriented x3 Neck: No JVD Lungs: Normal air movement Abdomen: Soft, Distended Laboratory Results 03/31/20 05:35: Diff Path Review Reviewed 04/01/20 06:05: Diff Path Review Reviewed 04/01/20 21:11: Potassium 4.0 04/02/20 05:22: WBC 1.9 L, RBC 2.86 L, Hgb 8.6 L, Hct 24.5 L, MCV 85.7, MCH 30.1, MCHC 35.1, RDW Std Deviation 42.4, RDW Coeff of Frank 14.7 H, Plt Count 37 L*, MPV 10.8, Neut % (Auto) Not Reportable, Absolute Neuts (auto) 1.1 L, Absolute Lymphs (auto) 0.68 L, Total Counted 100, Neutrophils % (Manual) 37 L, Band Neutrophils % 20 H, Lymphocytes % (Manual) 36, Monocytes % (Manual) 7, Metamyelocytes % 7 H, Diff Path Review Reviewed, Platelet Estimate MKD DEC, Hypochromasia RARE, Microcytosis RARE, Ovalocytes RARE 04/02/20 05:22: Sodium 138, Potassium 3.2 L, Chloride 108 H, Carbon Dioxide 24.0, Anion Gap 6, BUN 7, Creatinine 0.35 L, Estim Creat Clear Calc 149.63, Est GFR (MDRD) Af Amer 243, Est GFR (MDRD) Non-Af 201, BUN/Creatinine Ratio 19.8, Glucose 106, Calcium 7.3 L, Phosphorus 1.3 L, Magnesium 2.2 04/02/20 05:22: Triglycerides 144 04/02/20 10:14: WBC 2.3 L, RBC 2.92 L, Hgb 8.7 L, Hct 26.4 L, MCV 90.4 D, MCH 29.8, MCHC 33.0 D, RDW Std Deviation 46.0 H, RDW Coeff of Frank 15.2 H, Plt Count 37 L*, MPV 10.9, Neut % (Auto) Not Reportable, Absolute Neuts (auto) 0.6 L, Absolute Lymphs (auto) 1.40, Total Counted 100, Neutrophils % (Manual) 26 L, Lymphocytes % (Manual) 60 H, Monocytes % (Manual) 10, Eosinophils % (Manual) 1, Myelocytes % 1 H, Promyelocytes % 1 H, Blast Cells % 1 H*, Diff Path Review May foll, Atypical Lymphocytes 2+, Platelet Estimate MKD DEC, Hypochromasia 2+, Microcytosis RARE 04/02/20 10:14: Sodium 139, Potassium 3.0 L, Chloride 109 H, Carbon Dioxide 25.0, Anion Gap 5, BUN 7, Creatinine 0.38 L, Estim Creat Clear Calc 137.82, Est GFR (MDRD) Af Amer 222, Est GFR (MDRD) Non-Af 184, BUN/Creatinine Ratio 18.3, Glucose 104, Calcium 7.4 L, Total Bilirubin 1.30 H, AST 23, ALT 21, Alkaline Phosphatase 107, Total Protein 4.5 L, Albumin 2.1 L, Globulin 2.4, Albumin/Globulin Ratio 0.9 Current Medications Acetaminophen (Tylenol) 650 mg PO Q6H PRN PRN PRN Reason: Pain Score 1-10/10 Calamine/Phenol (Calmoseptine Ointment) 1 applic TOPICAL TID [facility]; Protocol Last Admin: 04/02/20 05:18 Dose: Not Given Documented by: Dexamethasone Sodium Phosphate (Decadron) 4 mg IV Q24 [facility] Last Admin: 04/02/20 12:04 Dose: 4 mg Documented by: Dextrose (D50w Syringe) 0 gm IV X1 PRN; Protocol PRN Reason: Hypoglycemia Glucagon () 1 mg IM .X1 PRN PRN Reason: Hypoglycemia Heparin Sodium (Beef Lung) () 50 units IV UD PRN PRN Reason: R Port Heparin Flush Sodium Chloride () 250 mls @ 15 mls/hr IV .[id number] PRN PRN Reason: Saline Flush Pantoprazole Sodium 40 mg/ (Sodium Chloride) 110 mls @ 330 mls/hr IV Q12 [facility] Last Infusion: 04/02/20 10:44 Dose: Infused Documented by: Sodium Chloride () 500 mls @ 15 mls/hr IV PRN PRN PRN Reason: Blood Transfusion Last Infusion: 03/26/20 17:25 Dose: Infused Documented by: Sodium Chloride () 1,000 mls @ 100 mls/hr IV .Q10H [facility] Last Infusion: 04/02/20 10:44 Dose: 0 mls/hr Documented by: Multivitamins 10 ml/ Chromium/Copper/Manganese/Seleni/Zn 1 ml/ Folic Acid 1 mg/ Amino Acids/Electrolytes/Dextrose 2,011 mls @ 84 mls/hr IV .[id number] [facility] Stop: 04/03/20 15:48 Levothyroxine Sodium (Synthroid) 100 mcg PO DAILY@0600 [facility] Last Admin: 04/02/20 05:18 Dose: Not Given Documented by: Loratadine (Claritin) 10 mg PO QHS PRN PRN PRN Reason: STUFFINESS Lorazepam (Ativan) 0.5 mg IV Q6H PRN PRN PRN Reason: ANXIETY Last Admin: 04/02/20 02:01 Dose: 0.5 mg Documented by: Magnesium Hydroxide (Milk Of Magnesia) 30 ml PO DAILY PRN PRN PRN Reason: Constipation Metoclopramide HCl (Reglan) 2.5 mg IV Q6H PRN PRN PRN Reason: NAUSEA Last Admin: 04/02/20 10:44 Dose: 2.5 mg Documented by: Morphine Sulfate () 2 mg IV Q2H PRN PRN PRN Reason: Pain Score 6-10/10 Last Admin: 04/01/20 09:47 Dose: 2 mg Documented by: Ondansetron HCl (Zofran) 4 mg IV Q6H PRN PRN PRN Reason: NAUSEA Oxycodone HCl (Oxyir) 5 mg PO Q6H PRN PRN PRN Reason: Pain Score 6-10/10 Polyethylene Glycol (Miralax) 17 gm PO DAILY PRN PRN PRN Reason: Constipation Sodium Chloride () 10 - 40 ml IV UD PRN PRN Reason: R Port Saline Flush Last Admin: 04/02/20 12:04 Dose: 10 ml Documented by: Sodium Chloride (0.9% Nacl (Sterile) Posiflush) 10 - 40 ml IV UD PRN PRN Reason: Port access or dressing change Assessment/Plan All Active Problems Nausea & vomiting (Acute) Neutropenia (Acute) Hypokalemia (Acute) 59-year-old female with intractable nausea and vomiting 1. The patient is having intractable nausea and vomiting. Oncology would like an EGD to ensure there is nothing missed in the stomach. CT scan reveals a small non-dilated stomach with surrounding ascites. There is no sign of obstruction. 2. Oncology would like an EGD as they believe that the nausea vomiting is due to something in the stomach. There is no sign of gastric outlet obstruction on the CT scan. There is a large amount of ascites and she did have a tap 2 days ago. This did not improve her nausea and vomiting. We will perform an EGD this afternoon to ensure that there is no abnormality in the stomach. I believe this is likely neurogenic nausea and vomiting due to chemotherapy. I explained endoscopy in detail to the patient. I explained the risks including but not limited to stroke or heart attack with anesthesia, perforation of the GI tract, bleeding, infection. I explained that any of these could necessitate further emergency surgery. The patient understands and all questions were answered sufficiently. The patient wishes to proceed with procedure. Dimitri Rey MD Pager: [facility] [address] [place] [address] [address] [place] [address] Office:
--- NOTE | 2020-04-02 13:50 | IMM_PTH ---
PATIENT: LIVIER BULLOCK LOC: [facility] U#:[id number] AGE/SX: 59/F ROOM: [facility] RE03/26/[address]: Dr. Johana Petersen MD : 1960 BED: 1 DIS: 04/08/2020 SPEC #: [id number] RECD: 04/03/20 10:01 STATUS: PANKAJ REAntoni #: [id number] MANN: 04/02/20 13:[address]: Dimitri Rey DEPT: IMMUNOHISTOCHEMISTRY RECD BY: Yolanda Levin ENTERED: 04/03/20 10:01 SP TYPE: IMMUNO OTHR DR: MD Dr. Marcos Villanueva MD Dr. Paul Nielsen, MD Tissues: Stomach, NOS Procedures: H Pylori (initial) PHYSICIAN & INSTITUTION [place] [id number] SPECIMEN INFORMATION: Tissue Source: Antrum biopsy Clinical Info: Intractable nausea/vomiting Specimen Number: [id number] CPT code: 57626 METHODOLOGY: Deparaffinized sections of prefer/formalin-fixed tissue or PAP/DQ stained slides are incubated with monoclonal/polyclonal antibodies/oligonucleotide probes. Localization is made via biotin free immunoperoxidase method. Appropriate controls are performed and reacted as expected. Results on target cell population are indicated in the following table: RESULTS: ANTIBODY / CLONE RESULT H Pylori (polyclonal) negative These tests were developed and their performance characteristics determined by [facility]. They may not have been cleared or approved by the U.S. Food and Drug Administration. The FDA has determined that such clearance or approval is not necessary. INTERPRETATION: Antrum biopsy: Negative for Helicobacter pylori organisms. AM:jez 04/04/20
--- NOTE | 2020-04-02 13:50 | EGD_PTH ---
PATIENT: LIVIER BULLOCK LOC: [facility] U#:[id number] AGE/SX: 59/F ROOM: [facility] RE03/26/[address]: Dr. Johana Petersen MD : 1960 BED: 1 DIS: 04/08/2020 SPEC #: [id number] RECD: 04/02/20 14:54 STATUS: PANKAJ WEST #: [id number] MANN: 04/02/20 13:[address]: Dimitri Rey DEPT: SURGICAL PATHOLOGY RECD BY: Joss Raya ENTERED: 04/03/20 11:34 SP TYPE: EGD BIOPSY OTHR DR: MD Dr. Marcos Villanueva MD Dr. Paul Nielsen, MD Tissues: Gastric mucous membrane Procedures: Surgery Specimen Level IV HEADER OPERATION: EGD (MAC) PRE-OP DIAGNOSIS: Intractable nausea/vomiting TISSUE SUBMITTED: Antrum biopsy for histo and H. pylori MICROSCOPIC DIAGNOSIS Gastric antrum, biopsy: Minimal chronic inflammation. AM:jez 04/04/20 COMMENT The results of immunohistochemistry for Helicobacter pylori will be reported separately ([id number]). MICROSCOPIC DESCRIPTION Slides are reviewed. GROSS DESCRIPTION Received in fixative is one container labeled with the patient's name and designated antrum biopsy. The specimen consists of one irregular fragment of light lua soft tissue that measures 0.3 x 0.3 x 0.1 cm. The specimen is totally submitted in one cassette. / SJ:jez 04/03/20 TC:3 CPT: 90144
--- NOTE | 2020-04-02 14:15 | OP.EGD_ITS ---
Patient Name: Christy Lynn Procedure Date: 04/02/2020 1:49 PM Date of : 1960 Age: 59 Procedure: Upper GI endoscopy Indications: Persistent vomiting Providers: Dimitri Rey MD Referring MD: Redd Alcala MD Medicines: Monitored Anesthesia Care Patient Profile: This is a 59 year old female. Refer to note in patient chart for documentation of history and physical. Complications: No immediate complications. Estimated blood loss: Minimal. Procedure: Pre-Anesthesia Assessment: - Prior to the procedure, a History and Physical was performed, and patient medications and allergies were reviewed. The patient's tolerance of previous anesthesia was also reviewed. The risks and benefits of the procedure and the sedation options and risks were discussed with the patient. All questions were answered, and informed consent was obtained. Prior Anticoagulants: The patient has taken no previous anticoagulant or antiplatelet agents. After reviewing the risks and benefits, the patient was deemed in satisfactory condition to undergo the procedure. After obtaining informed consent, the endoscope was passed under direct vision. Throughout the procedure, the patient's blood pressure, pulse, and oxygen saturations were monitored continuously. The Endoscope was introduced through the mouth, and advanced to the second part of duodenum. The upper GI endoscopy was accomplished without difficulty. The patient tolerated the procedure well. Scope In: 2:07:32 PM Scope Out: 2:11:01 PM Total Procedure Duration Time 0 hours 3 minutes 29 seconds Findings: The esophagus was normal. The examined duodenum was normal. Diffuse mildly erythematous mucosa without bleeding was found in the stomach. Biopsies were taken with a cold forceps for Helicobacter pylori testing. Impression: - Normal esophagus. - Normal examined duodenum. - Erythematous mucosa in the stomach. Biopsied. Recommendation: - [facility]. - Resume previous diet. - Continue present medications. - Await pathology results. Procedure Code(s): --- Professional --- 19290, Esophagogastroduodenoscopy, flexible, transoral; with biopsy, single or multiple Diagnosis Code(s): --- Professional --- K31.89, Other diseases of stomach and duodenum R11.10, Vomiting, unspecified CPT copyright 2017 [employer]. All rights reserved. The codes documented in this report are preliminary and upon city alderman review may be revised to meet current compliance requirements. Dimitri Rey MD 04/02/2020 2:15:25 PM This report has been signed electronically. Number of Addenda: 0 Note Initiated On: 04/02/2020 1:49 PM
--- NOTE | 2020-04-02 14:16 | OP.CCLET_ITS ---
04/02/2020 Denia Adrian Md Re : Upper GI endoscopy procedure for Christy Lynn Dear Kaylah This procedure was performed on Thursday, April 02, 2020. My impressions and recommendations are as follows: Impressions : - Normal esophagus. - Normal examined duodenum. - Erythematous mucosa in the stomach. Biopsied. Recommendations : - [facility] to [facility]. - Resume previous diet. - Continue present medications. - Await pathology results. My findings are described in the full procedure note, which is enclosed. If I can be of further assistance, please feel free to contact me at Doctor phone number(s): , Work: . Sincerely, Dimitri Rey MD 04/02/2020 2:15:25 PM This report has been signed electronically.
--- NOTE | 2020-04-02 14:27 | PCM.PN.HOSP ---
<Jerson Harvey - Last Filed: 04/02/20 14:27> Patient Problems: Active and Suspected Problems Nausea & vomiting (Acute) Hypokalemia (Acute) Reason for Visit: nausea Subjective: Ongoing nausea vomiting and dry heaves. She took a sip of liquid last night and immediately threw it up. Ongoing lower abd pain. No fever/chills. No SOB/cough. Vitals/I&O's: Vital Signs Temp Pulse Resp BP Pulse Ox 97.1 F L 85 16 105/58 L 100 04/02/20 14:18 04/02/20 14:20 04/02/20 14:20 04/02/20 14:20 04/02/20 14:20 Oxygen Delivery Method Room Air Weight: 119 lb 4.321 oz Body Mass Index (BMI) 19.8 Finger Stick Blood Glucose 76 Intake and Output for Last 24 Hours 03/31/20 04/01/20 04/02/20 23:59 23:59 23:59 Intake Total 3066.67 / 3066.67 3655.66 / 3655.66 1458.87 / 1458.87 Output Total 3175 / 3175 1650 / 1650 750 / 750 Balance -108.33 / -108.33 2005.66 / 2004.66 708.87 / 708.87 General: Alert, Oriented x3, Cooperative, - - cachectic HEENT: Atraumatic, PERRLA, EOMI, Normocephalic Neck: Supple, No JVD, Negative Carotid Bruits Lungs: Clear to auscultation, Normal air movement Cardiovascular: Regular rate, No murmurs Abdomen: Soft, Non Tender, Hypoactive Bowel Sounds, Tender - RUQ tenderness Extremities: No edema, Capillary Refill Less than 3 Seconds Skin: No rashes, No breakdown Musculoskeletal: No Tenderness to Palpation of Joints or Extremities Neurological: Cranial nerves II-XII grossly intact Psych/Mental Status: Normal Affect, Appropriate, Alert and oriented to time, place, person, mood and affect Laboratory Results 03/31/20 05:35: Diff Path Review Reviewed 04/01/20 06:05: Diff Path Review Reviewed 04/01/20 21:11: Potassium 4.0 04/02/20 05:22: WBC 1.9 L, RBC 2.86 L, Hgb 8.6 L, Hct 24.5 L, MCV 85.7, MCH 30.1, MCHC 35.1, RDW Std Deviation 42.4, RDW Coeff of Frank 14.7 H, Plt Count 37 L*, MPV 10.8, Neut % (Auto) Not Reportable, Absolute Neuts (auto) 1.1 L, Absolute Lymphs (auto) 0.68 L, Total Counted 100, Neutrophils % (Manual) 37 L, Band Neutrophils % 20 H, Lymphocytes % (Manual) 36, Monocytes % (Manual) 7, Metamyelocytes % 7 H, Diff Path Review Reviewed, Platelet Estimate MKD DEC, Hypochromasia RARE, Microcytosis RARE, Ovalocytes RARE 04/02/20 05:22: Sodium 138, Potassium 3.2 L, Chloride 108 H, Carbon Dioxide 24.0, Anion Gap 6, BUN 7, Creatinine 0.35 L, Estim Creat Clear Calc 149.63, Est GFR (MDRD) Af Amer 243, Est GFR (MDRD) Non-Af 201, BUN/Creatinine Ratio 19.8, Glucose 106, Calcium 7.3 L, Phosphorus 1.3 L, Magnesium 2.2 04/02/20 05:22: Triglycerides 144 04/02/20 10:14: WBC 2.3 L, RBC 2.92 L, Hgb 8.7 L, Hct 26.4 L, MCV 90.4 D, MCH 29.8, MCHC 33.0 D, RDW Std Deviation 46.0 H, RDW Coeff of Frank 15.2 H, Plt Count 37 L*, MPV 10.9, Neut % (Auto) Not Reportable, Absolute Neuts (auto) 0.6 L, Absolute Lymphs (auto) 1.40, Total Counted 100, Neutrophils % (Manual) 26 L, Lymphocytes % (Manual) 60 H, Monocytes % (Manual) 10, Eosinophils % (Manual) 1, Myelocytes % 1 H, Promyelocytes % 1 H, Blast Cells % 1 H*, Diff Path Review May foll, Atypical Lymphocytes 2+, Platelet Estimate MKD DEC, Hypochromasia 2+, Microcytosis RARE 04/02/20 10:14: Sodium 139, Potassium 3.0 L, Chloride 109 H, Carbon Dioxide 25.0, Anion Gap 5, BUN 7, Creatinine 0.38 L, Estim Creat Clear Calc 137.82, Est GFR (MDRD) Af Amer 222, Est GFR (MDRD) Non-Af 184, BUN/Creatinine Ratio 18.3, Glucose 104, Calcium 7.4 L, Total Bilirubin 1.30 H, AST 23, ALT 21, Alkaline Phosphatase 107, Total Protein 4.5 L, Albumin 2.1 L, Globulin 2.4, Albumin/Globulin Ratio 0.9 Current Medications Acetaminophen (Tylenol) 650 mg PO Q6H PRN PRN PRN Reason: Pain Score 1-10/10 Calamine/Phenol (Calmoseptine Ointment) 1 applic TOPICAL TID [facility]; Protocol Last Admin: 04/02/20 05:18 Dose: Not Given Documented by: Dexamethasone Sodium Phosphate (Decadron) 4 mg IV Q24 [facility] Last Admin: 04/02/20 12:04 Dose: 4 mg Documented by: Dextrose (D50w Syringe) 0 gm IV X1 PRN; Protocol PRN Reason: Hypoglycemia Glucagon () 1 mg IM .X1 PRN PRN Reason: Hypoglycemia Heparin Sodium (Beef Lung) () 50 units IV UD PRN PRN Reason: R Port Heparin Flush Sodium Chloride () 250 mls @ 15 mls/hr IV .[id number] PRN PRN Reason: Saline Flush Pantoprazole Sodium 40 mg/ (Sodium Chloride) 110 mls @ 330 mls/hr IV Q12 [facility] Last Infusion: 04/02/20 10:44 Dose: Infused Documented by: Sodium Chloride () 500 mls @ 15 mls/hr IV PRN PRN PRN Reason: Blood Transfusion Last Infusion: 03/26/20 17:25 Dose: Infused Documented by: Sodium Chloride () 1,000 mls @ 100 mls/hr IV .Q10H [facility] Last Infusion: 04/02/20 10:44 Dose: 0 mls/hr Documented by: Multivitamins 10 ml/ Chromium/Copper/Manganese/Seleni/Zn 1 ml/ Folic Acid 1 mg/ Amino Acids/Electrolytes/Dextrose 2,011 mls @ 84 mls/hr IV .[id number] [facility] Stop: 04/03/20 15:48 Levothyroxine Sodium (Synthroid) 100 mcg PO DAILY@0600 [facility] Last Admin: 04/02/20 05:18 Dose: Not Given Documented by: Loratadine (Claritin) 10 mg PO QHS PRN PRN PRN Reason: STUFFINESS Lorazepam (Ativan) 0.5 mg IV Q6H PRN PRN PRN Reason: ANXIETY Last Admin: 04/02/20 02:01 Dose: 0.5 mg Documented by: Magnesium Hydroxide (Milk Of Magnesia) 30 ml PO DAILY PRN PRN PRN Reason: Constipation Metoclopramide HCl (Reglan) 2.5 mg IV Q6H PRN PRN PRN Reason: NAUSEA Last Admin: 04/02/20 10:44 Dose: 2.5 mg Documented by: Morphine Sulfate () 2 mg IV Q2H PRN PRN PRN Reason: Pain Score 6-10/10 Last Admin: 04/01/20 09:47 Dose: 2 mg Documented by: Ondansetron HCl (Zofran) 4 mg IV Q6H PRN PRN PRN Reason: NAUSEA Oxycodone HCl (Oxyir) 5 mg PO Q6H PRN PRN PRN Reason: Pain Score 6-10/10 Polyethylene Glycol (Miralax) 17 gm PO DAILY PRN PRN PRN Reason: Constipation Sodium Chloride () 10 - 40 ml IV UD PRN PRN Reason: R Port Saline Flush Last Admin: 04/02/20 12:04 Dose: 10 ml Documented by: Sodium Chloride (0.9% Nacl (Sterile) Posiflush) 10 - 40 ml IV UD PRN PRN Reason: Port access or dressing change STROKE Vital Signs/Narrative: Vital Signs Temp Pulse Resp BP Pulse Ox 04/02/20 14:20 85 16 105/58 L 100 04/02/20 14:18 97.1 F L 84 16 97/59 L 100 04/02/20 12:08 97.5 F L 82 18 129/68 H 99 Medical Necessity - Tobacco Use Smoking Status: Former smoker Tobacco Use: Non-smoker Assessment/Plan All Active Problems Nausea & vomiting (Acute) Neutropenia (Acute) Hypokalemia (Acute) 1. Intractable nausea and vomiting secondary to chemotherapy-patient undergoing chemotherapy for metastatic ovarian cancer, stage III. Had paracentesis 03/31 for 2700 cc. EGD today with Dr. Rey. with some gastritis and stomach not completely expandable. Probably recurrent ascites, send for US paracentesis in am. check coags. -TPN started via chemoport -will not tolerate NG. constant dry heaving during the day. -abd US done this AM shows ascites, cirrhosis, 8mm CBD. -Continue daily IV solumedrol. 2. Stage III ovarian cancer with mets-patient of Dr. Gutierres. 3. Pancytopenia-as above. off granix. received 1 unit PRBC 03/31. 4. Acute cystitis-urine culture with Citrobacter, resistant to Rocephin. Completed Cipro. Off Abx. 5. Type 2 diabetes [id number] only, not on home regimen. Hemoglobin A1c 5.7. 6. Hypothyroidism-Synthroid 7. Hyperlipidemia-statin 8. GERD-IV PPI. 9. Severe protein calorie malnutrition-as per #1. Bacteriologist So[place] consulted for TPN. 10. Debility-SNF resident, continue PT OT. DVT prophylaxis: SCDs. hold lovenox with low platelets. Discharge planning: nausea uncontrolled This patient was seen by Jerson Harvey PA-C under the supervision of Dr. Garcia <Marcos Garcia - Last Filed: 04/02/20 15:17> Reason for Visit: Persistent nausea. Not able to have sufficient calorie intake for last 7 to 8 days Objective: Patient still has nausea. Had little bit of Jell-O and clear liquid last evening. Had right upper quadrant sonogram shows prior cholecystectomy although patient does not remember. Patient denies abdominal pain Patient had EGD which was negative for local pathology for gastric outlet obstruction or esophagitis/gastric ulcer. Physical exam findings: General: Alert, Oriented x3, Cooperative, moderate protein calorie nutrition. Patient was mild drowsy in the morning HEENT: Atraumatic, PERRLA, EOMI, Normocephalic Oral: No Gingival or Mucosal Lesions/ Ulcerations Neck: Supple, No JVD, Negative Carotid Bruits Lungs: Air entry diminished in bilateral lung bases, more on the right lung base. No crepitation/rhonchi Cardiovascular: Regular rate, Regular Rhythm, Normal S1, Normal S2, No murmurs Abdomen: Bowel Sounds Present, Soft, Non Tender, Non-Distended : No renal angle tenderness. No suprapubic tenderness. Extremities: No edema, Capillary Refill Less than 3 Seconds Skin: No rashes, No breakdown. Has Mediport in the right subclavicular region. Musculoskeletal: No Tenderness to Palpation of Joints or Extremities. Generalized mild to moderate muscle atrophy of extremities and loss of subcutaneous fat. Neurological: Cranial nerves II-XII grossly intact, Deep Tendon Reflexes 2+/4 and Symmetrical, Neuro grossly intact Psych/Mental Status: Normal Affect, Appropriate Vitals/I&O's: Vital Signs Temp Pulse Resp BP Pulse Ox 96.9 F L 79 16 115/67 100 04/02/20 14:45 04/02/20 14:45 04/02/20 14:45 04/02/20 14:45 04/02/20 14:45 Oxygen Delivery Method Room Air Weight: 119 lb 4.321 oz Body Mass Index (BMI) 19.8 Finger Stick Blood Glucose 76 Intake and Output for Last 24 Hours 03/31/20 04/01/20 04/02/20 23:59 23:59 23:59 Intake Total 3066.67 / 3066.67 3655.66 / 3655.66 1458.87 / 1458.87 Output Total 3175 / 3175 1650 / 1650 750 / 750 Balance -108.33 / -108.33 / 708.87 / 708.87 Laboratory Results 03/31/20 05:35: Diff Path Review Reviewed 04/01/20 06:05: Diff Path Review Reviewed 04/01/20 21:11: Potassium 4.0 04/02/20 05:22: WBC 1.9 L, RBC 2.86 L, Hgb 8.6 L, Hct 24.5 L, MCV 85.7, MCH 30.1, MCHC 35.1, RDW Std Deviation 42.4, RDW Coeff of Frank 14.7 H, Plt Count 37 L*, MPV 10.8, Neut % (Auto) Not Reportable, Absolute Neuts (auto) 1.1 L, Absolute Lymphs (auto) 0.68 L, Total Counted 100, Neutrophils % (Manual) 37 L, Band Neutrophils % 20 H, Lymphocytes % (Manual) 36, Monocytes % (Manual) 7, Metamyelocytes % 7 H, Diff Path Review Reviewed, Platelet Estimate MKD DEC, Hypochromasia RARE, Microcytosis RARE, Ovalocytes RARE 04/02/20 05:22: Sodium 138, Potassium 3.2 L, Chloride 108 H, Carbon Dioxide 24.0, Anion Gap 6, BUN 7, Creatinine 0.35 L, Estim Creat Clear Calc 149.63, Est GFR (MDRD) Af Amer 243, Est GFR (MDRD) Non-Af 201, BUN/Creatinine Ratio 19.8, Glucose 106, Calcium 7.3 L, Phosphorus 1.3 L, Magnesium 2.2 04/02/20 05:22: Triglycerides 144 04/02/20 10:14: WBC 2.3 L, RBC 2.92 L, Hgb 8.7 L, Hct 26.4 L, MCV 90.4 D, MCH 29.8, MCHC 33.0 D, RDW Std Deviation 46.0 H, RDW Coeff of Frank 15.2 H, Plt Count 37 L*, MPV 10.9, Neut % (Auto) Not Reportable, Absolute Neuts (auto) 0.6 L, Absolute Lymphs (auto) 1.40, Total Counted 100, Neutrophils % (Manual) 26 L, Lymphocytes % (Manual) 60 H, Monocytes % (Manual) 10, Eosinophils % (Manual) 1, Myelocytes % 1 H, Promyelocytes % 1 H, Blast Cells % 1 H*, Diff Path Review May foll, Atypical Lymphocytes 2+, Platelet Estimate MKD DEC, Hypochromasia 2+, Microcytosis RARE 04/02/20 10:14: Sodium 139, Potassium 3.0 L, Chloride 109 H, Carbon Dioxide 25.0, Anion Gap 5, BUN 7, Creatinine 0.38 L, Estim Creat Clear Calc 137.82, Est GFR (MDRD) Af Amer 222, Est GFR (MDRD) Non-Af 184, BUN/Creatinine Ratio 18.3, Glucose 104, Calcium 7.4 L, Total Bilirubin 1.30 H, AST 23, ALT 21, Alkaline Phosphatase 107, Total Protein 4.5 L, Albumin 2.1 L, Globulin 2.4, Albumin/Globulin Ratio 0.9 Current Medications Acetaminophen (Tylenol) 650 mg PO Q6H PRN PRN PRN Reason: Pain Score 1-10/10 Calamine/Phenol (Calmoseptine Ointment) 1 applic TOPICAL TID [facility]; Protocol Last Admin: 04/02/20 05:18 Dose: Not Given Documented by: Dexamethasone Sodium Phosphate (Decadron) 4 mg IV Q24 [facility] Last Admin: 04/02/20 12:04 Dose: 4 mg Documented by: Dextrose (D50w Syringe) 0 gm IV X1 PRN; Protocol PRN Reason: Hypoglycemia Glucagon () 1 mg IM .X1 PRN PRN Reason: Hypoglycemia Heparin Sodium (Beef Lung) () 50 units IV UD PRN PRN Reason: R Port Heparin Flush Sodium Chloride () 250 mls @ 15 mls/hr IV .[id number] PRN PRN Reason: Saline Flush Pantoprazole Sodium 40 mg/ (Sodium Chloride) 110 mls @ 330 mls/hr IV Q12 [facility] Last Infusion: 04/02/20 10:44 Dose: Infused Documented by: Sodium Chloride () 500 mls @ 15 mls/hr IV PRN PRN PRN Reason: Blood Transfusion Last Infusion: 03/26/20 17:25 Dose: Infused Documented by: Sodium Chloride () 1,000 mls @ 100 mls/hr IV .Q10H [facility] Last Infusion: 04/02/20 10:44 Dose: 0 mls/hr Documented by: Multivitamins 10 ml/ Chromium/Copper/Manganese/Seleni/Zn 1 ml/ Folic Acid 1 mg/ Amino Acids/Electrolytes/Dextrose 2,011 mls @ 84 mls/hr IV .[id number] [facility] Stop: 04/03/20 15:48 Levothyroxine Sodium (Synthroid) 100 mcg PO DAILY@0600 [facility] Last Admin: 04/02/20 05:18 Dose: Not Given Documented by: Loratadine (Claritin) 10 mg PO QHS PRN PRN PRN Reason: STUFFINESS Lorazepam (Ativan) 0.5 mg IV Q6H PRN PRN PRN Reason: ANXIETY Last Admin: 04/02/20 02:01 Dose: 0.5 mg Documented by: Magnesium Hydroxide (Milk Of Magnesia) 30 ml PO DAILY PRN PRN PRN Reason: Constipation Metoclopramide HCl (Reglan) 2.5 mg IV Q6H PRN PRN PRN Reason: NAUSEA Last Admin: 04/02/20 10:44 Dose: 2.5 mg Documented by: Morphine Sulfate () 2 mg IV Q2H PRN PRN PRN Reason: Pain Score 6-10/10 Last Admin: 04/01/20 09:47 Dose: 2 mg Documented by: Ondansetron HCl (Zofran) 4 mg IV Q6H PRN PRN PRN Reason: NAUSEA Oxycodone HCl (Oxyir) 5 mg PO Q6H PRN PRN PRN Reason: Pain Score 6-10/10 Polyethylene Glycol (Miralax) 17 gm PO DAILY PRN PRN PRN Reason: Constipation Sodium Chloride () 10 - 40 ml IV UD PRN PRN Reason: R Port Saline Flush Last Admin: 04/02/20 12:04 Dose: 10 ml Documented by: Sodium Chloride (0.9% Nacl (Sterile) Posiflush) 10 - 40 ml IV UD PRN PRN Reason: Port access or dressing change STROKE Vital Signs/Narrative: Vital Signs Temp Pulse Resp BP Pulse Ox 04/02/20 14:45 96.9 F L 79 16 115/67 100 04/02/20 14:40 80 16 116/61 100 04/02/20 14:35 78 16 107/64 100 04/02/20 14:30 80 16 105/63 100 04/02/20 14:25 81 16 103/62 100 04/02/20 14:20 85 16 105/58 L 100 04/02/20 14:18 97.1 F L 84 16 97/59 L 100 04/02/20 12:08 97.5 F L 82 18 129/68 H 99 Assessment/Plan This patient was seen in conjunction with Jerson DILLARD. I have independently interviewed and examined the patient and reviewed pertinent history, examination findings, laboratory and plan of management. I have reviewed the note and agree with the documented findings with the few additional points. In brief, patient is 59-year-old female with history of stage III ovarian cancer with metastasis under care of Dr. GUTIERRES is admitted for intractable nausea and vomiting secondary to chemotherapy. Patient has severe protein calorie malnutrition secondary to advanced cancer and chemotherapy and decreased calorie intake. Licensed Marriage And Family Therapist consulted. TPN is started via Mediport. Discussed with oncologist, Dr. GUTIERRES. On dexamethasone 4 mg IV daily. Antiemetics revised. Discontinue Zyprexa and Compazine. On Reglan RTC and Zofran as needed. EGD shows mild gastritis but negative for esophagitis, Gina, ulcer or gastric outlet obstruction. Right upper quadrant sonogram shows moderate amount of surrounding ascites. Patient had paracentesis on 03/31 about 2700 mL. Plan for paracentesis in a.m. Patient also has pancytopenia with neutropenia and normocytic normochromic anemia secondary to ovarian cancer and chemotherapy. Had 1 unit of PRBC and Granix. Significant change in cell count. Citrobacter acute cystitis: Urine culture shows Enterobacter more than 100,000 colonies: On Cipro. Resistant to ceftriaxone. Currently she denies lower related symptoms including dysuria. Other multiple comorbidities include type 2 diabetes mellitus, hypothyroidism, dyslipidemia, GERD and debility I have discussed my assessment with Jerson DILLARD and orders have been reviewed. Total time of the visit including total time spent in counseling or coordination of care, (more than 50% of the total time, spent in obtaining medical information from nurses and other ancillary care providers), discussion with consultants, oncologist and surgeon, review of labs and imaging is 30 minutes. Inpatient E&M: 43418 Subs Hosp L3
--- NOTE | 2020-04-02 14:27 | PCM.PN.BLA ---
Progress Note I performed an EGD in the stomach was essentially normal. There was some mild gastritis which was biopsied but I do not believe this is the cause of her nausea and vomiting. There is no esophagitis or signs of candidiasis. There is no sign of gastric outlet obstruction or ulceration. No stomach masses. STROKE Vital Signs/Narrative: Vital Signs Temp Pulse Resp BP Pulse Ox 04/02/20 14:20 85 16 105/58 L 100 04/02/20 14:18 97.1 F L 84 16 97/59 L 100 04/02/20 12:08 97.5 F L 82 18 129/68 H 99
[2020-04-02] MEDS: Menthol/Lanolin/Calamine/Znox 113 GM Tube 1 APPLIC TOPICAL ×2 (16:05→21:42)
[2020-04-02 18:45] LABS: Bedside Glucose 169 mg/dL (70-110)
--- NOTE | 2020-04-02 22:37 | NURSING ---
Bedside report given to DEX Franco. Relinquished care of pt at this time.
[2020-04-03] VITALS (9 sets, daily range): BP systolic 92–116; BP diastolic 54–75; PULSE 74–90; RESP 14–18; TEMP 36.7–36.9; O2SAT 99; BMI 24.3
[2020-04-03 01:01] LABS: Bedside Glucose 127 mg/dL (70-110)
--- NOTE | 2020-04-03 06:07 | NURSING ---
Offered pt Miralax and MOM this morning. Pt refused these along with scheduled morning meds.
[2020-04-03 06:11] LABS: Bedside Glucose 140 mg/dL (70-110)
[2020-04-03 06:59] LABS: Absolute Lymphocyte Count 1.02 X10^3/uL (0.83-4.51); Absolute Neutrophil Count 0.6 X10^3/uL (2.0-7.7); Hematocrit 21.8 % (37-47); Hemoglobin 7.6 g/dL (12.0-15.0); Lymphocyte # 1.02 X10^3/ul (4.0); Lymphocyte % 51.8 % (19-41); Mean Corp Hgb Conc 34.9 g/dL (32-36); Mean Corpuscular Hgb 30.3 pg (27.0-32.0); Mean Corpuscular Volume 86.9 fL (81-99); Mean Platelet Vol. 11.8 fl (6.2-12.0); Monocyte# 0.32 X10^3/uL; Monocyte% 16.2 % (0-10); NRBC Flagged by Analyzer 1.5 % (0-5); Neutrophil # 0.55 X10^3/uL (2.7-7.7); Neutrophil % 27.9 % (47-70); POSITIVE COUNT YES; POSITIVE DIFFERENTIAL YES; POSITIVE MORPHOLOGY YES; Red Blood Count 2.51 M/mm3 (4.2-5.4)
[2020-04-03 07:02] LABS: Differential Indicated SCAN CRITERIA MET; Platelet Count 28 K/mm3 (150-450)
[2020-04-03 07:10] LABS: International Normalized Ratio 1.2; Prothrombin Time (Protime)PT. 14.4 SECONDS (11.7-14.9)
[2020-04-03 07:15] LABS: Differential Comment SCANNED; Platelet Estimate MKD DEC (ADEQ)
[2020-04-03 07:23] LABS: ALB/GLOB Ratio 0.9 RATIO (0.9-2.4); AST(SGOT) 16 U/L (15-37); Alanine Aminotransfer ALT/SGPT 18 U/L (13-56); Alkaline Phosphatase 90 U/L (45-117); Anion Gap 1 (5-15); BUN 11 mg/dL (7-18); BUN/Creat Ratio 28.7 RATIO (10-20); Calcium,Total 7.1 mg/dL (8.5-10.1); Chloride 110 mmol/L (98-107); Creatinine, Serum 0.38 mg/dL (0.55-1.02); EST Glomerular Filtration Rate 183 mL/min (>60); Est Glom Filt Rate - Afr Amer 221 mL/min (>60); Estimated Creatinine Clearance 145.21 ml/min; Globulin 2.2 g/dL (2.2-4.2); Glucose 136 mg/dL (74-106); Potassium 3.2 mmol/L (3.5-5.1); Protein, Total 4.2 g/dL (6.4-8.2); Sodium Level 139 mmol/L (136-145)
--- NOTE | 2020-04-03 08:00 | US_ITS ---
PROCEDURE: Ultrasound guided paracentesis. DATE OF EXAMINATION: April 03, 2020. INDICATION: Female, 59 years old. Ascites. PHYSICIAN: Ezequiel Heredia M.D. TECHNIQUE: The risks, benefits, and alternatives to the procedure were explained to the patient. The specific risks of bleeding, infection, and damage to bowel were detailed and accepted. Witnessed informed consent was obtained. The abdomen was ultrasonographically surveyed. An appropriate pocket of fluid was identified at the right lower quadrant. The skin were cleaned and prepped in the usual sterile fashion. Using ultrasound guidance, the peritoneal cavity was accessed with a 5-Latvian paracentesis needle/catheter system. The trocar was removed. A total of 1700 ml of wilber color fluid were removed from the peritoneal cavity. The catheter was removed and a sterile dressing was applied. The procedure was well tolerated. US/Paracentesis with US IMPRESSION: Ultrasound guided paracentesis. Electronically Signed: Ezequiel Heredia, at 13:43 EDT , Service support ,
[2020-04-03] MEDS: 0.9% Saline Lock 10 ML Syringe IV ×2 (09:14→21:48)
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
[2020-04-03] MEDS: dexAMETHasone 4 MG/ML Vial IV (10:32)
[2020-04-03] MEDS: Potassium Chloride 10mEq/100mL 10 MEQ/100 ML IV.SOLN. 100 MEQ IV BOLUS ×4 (10:36→16:31)
--- NOTE | 2020-04-03 11:10 | CASEMGMT ---
Nydia from [employer] dropped off patient's phone and translator interpreter. SW thanked her and took patient her phone and translator interpreter. Phone was plugged into wall and placed on patient's bedside table. Caryl LIU
[2020-04-03 12:11] LABS: Bedside Glucose 160 mg/dL (70-110)
--- NOTE | 2020-04-03 12:53 | PCM.PN.HOSP ---
<Jerson Harvey - Last Filed: 04/03/20 12:53> Patient Problems: Active and Suspected Problems Nausea & vomiting (Acute) Hypokalemia (Acute) Reason for Visit: nausea Subjective: nausea and abd pain improved. pt awaiting another paracentesis. pt doing well with TPN. no fever/chills. pt kept down a small amount of food today. will continue to try today. no sob/cough. no le edema. Vitals/I&O's: Vital Signs Temp Pulse Resp BP Pulse Ox 98.1 F 80 16 100/58 L 99 04/03/20 07:50 04/03/20 07:50 04/03/20 07:50 04/03/20 07:50 04/03/20 07:50 Oxygen Delivery Method Room Air Weight: 146 lb 9.718 oz Body Mass Index (BMI) 19.8 Finger Stick Blood Glucose 76 Intake and Output for Last 24 Hours 04/01/20 04/02/20 04/03/20 23:59 23:59 23:59 Intake Total 3655.66 / 3655.66 1930.34 / 1930.34 476.25 / 476.25 Output Total 1650 / 1650 775 / 775 450 / 450 Balance 2004.66 / 66 1155.34 / 1155.34 26.25 / 26.25 General: Alert, Oriented x3, Cooperative, - - cachectic HEENT: Atraumatic, PERRLA, EOMI, Normocephalic Neck: Supple, No JVD, Negative Carotid Bruits Lungs: Clear to auscultation, Normal air movement Cardiovascular: Regular rate, No murmurs Abdomen: Bowel Sounds Present, Soft, Non Tender Extremities: No edema, Capillary Refill Less than 3 Seconds Skin: No rashes, No breakdown Musculoskeletal: No Tenderness to Palpation of Joints or Extremities Neurological: Cranial nerves II-XII grossly intact Psych/Mental Status: Normal Affect, Appropriate, Alert and oriented to time, place, person, mood and affect Laboratory Results 04/02/20 18:39: POC Glucose 169 H 04/03/20 00:53: POC Glucose 127 H 04/03/20 06:03: POC Glucose 140 H 04/03/20 06:40: WBC 2.0 L, RBC 2.51 L, Hgb 7.6 L, Hct 21.8 L, MCV 86.9, MCH 30.3, MCHC 34.9 D, RDW Std Deviation 43.0, RDW Coeff of Frank 15.0 H, Plt Count 28 L*, MPV 11.8, Immature Gran % (Auto) 4.100 H, Neut % (Auto) 27.9 L, Lymph % (Auto) 51.8 H, [place] % (Auto) 16.2 H, Eos % (Auto) 0.0, Baso % (Auto) 0.0, Absolute Neuts (auto) 0.6 L, Absolute Lymphs (auto) 1.02, Nucleated RBC % 1.5, Differential Comment SCANNED, Diff Path Review January foll, Platelet Estimate MKD 04/03/20 06:40: Sodium 139, Potassium 3.2 L, Chloride 110 H, Carbon Dioxide 28.0, Anion Gap 1 L, BUN 11, Creatinine 0.38 L, Estim Creat Clear Calc 145.21, Est GFR (MDRD) Af Amer 221, Est GFR (MDRD) Non-Af 183, BUN/Creatinine Ratio 28.7 H, Glucose 136 H, Calcium 7.1 L, Total Bilirubin 0.90, AST 16, ALT 18, Alkaline Phosphatase 90, Total Protein 4.2 L, Albumin 2.0 L, Globulin 2.2, Albumin/Globulin Ratio 0.9 04/03/20 06:40: PT 14.4, INR 1.2, APTT 28.0 04/03/20 11:58: POC Glucose 160 H Current Medications Acetaminophen (Tylenol) 650 mg PO Q6H PRN PRN PRN Reason: Pain Score 1-10/10 Calamine/Phenol (Calmoseptine Ointment) 1 applic TOPICAL TID ANGELA; Protocol Last Admin: 04/03/20 06:05 Dose: Not Given Documented by: Dexamethasone Sodium Phosphate (Decadron) 4 mg IV Q24 ANGELA Last Admin: 04/03/20 10:32 Dose: 4 mg Documented by: Dextrose (D50w Syringe) 0 gm IV X1 PRN; Protocol PRN Reason: Hypoglycemia Glucagon () 1 mg IM .X1 PRN PRN Reason: Hypoglycemia Heparin Sodium (Beef Lung) () 50 units IV UD PRN PRN Reason: R Port Heparin Flush Sodium Chloride () 250 mls @ 15 mls/hr IV .[id number] PRN PRN Reason: Saline Flush Last Infusion: 04/03/20 10:36 Dose: 0 mls/hr Documented by: Pantoprazole Sodium 40 mg/ (Sodium Chloride) 110 mls @ 330 mls/hr IV Q12 [facility] Last Infusion: 04/03/20 09:31 Dose: Infused Documented by: Sodium Chloride () 500 mls @ 15 mls/hr IV PRN PRN PRN Reason: Blood Transfusion Last Infusion: 03/26/20 17:25 Dose: Infused Documented by: Multivitamins 10 ml/ Chromium/Copper/Manganese/Seleni/Zn 1 ml/ Folic Acid 1 mg/ Amino Acids/Electrolytes/Dextrose 2,011 mls @ 84 mls/hr IV .[id number] [facility] Stop: 04/03/20 15:48 Last Admin: 04/02/20 16:05 Dose: 84 mls/hr Documented by: Potassium Chloride () 10 meq in 100 mls @ 100 mls/hr IV BOLUS Q1H [facility] Stop: 04/03/20 13:59 Last Admin: 04/03/20 11:56 Dose: 100 mls/hr Documented by: Levothyroxine Sodium (Synthroid) 100 mcg PO DAILY@0600 [facility] Last Admin: 04/03/20 06:05 Dose: Not Given Documented by: Loratadine (Claritin) 10 mg PO QHS PRN PRN PRN Reason: STUFFINESS Lorazepam (Ativan) 0.5 mg IV Q6H PRN PRN PRN Reason: ANXIETY Last Admin: 04/02/20 02:01 Dose: 0.5 mg Documented by: Magnesium Hydroxide (Milk Of Magnesia) 30 ml PO DAILY PRN PRN PRN Reason: Constipation Metoclopramide HCl (Reglan) 2.5 mg IV Q6H PRN PRN PRN Reason: NAUSEA Last Admin: 04/02/20 10:44 Dose: 2.5 mg Documented by: Morphine Sulfate () 2 mg IV Q2H PRN PRN PRN Reason: Pain Score 6-10/10 Last Admin: 04/01/20 09:47 Dose: 2 mg Documented by: Ondansetron HCl (Zofran) 4 mg IV Q6H PRN PRN PRN Reason: NAUSEA Oxycodone HCl (Oxyir) 5 mg PO Q6H PRN PRN PRN Reason: Pain Score 6-10/10 Polyethylene Glycol (Miralax) 17 gm PO DAILY PRN PRN PRN Reason: Constipation Sodium Chloride () 10 - 40 ml IV UD PRN PRN Reason: R Port Saline Flush Last Admin: 04/03/20 09:14 Dose: 10 ml Documented by: Sodium Chloride (0.9% Nacl (Sterile) Posiflush) 10 - 40 ml IV UD PRN PRN Reason: Port access or dressing change Medical Necessity - Tobacco Use Smoking Status: Former smoker Tobacco Use: Non-smoker Assessment/Plan All Active Problems Nausea & vomiting (Acute) Neutropenia (Acute) Hypokalemia (Acute) 1. Intractable nausea and vomiting secondary to chemotherapy-improved. paracentesis again today. continue tpn. if pt tolerates po stop tpn tomorrow. 2. Stage III ovarian cancer with mets-patient of Dr. Gutierres. 3. Pancytopenia-as above. off granix. received 1 unit PRBC 03/31. 4. Acute cystitis-urine culture with Citrobacter, resistant to Rocephin. Completed Cipro. Off Abx. 5. Type 2 diabetes [id number] only, not on home regimen. Hemoglobin A1c 5.7. 6. Hypothyroidism-Synthroid 7. Hyperlipidemia-statin 8. GERD-IV PPI. 9. Severe protein calorie malnutrition-as per #1. [employer] consulted for TPN. 10. Debility-SNF resident, continue PT OT. DVT prophylaxis: SCDs. hold lovenox with low platelets. Discharge planning: improved. return to snf when appropriate This patient was seen by Jerson Harvey PA-C under the supervision of Dr. Garcia <Marcos Garcia - Last Filed: 04/03/20 15:23> Reason for Visit: Follow-up for intractable nausea and vomiting, decreased calorie intake and severe protein calorie nutrition secondary to cancer and chemotherapy. Metastatic CA ovary status post chemotherapy Objective: Seen and examined. Patient states her nausea is better. She was able to eat half of breakfast. Feels more stronger. No fever or chills. Physical exam findings: General: Alert, Oriented x3, Cooperative, severe protein calorie nutrition. HEENT: Atraumatic, PERRLA, EOMI, Normocephalic Oral: No Gingival or Mucosal Lesions/ Ulcerations Neck: Supple, No JVD, Negative Carotid Bruits Lungs: Air entry diminished in bilateral lung bases, more on the right lung base. No crepitation/rhonchi Cardiovascular: Regular rate, Regular Rhythm, Normal S1, Normal S2, No murmurs Abdomen: Bowel Sounds Present, Soft, Non Tender, Non-Distended : No renal angle tenderness. No suprapubic tenderness. Extremities: No edema, Capillary Refill Less than 3 Seconds Skin: No rashes, No breakdown. Has Mediport in the right subclavicular region. Musculoskeletal: No Tenderness to Palpation of Joints or Extremities. Generalized moderate muscle atrophy of extremities and loss of subcutaneous fat. Neurological: Cranial nerves II-XII grossly intact, Deep Tendon Reflexes 2+/4 and Symmetrical, Neuro grossly intact Psych/Mental Status: Normal Affect, Appropriate Vitals/I&O's: Vital Signs Temp Pulse Resp BP Pulse Ox 98.3 F 90 15 92/54 L 99 04/03/20 14:50 04/03/20 15:00 04/03/20 14:50 04/03/20 14:50 04/03/20 14:50 Oxygen Delivery Method [2] Room Air Oxygen Delivery Method [1 ( Room Air Initial Baseline)] Oxygen Delivery Method Room Air Weight: 146 lb 9.718 oz Body Mass Index (BMI) 24.3 Finger Stick Blood Glucose 76 Intake and Output for Last 24 Hours 04/01/20 04/02/20 04/03/20 23:59 23:59 23:59 Intake Total 3655.66 / 3655.66 1930.34 / 1930.34 2319.25 / 2319.25 Output Total 1650 / 1650 775 / 775 2150 / 2150 Balance 2004.66 / 2004.66 1155.34 / 1155.34 169.25 / 169.25 Laboratory Results 04/02/20 10:14: Diff Path Review Reviewed 04/02/20 18:39: POC Glucose 169 H 04/03/20 00:53: POC Glucose 127 H 04/03/20 06:03: POC Glucose 140 H 04/03/20 06:40: WBC 2.0 L, RBC 2.51 L, Hgb 7.6 L, Hct 21.8 L, MCV 86.9, MCH 30.3, MCHC 34.9 D, RDW Std Deviation 43.0, RDW Coeff of Frank 15.0 H, Plt Count 28 L*, MPV 11.8, Immature Gran % (Auto) 4.100 H, Neut % (Auto) 27.9 L, Lymph % (Auto) 51.8 H, [place] % (Auto) 16.2 H, Eos % (Auto) 0.0, Baso % (Auto) 0.0, Absolute Neuts (auto) 0.6 L, Absolute Lymphs (auto) 1.02, Nucleated RBC % 1.5, Differential Comment SCANNED, Diff Path Review May natividad, Platelet Estimate MKD 04/03/20 06:40: Sodium 139, Potassium 3.2 L, Chloride 110 H, Carbon Dioxide 28.0, Anion Gap 1 L, BUN 11, Creatinine 0.38 L, Estim Creat Clear Calc 145.21, Est GFR (MDRD) Af Amer 221, Est GFR (MDRD) Non-Af 183, BUN/Creatinine Ratio 28.7 H, Glucose 136 H, Calcium 7.1 L, Total Bilirubin 0.90, AST 16, ALT 18, Alkaline Phosphatase 90, Total Protein 4.2 L, Albumin 2.0 L, Globulin 2.2, Albumin/Globulin Ratio 0.9 04/03/20 06:40: PT 14.4, INR 1.2, APTT 28.0 04/03/20 11:58: POC Glucose 160 H Current Medications Acetaminophen (Tylenol) 650 mg PO Q6H PRN PRN PRN Reason: Pain Score 1-10/10 Calamine/Phenol (Calmoseptine Ointment) 1 applic TOPICAL TID ANGELA; Protocol Last Admin: 04/03/20 14:57 Dose: 1 applicatio Documented by: Dexamethasone Sodium Phosphate (Decadron) 4 mg IV Q24 ANGELA Last Admin: 04/03/20 10:32 Dose: 4 mg Documented by: Dextrose (D50w Syringe) 0 gm IV X1 PRN; Protocol PRN Reason: Hypoglycemia Glucagon () 1 mg IM .X1 PRN PRN Reason: Hypoglycemia Heparin Sodium (Beef Lung) () 50 units IV UD PRN PRN Reason: R Port Heparin Flush Sodium Chloride () 250 mls @ 15 mls/hr IV .[id number] PRN PRN Reason: Saline Flush Last Infusion: 04/03/20 10:36 Dose: 0 mls/hr Documented by: Pantoprazole Sodium 40 mg/ (Sodium Chloride) 110 mls @ 330 mls/hr IV Q12 [facility] Last Infusion: 04/03/20 09:31 Dose: Infused Documented by: Sodium Chloride () 500 mls @ 15 mls/hr IV PRN PRN PRN Reason: Blood Transfusion Last Infusion: 03/26/20 17:25 Dose: Infused Documented by: Multivitamins 10 ml/ Chromium/Copper/Manganese/Seleni/Zn 1 ml/ Folic Acid 1 mg/ Amino Acids/Electrolytes/Dextrose 2,011 mls @ 84 mls/hr IV .[id number] [facility] Stop: 04/03/20 15:48 Last Infusion: 04/03/20 13:30 Dose: 84 mls/hr Documented by: Levothyroxine Sodium (Synthroid) 100 mcg PO DAILY@0600 [facility] Last Admin: 04/03/20 06:05 Dose: Not Given Documented by: Loratadine (Claritin) 10 mg PO QHS PRN PRN PRN Reason: STUFFINESS Lorazepam (Ativan) 0.5 mg IV Q6H PRN PRN PRN Reason: ANXIETY Last Admin: 04/02/20 02:01 Dose: 0.5 mg Documented by: Magnesium Hydroxide (Milk Of Magnesia) 30 ml PO DAILY PRN PRN PRN Reason: Constipation Metoclopramide HCl (Reglan) 2.5 mg IV Q6H PRN PRN PRN Reason: NAUSEA Last Admin: 04/02/20 10:44 Dose: 2.5 mg Documented by: Morphine Sulfate () 2 mg IV Q2H PRN PRN PRN Reason: Pain Score 6-10/10 Last Admin: 04/01/20 09:47 Dose: 2 mg Documented by: Ondansetron HCl (Zofran) 4 mg IV Q6H PRN PRN PRN Reason: NAUSEA Oxycodone HCl (Oxyir) 5 mg PO Q6H PRN PRN PRN Reason: Pain Score 6-10/10 Polyethylene Glycol (Miralax) 17 gm PO DAILY PRN PRN PRN Reason: Constipation Sodium Chloride () 10 - 40 ml IV UD PRN PRN Reason: R Port Saline Flush Last Admin: 04/03/20 09:14 Dose: 10 ml Documented by: Sodium Chloride (0.9% Nacl (Sterile) Posiflush) 10 - 40 ml IV UD PRN PRN Reason: Port access or dressing change STROKE Vital Signs/Narrative: Vital Signs Temp Pulse Pulse Pulse Resp Resp Resp 04/03/20 15:00 90 04/03/20 14:50 98.3 F 80 15 04/03/20 13:03 81 80 14 14 BP BP BP Pulse Ox 04/03/20 15:00 04/03/20 14:50 92/54 L 99 04/03/20 13:03 102/61 96/56 L Assessment/Plan This patient was seen in conjunction with Jerson DILLARD. I have independently interviewed and examined the patient and reviewed pertinent history, examination findings, laboratory and plan of management. I have reviewed the note and agree with the documented findings with the few additional points. In brief, patient is 59-year-old female with history of stage III ovarian cancer with metastasis under care of Dr. GUTIERRES is admitted for intractable nausea and vomiting secondary to chemotherapy. Patient has severe protein calorie malnutrition secondary to advanced cancer and chemotherapy and decreased calorie intake. Ceramist consulted. TPN is started via Mediport on 04/02/2020. Discussed with oncologist, Dr. GUTIERRES. On dexamethasone 4 mg IV daily. Antiemetics revised. EGD shows mild gastritis but negative for esophagitis, Gina, ulcer or gastric outlet obstruction. Right upper quadrant sonogram shows moderate amount of surrounding ascites. Patient had paracentesis on 03/31 about 2700 mL. Patient also has pancytopenia with neutropenia and normocytic normochromic anemia secondary to ovarian cancer and chemotherapy. Had 1 unit of PRBC and Granix. Patient has drop in hemoglobin 7.6 from 8.7 and slight drop in platelet count. No obvious external bleeding but seems possible secondary to hemodilution from TPN. Monitor CBC. Citrobacter acute cystitis: Urine culture shows Enterobacter more than 100,000 colonies: Resistant to ceftriaxone. Currently she denies lower related symptoms including dysuria. Completed antibiotic Cipro. Other multiple comorbidities include type 2 diabetes mellitus, hypothyroidism, dyslipidemia, GERD and debility I have discussed my assessment with Jerson DILLARD and orders have been reviewed. Total time of the visit including total time spent in counseling or coordination of care, (more than 50% of the total time, spent in obtaining medical information from nurses and other ancillary care providers), discussion with consultants, oncologist and surgeon, review of labs and imaging is 30 minutes. Inpatient E&M: 87573 Subs Hosp L3
--- NOTE | 2020-04-03 13:33 | PCM.NTREPORT ---
Nutrition Therapy Report - History Nutrition Services has been consulted to:: Manage parenteral nutrition Current diet / nutrition support order:: regular diet; TPN- 2L 4.25% AA/10% dextrose solution - Anthropometric Measurements Height:: 5 ft 5 in Weight:: 66.5 kg Body Mass Index (BMI):: 24.3 - Relevant Labs Relevant Labs:: WBC 2.0 K/mm3 (4.4-11.0) L 04/03/20 06:40 RBC 2.51 M/mm3 (4.2-5.4) L 04/03/20 06:40 Hgb 7.6 g/dL (12.0-15.0) L 04/03/20 06:40 Hct 21.8 % (37-47) L 04/03/20 06:40 RDW Std Deviation 46.0 fl (35.1-43.9) H 04/02/20 10:14 RDW Coeff of Frank 15.0 % (11.6-14.6) H 04/03/20 06:40 Plt Count 28 K/mm3 (150-450) L* 04/03/20 06:40 Immature Gran % (Auto) 4.100 % (0.0-0.9) H 04/03/20 06:40 Neut % (Auto) 27.9 % (47-70) L 04/03/20 06:40 Lymph % (Auto) 51.8 % (19-41) H 04/03/20 06:40 [place] % (Auto) 16.2 % (0-10) H 04/03/20 06:40 Absolute Neuts (auto) 0.6 X10^3/uL (2.0-7.7) L 04/03/20 06:40 Absolute Lymphs (auto) 0.68 X10^3/uL (0.83-4.51) L 04/02/20 05:22 Neutrophils % (Manual) 26 % (47-70) L 04/02/20 10:14 Band Neutrophils % 20 % (0-5) H 04/02/20 05:22 Lymphocytes % (Manual) 60 % (19-41) H 04/02/20 10:14 Metamyelocytes % 7 % (0-1) H 04/02/20 05:22 Myelocytes % 1 (0-0) H 04/02/20 10:14 Promyelocytes % 1 (0-0) H 04/02/20 10:14 Blast Cells % 1 % (0-0) H* 04/02/20 10:14 Potassium 3.2 mmol/L (3.5-5.1) L 04/03/20 06:40 Chloride 110 mmol/L (98-107) H 04/03/20 06:40 Carbon Dioxide 33.0 mmol/L (21.0-32.0) H 03/26/20 00:20 Anion Gap 1 (5-15) L 04/03/20 06:40 BUN 22 mg/dL (7-18) H 03/28/20 05:42 Creatinine 0.38 mg/dL (0.55-1.02) L 04/03/20 06:40 BUN/Creatinine Ratio 28.7 RATIO (10-20) H 04/03/20 06:40 Glucose 136 mg/dL (74-106) H 04/03/20 06:40 Calcium 7.1 mg/dL (8.5-10.1) L 04/03/20 06:40 Phosphorus 1.3 mg/dL (2.5-4.9) L 04/02/20 05:22 Magnesium 1.5 mg/dL (1.6-2.6) L 03/28/20 05:42 Total Bilirubin 1.30 mg/dL (0.20-1.00) H 04/02/20 10:14 Direct Bilirubin 0.74 mg/dL (0.00-0.30) H 03/26/20 00:20 Alkaline Phosphatase 130 U/L (45-117) H 03/26/20 00:20 Total Protein 4.2 g/dL (6.4-8.2) L 04/03/20 06:40 Albumin 2.0 g/dL (3.2-5.0) L 04/03/20 06:40 - Assessment Food / Nutrition-Related History:: Pt off floor for paracentesis. Wt noted to be up 12.4 kg since admission. Anticipate wt loss after fluid removal w/ paracentesis. Discussed w/ DEX Ruiz- pt was not served lunch but ate 50% of occitan toast and hot cereal this AM w/o emesis. TPN ordered yesterday- 2L 4.25% AA/10% dextrose solution to provide 1020 calories, 84 g protein. - Nutrition Diagnosis Problem / Etiology / Signs & Symptoms (PES):: Severe, chronic malnutrition r/t metastatic disease as evidenced by PO intake meeting <50% of pt's estimated nutritional needs for greater than 1 month, wt loss greater than 30% x past 3-4 mos, severe muscle/fat wasting evidenced upon physical exam Evidence of Malnutrition Exists:: Yes Severe PCM:: Chronic Illness - Nutrition Intervention Nutrition Prescription:: 5816-8828 calories/day, 65-75 g protein/day - Food / Nutrient Delivery Interventions Summary of nutrition intervention:: Per physician documentation, reported right upper quadrant sonogram shows moderate amount of surrounding ascites. Significant wt gain since admission, possibly from fluid status. Recommend hold TPN today and continue to monitor PO intake/tolerance at meals. Concerned that TPN will only further contribute to fluid overload/ascites. If inadequate PO intake continues, pt would be most appropriate for enteral nutrition support via PEG. Nutrition support ordered as / adjusted to:: hold TPN today, 04/03/20. GILMA Arthur aware of RDN recommendation and agreeable to holding TPN at this time. Continue regular diet, oral nutrition supplements w/ meals as pt tolerates. Nutrition education provided?: No - MNT Monitoring Further MNT monitoring and evaluation required?: Yes MNT Follow-up in:: 1-2 days - Will continue to monitor PO, wt, labs and follow-up adjust recommendations/interventions as appropriate.
--- NOTE | 2020-04-03 13:41 | CASEMGMT ---
Patient was approved to return to SNF on Wednesday, however this approval will today. [facility] faxed updated information to [facility] so Nydia can re-start the pre-cert request. Caryl LIU
[2020-04-03 14:02] LABS: Pathologist Review Reviewed
[2020-04-03] MEDS: Menthol/Lanolin/Calamine/Znox 113 GM Tube 1 APPLIC TOPICAL (14:57)
[2020-04-03 17:31] LABS: Bedside Glucose 166 mg/dL (70-110)
[2020-04-04] VITALS (10 sets, daily range): BP systolic 92–100; BP diastolic 53–62; PULSE 74–94; RESP 15–18; TEMP 36.6–36.7; O2SAT 95–100; BMI 23.6
--- NOTE | 2020-04-04 03:20 | NURSING ---
Handoff report given, relinquished care of pt at this time.
[2020-04-04 05:41] LABS: Bedside Glucose 84 mg/dL (70-110)
[2020-04-04 06:08] LABS: Hematocrit 21.6 % (37-47); Hemoglobin 7.3 g/dL (12.0-15.0); Mean Corp Hgb Conc 33.8 g/dL (32-36); Mean Corpuscular Hgb 29.7 pg (27.0-32.0); Mean Corpuscular Volume 87.8 fL (81-99); Mean Platelet Vol. 11.9 fl (6.2-12.0); POSITIVE COUNT YES; POSITIVE DIFFERENTIAL YES; POSITIVE MORPHOLOGY YES; RBC Distribution Width CV 15.7 % (11.6-14.6); RBC Distribution Width SD 44.2 fl (35.1-43.9); Red Blood Count 2.46 M/mm3 (4.2-5.4); White Blood Count 3.2 K/mm3 (4.4-11.0)
[2020-04-04 06:15] LABS: Differential Indicated MANUAL DIFF; Platelet Count 25 K/mm3 (150-450)
[2020-04-04] MEDS: 0.9% Saline Lock 10 ML Syringe IV ×3 (06:22→17:51)
[2020-04-04] MEDS: Morphine 2 MG/ML Syringe IV (06:22)
[2020-04-04 06:39] LABS: ALB/GLOB Ratio 0.9 RATIO (0.9-2.4); AST(SGOT) 17 U/L (15-37); Alanine Aminotransfer ALT/SGPT 18 U/L (13-56); Albumin, Serum 1.9 g/dL (3.2-5.0); Alkaline Phosphatase 93 U/L (45-117); Anion Gap 5 (5-15); BUN 11 mg/dL (7-18); BUN/Creat Ratio 34.3 RATIO (10-20); Calcium,Total 7.3 mg/dL (8.5-10.1); Chloride 107 mmol/L (98-107); Creatinine, Serum 0.32 mg/dL (0.55-1.02); EST Glomerular Filtration Rate 224 mL/min (>60); Est Glom Filt Rate - Afr Amer 271 mL/min (>60); Estimated Creatinine Clearance 172.43 ml/min; Globulin 2.2 g/dL (2.2-4.2); Glucose 83 mg/dL (74-106); Magnesium 1.7 mg/dL (1.6-2.6); Phosphorus 1.4 mg/dL (2.5-4.9); Potassium 3.4 mmol/L (3.5-5.1); Protein, Total 4.1 g/dL (6.4-8.2); Sodium Level 137 mmol/L (136-145)
[2020-04-04 06:47] LABS: Lymphocyte 52 % (19-41); Metamyelocyte 4 % (0-1); Monocyte 3 % (0-10); Neutrophil-Band 15 % (0-5); Neutrophil-Segmented 30 % (47-70); Total Cells Counted 100 (MANUAL DIFF)
[2020-04-04 06:48] LABS: Absolute Lymphocyte Count 1.66 X10^3/uL (0.83-4.51); Absolute Neutrophil Count 1.4 X10^3/uL (2.0-7.7); Anisocytosis 1+; Hypochromasia 1+; Lymphocyte # 1.66 X10^3/ul (4.0); Macrocytosis RARE; Microcytosis 1+; Neutrophil # 1.44 X10^3/uL (2.7-7.7); Platelet Estimate MKD DEC (ADEQ); Polychromasia RARE; Schistocytes RARE
[2020-04-04] MEDS: dexAMETHasone 4 MG/ML Vial IV (08:50)
--- NOTE | 2020-04-04 10:52 | NT.THERAPY_ITS ---
Nutrition Therapy Report - History Nutrition Services has been consulted to:: Manage nutrient details of diet order Current diet / nutrition support order:: Regular diet;240 ml ensure clear TID w/ meals; ensure pudding BID w/lunch & dinner. - Anthropometric Measurements Height:: 5 ft 5 in Weight:: 64.4 kg Body Mass Index (BMI):: 23.6 - Relevant Labs Relevant Labs:: WBC 3.2 K/mm3 (4.4-11.0) L 04/04/20 05:40 RBC 2.46 M/mm3 (4.2-5.4) L 04/04/20 05:40 Hgb 7.3 g/dL (12.0-15.0) L 04/04/20 05:40 Hct 21.6 % (37-47) L 04/04/20 05:40 RDW Std Deviation 44.2 fl (35.1-43.9) H 04/04/20 05:40 RDW Coeff of Frank 15.7 % (11.6-14.6) H 04/04/20 05:40 Plt Count 25 K/mm3 (150-450) L* 04/04/20 05:40 Immature Gran % (Auto) 4.100 % (0.0-0.9) H 04/03/20 06:40 Neut % (Auto) 27.9 % (47-70) L 04/03/20 06:40 Lymph % (Auto) 51.8 % (19-41) H 04/03/20 06:40 [place] % (Auto) 16.2 % (0-10) H 04/03/20 06:40 Absolute Neuts (auto) 1.4 X10^3/uL (2.0-7.7) L 04/04/20 05:40 Absolute Lymphs (auto) 0.68 X10^3/uL (0.83-4.51) L 04/02/20 05:22 Neutrophils % (Manual) 30 % (47-70) L 04/04/20 05:40 Band Neutrophils % 15 % (0-5) H 04/04/20 05:40 Lymphocytes % (Manual) 52 % (19-41) H 04/04/20 05:40 Metamyelocytes % 4 % (0-1) H 04/04/20 05:40 Myelocytes % 1 (0-0) H 04/02/20 10:14 Promyelocytes % 1 (0-0) H 04/02/20 10:14 Blast Cells % 1 % (0-0) H* 04/02/20 10:14 Potassium 3.4 mmol/L (3.5-5.1) L 04/04/20 05:40 Chloride 110 mmol/L (98-107) H 04/03/20 06:40 Carbon Dioxide 33.0 mmol/L (21.0-32.0) H 03/26/20 00:20 Anion Gap 1 (5-15) L 04/03/20 06:40 BUN 22 mg/dL (7-18) H 03/28/20 05:42 Creatinine 0.32 mg/dL (0.55-1.02) L 04/04/20 05:40 BUN/Creatinine Ratio 34.3 RATIO (10-20) H 04/04/20 05:40 Glucose 136 mg/dL (74-106) H 04/03/20 06:40 Calcium 7.3 mg/dL (8.5-10.1) L 04/04/20 05:40 Phosphorus 1.4 mg/dL (2.5-4.9) L 04/04/20 05:40 Magnesium 1.5 mg/dL (1.6-2.6) L 03/28/20 05:42 Total Bilirubin 1.30 mg/dL (0.20-1.00) H 04/02/20 10:14 Direct Bilirubin 0.74 mg/dL (0.00-0.30) H 03/26/20 00:20 Alkaline Phosphatase 130 U/L (45-117) H 03/26/20 00:20 Total Protein 4.1 g/dL (6.4-8.2) L 04/04/20 05:40 Albumin 1.9 g/dL (3.2-5.0) L 04/04/20 05:40 - Assessment Food / Nutrition-Related History:: Pt underwent paracentesis yesterday w/ 1700 ml removed. Wt decrease of 2.1 kg since previous review- total wt gain of 10.3 kg since admission. Anticipate wt loss as fluid status improves. Discussed w/ RN Jeanie- pt tolerating PO diet, consumed 25-50% of dinner yesterday, pt did not order b-fast this a.m. Tolerating meals w/o emesis. RDN spoke w/ pt who reports does no want to order b-fast this a.m. d/t feeling that she ate too much yesterday at dinner. Declines nausea/vomiting at this time. Notes increased flatulence. Per RN note no BM since 03/27- stool agent on nov. No TPN ordered yesterday d/t fluid overload/ascites. Concerned TPN will only contribute to fluid overload/ascites. Will monitor electrolytes- Potassium (3.4mg/dl) and Phosphorous (1.4 mg/dl) decreased this day; Magnesium WNL (1.7mg/dl). - Nutrition Diagnosis Problem / Etiology / Signs & Symptoms (PES):: Severe, chronic malnutrition r/t metastatic disease as evidenced by PO intake meeting <50% of pt's estimated nutritional needs for greater than 1 month, wt loss greater than 30% x past 3-4 mos, severe muscle/fat wasting evidenced upon physical exam. Evidence of Malnutrition Exists:: Yes Severe PCM:: Chronic Illness - Nutrition Intervention Nutrition Prescription:: [id number] calories/day, 65-75 g protein/day - Food / Nutrient Delivery Interventions Summary of nutrition intervention:: Significant wt gain since admission, possibly from fluid status w/ total wt gain of 10.3 kg. Recommend discontinuation of TPN at this time as pt tolerating oral diet and pt with fluid overload/ascites. Concerned that TPN will only further contribute to fluid overload/ascites. Will monitor PO intake/tolerance at meals. Recommend nutrition support via PEG if inadequate oral PO intake continues. Pt consuming on average 25-50% of meals provided at this time; noted pt skipped b-fast this a.m.- it is doubtful that pt will be able to orally meet increased pro/adelia needs related to severe malnutrition. Nutrition support ordered as / adjusted to:: TIFF spoke w/ Dr. Garcia regarding discontinuation of TPN and recommendation of PEG placement- Dr. Garcia agreeable w/ PEG tube placement plans to consult surgery. Dr. Garcia to order Marinol to increase pt appetite. No TPN. Continue Regular diet w/ oral nutrition supplements at meals as pt tolerates. Nutrition education provided?: No - MNT Monitoring Further MNT monitoring and evaluation required?: Yes MNT Follow-up in:: 1-2 days - Will continue to monitor PO, wt, labs and follow- up adjust recommendations/interventions as appropriate.
--- NOTE | 2020-04-04 12:33 | PN_ITS ---
Progress Note I was contacted for possible PEG tube for this patient. I believe this is a poor option in her case. The patient was having a lot of nausea and vomiting. She says that the nausea vomiting has subsided but she is still not tolerated much p.o. During her EGD I was unable to fully insufflate her stomach due to the ascites. I believe the large amount of ascites and her thrombocytopenia these would be contraindications for PEG tube placement. I believe that if she was receiving tube feeds and she was still having nausea she would still vomit up the tube feeds. The patient is not having any dysphasia and has no esophageal dysmotility. If there are any further questions or if this needs to be discussed further please do not hesitate to contact me. I did talk to Dr. Garcia about this as well. Dimitri Rey MD Pager: [facility] [address] [place] [address], [address] [place] [address] Office: [facility] Vital Signs/Narrative: Vital Signs Temp Pulse Resp BP Pulse Ox 04/04/20 12:08 98 F 94 15 100/62 95 04/04/20 11:31 80
--- NOTE | 2020-04-04 13:34 | PN_ITS ---
<Sara Bermeo - Last Filed: 04/04/20 13:53> Patient Problems: Active and Suspected Problems Nausea & vomiting (Acute) Hypokalemia (Acute) Subjective: Patient seen and examined. Denies nausea, vomiting. Reports she did not order breakfast due to no appetite. States she does not feel good however denies specific complaints. - Physical Exam Vitals/I&O's: Vital Signs Temp Pulse Resp BP Pulse Ox 98 F 94 15 100/62 95 04/04/20 12:08 04/04/20 12:08 04/04/20 12:08 04/04/20 12:08 04/04/20 12:08 Oxygen Delivery Method [2] Room Air Oxygen Delivery Method [1 ( Room Air Initial Baseline)] Oxygen Delivery Method Room Air Weight: 141 lb 15.643 oz Body Mass Index (BMI) 23.6 Finger Stick Blood Glucose 76 Intake and Output for Last 24 Hours 04/02/20 04/03/20 04/04/20 23:59 23:59 23:59 Intake Total 1930.34 / 1930.34 2989.25 / 2989.25 690 / 690 Output Total 775 / 775 2650 / 2650 400 / 400 Balance 1155.34 / 1155.34 339.25 / 339.25 290 / 290 General: Alert, Oriented x3, Cooperative, - - Appears ill, fatigued HEENT: Atraumatic, PERRLA, EOMI, Normocephalic Oral: Dry Mucosa Neck: Supple, No JVD, Negative Carotid Bruits Lungs: Clear to auscultation, Diminished Cardiovascular: Regular rate, No murmurs Abdomen: Bowel Sounds Present, Soft, Non Tender, Non-Distended Extremities: No clubbing, No cyanosis, No edema, Capillary Refill Less than 3 Seconds Skin: No rashes, No breakdown Musculoskeletal: No Tenderness to Palpation of Joints or Extremities, Cachexia, Muscle Wasting Neurological: Cranial nerves II-XII grossly intact, Neuro grossly intact Psych/Mental Status: Flat Affect Laboratory Results 04/02/20 10:14: Diff Path Review Reviewed 04/03/20 17:26: POC Glucose 166 H 04/04/20 05:35: POC Glucose 84 04/04/20 05:40: WBC 3.2 L, RBC 2.46 L, Hgb 7.3 L, Hct 21.6 L, MCV 87.8, MCH 29.7, MCHC 33.8, RDW Std Deviation 44.2 H, RDW Coeff of Frank 15.7 H, Plt Count 25 L*, MPV 11.9, Neut % (Auto) Not Reportable, Absolute Neuts (auto) 1.4 L, Absolute Lymphs (auto) 1.66, Total Counted 100, Neutrophils % (Manual) 30 L, Band Neutrophils % 15 H, Lymphocytes % (Manual) 52 H, Monocytes % (Manual) 3, M etamyelocytes % 4 H, Diff Path Review January, Platelet Estimate MKD DEC, Polychromasia RARE, Hypochromasia 1+, Anisocytosis 1+, Microcytosis 1+, Macrocytosis RARE, Schistocytes RARE 04/04/20 05:40: Sodium 137, Potassium 3.4 L, Chloride 107, Carbon Dioxide 25.0, Anion Gap 5, BUN 11, Creatinine 0.32 L, Estim Creat Clear Calc 172.43, Est GFR (MDRD) Af Amer 271, Est GFR (MDRD) Non-Af 224, BUN/Creatinine Ratio 34.3 H, Glucose 83, Calcium 7.3 L, Phosphorus 1.4 L, Magnesium 1.7, Total Bilirubin 1.00, AST 17, ALT 18, Alkaline Phosphatase 93, Total Protein 4.1 L, Albumin 1.9 L, Globulin 2.2, Albumin/Globulin Ratio 0.9 Current Medications Acetaminophen (Tylenol) 650 mg PO Q6H PRN PRN PRN Reason: Pain Score 1-10/10 Calamine/Phenol (Calmoseptine Ointment) 1 applic TOPICAL TID ANGELA; Protocol Last Admin: 04/04/20 05:36 Dose: Not Given Documented by: Dexamethasone Sodium Phosphate (Decadron) 4 mg IV Q24 ANGELA Last Admin: 04/04/20 08:50 Dose: 4 mg Documented by: Dextrose (D50w Syringe) 0 gm IV X1 PRN; Protocol PRN Reason: Hypoglycemia Glucagon () 1 mg IM .X1 PRN PRN Reason: Hypoglycemia Heparin Sodium (Beef Lung) () 50 units IV UD PRN PRN Reason: R Port Heparin Flush Sodium Chloride () 250 mls @ 15 mls/hr IV .[id number] PRN PRN Reason: Saline Flush Last Infusion: 04/03/20 10:36 Dose: 0 mls/hr Documented by: Pantoprazole Sodium 40 mg/ (Sodium Chloride) 110 mls @ 330 mls/hr IV Q12 [facility] Last Infusion: 04/04/20 09:24 Dose: Infused Documented by: Sodium Chloride () 500 mls @ 15 mls/hr IV PRN PRN PRN Reason: Blood Transfusion Last Infusion: 03/26/20 17:25 Dose: Infused Documented by: Levothyroxine Sodium (Synthroid) 100 mcg PO DAILY@0600 [facility] Last Admin: 04/04/20 05:36 Dose: Not Given Documented by: Loratadine (Claritin) 10 mg PO QHS PRN PRN PRN Reason: STUFFINESS Lorazepam (Ativan) 0.5 mg IV Q6H PRN PRN PRN Reason: ANXIETY Last Admin: 04/02/20 02:01 Dose: 0.5 mg Documented by: Magnesium Hydroxide (Milk Of Magnesia) 30 ml PO DAILY PRN PRN PRN Reason: Constipation Metoclopramide HCl (Reglan) 2.5 mg IV Q6H PRN PRN PRN Reason: NAUSEA Last Admin: 04/02/20 10:44 Dose: 2.5 mg Documented by: Morphine Sulfate () 2 mg IV Q2H PRN PRN PRN Reason: Pain Score 6-10/10 Last Admin: 04/04/20 06:22 Dose: 2 mg Documented by: Ondansetron HCl (Zofran) 4 mg IV Q6H PRN PRN PRN Reason: NAUSEA Oxycodone HCl (Oxyir) 5 mg PO Q6H PRN PRN PRN Reason: Pain Score 6-10/10 Polyethylene Glycol (Miralax) 17 gm PO DAILY PRN PRN PRN Reason: Constipation Sodium Chloride () 10 - 40 ml IV UD PRN PRN Reason: R Port Saline Flush Last Admin: 04/04/20 08:51 Dose: 30 ml Documented by: Sodium Chloride (0.9% Nacl (Sterile) Posiflush) 10 - 40 ml IV UD PRN PRN Reason: Port access or dressing change Medical Necessity - Tobacco Use Smoking Status: Former smoker Tobacco Use: Non-smoker Assessment/Plan All Active Problems Nausea & vomiting (Acute) Neutropenia (Acute) Hypokalemia (Acute) 1. Intractable nausea/vomiting secondary to chemotherapy regimen-improved. PRN antiemetics. Supportive management. Placed on TPN which has since been discontinued 04/03/2020. Nutrition recommending PEG if inadequate oral intake continues. General surgery on consult for PEG tube evaluation. Due to large amount of ascites and thrombocytopenia, feel PEG tube is contraindicated at this time. 2. Metastatic stage III ovarian cancer-undergoes weekly paracentesis for ascites. Follows with Dr. Gutierres. Palliative care discussed with patient in the past however she was not amenable at that time. Recommend continued discussion with oncology. Underwent paracentesis 04/03/2020. 3. Pancytopenia- S/P one unit PRBC for hgb 7.1. Stable. Plan for Granix for ANC less than 1000. Trend CBC. 4. Hypokalemia-secondary to #1. Replace per protocol. Resolved. Trend BMP. 5. Acute Citrobacter cystitis-completed course of Cipro. 6. Type 2 diabetes mellitus- not on regimen. Diet controlled. Hemoglobin A1c 5.7% in February. 7. Hypothyroidism-continue Synthroid regimen. 8. Hyperlipidemia- continue statin. 9. GERD-continue PPI. 10. Severe protein calorie malnutrition-as evidenced by weight loss, poor oral intake, cachectic appearance and muscle loss. Dietitian consult. 11. Debility-currently resides in SNF. PT/OT. DVT prophylaxis- Lovenox sc Discharge planning: Return [facility] when medically stable. This patient was seen by KING Murdock under the supervision of Dr. Garcia. <Marcos Garcia - Last Filed: 04/04/20 14:10> Objective: Patient nausea and vomiting is controlled. Patient had good oral intake last night and she felt full and in the morning she does not have appetite feels bloated. Did not eat her breakfast. Salesperson Wigs has concern for decreased p.o. intake and calorie therefore PEG tube option was considered but found to be not a good candidate for PEG tube insertion because of ascites, and history of nausea and vomiting and risk of further aspiration/regurgitation from tube feed. Moreover, she does not have strong indication for tube feed as she does not have esophageal dysmotility or oropharyngeal dysphagia Physical exam findings: General: Alert, Oriented x3, Cooperative, severe protein calorie nutrition. HEENT: Atraumatic, PERRLA, EOMI, Normocephalic Oral: No Gingival or Mucosal Lesions/ Ulcerations Neck: Supple, No JVD, Negative Carotid Bruits Lungs: Air entry diminished in bilateral lung bases, more on the right lung base. No crepitation/rhonchi Cardiovascular: Regular rate, Regular Rhythm, Normal S1, Normal S2, No murmurs Abdomen: Bowel Sounds Present, Soft, Non Tender, Non-Distended : No renal angle tenderness. No suprapubic tenderness. Extremities: No edema, Capillary Refill Less than 3 Seconds Skin: No rashes, No breakdown. Has Mediport in the right subclavicular region. Musculoskeletal: No Tenderness to Palpation of Joints or Extremities. Generalized moderate muscle atrophy of extremities and loss of subcutaneous fat. Neurological: Cranial nerves II-XII grossly intact, Deep Tendon Reflexes 2+/4 and Symmetrical, Neuro grossly intact Psych/Mental Status: Looks depressed but better than yesterday. - Physical Exam Vitals/I&O's: Vital Signs Temp Pulse Resp BP Pulse Ox 98 F 94 15 100/62 95 04/04/20 12:08 04/04/20 12:08 04/04/20 12:08 04/04/20 12:08 04/04/20 12:08 Oxygen Delivery Method [2] Room Air Oxygen Delivery Method [1 ( Room Air Initial Baseline)] Oxygen Delivery Method Room Air Weight: 141 lb 15.643 oz Body Mass Index (BMI) 23.6 Finger Stick Blood Glucose 76 Intake and Output for Last 24 Hours 04/02/20 04/03/20 04/04/20 23:59 23:59 23:59 Intake Total 1930.34 / 1930.34 2989.25 / 2989.25 690 / 690 Output Total 775 / 775 2650 / 2650 400 / 400 Balance 1155.34 / 1155.34 339.25 / 339.25 290 / 290 Laboratory Results 04/02/20 10:14: Diff Path Review Reviewed 04/03/20 17:26: POC Glucose 166 H 04/04/20 05:35: POC Glucose 84 04/04/20 05:40: WBC 3.2 L, RBC 2.46 L, Hgb 7.3 L, Hct 21.6 L, MCV 87.8, MCH 29.7, MCHC 33.8, RDW Std Deviation 44.2 H, RDW Coeff of Frank 15.7 H, Plt Count 25 L*, MPV 11.9, Neut % (Auto) Not Reportable, Absolute Neuts (auto) 1.4 L, Absolute Lymphs (auto) 1.66, Total Counted 100, Neutrophils % (Manual) 30 L, Band Neutrophils % 15 H, Lymphocytes % (Manual) 52 H, Monocytes % (Manual) 3, Metamyelocytes % 4 H, Diff Path Review May , Platelet Estimate MKD DEC, Polychromasia RARE, Hypochromasia 1+, Anisocytosis 1+, Microcytosis 1+, Macrocytosis RARE, Schistocytes RARE 04/04/20 05:40: Sodium 137, Potassium 3.4 L, Chloride 107, Carbon Dioxide 25.0, Anion Gap 5, BUN 11, Creatinine 0.32 L, Estim Creat Clear Calc 172.43, Est GFR (MDRD) Af Amer 271, Est GFR (MDRD) Non-Af 224, BUN/Creatinine Ratio 34.3 H, Glucose 83, Calcium 7.3 L, Phosphorus 1.4 L, Magnesium 1.7, Total Bilirubin 1.00, AST 17, ALT 18, Alkaline Phosphatase 93, Total Protein 4.1 L, Albumin 1.9 L, Globulin 2.2, Albumin/Globulin Ratio 0.9 Current Medications Acetaminophen (Tylenol) 650 mg PO Q6H PRN PRN PRN Reason: Pain Score 1-10/10 Calamine/Phenol (Calmoseptine Ointment) 1 applic TOPICAL TID NAGELA; Protocol Last Admin: 04/04/20 05:36 Dose: Not Given Documented by: Dexamethasone Sodium Phosphate (Decadron) 4 mg IV Q24 [facility] Last Admin: 04/04/20 08:50 Dose: 4 mg Documented by: Dextrose (D50w Syringe) 0 gm IV X1 PRN; Protocol PRN Reason: Hypoglycemia Dronabinol (Marinol) 2.5 mg PO BIDAC [facility] Glucagon () 1 mg IM .X1 PRN PRN Reason: Hypoglycemia Heparin Sodium (Beef Lung) () 50 units IV UD PRN PRN Reason: R Port Heparin Flush Sodium Chloride () 250 mls @ 15 mls/hr IV .[id number] PRN PRN Reason: Saline Flush Last Infusion: 04/03/20 10:36 Dose: 0 mls/hr Documented by: Pantoprazole Sodium 40 mg/ (Sodium Chloride) 110 mls @ 330 mls/hr IV Q12 ANGELA Last Infusion: 04/04/20 09:24 Dose: Infused Documented by: Sodium Chloride () 500 mls @ 15 mls/hr IV PRN PRN PRN Reason: Blood Transfusion Last Infusion: 03/26/20 17:25 Dose: Infused Documented by: Levothyroxine Sodium (Synthroid) 100 mcg PO DAILY@0600 ANGELA Last Admin: 04/04/20 05:36 Dose: Not Given Documented by: Loratadine (Claritin) 10 mg PO QHS PRN PRN PRN Reason: STUFFINESS Lorazepam (Ativan) 0.5 mg IV Q6H PRN PRN PRN Reason: ANXIETY Last Admin: 04/02/20 02:01 Dose: 0.5 mg Documented by: Magnesium Hydroxide (Milk Of Magnesia) 30 ml PO DAILY PRN PRN PRN Reason: Constipation Metoclopramide HCl (Reglan) 2.5 mg IV Q6H PRN PRN PRN Reason: NAUSEA Last Admin: 04/02/20 10:44 Dose: 2.5 mg Documented by: Morphine Sulfate () 2 mg IV Q2H PRN PRN PRN Reason: Pain Score 6-10/10 Last Admin: 04/04/20 06:22 Dose: 2 mg Documented by: Ondansetron HCl (Zofran) 4 mg IV Q6H PRN PRN PRN Reason: NAUSEA Oxycodone HCl (Oxyir) 5 mg PO Q6H PRN PRN PRN Reason: Pain Score 6-10/10 Polyethylene Glycol (Miralax) 17 gm PO DAILY PRN PRN PRN Reason: Constipation Potassium Chloride (Potassium Chl Soln) 40 meq PO X1 ONE Stop: 04/04/20 13:57 Sodium Chloride () 10 - 40 ml IV UD PRN PRN Reason: R Port Saline Flush Last Admin: 04/04/20 08:51 Dose: 30 ml Documented by: Sodium Chloride (0.9% Nacl (Sterile) Posiflush) 10 - 40 ml IV UD PRN PRN Reason: Port access or dressing change Assessment/Plan This patient was seen in conjunction with PICKING MACHINE OPERATOR HELPERSara. I have independently interviewed and examined the patient and reviewed pertinent history, examination findings, laboratory and plan of management. I have reviewed the note and agree with the documented findings with the few additional points. In brief, patient is 59-year-old female with history of stage III ovarian cancer with metastasis under care of Dr. GUTIERRES is admitted for intractable nausea and vomiting secondary to chemotherapy. Patient has severe protein calorie malnutrition secondary to advanced cancer and chemotherapy and decreased calorie intake. Salesperson Wigs consulted. TPN was started via Mediport on 04/02/2020 and discontinued on 04/03. Discussed with oncologist, Dr. GUTIERRES. On dexamethasone 4 mg IV daily. Antiemetics revised. Patient not a good candidate for PEG tube. Discussed with Dr. Rey. She does not have oropharyngeal dysphagia or esophageal dysmotility. Moreover, in view of ascites, severe anemia and thrombocytopenia, she is not a good candidate for PEG tube insertion. There is risk of to frequent regurgitation and aspiration in view of persistent ascites. EGD shows mild gastritis but negative for esophagitis, Gina, ulcer or gastric outlet obstruction. Right upper quadrant sonogram shows moderate amount of surrounding ascites. Patient had paracentesis on 03/31 about 2700 mL. Patient had repeat paracentesis of about 1700 mL on 04/03 Patient also has pancytopenia with neutropenia and normocytic normochromic anemia secondary to ovarian cancer and chemotherapy. Had 1 unit of PRBC and Granix. Patient has drop in hemoglobin 7.6 from 8.7 and slight drop in platelet count. No obvious external bleeding but seems possible secondary to hemodilution from TPN. Patient has further decline hemoglobin and platelet count. Hemoglobin 7.3 g% platelet count 25,000 Citrobacter acute cystitis: Urine culture shows Enterobacter more than 100,000 colonies: Resistant to ceftriaxone. Currently she denies lower related symptoms including dysuria. Completed antibiotic Cipro. Other multiple comorbidities include type 2 diabetes mellitus, hypothyroidism, dyslipidemia, GERD and debility I have discussed my assessment with PICKING MACHINE OPERATOR HELPERSara and orders have been reviewed. Inpatient E&M: [id number] [facility] L3
[2020-04-04 14:08] LABS: Pathologist Review Reviewed
[2020-04-04 14:09] LABS: Pathologist Review Reviewed
[2020-04-04] MEDS: Dronabinol 2.5 MG Capsule PO (15:46)
[2020-04-04] MEDS: Menthol/Lanolin/Calamine/Znox 113 GM Tube 1 APPLIC TOPICAL ×2 (15:46→23:32)
--- NOTE | 2020-04-04 16:09 | CASEMGMT ---
CHAPITO spoke with patient and asked her if she was able to take care of her situation with her debit card. She said she canceled her card and ordered a new one. CHAPITO told her we are just waiting on her insurance to approve her to return to [place]. Plan: [place] pending insurance approval. Caryl LIU
[2020-04-04] MEDS: Potassium Chloride 10mEq/100mL 10 MEQ/100 ML IV.SOLN. 100 MEQ IV BOLUS ×4 (16:44→20:37)
[2020-04-04 16:45] LABS: Bedside Glucose 99 mg/dL (70-110)
[2020-04-04] MEDS: Ondansetron 4 MG/2 ML Vial IV (17:51)
[2020-04-05 02:59] VITALS: PULSE 78
[2020-04-05 04:40] VITALS: BP 103/59; PULSE 70; RESP 16; TEMP 36.7; O2SAT 99
[2020-04-05 05:52] LABS: Hematocrit 22.3 % (37-47); Hemoglobin 7.7 g/dL (12.0-15.0); Mean Corp Hgb Conc 34.5 g/dL (32-36); Mean Corpuscular Hgb 30.1 pg (27.0-32.0); Mean Corpuscular Volume 87.1 fL (81-99); Mean Platelet Vol. 11.5 fl (6.2-12.0); POSITIVE COUNT YES; RBC Distribution Width CV 15.8 % (11.6-14.6); RBC Distribution Width SD 43.6 fl (35.1-43.9); Red Blood Count 2.56 M/mm3 (4.2-5.4); White Blood Count 4.3 K/mm3 (4.4-11.0)
[2020-04-05 05:54] LABS: Platelet Count 30 K/mm3 (150-450); Scan Indicated on CBC? Y/N YES- FLAGS NOTED
[2020-04-05] MEDS: Menthol/Lanolin/Calamine/Znox 113 GM Tube 1 APPLIC TOPICAL ×2 (05:56→20:30)
[2020-04-05] MEDS: 0.9% Saline Lock 10 ML Syringe IV ×6 (05:56→22:39)
[2020-04-05] MEDS: Morphine 2 MG/ML Syringe IV ×2 (05:56→22:29)
[2020-04-05 06:10] LABS: Differential Comment SCANNED
[2020-04-05 06:11] LABS: Anion Gap 4 (5-15); BUN 9 mg/dL (7-18); BUN/Creat Ratio 28.1 RATIO (10-20); Calcium,Total 7.6 mg/dL (8.5-10.1); Chloride 106 mmol/L (98-107); Creatinine, Serum 0.32 mg/dL (0.55-1.02); EST Glomerular Filtration Rate 225 mL/min (>60); Est Glom Filt Rate - Afr Amer 272 mL/min (>60); Estimated Creatinine Clearance 172.43 ml/min; Glucose 73 mg/dL (74-106); Potassium 3.9 mmol/L (3.5-5.1); Sodium Level 135 mmol/L (136-145)
[2020-04-05] MEDS: Ondansetron 4 MG/2 ML Vial IV ×2 (06:32→22:18)
[2020-04-05 06:35] LABS: Bedside Glucose 73 mg/dL (70-110)
[2020-04-05 07:07] VITALS: PULSE 82
[2020-04-05] MEDS: dexAMETHasone 4 MG/ML Vial IV (10:09)
[2020-04-05 10:11] VITALS: BP 95/58; PULSE 81; RESP 15; TEMP 36.6; O2SAT 99
[2020-04-05 12:23] LABS: Pathologist Review Reviewed
--- NOTE | 2020-04-05 13:44 | PCM.PROGNOTE ---
<Sara Bermeo - Last Filed: 04/05/20 13:47> Patient Problems: Active and Suspected Problems Nausea & vomiting (Acute) Hypokalemia (Acute) Subjective: Patient seen and examined. States she did not eat at all yesterday due to nausea and vomiting. Reports she feels improved today however nervous to eat. Discussed eating frequent meals with small portions. Patient agreeable to attempt this today. - Physical Exam Vitals/I&O's: Vital Signs Temp Pulse Resp BP Pulse Ox 97.9 F 81 15 95/58 L 99 04/05/20 10:11 04/05/20 10:11 04/05/20 10:11 04/05/20 10:11 04/05/20 10:11 Oxygen Delivery Method [2] Room Air Oxygen Delivery Method [1 ( Room Air Initial Baseline)] Oxygen Delivery Method Room Air Weight: 140 lb 10.479 oz Body Mass Index (BMI) 23.6 Finger Stick Blood Glucose 76 Intake and Output for Last 24 Hours 04/03/20 04/04/20 04/05/20 23:59 23:59 23:59 Intake Total 2989.25 / 2989.25 1600 / 1600 810 / 810 Output Total 2650 / 2650 950 / 950 1000 / 1000 Balance 339.25 / 339.25 650 / 650 -190 / -190 General: Alert, Oriented x3, Cooperative, - - Appears fatigued. HEENT: Atraumatic, PERRLA, EOMI, Normocephalic Oral: Dry Mucosa Neck: Supple, No JVD, Negative Carotid Bruits Lungs: Clear to auscultation, Diminished Cardiovascular: Regular rate, No murmurs Abdomen: Bowel Sounds Present, Soft, Non Tender, Non-Distended Extremities: No clubbing, No cyanosis, No edema, Capillary Refill Less than 3 Seconds Skin: No rashes, No breakdown Musculoskeletal: No Tenderness to Palpation of Joints or Extremities, Cachexia, Muscle Wasting Neurological: Cranial nerves II-XII grossly intact, Neuro grossly intact Psych/Mental Status: Normal Affect Laboratory Results 04/03/20 06:40: Diff Path Review Reviewed 04/04/20 05:40: Diff Path Review Reviewed 04/04/20 16:39: POC Glucose 99 04/05/20 05:28: WBC 4.3 L, RBC 2.56 L, Hgb 7.7 L, Hct 22.3 L, MCV 87.1, MCH 30.1, MCHC 34.5, RDW Std Deviation 43.6, RDW Coeff of Frank 15.8 H, Plt Count 30 L*, MPV 11.5, Differential Comment SCANNED, Diff Path Review Reviewed 04/05/20 05:28: Sodium 135 L, Potassium 3.9, Chloride 106, Carbon Dioxide 25.0, Anion Gap 4 L, BUN 9, Creatinine 0.32 L, Estim Creat Clear Calc 172.43, Est GFR (MDRD) Af Amer 272, Est GFR (MDRD) Non-Af 225, BUN/Creatinine Ratio 28.1 H, Glucose 73 L, Calcium 7.6 L 04/05/20 05:53: POC Glucose 73 Current Medications Acetaminophen (Tylenol) 650 mg PO Q6H PRN PRN PRN Reason: Pain Score 1-10/10 Calamine/Phenol (Calmoseptine Ointment) 1 applic TOPICAL TID [facility]; Protocol Last Admin: 04/05/20 05:56 Dose: 1 applicatio Documented by: Dexamethasone Sodium Phosphate (Decadron) 4 mg IV Q24 [facility] Last Admin: 04/05/20 10:09 Dose: 4 mg Documented by: Dextrose (D50w Syringe) 0 gm IV X1 PRN; Protocol PRN Reason: Hypoglycemia Dronabinol (Marinol) 2.5 mg PO BIDAC [facility] Last Admin: 04/05/20 05:57 Dose: Not Given Documented by: Glucagon () 1 mg IM .X1 PRN PRN Reason: Hypoglycemia Heparin Sodium (Beef Lung) () 50 units IV UD PRN PRN Reason: R Port Heparin Flush Sodium Chloride () 250 mls @ 15 mls/hr IV .[id number] PRN PRN Reason: Saline Flush Last Infusion: 04/03/20 10:36 Dose: 0 mls/hr Documented by: Pantoprazole Sodium 40 mg/ (Sodium Chloride) 110 mls @ 330 mls/hr IV Q12 [facility] Last Infusion: 04/05/20 11:11 Dose: Infused Documented by: Sodium Chloride () 500 mls @ 15 mls/hr IV PRN PRN PRN Reason: Blood Transfusion Last Infusion: 03/26/20 17:25 Dose: Infused Documented by: Levothyroxine Sodium (Synthroid) 100 mcg PO DAILY@0600 [facility]GEL[facility] Last Admin: 04/05/20 05:57 Dose: Not Given Documented by: Loratadine (Claritin) 10 mg PO QHS PRN PRN PRN Reason: STUFFINESS Lorazepam (Ativan) 0.5 mg IV Q6H PRN PRN PRN Reason: ANXIETY Last Admin: 04/02/20 02:01 Dose: 0.5 mg Documented by: Magnesium Hydroxide (Milk Of Magnesia) 30 ml PO DAILY PRN PRN PRN Reason: Constipation Metoclopramide HCl (Reglan) 2.5 mg IV Q6H PRN PRN PRN Reason: NAUSEA Last Admin: 04/02/20 10:44 Dose: 2.5 mg Documented by: Morphine Sulfate () 2 mg IV Q2H PRN PRN PRN Reason: Pain Score 6-10/10 Last Admin: 04/05/20 05:56 Dose: 2 mg Documented by: Ondansetron HCl (Zofran) 4 mg IV Q6H PRN PRN PRN Reason: NAUSEA Last Admin: 04/05/20 06:32 Dose: 4 mg Documented by: Oxycodone HCl (Oxyir) 5 mg PO Q6H PRN PRN PRN Reason: Pain Score 6-10/10 Polyethylene Glycol (Miralax) 17 gm PO DAILY PRN PRN PRN Reason: Constipation Sodium Chloride () 10 - 40 ml IV UD PRN PRN Reason: R Port Saline Flush Last Admin: 04/05/20 11:10 Dose: 10 ml Documented by: Sodium Chloride (0.9% Nacl (Sterile) Posiflush) 10 - 40 ml IV UD PRN PRN Reason: Port access or dressing change Medical Necessity - Tobacco Use Smoking Status: Former smoker Tobacco Use: Non-smoker Assessment/Plan All Active Problems Nausea & vomiting (Acute) Neutropenia (Acute) Hypokalemia (Acute) 1. Intractable nausea/vomiting secondary to chemotherapy regimen-improved. PRN antiemetics. Supportive management. Placed on TPN which has since been discontinued 04/03/2020. Nutrition recommending PEG if inadequate oral intake continues. General surgery on consult for PEG tube evaluation. Due to large amount of ascites and thrombocytopenia, feel PEG tube is contraindicated at this time. 2. Metastatic stage III ovarian cancer-undergoes weekly paracentesis for ascites. Follows with Dr. Gutierres. Palliative care discussed with patient in the past however she was not amenable at that time. Recommend continued discussion with oncology. Underwent paracentesis 04/03/2020. 3. Pancytopenia- S/P one unit PRBC for hgb 7.1. Stable. Plan for Granix for ANC less than 1000. Trend CBC. 4. Hypokalemia-secondary to #1. Replace per protocol. Resolved. Trend BMP. 5. Acute Citrobacter cystitis-completed course of Cipro. 6. Type 2 diabetes mellitus- not on regimen. Diet controlled. Hemoglobin A1c 5.7% in February. 7. Hypothyroidism-continue Synthroid regimen. 8. Hyperlipidemia- continue statin. 9. GERD-continue PPI. 10. Severe protein calorie malnutrition-as evidenced by weight loss, poor oral intake, cachectic appearance and muscle loss. Dietitian consult. 11. Debility-currently resides in SNF. PT/OT. DVT prophylaxis- Lovenox sc Discharge planning: Return to SN[facility] when able to tolerate oral intake. This patient was seen by KING Murdock under the supervision of Dr. Garcia. <Marcos Garcia - Last Filed: 04/05/20 15:15> Subjective: Patient had some breakfast today. She did not eat yesterday because she was full although her vomiting is controlled. She was feeling full. Blood counts are low although little improved than yesterday. No fever Physical exam findings: General: Alert, Oriented x3, Cooperative, severe protein calorie nutrition. HEENT: Atraumatic, PERRLA, EOMI, Normocephalic Oral: No Gingival or Mucosal Lesions/ Ulcerations Neck: Supple, No JVD, Negative Carotid Bruits Lungs: Air entry diminished in bilateral lung bases, more on the right lung base. No crepitation/rhonchi Cardiovascular: Regular rate, Regular Rhythm, Normal S1, Normal S2, No murmurs Abdomen: Bowel Sounds Present, Soft, Non Tender, Non-Distended : No renal angle tenderness. No suprapubic tenderness. Extremities: No edema, Capillary Refill Less than 3 Seconds Skin: No rashes, No breakdown. Has Mediport in the right subclavicular region. Musculoskeletal: No Tenderness to Palpation of Joints or Extremities. Generalized moderate muscle atrophy of extremities and loss of subcutaneous fat. Neurological: Cranial nerves II-XII grossly intact, Deep Tendon Reflexes 2+/4 and Symmetrical, Neuro grossly intact Psych/Mental Status: Looks depressed but better than yesterday. - Physical Exam Vitals/I&O's: Vital Signs Temp Pulse Resp BP Pulse Ox 97.9 F 81 15 95/58 L 99 04/05/20 10:11 04/05/20 10:11 04/05/20 10:11 04/05/20 10:11 04/05/20 10:11 Oxygen Delivery Method [2] Room Air Oxygen Delivery Method [1 ( Room Air Initial Baseline)] Oxygen Delivery Method Room Air Weight: 140 lb 10.479 oz Body Mass Index (BMI) 23.6 Finger Stick Blood Glucose 76 Intake and Output for Last 24 Hours 04/03/20 04/04/20 04/05/20 23:59 23:59 23:59 Intake Total 2989.25 / 2989.25 1600 / 1600 810 / 810 Output Total 2650 / 2650 950 / 950 1000 / 1000 Balance 339.25 / 339.25 650 / 650 -190 / -190 Laboratory Results 04/04/20 16:39: POC Glucose 99 04/05/20 05:28: WBC 4.3 L, RBC 2.56 L, Hgb 7.7 L, Hct 22.3 L, MCV 87.1, MCH 30.1, MCHC 34.5, RDW Std Deviation 43.6, RDW Coeff of Frank 15.8 H, Plt Count 30 L*, MPV 11.5, Differential Comment SCANNED, Diff Path Review Reviewed 04/05/20 05:28: Sodium 135 L, Potassium 3.9, Chloride 106, Carbon Dioxide 25.0, Anion Gap 4 L, BUN 9, Creatinine 0.32 L, Estim Creat Clear Calc 172.43, Est GFR (MDRD) Af Amer 272, Est GFR (MDRD) Non-Af 225, BUN/Creatinine Ratio 28.1 H, Glucose 73 L, Calcium 7.6 L 04/05/20 05:53: POC Glucose 73 Current Medications Acetaminophen (Tylenol) 650 mg PO Q6H PRN PRN PRN Reason: Pain Score 1-10/10 Calamine/Phenol (Calmoseptine Ointment) 1 applic TOPICAL TID [facility]; Protocol Last Admin: 04/05/20 05:56 Dose: 1 applicatio Documented by: Dexamethasone Sodium Phosphate (Decadron) 4 mg IV Q24 [facility] Last Admin: 04/05/20 10:09 Dose: 4 mg Documented by: Dextrose (D50w Syringe) 0 gm IV X1 PRN; Protocol PRN Reason: Hypoglycemia Dronabinol (Marinol) 2.5 mg PO BIDAC [facility] Last Admin: 04/05/20 05:57 Dose: Not Given Documented by: Glucagon () 1 mg IM .X1 PRN PRN Reason: Hypoglycemia Heparin Sodium (Beef Lung) () 50 units IV UD PRN PRN Reason: R Port Heparin Flush Sodium Chloride () 250 mls @ 15 mls/hr IV .[id number] PRN PRN Reason: Saline Flush Last Infusion: 04/03/20 10:36 Dose: 0 mls/hr Documented by: Pantoprazole Sodium 40 mg/ (Sodium Chloride) 110 mls @ 330 mls/hr IV Q12 [facility] Last Infusion: 04/05/20 11:11 Dose: Infused Documented by: Sodium Chloride () 500 mls @ 15 mls/hr IV PRN PRN PRN Reason: Blood Transfusion Last Infusion: 03/26/20 17:25 Dose: Infused Documented by: Levothyroxine Sodium (Synthroid) 100 mcg PO DAILY@0600 [facility] Last Admin: 04/05/20 05:57 Dose: Not Given Documented by: Loratadine (Claritin) 10 mg PO QHS PRN PRN PRN Reason: STUFFINESS Lorazepam (Ativan) 0.5 mg IV Q6H PRN PRN PRN Reason: ANXIETY Last Admin: 04/02/20 02:01 Dose: 0.5 mg Documented by: Magnesium Hydroxide (Milk Of Magnesia) 30 ml PO DAILY PRN PRN PRN Reason: Constipation Metoclopramide HCl (Reglan) 2.5 mg IV Q6H PRN PRN PRN Reason: NAUSEA Last Admin: 04/02/20 10:44 Dose: 2.5 mg Documented by: Morphine Sulfate () 2 mg IV Q2H PRN PRN PRN Reason: Pain Score 6-10/10 Last Admin: 04/05/20 05:56 Dose: 2 mg Documented by: Ondansetron HCl (Zofran) 4 mg IV Q6H PRN PRN PRN Reason: NAUSEA Last Admin: 04/05/20 06:32 Dose: 4 mg Documented by: Oxycodone HCl (Oxyir) 5 mg PO Q6H PRN PRN PRN Reason: Pain Score 6-10/10 Polyethylene Glycol (Miralax) 17 gm PO DAILY PRN PRN PRN Reason: Constipation Sodium Chloride () 10 - 40 ml IV UD PRN PRN Reason: R Port Saline Flush Last Admin: 04/05/20 11:10 Dose: 10 ml Documented by: Sodium Chloride (0.9% Nacl (Sterile) Posiflush) 10 - 40 ml IV UD PRN PRN Reason: Port access or dressing change Assessment/Plan This patient was seen in conjunction with [facility] [employer], Sara. I have independently interviewed and examined the patient and reviewed pertinent history, examination findings, laboratory and plan of management. I have reviewed the note and agree with the documented findings with the few additional points. In brief, patient is 59-year-old female with history of stage III ovarian cancer with metastasis under care of Dr. GUTIERRES is admitted for intractable nausea and vomiting secondary to chemotherapy. Patient has severe protein calorie malnutrition secondary to advanced cancer and chemotherapy and decreased calorie intake. Child Care Associate consulted. TPN was started via Mediport on 04/02/2020 and discontinued on 04/03. Discussed with oncologist, Dr. GUTIERRES. On dexamethasone 4 mg IV daily. Antiemetics revised. PEG tube indications, risks and benefits discussed with the patient and she affirmed understanding. This was discussed with Dr. Rey. She does not have oropharyngeal dysphagia or esophageal dysmotility. Moreover, in view of ascites, severe anemia and thrombocytopenia, she is not a good candidate for PEG tube insertion. There is risk of to frequent regurgitation and aspiration in view of persistent ascites. EGD shows mild gastritis but negative for esophagitis, Gina, ulcer or gastric outlet obstruction. Right upper quadrant sonogram shows moderate amount of surrounding ascites. Patient had paracentesis on 03/31 about 2700 mL. Patient had repeat paracentesis of about 1700 mL on 04/03 Patient also has pancytopenia with neutropenia and normocytic normochromic anemia secondary to ovarian cancer and chemotherapy. Had 1 unit of PRBC and Granix. Patient has drop in hemoglobin 7.6 from 8.7 and slight drop in platelet count. No obvious external bleeding but seems possible secondary to hemodilution from TPN. Patient has further decline hemoglobin and platelet count. Hemoglobin profile improved today. Citrobacter acute cystitis: Urine culture shows Enterobacter more than 100,000 colonies: Resistant to ceftriaxone. Currently she denies lower related symptoms including dysuria. Completed antibiotic Cipro. Other multiple comorbidities include type 2 diabetes mellitus, hypothyroidism, dyslipidemia, GERD and debility I have discussed my assessment with [facility] [employer], Sara and orders have been reviewed. Inpatient E&M: 37111 Subs Hosp L2
--- NOTE | 2020-04-05 16:37 | CASEMGMT ---
Social Work SW spoke with [facility] and precert has not yet been obtained. Pt will remain in hospital over the weekend with hopes that precert is obtained on Wednesday. Pt made aware and understandable. Plan: Mary, pending precert REGGIE Baker
[2020-04-05 17:00] VITALS: BP 96/63; PULSE 83; RESP 14; TEMP 36.9; O2SAT 100
[2020-04-05 21:52] VITALS: BP 119/75; PULSE 92; RESP 10; TEMP 36.6; O2SAT 98
[2020-04-06 00:01] LABS: Bedside Glucose 94 mg/dL (70-110)
[2020-04-06] MEDS: Metoclopramide 10 MG/2 ML Vial 2.5 MG IV (03:11)
[2020-04-06] MEDS: 0.9% Saline Lock 10 ML Syringe IV ×2 (03:11→09:50)
[2020-04-06] MEDS: Menthol/Lanolin/Calamine/Znox 113 GM Tube 1 APPLIC TOPICAL ×3 (06:35→21:47)
[2020-04-06 06:40] LABS: Bedside Glucose 83 mg/dL (70-110)
[2020-04-06 06:41] LABS: Hematocrit 24.4 % (37-47); Hemoglobin 8.1 g/dL (12.0-15.0); Mean Corp Hgb Conc 33.2 g/dL (32-36); Mean Corpuscular Volume 90.4 fL (81-99); Mean Platelet Vol. 10.9 fl (6.2-12.0); POSITIVE COUNT YES; POSITIVE MORPHOLOGY YES; RBC Distribution Width CV 18.6 % (11.6-14.6); RBC Distribution Width SD 45.6 fl (35.1-43.9)
[2020-04-06 06:45] LABS: Differential Indicated MANUAL DIFF
[2020-04-06 06:47] LABS: Platelet Count 43 K/mm3 (150-450)
[2020-04-06 08:55] VITALS: BP 111/64; PULSE 75; RESP 18; TEMP 36.5; O2SAT 97
[2020-04-06] MEDS: dexAMETHasone 4 MG/ML Vial IV (09:47)
[2020-04-06 09:51] LABS: Lymphocyte 32 % (19-41); Metamyelocyte 2 % (0-1); Monocyte 4 % (0-10); Myelocyte 3 (0-0); Neutrophil-Band 4 % (0-5); Neutrophil-Segmented 55 % (47-70); Platelet Estimate MKD DEC (ADEQ); Red Cell Morphology NORM C+C NORMAL (NORM C&C); Total Cells Counted 100 (MANUAL DIFF)
[2020-04-06 09:53] LABS: Absolute Neutrophil Count 3.5 X10^3/uL (2.0-7.7)
[2020-04-06 09:54] LABS: Absolute Lymphocyte Count 1.92 X10^3/uL (0.83-4.51)
--- NOTE | 2020-04-06 11:10 | PN_ITS ---
<Sara Bermeo - Last Filed: 04/06/20 11:14> Patient Problems: Active and Suspected Problems Nausea & vomiting (Acute) Hypokalemia (Acute) Subjective: Patient seen and examined. States she did not eat very much yesterday. Still having nausea, vomiting. Awaiting pre-cert to return to SNF. - Physical Exam Vitals/I&O's: Vital Signs Temp Pulse Resp BP Pulse Ox 97.7 F L 75 18 111/64 97 04/06/20 08:55 04/06/20 08:55 04/06/20 08:55 04/06/20 08:55 04/06/20 08:55 Oxygen Delivery Method [2] Room Air Oxygen Delivery Method [1 ( Room Air Initial Baseline)] Oxygen Delivery Method Room Air Weight: 139 lb 1.787 oz Body Mass Index (BMI) 23.6 Finger Stick Blood Glucose 76 Intake and Output for Last 24 Hours 04/04/20 04/05/20 04/06/20 23:59 23:59 23:59 Intake Total 1600 / 1600 1620 / 1620 191.5 / 191.5 Output Total 950 / 950 1400 / 1400 Balance 650 / 650 220 / 220 191.5 / 191.5 General: Alert, Oriented x3, Cooperative, - - Appears fatigued HEENT: Atraumatic, PERRLA, EOMI, Normocephalic Oral: Dry Mucosa Neck: Supple, No JVD, Negative Carotid Bruits Lungs: Clear to auscultation, Diminished Cardiovascular: Regular rate, No murmurs Abdomen: Bowel Sounds Present, Soft, Non Tender, Non-Distended Extremities: No clubbing, No cyanosis, No edema, Capillary Refill Less than 3 Seconds Skin: No rashes, No breakdown Musculoskeletal: No Tenderness to Palpation of Joints or Extremities, Cachexia, Muscle Wasting Neurological: Cranial nerves II-XII grossly intact, Neuro grossly intact Psych/Mental Status: Normal Affect, Appropriate Laboratory Results 04/05/20 05:28: Diff Path Review Reviewed 04/05/20 23:55: POC Glucose 94 04/06/20 06:17: WBC 6.0, RBC 2.70 L, Hgb 8.1 L, Hct 24.4 L, MCV 90.4, MCH 30.0, MCHC 33.2, RDW Std Deviation 45.6 H, RDW Coeff of Frank 18.6 H, Plt Count 43 L*, MPV 10.9, Neut % (Auto) Not Reportable, Absolute Neuts (auto) 3.5, Absolute Lymphs (auto) 1.92, Total Counted 100, Neutrophils % (Manual) 55, Band Neutrophils % 4, Lymphocytes % (Manual) 32, Monocytes % (Manual) 4, Metamyelocytes % 2 H, Myelocytes % 3 H, Diff Path Review May foll, Platelet Estimate MKD DEC, RBC Morphology NORM C+C 04/06/20 06:27: POC Glucose 83 Current Medications Acetaminophen (Tylenol) 650 mg PO Q6H PRN PRN PRN Reason: Pain Score 1-1010 Calamine/Phenol (Calmoseptine Ointment) 1 applic TOP[facility] TID [facility]; Protocol Last Admin: 04/06/20 06:35 Dose: 1 applicatio Documented by: Dexamethasone Sodium Phosphate (Decadron) 4 mg IV Q24 [facility] Last Admin: 04/06/20 09:47 Dose: 4 mg Documented by: Dextrose (D50w Syringe) 0 gm IV X1 PRN; Protocol PRN Reason: Hypoglycemia Dronabinol (Marinol) 2.5 mg PO BIDAC [facility] Last Admin: 04/06/20 06:35 Dose: Not Given Documented by: Glucagon () 1 mg IM .X1 PRN PRN Reason: Hypoglycemia Heparin Sodium (Beef Lung) () 50 units IV UD PRN PRN Reason: R Port Heparin Flush Sodium Chloride () 250 mls @ 15 mls/hr IV .[id number] PRN PRN Reason: Saline Flush Last Infusion: 04/06/20 03:05 Dose: Infused Documented by: Pantoprazole Sodium 40 mg/ (Sodium Chloride) 110 mls @ 330 mls/hr IV Q12 [facility] Last Infusion: 04/06/20 10:14 Dose: Infused Documented by: Sodium Chloride () 500 mls @ 15 mls/hr IV PRN PRN PRN Reason: Blood Transfusion Last Infusion: 03/26/20 17:25 Dose: Infused Documented by: Levothyroxine Sodium (Synthroid) 100 mcg PO DAILY@0600 [facility] Last Admin: 04/06/20 06:35 Dose: Not Given Documented by: Loratadine (Claritin) 10 mg PO QHS PRN PRN PRN Reason: STUFFINESS Lorazepam (Ativan) 0.5 mg IV Q6H PRN PRN PRN Reason: ANXIETY Last Admin: 04/02/20 02:01 Dose: 0.5 mg Documented by: Magnesium Hydroxide (Milk Of Magnesia) 30 ml PO DAILY PRN PRN PRN Reason: Constipation Metoclopramide HCl (Reglan) 2.5 mg IV Q6H PRN PRN PRN Reason: NAUSEA Last Admin: 04/06/20 03:11 Dose: 2.5 mg Documented by: Morphine Sulfate () 2 mg IV Q2H PRN PRN PRN Reason: Pain Score 6-10/10 Last Admin: 04/05/20 22:29 Dose: 2 mg Documented by: Ondansetron HCl (Zofran) 4 mg IV Q6H PRN PRN PRN Reason: NAUSEA Last Admin: 04/05/20 22:18 Dose: 4 mg Documented by: Oxycodone HCl (Oxyir) 5 mg PO Q6H PRN PRN PRN Reason: Pain Score 6-10/10 Polyethylene Glycol (Miralax) 17 gm PO DAILY PRN PRN PRN Reason: Constipation Sodium Chloride () 10 - 40 ml IV UD PRN PRN Reason: R Port Saline Flush Last Admin: 04/06/20 09:50 Dose: 20 ml Documented by: Sodium Chloride (0.9% Nacl (Sterile) Posiflush) 10 - 40 ml IV UD PRN PRN Reason: Port access or dressing change Medical Necessity - Tobacco Use Smoking Status: Former smoker Tobacco Use: Non-smoker Assessment/Plan All Active Problems Nausea & vomiting (Acute) Neutropenia (Acute) Hypokalemia (Acute) 1. Intractable nausea/vomiting secondary to chemotherapy regimen-waxes and wanes. PRN antiemetics. Supportive management. Placed on TPN which has since been discontinued 04/03/2020. Nutrition recommending PEG if inadequate oral intake continues. General surgery on consult for PEG tube evaluation. Due to large amount of ascites and thrombocytopenia, feel PEG tube is contraindicated at this time. 2. Metastatic stage III ovarian cancer-undergoes weekly paracentesis for ascites. Follows with Dr. Gutierres. Palliative care discussed with patient in the past however she was not amenable at that time. Recommend continued discussion with oncology. Underwent paracentesis 04/03/2020. 3. Pancytopenia- S/P one unit PRBC for hgb 7.1. Stable. Plan for Granix for ANC less than 1000. Trend CBC. 4. Hypokalemia-secondary to #1. Replace per protocol. Resolved. Trend BMP. 5. Acute Citrobacter cystitis-completed course of Cipro. 6. Type 2 diabetes mellitus- not on regimen. Diet controlled. Hemoglobin A1c 5.7% in February. 7. Hypothyroidism-continue Synthroid regimen. 8. Hyperlipidemia- continue statin. 9. GERD-continue PPI. 10. Severe protein calorie malnutrition-as evidenced by weight loss, poor oral intake, cachectic appearance and muscle loss. Dietitian consult. 11. Debility-currently resides in SNF. PT/OT. DVT prophylaxis- Lovenox sc Discharge planning: Return to [facility] when able to tolerate oral intake and pre-cert is obtained. This patient was seen by K[facility] Murdock under the supervision of Dr. Garcia. <Marcos Garcia - Last Filed: 04/06/20 12:10> Objective: Patient complain of pain in the abdomen and right lower quadrant. It is constant dull ache, not like distention pain. She ate yesterday and had liquid bowel movements yesterday. Does not have good appetite today. No fever or chills. Blood pressure is good 111/64 Physical exam findings: General: Alert, Oriented x3, Cooperative, severe protein calorie nutrition. HEENT: Atraumatic, PERRLA, EOMI, Normocephalic Oral: No Gingival or Mucosal Lesions/ Ulcerations Neck: Supple, No JVD, Negative Carotid Bruits Lungs: Air entry diminished in bilateral lung bases. No crepitation/rhonchi Cardiovascular: Regular rate, Regular Rhythm, Normal S1, Normal S2, No murmurs Abdomen: Bowel Sounds Present, Soft, mild tenderness present in right lower quadrant, Non-Distended. Moderate ascites present : No renal angle tenderness. No suprapubic tenderness. Extremities: No edema, Capillary Refill Less than 3 Seconds Skin: No rashes, No breakdown. Has Mediport in the right subclavicular region. Musculoskeletal: No Tenderness to Palpation of Joints or Extremities. Generalized moderate muscle atrophy of extremities and loss of subcutaneous fat. Neurological: Cranial nerves II-XII grossly intact, Deep Tendon Reflexes 2+/4 and Symmetrical, Neuro grossly intact Psych/Mental Status: Looks depressed - Physical Exam Vitals/I&O's: Vital Signs Temp Pulse Resp BP Pulse Ox 97.7 F L 75 18 111/64 97 04/06/20 08:55 04/06/20 08:55 04/06/20 08:55 04/06/20 08:55 04/06/20 08:55 Oxygen Delivery Method [2] Room Air Oxygen Delivery Method [1 ( Room Air Initial Baseline)] Oxygen Delivery Method Room Air Weight: 139 lb 1.787 oz Body Mass Index (BMI) 23.6 Finger Stick Blood Glucose 76 Intake and Output for Last 24 Hours 04/04/20 04/05/20 04/06/20 23:59 23:59 23:59 Intake Total 1600 / 1600 1620 / 1620 311.5 / 311.5 Output Total 950 / 950 1400 / 1400 Balance 650 / 650 220 / 220 311.5 / 311.5 Laboratory Results 04/05/20 05:28: Diff Path Review Reviewed 04/05/20 23:55: POC Glucose 94 04/06/20 06:17: WBC 6.0, RBC 2.70 L, Hgb 8.1 L, Hct 24.4 L, MCV 90.4, MCH 30.0, MCHC 33.2, RDW Std Deviation 45.6 H, RDW Coeff of Frank 18.6 H, Plt Count 43 L*, MPV 10.9, Neut % (Auto) Not Reportable, Absolute Neuts (auto) 3.5, Absolute Lymphs (auto) 1.92, Total Counted 100, Neutrophils % (Manual) 55, Band Ne utrophils % 4, Lymphocytes % (Manual) 32, Monocytes % (Manual) 4, Metamyelocytes % 2 H, Myelocytes % 3 H, Diff Path Review May foll, Platelet Estimate MKD DEC, RBC Morphology NORM C+C 04/06/20 06:27: POC Glucose 83 04/06/20 11:59: POC Glucose 90 Current Medications Acetaminophen (Tylenol) 650 mg PO Q6H PRN PRN PRN Reason: Pain Score 1-10/10 Calamine/Phenol (Calmoseptine Ointment) 1 applic TOPICAL TID [facility]; Protocol Last Admin: 04/06/20 06:35 Dose: 1 applicatio Documented by: Dexamethasone Sodium Phosphate (Decadron) 4 mg IV Q24 [facility] Last Admin: 04/06/20 09:47 Dose: 4 mg Documented by: Dextrose (D50w Syringe) 0 gm IV X1 PRN; Protocol PRN Reason: Hypoglycemia Dronabinol (Marinol) 2.5 mg PO BIDAC [facility] Last Admin: 04/06/20 06:35 Dose: Not Given Documented by: Glucagon () 1 mg IM .X1 PRN PRN Reason: Hypoglycemia Heparin Sodium (Beef Lung) () 50 units IV UD PRN PRN Reason: R Port Heparin Flush Sodium Chloride () 250 mls @ 15 mls/hr IV .[id number] PRN PRN Reason: Saline Flush Last Infusion: 04/06/20 03:05 Dose: Infused Documented by: Pantoprazole Sodium 40 mg/ (Sodium Chloride) 110 mls @ 330 mls/hr IV Q12 [facility] Last Infusion: 04/06/20 10:14 Dose: Infused Documented by: Sodium Chloride () 500 mls @ 15 mls/hr IV PRN PRN PRN Reason: Blood Transfusion Last Infusion: 03/26/20 17:25 Dose: Infused Documented by: Levothyroxine Sodium (Synthroid) 100 mcg PO DAILY@0600 [facility] Last Admin: 04/06/20 06:35 Dose: Not Given Documented by: Loratadine (Claritin) 10 mg PO QHS PRN PRN PRN Reason: STUFFINESS Lorazepam (Ativan) 0.5 mg IV Q6H PRN PRN PRN Reason: ANXIETY Last Admin: 04/02/20 02:01 Dose: 0.5 mg Documented by: Magnesium Hydroxide (Milk Of Magnesia) 30 ml PO DAILY PRN PRN PRN Reason: Constipation Metoclopramide HCl (Reglan) 2.5 mg IV Q6H PRN PRN PRN Reason: NAUSEA Last Admin: 04/06/20 03:11 Dose: 2.5 mg Documented by: Morphine Sulfate () 2 mg IV Q2H PRN PRN PRN Reason: Pain Score 6-10/10 Last Admin: 04/05/20 22:29 Dose: 2 mg Documented by: Ondansetron HCl (Zofran) 4 mg IV Q6H PRN PRN PRN Reason: NAUSEA Last Admin: 04/05/20 22:18 Dose: 4 mg Documented by: Oxycodone HCl (Oxyir) 5 mg PO Q6H PRN PRN PRN Reason: Pain Score 6-10/10 Polyethylene Glycol (Miralax) 17 gm PO DAILY PRN PRN PRN Reason: Constipation Sodium Chloride () 10 - 40 ml IV UD PRN PRN Reason: R Port Saline Flush Last Admin: 04/06/20 09:50 Dose: 20 ml Documented by: Sodium Chloride (0.9% Nacl (Sterile) Posiflush) 10 - 40 ml IV UD PRN PRN Reason: Port access or dressing change Assessment/Plan This patient was seen in conjunction with [employer]PERVISOR [employer], Sara. I have independently interviewed and examined the patient and reviewed pertinent history, examination findings, laboratory and plan of management. I have reviewed the note and agree with the documented findings with the few additional points. In brief, patient is 59-year-old female with history of stage III ovarian cancer with metastasis under care of Dr. GUTIERRES is admitted for intractable nausea and vomiting secondary to chemotherapy. Patient has severe protein calorie malnutrition secondary to advanced cancer and chemotherapy and decreased calorie intake. [facility]oon [employer] consulted. TPN was started via Mediport on 04/02/2020 and discontinued on 04/03. Discussed with oncologist, Dr. GUTIERRES. On dexamethasone 4 mg IV daily. Antiemetics revised. Failure to thrive Patient not a good candidate for PEG tube. Discussed with Dr. Rey. She does not have oropharyngeal dysphagia or esophageal dysmotility. Moreover, in view of ascites, severe anemia and thrombocytopenia, she is not a good candidate for PEG tube insertion. There is risk of to frequent regurgitation and aspiration in view of persistent ascites. EGD shows mild gastritis but negative for esophagitis, Gina, ulcer or gastric outlet obstruction. Right upper quadrant sonogram shows moderate amount of surrounding ascites. Patient had paracentesis on 03/31 about 2700 mL. Patient had repeat paracentesis of about 1700 mL on 04/03. Patient also has pancytopenia with neutropenia and normocytic normochromic anemia secondary to ovarian cancer and chemotherapy. Had 1 unit of PRBC and Granix. Patient has drop in hemoglobin 7.6 from 8.7 and slight drop in platelet count. No obvious external bleeding but seems possible secondary to hemodilution from TPN. Patient has further decline hemoglobin and platelet count. Slight improvement in hemoglobin and platelet count. Citrobacter acute cystitis: Urine culture shows Enterobacter more than 100,000 colonies: Resistant to ceftriaxone. Currently she denies lower related symptoms including dysuria. Completed antibiotic Cipro. Other multiple comorbidities include type 2 diabetes mellitus, hypothyroidism, dyslipidemia, GERD and debility I have discussed my assessment with SUPERVISOR EXTRUSIONSara and orders have been reviewed Inpatient E&M: 49234 Subs Hosp L2
[2020-04-06 12:05] LABS: Bedside Glucose 90 mg/dL (70-110)
[2020-04-06 14:55] VITALS: BP 93/56; PULSE 76; RESP 18; TEMP 36.7; O2SAT 96
[2020-04-06 17:31] LABS: Bedside Glucose 89 mg/dL (70-110)
[2020-04-06 20:50] VITALS: BP 93/52; PULSE 80; RESP 16; TEMP 36.6; O2SAT 97
[2020-04-07 02:11] LABS: Bedside Glucose 89 mg/dL (70-110)
[2020-04-07 02:50] VITALS: BP 104/61; PULSE 79; RESP 16; TEMP 36.6; O2SAT 99
[2020-04-07] MEDS: Metoclopramide 10 MG/2 ML Vial 2.5 MG IV (03:57)
[2020-04-07] MEDS: 0.9% Saline Lock 10 ML Syringe IV ×3 (03:58→11:03)
[2020-04-07] MEDS: Morphine 2 MG/ML Syringe IV (04:40)
[2020-04-07] MEDS: Menthol/Lanolin/Calamine/Znox 113 GM Tube 1 APPLIC TOPICAL ×3 (06:09→22:34)
[2020-04-07 08:50] VITALS: BP 101/56; PULSE 74; RESP 18; TEMP 36.3; O2SAT 99
[2020-04-07] MEDS: dexAMETHasone 4 MG/ML Vial IV (11:04)
--- NOTE | 2020-04-07 12:13 | PCM.PROGNOTE ---
<Sara Bermeo - Last Filed: 04/07/20 12:15> Patient Problems: Active and Suspected Problems Nausea & vomiting (Acute) Hypokalemia (Acute) Subjective: Patient seen and examined. States she has been able to keep down some food and liquids. Eating small portions at a time. Nausea, vomiting improved. Plan for SNF pending approval. - Physical Exam Vitals/I&O's: Vital Signs Temp Pulse Resp BP Pulse Ox 97.3 F L 74 18 101/56 L 99 04/07/20 08:50 04/07/20 08:50 04/07/20 08:50 04/07/20 08:50 04/07/20 08:50 Oxygen Delivery Method [2] Room Air Oxygen Delivery Method [1 ( Room Air Initial Baseline)] Oxygen Delivery Method Room Air Weight: 137 lb 8 oz Body Mass Index (BMI) 23.6 Finger Stick Blood Glucose 76 Intake and Output for Last 24 Hours 04/05/20 04/06/20 04/07/20 23:59 23:59 23:59 Intake Total 1620 / 1620 781.5 / 781.5 230 / 230 Output Total 1400 / 1400 125 / 125 Balance 220 / 220 781.5 / 781.5 105 / 105 General: Alert, Oriented x3, Cooperative, - - Appears fatigued HEENT: Atraumatic, PERRLA, EOMI, Normocephalic Oral: Dry Mucosa Neck: Supple, No JVD, Negative Carotid Bruits Lungs: Clear to auscultation, Diminished Cardiovascular: Regular rate, No murmurs Abdomen: Bowel Sounds Present, Soft, Non Tender, Non-Distended Extremities: No clubbing, No cyanosis, No edema, Capillary Refill Less than 3 Seconds Skin: No rashes, No breakdown Musculoskeletal: No Tenderness to Palpation of Joints or Extremities, Cachexia, Muscle Wasting Neurological: Cranial nerves II-XII grossly intact, Neuro grossly intact Psych/Mental Status: Normal Affect, Appropriate Laboratory Results 04/06/20 17:10: POC Glucose 89 04/07/20 02:04: POC Glucose 89 Current Medications Acetaminophen (Tylenol) 650 mg PO Q6H PRN PRN PRN Reason: Pain Score 1-10/10 Calamine/Phenol (Calmoseptine Ointment) 1 applic TOPICAL TID [facility]; Protocol Last Admin: 04/07/20 06:09 Dose: 1 applicatio Documented by: Dexamethasone Sodium Phosphate (Decadron) 4 mg IV Q24 [facility] Last Admin: 04/07/20 11:04 Dose: 4 mg Documented by: Dextrose (D50w Syringe) 0 gm IV X1 PRN; Protocol PRN Reason: Hypoglycemia Dronabinol (Marinol) 2.5 mg PO BIDAC [facility] Last Admin: 04/07/20 08:19 Dose: Not Given Documented by: Glucagon () 1 mg IM .X1 PRN PRN Reason: Hypoglycemia Heparin Sodium (Beef Lung) () 50 units IV UD PRN PRN Reason: R Port Heparin Flush Sodium Chloride () 250 mls @ 15 mls/hr IV .[id number] PRN PRN Reason: Saline Flush Last Infusion: 04/06/20 03:05 Dose: Infused Documented by: Pantoprazole Sodium 40 mg/ (Sodium Chloride) 110 mls @ 330 mls/hr IV Q12 [facility] Last Infusion: 04/07/20 11:28 Dose: Infused Documented by: Sodium Chloride () 500 mls @ 15 mls/hr IV PRN PRN PRN Reason: Blood Transfusion Last Infusion: 03/26/20 17:25 Dose: Infused Documented by: Levothyroxine Sodium (Synthroid) 100 mcg PO DAILY@0600 [facility] Last Admin: 04/07/20 06:10 Dose: Not Given Documented by: Loratadine (Claritin) 10 mg PO QHS PRN PRN PRN Reason: STUFFINESS Lorazepam (Ativan) 0.5 mg IV Q6H PRN PRN PRN Reason: ANXIETY Last Admin: 04/02/20 02:01 Dose: 0.5 mg Documented by: Magnesium Hydroxide (Milk Of Magnesia) 30 ml PO DAILY PRN PRN PRN Reason: Constipation Metoclopramide HCl (Reglan) 2.5 mg IV Q6H PRN PRN PRN Reason: NAUSEA Last Admin: 04/07/20 03:57 Dose: 2.5 mg Documented by: Morphine Sulfate () 2 mg IV Q2H PRN PRN PRN Reason: Pain Score 6-10/10 Last Admin: 04/07/20 04:40 Dose: 2 mg Documented by: Ondansetron HCl (Zofran) 4 mg IV Q6H PRN PRN PRN Reason: NAUSEA Last Admin: 04/05/20 22:18 Dose: 4 mg Documented by: Oxycodone HCl (Oxyir) 5 mg PO Q6H PRN PRN PRN Reason: Pain Score 6-10/10 Polyethylene Glycol (Miralax) 17 gm PO DAILY PRN PRN PRN Reason: Constipation Sodium Chloride () 10 - 40 ml IV UD PRN PRN Reason: R Port Saline Flush Last Admin: 04/07/20 11:03 Dose: 10 ml Documented by: Sodium Chloride (0.9% Nacl (Sterile) Posiflush) 10 - 40 ml IV UD PRN PRN Reason: Port access or dressing change Medical Necessity - Tobacco Use Smoking Status: Former smoker Tobacco Use: Non-smoker Assessment/Plan All Active Problems Nausea & vomiting (Acute) Neutropenia (Acute) Hypokalemia (Acute) 1. Intractable nausea/vomiting secondary to chemotherapy regimen-waxes and wanes. PRN antiemetics. Supportive management. Placed on TPN which has since been discontinued 04/03/2020. Nutrition recommending PEG if inadequate oral intake continues. General surgery on consult for PEG tube evaluation. Due to large amount of ascites and thrombocytopenia, feel PEG tube is contraindicated at this time. 2. Metastatic stage III ovarian cancer-undergoes weekly paracentesis for ascites. Follows with Dr. Gutierres. Palliative care discussed with patient in the past however she was not amenable at that time. Recommend continued discussion with oncology. Underwent paracentesis 04/03/2020. 3. Pancytopenia- S/P one unit PRBC for hgb 7.1. Stable. Plan for Granix for ANC less than 1000. Trend CBC. 4. Hypokalemia-secondary to #1. Replace per protocol. Resolved. Trend BMP. 5. Acute Citrobacter cystitis-completed course of Cipro. 6. Type 2 diabetes mellitus- not on regimen. Diet controlled. Hemoglobin A1c 5.7% in February. 7. Hypothyroidism-continue Synthroid regimen. 8. Hyperlipidemia- continue statin. 9. GERD-continue PPI. 10. Severe protein calorie malnutrition-as evidenced by weight loss, poor oral intake, cachectic appearance and muscle loss. Dietitian consult. 11. Debility-currently resides in SNF. PT/OT. DVT prophylaxis- SCDs Discharge planning: [facility]. This patient was seen by Sara Jean-Claude, BRANCH EMPLOYMENT COORDINATOR-C under the supervision of Dr. Garcia. <Marcos Garcia - Last Filed: 04/07/20 13:33> Subjective: Patient does not want to eat today. Had dinner yesterday and feels a still full and loss of appetite. Mild pain in the right lower quadrant. Physical exam findings: General: Alert, Oriented x3, Cooperative, severe protein calorie nutrition. HEENT: Atraumatic, PERRLA, EOMI, Normocephalic Oral: No Gingival or Mucosal Lesions/ Ulcerations Neck: Supple, No JVD, Negative Carotid Bruits Lungs: Air entry diminished in bilateral lung bases. No crepitation/rhonchi. No tachypnea or hypoxia Cardiovascular: Regular rate, Regular Rhythm, Normal S1, Normal S2, No murmurs Abdomen: Bowel Sounds Present, Soft, mild tenderness present in right lower quadrant, Non-Distended. Moderate ascites present : No renal angle tenderness. No suprapubic tenderness. Extremities: No edema, Capillary Refill Less than 3 Seconds Skin: No rashes, No breakdown. Has Mediport in the right subclavicular region. Musculoskeletal: No Tenderness to Palpation of Joints or Extremities. Generalized moderate muscle atrophy of extremities and loss of subcutaneous fat. Neurological: Cranial nerves II-XII grossly intact, Deep Tendon Reflexes 2+/4 and Symmetrical, Neuro grossly intact Psych/Mental Status: Looks depressed - Physical Exam Vitals/I&O's: Vital Signs Temp Pulse Resp BP Pulse Ox 97.3 F L 74 18 101/56 L 99 04/07/20 08:50 04/07/20 08:50 04/07/20 08:50 04/07/20 08:50 04/07/20 08:50 Oxygen Delivery Method [2] Room Air Oxygen Delivery Method [1 ( Room Air Initial Baseline)] Oxygen Delivery Method Room Air Weight: 137 lb 8 oz Body Mass Index (BMI) 23.6 Finger Stick Blood Glucose 76 Intake and Output for Last 24 Hours 04/05/20 04/06/20 04/07/20 23:59 23:59 23:59 Intake Total 1620 / 1620 781.5 / 781.5 980 / 980 Output Total 1400 / 1400 125 / 125 Balance 220 / 220 781.5 / 781.5 855 / 855 Laboratory Results 04/06/20 17:10: POC Glucose 89 04/07/20 02:04: POC Glucose 89 Current Medications Acetaminophen (Tylenol) 650 mg PO Q6H PRN PRN PRN Reason: Pain Score 1-10/10 Calamine/Phenol (Calmoseptine Ointment) 1 applic TOPICAL TID [facility]; Protocol Last Admin: 04/07/20 06:09 Dose: 1 applicatio Documented by: Dexamethasone Sodium Phosphate (Decadron) 4 mg IV Q24 [facility] Last Admin: 04/07/20 11:04 Dose: 4 mg Documented by: Dextrose (D50w Syringe) 0 gm IV X1 PRN; Protocol PRN Reason: Hypoglycemia Dronabinol (Marinol) 2.5 mg PO BIDAC [facility] Last Admin: 04/07/20 08:19 Dose: Not Given Documented by: Glucagon () 1 mg IM .X1 PRN PRN Reason: Hypoglycemia Heparin Sodium (Beef Lung) () 50 units IV UD PRN PRN Reason: R Port Heparin Flush Sodium Chloride () 250 mls @ 15 mls/hr IV .[id number] PRN PRN Reason: Saline Flush Last Infusion: 04/06/20 03:05 Dose: Infused Documented by: Pantoprazole Sodium 40 mg/ (Sodium Chloride) 110 mls @ 330 mls/hr IV Q12 [facility] Last Infusion: 04/07/20 11:28 Dose: Infused Documented by: Sodium Chloride () 500 mls @ 15 mls/hr IV PRN PRN PRN Reason: Blood Transfusion Last Infusion: 03/26/20 17:25 Dose: Infused Documented by: Levothyroxine Sodium (Synthroid) 100 mcg PO DAILY@0600 [facility] Last Admin: 04/07/20 06:10 Dose: Not Given Documented by: Loratadine (Claritin) 10 mg PO QHS PRN PRN PRN Reason: STUFFINESS Lorazepam (Ativan) 0.5 mg IV Q6H PRN PRN PRN Reason: ANXIETY Last Admin: 04/02/20 02:01 Dose: 0.5 mg Documented by: Magnesium Hydroxide (Milk Of Magnesia) 30 ml PO DAILY PRN PRN PRN Reason: Constipation Metoclopramide HCl (Reglan) 2.5 mg IV Q6H PRN PRN PRN Reason: NAUSEA Last Admin: 04/07/20 03:57 Dose: 2.5 mg Documented by: Morphine Sulfate () 2 mg IV Q2H PRN PRN PRN Reason: Pain Score 6-10/10 Last Admin: 04/07/20 04:40 Dose: 2 mg Documented by: Ondansetron HCl (Zofran) 4 mg IV Q6H PRN PRN PRN Reason: NAUSEA Last Admin: 04/05/20 22:18 Dose: 4 mg Documented by: Oxycodone HCl (Oxyir) 5 mg PO Q6H PRN PRN PRN Reason: Pain Score 6-10/10 Polyethylene Glycol (Miralax) 17 gm PO DAILY PRN PRN PRN Reason: Constipation Sodium Chloride () 10 - 40 ml IV UD PRN PRN Reason: R Port Saline Flush Last Admin: 04/07/20 11:03 Dose: 10 ml Documented by: Sodium Chloride (0.9% Nacl (Sterile) Posiflush) 10 - 40 ml IV UD PRN PRN Reason: Port access or dressing change Assessment/Plan This patient was seen in conjunction with BRANCH EMPLOYMENT COORDINATOR, Sara. I have independently interviewed and examined the patient and reviewed pertinent history, examination findings, laboratory and plan of management. I have reviewed the note and agree with the documented findings with the few additional points. In brief, patient is 59-year-old female with history of stage III ovarian cancer with metastasis under care of Dr. GUTIERRES is admitted for intractable nausea and vomiting secondary to chemotherapy. Patient has severe protein calorie malnutrition secondary to advanced cancer and chemotherapy and decreased calorie intake. Wood Milling Machine Tender consulted. TPN was started via Mediport on 04/02/2020 and discontinued on 04/03. Discussed with oncologist, Dr. GUTIERRES. On dexamethasone 4 mg IV daily. IV Reglan changed to p.o. 2.5 mg 3 times daily before meals. Failure to thrive Patient not a good candidate for PEG tube. Discussed with Dr. Rey. She does not have oropharyngeal dysphagia or esophageal dysmotility. Moreover, in view of ascites, severe anemia and thrombocytopenia, she is not a good candidate for PEG tube insertion. There is risk of to frequent regurgitation and aspiration in view of persistent ascites. EGD shows mild gastritis but negative for esophagitis, Gina, ulcer or gastric outlet obstruction. Right upper quadrant sonogram shows moderate amount of surrounding ascites. Patient had paracentesis on 03/31 about 2700 mL. Patient had repeat paracentesis of about 1700 mL on 04/03. Patient also has pancytopenia with neutropenia and normocytic normochromic anemia secondary to ovarian cancer and chemotherapy. Had 1 unit of PRBC and Granix. Patient has drop in hemoglobin 7.6 from 8.7 and slight drop in platelet count. No obvious external bleeding but seems possible secondary to hemodilution from TPN. Patient has further decline hemoglobin and platelet count. Slight improvement in hemoglobin and platelet count. Citrobacter acute cystitis: Urine culture shows Enterobacter more than 100,000 colonies: Resistant to ceftriaxone. Currently she denies lower related symptoms including dysuria. Completed antibiotic Cipro. Other multiple comorbidities include type 2 diabetes mellitus, hypothyroidism, dyslipidemia, GERD and debility I have discussed my assessment with BRANCH EMPLOYMENT COORDINATORSara and orders have been reviewed Discharge plan: To SNF. Patient declined palliative care/hospice care. Inpatient E&M: [id number] Subs Hosp L2
[2020-04-07 14:53] VITALS: BP 135/71; PULSE 72; RESP 18; TEMP 37.2; O2SAT 99
[2020-04-07 17:03] LABS: Bedside Glucose 79 mg/dL (70-110)
[2020-04-07 17:04] LABS: Bedside Glucose 111 mg/dL (70-110)
[2020-04-07 20:40] VITALS: BP 102/58; PULSE 77; RESP 16; TEMP 36.6; O2SAT 98
[2020-04-08 00:35] LABS: Bedside Glucose 71 mg/dL (70-110)
[2020-04-08 02:40] VITALS: BP 107/59; PULSE 78; RESP 16; TEMP 36.6; O2SAT 98
[2020-04-08 06:01] LABS: Bedside Glucose 85 mg/dL (70-110)
[2020-04-08 06:38] LABS: Hematocrit 22.8 % (37-47); Hemoglobin 7.5 g/dL (12.0-15.0); Mean Corp Hgb Conc 32.9 g/dL (32-36); Mean Corpuscular Hgb 30.4 pg (27.0-32.0); Mean Corpuscular Volume 92.3 fL (81-99); POSITIVE COUNT YES; POSITIVE MORPHOLOGY YES; Platelet Count 83 K/mm3 (150-450); RBC Distribution Width CV 20.9 % (11.6-14.6); RBC Distribution Width SD 48.6 fl (35.1-43.9); Red Blood Count 2.47 M/mm3 (4.2-5.4); White Blood Count 5.2 K/mm3 (4.4-11.0)
[2020-04-08 06:44] LABS: Scan Indicated on CBC? Y/N YES- FLAGS NOTED
[2020-04-08 06:59] LABS: Anion Gap 5 (5-15); BUN 10 mg/dL (7-18); BUN/Creat Ratio 21.8 RATIO (10-20); Calcium,Total 7.7 mg/dL (8.5-10.1); Chloride 105 mmol/L (98-107); Creatinine, Serum 0.46 mg/dL (0.55-1.02); EST Glomerular Filtration Rate 149 mL/min (>60); Est Glom Filt Rate - Afr Amer 180 mL/min (>60); Estimated Creatinine Clearance 119.95 ml/min; Glucose 85 mg/dL (74-106); Potassium 2.8 mmol/L (3.5-5.1); Sodium Level 137 mmol/L (136-145)
[2020-04-08 07:04] LABS: Differential Comment SCANNED
[2020-04-08 07:55] LABS: Magnesium 1.7 mg/dL (1.6-2.6)
[2020-04-08 08:17] LABS: Iron 57 ug/dL (50-170); Iron Binding Capacity,Total 206 ug/dL (250-450); PERCENT IRON SATURATION 27.7 % (15.0-55.0)
[2020-04-08] MEDS: Potassium Chloride 10mEq/100mL 10 MEQ/100 ML IV.SOLN. 100 MEQ IV BOLUS ×4 (09:04→14:12)
[2020-04-08 09:11] VITALS: BP 102/57; PULSE 60; RESP 18; TEMP 36.4; O2SAT 97
--- NOTE | 2020-04-08 11:45 | PCM.EXTCARCO ---
- Diet 03/27/20 11:00 Diet: Regular Diet Is pt able to select menu?: Yes Diet Comments: Smaller portion sizes per pt request. - Routine Orders/Code Status Enema Type: Fleetz Enema Frequency: Daily PRN Suppository Type: Dulcolax 10mg Suppository Frequency: Daily PRN O2 Liters per Minute: 2 O2 Frequency: PRN Keep PO Greater than or Equal to (%): 90 Routine Lab Work: - - Daily BMP x3 days then weekly CBC and BMP Code Status: Full Code - Wound(s) Right abdomen Wound Type: Puncture Right Flank/abd Wound Type: Puncture - Suggestions for Active Care Change Position every (hours): 2 Times a day to sit in chair: 3 - Therapies Physical Therapy: Eval and Treat Occupational Therapy: Eval and Treat - Problem/Diagnosis (1) Hypokalemia Status: Acute Current Visit: Yes (2) Nausea & vomiting Status: Acute Current Visit: Yes (3) Ovarian cancer Status: Chronic Current Visit: No (4) Neutropenia Status: Chronic Comment: Taxol and carboplatin Current Visit: Yes (5) Anxiety and depression Status: Chronic Current Visit: No (6) Diabetes mellitus, type II Status: Chronic Current Visit: No (7) HLD (hyperlipidemia) Status: Chronic Current Visit: No (8) Hypothyroidism Status: Chronic Current Visit: No - Allergies/Procedures Done in Hospital Allergies/Adverse Reactions: Allergies metformin Allergy (Verified 03/25/20 23:22) Rash Procedures: EGD, Paracentesis - Type of Care/Length of Stay Estimated LOS: More Than 30 Days Type of Care Needed: Skilled Rehab Potential: Fair Prognosis: Fair - Additional Orders/Day of Discharge H&P will serve as current which was dated: 03/26/20 Day of Discharge: 04/08/20 - Dietary and Speech Recommendations Dietitian Recommendations/Changes: 1). Continue regular diet and ONS as able to tolerate PO nutrition. Will fortify pt meals, adjust ONS and provide pt smaller portion sizes per pt request as pt overwhelmed w/ amount of food served. 2.) Continue close monitoring of electrolytes, wt, and other relevant labs- significant risk for refeeding syndrome. 3.) Recommend transition to enteral nutrition support as pt medically able for care home nutrition as pt continues to have poor tolerance of PO diet. It is doubtful that pt will be able to orally meet increased pro/adelia needs related to severe malnutrition. - Follow Up Care Primary Care Physician: Denia Adrian MD [Primary Care Provider] - Please follow up with your Primary Care Physician in: 1 Week Please Follow Up With: Estephania Flood MD When: As scheduled
--- NOTE | 2020-04-08 11:55 | PCM.NTREPORT ---
Nutrition Therapy Report - History Nutrition Services has been consulted to:: Manage nutrient details of diet order Current diet / nutrition support order:: Regular--small portions; select. ONS with meals + fortified foods - Anthropometric Measurements Height:: 5 ft 5 in Weight:: 60.9 kg Body Mass Index (BMI):: 22.3 - Relevant Labs Relevant Labs:: WBC 4.3 K/mm3 (4.4-11.0) L 04/05/20 05:28 RBC 2.47 M/mm3 (4.2-5.4) L 04/08/20 06:14 Hgb 7.5 g/dL (12.0-15.0) L 04/08/20 06:14 Hct 22.8 % (37-47) L 04/08/20 06:14 RDW Std Deviation 48.6 fl (35.1-43.9) H 04/08/20 06:14 RDW Coeff of Frank 20.9 % (11.6-14.6) H 04/08/20 06:14 Plt Count 83 K/mm3 (150-450) L 04/08/20 06:14 Immature Gran % (Auto) 4.100 % (0.0-0.9) H 04/03/20 06:40 Neut % (Auto) 27.9 % (47-70) L 04/03/20 06:40 Lymph % (Auto) 51.8 % (19-41) H 04/03/20 06:40 [place] % (Auto) 16.2 % (0-10) H 04/03/20 06:40 Absolute Neuts (auto) 1.4 X10^3/uL (2.0-7.7) L 04/04/20 05:40 Absolute Lymphs (auto) 0.68 X10^3/uL (0.83-4.51) L 04/02/20 05:22 Neutrophils % (Manual) 30 % (47-70) L 04/04/20 05:40 Band Neutrophils % 15 % (0-5) H 04/04/20 05:40 Lymphocytes % (Manual) 52 % (19-41) H 04/04/20 05:40 Metamyelocytes % 2 % (0-1) H 04/06/20 06:17 Myelocytes % 3 (0-0) H 04/06/20 06:17 Promyelocytes % 1 (0-0) H 04/02/20 10:14 Blast Cells % 1 % (0-0) H* 04/02/20 10:14 Sodium 135 mmol/L (136-145) L 04/05/20 05:28 Potassium 2.8 mmol/L (3.5-5.1) L 04/08/20 06:14 Chloride 110 mmol/L (98-107) H 04/03/20 06:40 Carbon Dioxide 33.0 mmol/L (21.0-32.0) H 03/26/20 00:20 Anion Gap 4 (5-15) L 04/05/20 05:28 BUN 22 mg/dL (7-18) H 03/28/20 05:42 Creatinine 0.46 mg/dL (0.55-1.02) L 04/08/20 06:14 BUN/Creatinine Ratio 21.8 RATIO (10-20) H 04/08/20 06:14 Glucose 73 mg/dL (74-106) L 04/05/20 05:28 Calcium 7.7 mg/dL (8.5-10.1) L 04/08/20 06:14 Phosphorus 1.4 mg/dL (2.5-4.9) L 04/04/20 05:40 Magnesium 1.5 mg/dL (1.6-2.6) L 03/28/20 05:42 TIBC 206 ug/dL (250-450) L 04/08/20 05:50 Total Bilirubin 1.30 mg/dL (0.20-1.00) H 04/02/20 10:14 Direct Bilirubin 0.74 mg/dL (0.00-0.30) H 03/26/20 00:20 Alkaline Phosphatase 130 U/L (45-117) H 03/26/20 00:20 Total Protein 4.1 g/dL (6.4-8.2) L 04/04/20 05:40 Albumin 1.9 g/dL (3.2-5.0) L 04/04/20 05:40 - Assessment Food / Nutrition-Related History:: Summary of Nutrition Interventions---Placed on TPN which has since been discontinued 04/03/2020. Nutrition recommending PEG if inadequate oral intake continues. General surgery on consult for PEG tube evaluation. Due to large amount of ascites and thrombocytopenia, feel PEG tube is contraindicated at this time. Pt on Regular diet with small portions in addition to ONS with meals as well as fortified foods--overall PO at meals poor & inadequate. Pt noted to be refusing reglan. Wt down~2.9 kg since last review 3 days ago but, wt increased due to fluid~6.8 Kg since admit. SNF pending approval. - Nutrition Diagnosis Problem / Etiology / Signs & Symptoms (PES):: Severe pro/adelia malnutrition related to chronic/metastatic disease as evidenced by wt loss, inadequate intake, N/V, and +NFPA showing both fat/muscle wasting. Evidence of Malnutrition Exists:: Yes Severe PCM:: Chronic Illness - Nutrition Intervention Nutrition Prescription:: Estimated nutrition needs~[id number] Kcal and ~ 65-75 gm protein per day - Food / Nutrient Delivery Interventions Summary of nutrition intervention:: Continue to encourage small amounts of PO several times throughout the day as tolerated with fortified food and ONS at meals as tolerated. Highly doubtful that PO will meet increased nutrition needs--suggest nutrition support/TF as able to supplement PO. Nutrition support ordered as / adjusted to:: PO nutrition with fortified foods and oral nutrition supplements as tolerated. Nutrition education provided?: Yes - MNT Monitoring Further MNT monitoring and evaluation required?: Yes MNT Follow-up in:: 3-5 days - D/C to SNF pending approval.
[2020-04-08 11:56] LABS: Bedside Glucose 88 mg/dL (70-110)
[2020-04-08 12:01] VITALS: BMI 22.3
[2020-04-08 12:22] LABS: Pathologist Review Reviewed
--- NOTE | 2020-04-08 12:22 | PHA.DC.MR ---
Pharmacy Service has performed discharge medication reconciliation for [facility] The patient's discharge medication list was reviewed for discrepancies and discrepancies were resolved. Home Medications Levothyroxine [Synthroid] 100 mcg PO DAILY 02/20/20 Polyethylene Glycol 3350 [Miralax] 17 gm PO DAILY PRN PRN 02/20/20 Ibuprofen 600 mg PO TID PRN PRN #12 tab 03/01/20 Acetaminophen [Tylenol Tablet] 650 mg PO Q6H PRN PRN tab 03/08/20 Menthol/Lanolin/Calamine/Znox [Calmoseptine Ointment] 1 applic TOPICAL TID tube 03/08/20 Oxycodone [Oxyir] 5 mg PO Q6H PRN PRN #10 tab 03/08/20 Tamsulosin HCl [Flomax] 0.4 mg PO DAILY #7 cap 03/08/20 Cetirizine HCl 10 mg PO QHS PRN PRN 03/25/20 Magnesium Hydroxide [Milk Of Magnesia] 30 ml PO DAILY PRN PRN 03/25/20 Mineral Oil 1 bottle ID DAILY PRN PRN 03/25/20 Olanzapine [Zyprexa] 2.5 mg PO QHS 03/25/20 Omeprazole 20 mg PO DAILY 03/25/20 Ondansetron HCl [Zofran] 8 mg PO Q12H PRN PRN 03/25/20
--- NOTE | 2020-04-08 12:23 | DS.PCM_ITS ---
<Sara Bermeo - Last Filed: 04/08/20 12:36> Discharge Date and Diagnosis Date of Admission: 03/26/20 Date of Discharge: 04/08/20 - Primary Discharge Diagnosis Acute Problems: Active Problems 1. Intractable nausea/vomiting secondary to chemotherapy regimen 2. Metastatic stage III ovarian cancer-undergoes weekly paracentesis for ascites. 3. Pancytopenia-secondary to chemotherapy regimen. 4. Hypokalemia-secondary to #1. 5. Acute Citrobacter cystitis 6. Type 2 diabetes mellitus 7. Hypothyroidism 8. Hyperlipidemia 9. GERD 10. Severe protein calorie malnutrition 11. Debility - Secondary Discharge Diagnosis Chronic Problems: Chronic Problems Ovarian cancer (Chronic) Hypothyroidism (Chronic) Anxiety and depression (Chronic) HLD (hyperlipidemia) (Chronic) Diabetes mellitus, type II (Chronic) Former tobacco use (Chronic) Neutropenia (Chronic) Taxol and carboplatin Hospital Course and Treatment Imaging Results: Diagnostic Data Abdomen/Pelvis CT 03/30/20 11:52 IMPRESSION: Large amount of ascites and a large left pleural effusion. Electronically Signed: Jeff Cordero MD at 14:05 EDT Tel , Service support , Abdomen Ultrasound 04/02/20 09:09 IMPRESSION: Cirrhosis with a moderate amount of ascites. Electronically Signed: Jeff Cordero MD at 10:24 EDT Tel , Service support , Paracentesis Ultrasound 04/03/20 08:00 IMPRESSION: Ultrasound guided paracentesis. Electronically Signed: Ezequiel Heredia, at 13:43 EDT , Service support , Dr. Rey- Surgery Operations: None Procedures: EGD, Paracentesis Summary of Care Provided: The patient is a 59 year old F admitted 03/26/2020 due to intractable nausea and vomiting. 1. Intractable nausea/vomiting secondary to chemotherapy regimen-waxes and wanes. PRN antiemetics. Supportive management. Placed on TPN which has since been discontinued 04/03/2020. Nutrition recommending PEG if inadequate oral intake continues. General surgery consulted during admission for PEG tube evaluation. Due to large amount of ascites and thrombocytopenia, feel PEG tube is contraindicated at this time. Patient able to tolerate increased oral intake over the last several days without significant nausea. No recent emesis. Follow-up with oncology as scheduled. 2. Metastatic stage III ovarian cancer-undergoes weekly paracentesis for ascites. Follows with Dr. Flood. Palliative care discussed with patient in the past however she was not amenable at that time. Recommend continued discussion with oncology. Underwent paracentesis 04/03/2020. 3. Pancytopenia- S/P one unit PRBC for hgb 7.1. Stable. Continue to monitor CBC at SNF. Follow-up with oncology as scheduled. 4. Hypokalemia-secondary to #1. Replaced per protocol. Continue monitoring BMP, potassium levels at SNF. 5. Acute Citrobacter cystitis-completed course of Cipro. 6. Type 2 diabetes mellitus- not on regimen. Diet controlled. Hemoglobin A1c 5.7% in February. 7. Hypothyroidism-continue Synthroid regimen. 8. Hyperlipidemia- continue statin. 9. GERD-continue PPI. 10. Severe protein calorie malnutrition-as evidenced by weight loss, poor oral intake, cachectic appearance and muscle loss. Dietitian consulted. Encouraged frequent small meals/oral intake. 11. Debility-currently resides in SNF. PT/OT. General: Alert, Oriented x3, Cooperative, - - Appears fatigued HEENT: Atraumatic, PERRLA, EOMI, Normocephalic Oral: Dry Mucosa Neck: Supple, No JVD, Negative Carotid Bruits Lungs: Clear to auscultation, Diminished Cardiovascular: Regular rate, No murmurs Abdomen: Bowel Sounds Present, Soft, Non Tender, Non-Distended Extremities: No clubbing, No cyanosis, No edema, Capillary Refill Less than 3 Seconds Skin: No rashes, No breakdown Musculoskeletal: No Tenderness to Palpation of Joints or Extremities, Cachexia, Muscle Wasting Neurological: Cranial nerves II-XII grossly intact, Neuro grossly intact Psych/Mental Status: Normal Affect, Appropriate Patient seen and examined prior to discharge. Physical assessment as noted above. Patient is stable for discharge with follow up recommendations as noted above. This patient was seen by KING Murdock under the supervision of Dr. Paintsil. - Physical Exam Vitals/I&O's: Vital Signs Temp Pulse Resp BP Pulse Ox 97.6 F L 60 18 102/57 L 97 04/08/20 09:11 04/08/20 09:11 04/08/20 09:11 04/08/20 09:11 04/08/20 09:11 Oxygen Delivery Method [2] Room Air Oxygen Delivery Method [1 ( Room Air Initial Baseline)] Oxygen Delivery Method Room Air Weight: 134 lb 4.184 oz Body Mass Index (BMI) 22.3 Finger Stick Blood Glucose 76 Intake and Output for Last 24 Hours 04/06/20 04/07/20 04/08/20 23:59 23:59 23:59 Intake Total 781.5 / 781.5 980 / 1220 520 / 520 Output Total 125 / 125 Balance 781.5 / 781.5 855 / 1095 520 / 520 Laboratory Results 04/06/20 06:17: Diff Path Review Reviewed 04/07/20 06:14: POC Glucose 79 04/07/20 16:43: POC Glucose 111 H 04/08/20 00:30: POC Glucose 71 04/08/20 05:50: Iron 57, TIBC 206 L, Iron Saturation 27.7 04/08/20 05:56: POC Glucose 85 04/08/20 06:14: WBC 5.2, RBC 2.47 L, Hgb 7.5 L, Hct 22.8 L, MCV 92.3, MCH 30.4, MCHC 32.9, RDW Std Deviation 48.6 H, RDW Coeff of Frank 20.9 H, Plt Count 83 L, MPV 11.0, Differential Comment SCANNED 04/08/20 06:14: Sodium 137, Potassium 2.8 L, Chloride 105, Carbon Dioxide 27.0, Anion Gap 5, BUN 10, Creatinine 0.46 L, Estim Creat Clear Calc 119.95, Est GFR (MDRD) Af Amer 180, Est GFR (MDRD) Non-Af 149, BUN/Creatinine Ratio 21.8 H, Glucose 85, Calcium 7.7 L 04/08/20 06:14: Magnesium 1.7 04/08/20 11:41: POC Glucose 88 Current Medications Acetaminophen (Tylenol) 650 mg PO Q6H PRN PRN PRN Reason: Pain Score 1-10/10 Calamine/Phenol (Calmoseptine Ointment) 1 applic TOPICAL TID [facility]; Protocol Last Admin: 04/08/20 05:52 Dose: Not Given Documented by: Dexamethasone Sodium Phosphate (Decadron) 4 mg IV Q24 [facility] Last Admin: 04/08/20 09:05 Dose: Not Given Documented by: Dextrose (D50w Syringe) 0 gm IV X1 PRN; Protocol PRN Reason: Hypoglycemia Dronabinol (Marinol) 2.5 mg PO BIDAC [facility] Last Admin: 04/08/20 09:03 Dose: Not Given Documented by: Glucagon () 1 mg IM .X1 PRN PRN Reason: Hypoglycemia Heparin Sodium (Beef Lung) () 50 units IV UD PRN PRN Reason: R Port Heparin Flush Sodium Chloride () 250 mls @ 15 mls/hr IV .[id number] PRN PRN Reason: Saline Flush Last Infusion: 04/06/20 03:05 Dose: Infused Documented by: Pantoprazole Sodium 40 mg/ (Sodium Chloride) 110 mls @ 330 mls/hr IV Q12 [facility] Last Admin: 04/07/20 22:33 Dose: Not Given Documented by: Sodium Chloride () 500 mls @ 15 mls/hr IV PRN PRN PRN Reason: Blood Transfusion Last Infusion: 03/26/20 17:25 Dose: Infused Documented by: Levothyroxine Sodium (Synthroid) 100 mcg PO DAILY@0600 [facility] Last Admin: 04/08/20 05:51 Dose: Not Given Documented by: Loratadine (Claritin) 10 mg PO QHS PRN PRN PRN Reason: STUFFINESS Lorazepam (Ativan) 0.5 mg IV Q6H PRN PRN PRN Reason: ANXIETY Last Admin: 04/02/20 02:01 Dose: 0.5 mg Documented by: Magnesium Hydroxide (Milk Of Magnesia) 30 ml PO DAILY PRN PRN PRN Reason: Constipation Metoclopramide HCl (Reglan) 2.5 mg PO TID@0730,1130,1630 [facility] Last Admin: 04/08/20 11:44 Dose: Not Given Documented by: Morphine Sulfate () 2 mg IV Q2H PRN PRN PRN Reason: Pain Score 6-10/10 Last Admin: 04/07/20 04:40 Dose: 2 mg Documented by: Ondansetron HCl (Zofran) 4 mg IV Q6H PRN PRN PRN Reason: NAUSEA Last Admin: 04/05/20 22:18 Dose: 4 mg Documented by: Oxycodone HCl (Oxyir) 5 mg PO Q6H PRN PRN PRN Reason: Pain Score 6-10/10 Polyethylene Glycol (Miralax) 17 gm PO DAILY PRN PRN PRN Reason: Constipation Sodium Chloride () 10 - 40 ml IV UD PRN PRN Reason: R Port Saline Flush Last Admin: 04/07/20 11:03 Dose: 10 ml Documented by: Sodium Chloride (0.9% Nacl (Sterile) Posiflush) 10 - 40 ml IV UD PRN PRN Reason: Port access or dressing change Home Medications: Medications to take at Discharge Levothyroxine [Synthroid] 100 mcg PO DAILY 02/20/20 Polyethylene Glycol 3350 [Miralax] 17 gm PO DAILY PRN PRN 02/20/20 Ibuprofen 600 mg PO TID PRN PRN #12 tab 03/01/20 Acetaminophen [Tylenol Tablet] 650 mg PO Q6H PRN PRN tab 03/08/20 Menthol/Lanolin/Calamine/Znox [Calmoseptine Ointment] 1 applic TOPICAL TID tube 03/08/20 Oxycodone [Oxyir] 5 mg PO Q6H PRN PRN #10 tab 03/08/20 Tamsulosin HCl [Flomax] 0.4 mg PO DAILY #7 cap 03/08/20 Cetirizine HCl 10 mg PO QHS PRN PRN 03/25/20 Magnesium Hydroxide [Milk Of Magnesia] 30 ml PO DAILY PRN PRN 03/25/20 Mineral Oil 1 bottle SC DAILY PRN PRN 03/25/20 Olanzapine [Zyprexa] 2.5 mg PO QHS 03/25/20 Omeprazole 20 mg PO DAILY 03/25/20 Ondansetron HCl [Zofran] 8 mg PO Q12H PRN PRN 03/25/20 Dexamethasone [Decadron] 4 mg PO DAILY@0800 tab 04/08/20 Dronabinol [Marinol] 2.5 mg PO BIDAC cap 04/08/20 Metoclopramide [Reglan] 2.5 mg PO TID@0730,1130,1630 tab 04/08/20 Primary Care Physician: Denia Adrian MD [Primary Care Provider] - Please follow up with your Primary Care Physician in: 1 Week Please Follow Up With: Estephania Flood MD When: As scheduled Disposition: Custodial facility Minutes spent on discharge:: 35 Patient Condition:: Stable Medical Necessity - Tobacco Use Smoking Status: Former smoker Tobacco Use: Non-smoker Meaningful Use Info Meaningful Use Diagnoses (Choose all that apply): None applicable <Paintsil,[place] - Last Filed: 04/08/20 14:36> Discharge Date and Diagnosis - Secondary Discharge Diagnosis Chronic Problems: Chronic Problems Ovarian cancer (Chronic) Hypothyroidism (Chronic) Anxiety and depression (Chronic) HLD (hyperlipidemia) (Chronic) Diabetes mellitus, type II (Chronic) Former tobacco use (Chronic) Neutropenia (Chronic) Taxol and carboplatin Hospital Course and Treatment Summary of Care Provided: This patient was seen in conjunction with Sara Bermeo NP. I have independently interviewed and examined the patient and reviewed pertinent historical, laboratory, and other data. Please refer to her note for patient's presentation, findings, and recommendations. 59y/o female with past medical history of ovarian cancer [facility] and vomiting ongoing for 1 week. Patient is on chemotherapy for ovarian cancer and despite conservative treatment continued to throw up. She was admitted for IV fluid hydration as well as symptomatic care with antiemetic. She was started on TPN which was discontinued 04/13/20. General surgery was consulted for possible PEG tube placement. General surgery felt therapy was not indicated due to ascites and thrombocytopenia. Patient was transfused 1 unit of packed RBC in this admission. She had hypokalemia and hypomagnesemia that was replaced. She completed treatment for acute Citrobacter cystitis. On the day of discharge, patient was seen and examined. Denied any new complaints. She had been able to eat [employer] for dinner and also developmental psychologist. Vitals were reviewed -stable Physical Exam: General: Alert, Oriented x3, Cooperative, - - Appears fatigued HEENT: Atraumatic, PERRLA, EOMI, Normocephalic Oral: Dry Mucosa Neck: Supple, No JVD, Negative Carotid Bruits Lungs: Clear to auscultation, Diminished Cardiovascular: Regular rate, No murmurs Abdomen: Bowel Sounds Present, Soft, Non Tender, Non-Distended Extremities: No clubbing, No cyanosis, No edema, Capillary Refill Less than 3 Seconds Skin: No rashes, No breakdown Musculoskeletal: No Tenderness to Palpation of Joints or Extremities, Cachexia, Muscle Wasting Neurological: Cranial nerves II-XII grossly intact, Neuro grossly intact Psych/Mental Status: Normal Affect, Appropriate - Physical Exam Vitals/I&O's: Vital Signs Temp Pulse Resp BP Pulse Ox 97.6 F L 60 18 102/57 L 97 04/08/20 09:11 04/08/20 09:11 04/08/20 09:11 04/08/20 09:11 04/08/20 09:11 Oxygen Delivery Method [2] Room Air Oxygen Delivery Method [1 ( Room Air Initial Baseline)] Oxygen Delivery Method Room Air Weight: 60.9 kg Body Mass Index (BMI) 22.3 Finger Stick Blood Glucose 76 Intake and Output for Last 24 Hours 04/06/20 04/07/20 04/08/20 23:59 23:59 23:59 Intake Total 781.5 / 781.5 980 / 1220 720 / 720 Output Total 125 / 125 Balance 781.5 / 781.5 855 / 1095 720 / 720 Laboratory Results 04/06/20 06:17: Diff Path Review Reviewed 04/07/20 06:14: POC Glucose 79 04/07/20 16:43: POC Glucose 111 H 04/08/20 00:30: POC Glucose 71 04/08/20 05:50: Iron 57, TIBC 206 L, Iron Saturation 27.7 04/08/20 05:56: POC Glucose 85 04/08/20 06:14: WBC 5.2, RBC 2.47 L, Hgb 7.5 L, Hct 22.8 L, MCV 92.3, MCH 30.4, MCHC 32.9, RDW Std Deviation 48.6 H, RDW Coeff of Frank 20.9 H, Plt Count 83 L, MPV 11.0, Differential Comment SCANNED 04/08/20 06:14: Sodium 137, Potassium 2.8 L, Chloride 105, Carbon Dioxide 27.0, Anion Gap 5, BUN 10, Creatinine 0.46 L, Estim Creat Clear Calc 119.95, Est GFR (MDRD) Af Amer 180, Est GFR (MDRD) Non-Af 149, BUN/Creatinine Ratio 21.8 H, Glucose 85, Calcium 7.7 L 04/08/20 06:14: Magnesium 1.7 04/08/20 11:41: POC Glucose 88 Current Medications Acetaminophen (Tylenol) 650 mg PO Q6H PRN PRN PRN Reason: Pain Score 1-10/10 Calamine/Phenol (Calmoseptine Ointment) 1 applic TOPICAL TID [facility]; Protocol Last Admin: 04/08/20 13:11 Dose: 1 applicatio Documented by: Dexamethasone (Decadron) 4 mg PO DAILY@0800 [facility] Dextrose (D50w Syringe) 0 gm IV X1 PRN; Protocol PRN Reason: Hypoglycemia Dronabinol (Marinol) 2.5 mg PO BIDAC [facility] Last Admin: 04/08/20 09:03 Dose: Not Given Documented by: Glucagon () 1 mg IM .X1 PRN PRN Reason: Hypoglycemia Heparin Sodium (Beef Lung) () 50 units IV UD PRN PRN Reason: R Port Heparin Flush Sodium Chloride () 250 mls @ 15 mls/hr IV .[id number] PRN PRN Reason: Saline Flush Last Infusion: 04/06/20 03:05 Dose: Infused Documented by: Pantoprazole Sodium 40 mg/ (Sodium Chloride) 110 mls @ 330 mls/hr IV Q12 [facility] Last Admin: 04/07/20 22:33 Dose: Not Given Documented by: Sodium Chloride () 500 mls @ 15 mls/hr IV PRN PRN PRN Reason: Blood Transfusion Last Infusion: 03/26/20 17:25 Dose: Infused Documented by: Levothyroxine Sodium (Synthroid) 100 mcg PO DAILY@0600 [facility] Last Admin: 04/08/20 05:51 Dose: Not Given Documented by: Loratadine (Claritin) 10 mg PO QHS PRN PRN PRN Reason: STUFFINESS Lorazepam (Ativan) 0.5 mg IV Q6H PRN PRN PRN Reason: ANXIETY Last Admin: 04/02/20 02:01 Dose: 0.5 mg Documented by: Magnesium Hydroxide (Milk Of Magnesia) 30 ml PO DAILY PRN PRN PRN Reason: Constipation Metoclopramide HCl (Reglan) 2.5 mg PO TID@0730,1130,1630 [facility] Last Admin: 04/08/20 11:44 Dose: Not Given Documented by: Morphine Sulfate () 2 mg IV Q2H PRN PRN PRN Reason: Pain Score 6-10/10 Last Admin: 04/07/20 04:40 Dose: 2 mg Documented by: Ondansetron HCl (Zofran) 4 mg IV Q6H PRN PRN PRN Reason: NAUSEA Last Admin: 04/05/20 22:18 Dose: 4 mg Documented by: Oxycodone HCl (Oxyir) 5 mg PO Q6H PRN PRN PRN Reason: Pain Score 6-10/10 Polyethylene Glycol (Miralax) 17 gm PO DAILY PRN PRN PRN Reason: Constipation Sodium Chloride () 10 - 40 ml IV UD PRN PRN Reason: R Port Saline Flush Last Admin: 04/07/20 11:03 Dose: 10 ml Documented by: Sodium Chloride (0.9% Nacl (Sterile) Posiflush) 10 - 40 ml IV UD PRN PRN Reason: Port access or dressing change Inpatient E&M: [id number] [facility]
[2020-04-08] MEDS: Menthol/Lanolin/Calamine/Znox 113 GM Tube 1 APPLIC TOPICAL (13:11)
--- NOTE | 2020-04-08 13:26 | CASEMGMT ---
CHAPITO received a call from Portia at [facility] and patient was approved. CHAPITO notified physician and patient will go today after she gets Potassium and her Potassium level is taken again and at an appropriate level. CHAPITO faxed orders. CHAPITO notified Portia at [facility] that patient will be returning, but not until later on. CHAPITO told her staff will notify them of when she is coming. Plan: Return back to [facility] under skilled level of care. Caryl ARTEAGA MSW
[2020-04-08 16:19] VITALS: BP 124/54; PULSE 80; RESP 16; TEMP 36.8; O2SAT 99
[2020-04-08 16:33] LABS: Anion Gap 5 (5-15); BUN 9 mg/dL (7-18); BUN/Creat Ratio 17.9 RATIO (10-20); Calcium,Total 7.8 mg/dL (8.5-10.1); Chloride 106 mmol/L (98-107); EST Glomerular Filtration Rate 133 mL/min (>60); Est Glom Filt Rate - Afr Amer 161 mL/min (>60); Estimated Creatinine Clearance 110.36 ml/min; Glucose 82 mg/dL (74-106); Potassium 3.3 mmol/L (3.5-5.1); Sodium Level 138 mmol/L (136-145)
[2020-04-08 17:06] LABS: Bedside Glucose 85 mg/dL (70-110)
[2020-04-08] MEDS: 0.9% Saline Lock 10 ML Syringe IV (17:36)
--- NOTE | 2020-04-08 17:42 | NURSING ---
port deaccessed at this time. flushed with 10 cc normal saline and 5 cc heparin.
--- NOTE | 2020-04-08 17:50 | NURSING ---
report called to the [facility], spoked to nurseHemalatha.
== END 2020-04-08 18:43 | disposition skilled nursing facility (03) | DRG 249 ==
LOC: ED 03-26 01:03 → PCU 03-26 01:44
PROVIDERS: Hospitalist; Internal Medicine; Internal Medicine Hematology & Oncology; Nurse Practitioner Family; Physician Assistant; Surgery; Admitting Provider Family Medicine; Emergency Provider Emergency Medicine; PCP Internal Medicine; Referring Provider Family Medicine; Visit Provider Internal Medicine
PROC: 0DJ08ZZ Inspection of Upper Intestinal Tract, Via Natural or Artificial Opening Endoscopic (ICD-10-PCS; CPT 43235; principal; 2020-04-02 13:45)
DX: R11.2 Nausea with vomiting, unspecified (principal); T45.1X5A Adverse effect of antineoplastic and immunosuppressive drugs, initial encounter; C56.2 Malignant neoplasm of left ovary; D61.810 Antineoplastic chemotherapy induced pancytopenia; E87.6 Hypokalemia; E11.9 Type 2 diabetes mellitus without complications; E03.9 Hypothyroidism, unspecified; E78.5 Hyperlipidemia, unspecified; K21.9 Gastro-esophageal reflux disease without esophagitis; E43 Unspecified severe protein-calorie malnutrition; R18.8 Other ascites; K29.50 Unspecified chronic gastritis without bleeding; R53.81 Other malaise; Z87.891 Personal history of nicotine dependence; Z79.899 Other long term (current) drug therapy; Z68.20 Body mass index [BMI] 20.0-20.9, adult; N30.00 Acute cystitis without hematuria; Z16.19 Resistance to other specified beta lactam antibiotics; B96.89 Other specified bacterial agents as the cause of diseases classified elsewhere; K74.60 Unspecified cirrhosis of liver; R62.7 Adult failure to thrive; E83.42 Hypomagnesemia
CPT/HCPCS: 36415; 36591; 49083; 74177; 76705; 80048; 80053; 80076; 81001; 82962; 83540; 83550; 83690; 83735; 84100; 84132; 84478; 85025; 85027; 85610; 85730; 86850; 86900; 86901; 86920; 86922; 87077; 87086; 87088; 87186; 87635; 88305; 88342; 97110; 97162; 97166; 97530; 97802; 97803; 99285; G2023; J7030; J7040; J7050; J7120; P9016; P9612; Q9967; A4216; J0744; J1447; J2405; U0003

== ENCOUNTER → 2020-05-21 | Outpatient (CLI) | payer MEDICAID, SELFPAY ==
[2020-05-21] VITALS (9 sets, daily range): BP systolic 90–112; BP diastolic 49–73; PULSE 67–98; RESP 16–18; TEMP 36.1–37.2; O2SAT 97–100; BMI 22.3
[2020-05-21] MEDS: 0.9% NaCl Peripheral Flush Adult/Peds IV (13:36)
== END | disposition home or self-care (01) ==
PROVIDERS: PCP Family Medicine; Referring Provider Internal Medicine Hematology & Oncology; Visit Provider Internal Medicine Hematology & Oncology
DX: C56.2 Malignant neoplasm of left ovary (principal)
CPT/HCPCS: 36430; 86850; 86900; 86901; 86920; 86922; J7040; P9016; A4216

== ENCOUNTER → 2020-06-05 12:30 | Outpatient (CLI) | payer MEDICAID, SELFPAY ==
[2020-05-21 09:16] VITALS: BMI 22.3
[2020-06-05 12:54] LABS: Hematocrit 34.8 % (37-47); Hemoglobin 11.6 g/dL (12.0-15.0); Mean Corp Hgb Conc 33.3 g/dL (32-36); Mean Platelet Vol. 9.9 fl (6.2-12.0); Platelet Count 148 K/mm3 (150-450); RBC Distribution Width CV 15.8 % (11.6-14.6); RBC Distribution Width SD 53.9 fl (35.1-43.9); Red Blood Count 3.74 M/mm3 (4.2-5.4); White Blood Count 9.8 K/mm3 (4.4-11.0)
[2020-06-05 13:28] LABS: International Normalized Ratio 1.1; Prothrombin Time (Protime)PT. 13.5 SECONDS (11.7-14.9)
== END ==
PROVIDERS: PCP Family Medicine; Referring Provider Internal Medicine Hematology & Oncology; Visit Provider Internal Medicine Hematology & Oncology
DX: C56.9 Malignant neoplasm of unspecified ovary (principal); R18.0 Malignant ascites
CPT/HCPCS: 36415; 85027; 85610

== ENCOUNTER 2020-06-05 13:06 | Inpatient (IN) | payer MEDICAID, SELFPAY ==
[2020-05-21 09:16] VITALS: BMI 22.3
[2020-06-05] VITALS (7 sets, daily range): BP systolic 99–134; BP diastolic 69–95; PULSE 68–92; RESP 12–18; TEMP 36.2–36.6; O2SAT 96–99; BMI 18.3; BMI 18.0
--- NOTE | 2020-06-05 13:18 | EKG12_ITS ---
Test Reason : SYNCOPE Blood Pressure : / mmHG Vent. Rate : 082 BPM Atrial Rate : 082 BPM P-R Int : 152 ms QRS Dur : 094 ms QT Int : 386 ms P-R-T Axes : 041 020 -86 degrees QTc Int : 450 ms Normal sinus rhythm Low voltage QRS (Limb Leads) Nonspecific T-Wave Abnormality Abnormal ECG Confirmed by SHAYNE LANDRY, MAYA ([id number]), editor producer DANYELLE BALDERAS ([id number]) on 06/06/2020 1:10:27 PM Referred By: JAEMS Confirmed By:MAYA BELLA MD
[2020-06-05] MEDS: Morphine 4 MG/ML Syringe IV (13:44)
[2020-06-05] MEDS: Ondansetron 4 MG/2 ML Vial IV ×2 (13:44→15:31)
[2020-06-05 13:54] LABS: Absolute Lymphocyte Count 1.27 X10^3/uL (0.83-4.51); Absolute Neutrophil Count 6.7 X10^3/uL (2.0-7.7); Basophil# 0.01 X10^3/uL; Basophil% 0.1 % (0-1); Eosinophil# 0.05 X10^3/uL; Eosinophils% 0.6 % (0-5); Hematocrit 32.7 % (37-47); Hemoglobin 10.8 g/dL (12.0-15.0); Lymphocyte # 1.27 X10^3/ul (4.0); Lymphocyte % 14.5 % (19-41); Mean Corpuscular Hgb 30.5 pg (27.0-32.0); Mean Corpuscular Volume 92.4 fL (81-99); Mean Platelet Vol. 9.8 fl (6.2-12.0); NRBC Flagged by Analyzer 0 % (0-5); Neutrophil # 6.66 X10^3/uL (2.7-7.7); Neutrophil % 76.2 % (47-70); Platelet Count 135 K/mm3 (150-450); RBC Distribution Width CV 15.7 % (11.6-14.6); RBC Distribution Width SD 53.6 fl (35.1-43.9); Red Blood Count 3.54 M/mm3 (4.2-5.4); White Blood Count 8.7 K/mm3 (4.4-11.0)
[2020-06-05 14:07] LABS: ALB/GLOB Ratio 0.7 RATIO (0.9-2.4); AST(SGOT) 22 U/L (15-37); Alanine Aminotransfer ALT/SGPT 11 U/L (13-56); Albumin, Serum 2.3 g/dL (3.2-5.0); Alkaline Phosphatase 108 U/L (45-117); Anion Gap 6 (5-15); BUN 15 mg/dL (7-18); BUN/Creat Ratio 23.1 RATIO (10-20); Calcium,Total 8.4 mg/dL (8.5-10.1); Chloride 99 mmol/L (98-107); Creatinine, Serum 0.65 mg/dL (0.55-1.02); EST Glomerular Filtration Rate 100 mL/min (>60); Est Glom Filt Rate - Afr Amer 120 mL/min (>60); Estimated Creatinine Clearance 74.32 ml/min; Globulin 3.3 g/dL (2.2-4.2); Glucose 84 mg/dL (74-106); Lipase 104 U/L (73-393); Potassium 2.8 mmol/L (3.5-5.1); Protein, Total 5.6 g/dL (6.4-8.2); Sodium Level 136 mmol/L (136-145)
[2020-06-05 14:14] LABS: Bacteria 0 SEEN /hpf (None Seen); Mucous, Urine 0 SEEN /hpf (<or=2+); Red Blood Cells-Urine 0 SEEN /hpf (0-5); Squamous Epithelial Cells - UA 0 SEEN /hpf (5-10); White Blood Cells 0 SEEN /hpf (0-5)
[2020-06-05 14:20] LABS: Color, Urine Yellow (Yellow); Glucose, Dipstick Normal (Normal); Ketone-Dipstick 5 mg/dl (Negative); Leukocyte Esterase-Dipstick 500 /ul (Negative); Nitrite-Dipstick Negative (Negative); Occult Blood-Urine 10 /ul (Negative); Protein-Dipstick 30 mg/dl (Negative); Urine Clarity Sl. Cloudy (Clear); Urine Urobilinogen 8 mg/dl (Normal)
[2020-06-05 14:22] LABS: Urine Bilirubin Dipstick 3 mg/dL (Negative)
[2020-06-05 14:23] LABS: Yeast-Urine 3+ /hpf (None Seen)
[2020-06-05] MEDS: Potassium Chloride 10mEq/100mL 10 MEQ/100 ML IV.SOLN. 100 MEQ IV BOLUS ×5 (14:50→21:35)
--- NOTE | 2020-06-05 16:16 | NURSING ---
DR BELA LOWERY
--- NOTE | 2020-06-05 16:22 | ED.VISSUMM ---
- ER Visit Summary Date of Service: 06/05/20 Chief Complaint: Near syncope History of Present Illness: The patient is a 59 F who presents with near syncopal episode that occurred today. Patient states she has been having some abdominal pain for the past 5 days. Patient came to the hospital for outpatient paracentesis today. Patient describes her pain as aching and diffuse. Patient states nothing makes it better or worse. Patient denies any fevers or chills. Patient admits to some nausea and vomiting. Patient denies any diarrhea. Patient also admits to some dizziness. Patient has a history of ovarian cancer. Physical Examination: Vital signs are stable. Patient is afebrile. Patient is in no acute distress. Oral mucosa is pink and moist. Neck is supple. Trachea is midline. There is no JVD. Heart was regular rate and rhythm. Lungs are clear and equal bilaterally. Abdomen is soft. Bowel sounds are normal. There is diffuse tenderness. There is no rebound or guarding noted. Cranial nerves II through XII are intact. There are no focal motor or sensory deficits noted. Test Results: EKG shows a normal sinus rhythm with a rate of 82. There are nonspecific ST-T wave changes in leads II, III, and aVF. CBC and comprehensive metabolic profile were obtained and were essentially within normal limits with the exception of a potassium of 2.8 and a total bilirubin of 2.0. Urinalysis shows leukocyte esterase of 500 with 3+ yeast. Emergency Department Course and Treatment: Patient was given IV fluids. Patient was given a dose of IV potassium. Patient was also ordered oral potassium but she refused this. Patient was given dose of morphine and Zofran. Patient had recurrent nausea and was given a repeat dose of Zofran. Patient was still feeling weak on reevaluation. Case was discussed with the hospitalist. She will admit the patient to her service. Patient understood and was agreeable with the plan. All questions were answered. Disposition: Admit to hospital Impression: 1. Near syncope 2. Hypokalemia This note was generated with [employer] dictation software. It may contain incorrect words, spelling, and punctuation that were not noted in review of the chart prior to signing ED Disposition - Plan for ED Patient: Disposition: Acute Care Hospital [facility] Diagnosis: Near syncope, Hypokalemia, Ovarian cancer Referrals: Redd Alcala MD [Primary Care Provider] -
--- NOTE | 2020-06-05 16:45 | HP.PCM_ITS ---
<Sara Bermeo NUCLEAR PLANT CONSTRUCTION WORKER - Last Filed: 06/05/20 17:15> Problem List (1) Near syncope Status: Acute (2) Nausea & vomiting Status: Acute (3) Ovarian cancer Status: Chronic Qualifiers: Laterality: left Qualified Code(s): C56.2 - Malignant neoplasm of left ovary (4) Hypothyroidism Status: Chronic (5) Anxiety and depression Status: Chronic (6) HLD (hyperlipidemia) Status: Chronic (7) Diabetes mellitus, type II Status: Chronic (8) Former tobacco use Status: Chronic (9) Neutropenia Status: Chronic Comment: Taxol and carboplatin (10) Hypokalemia Status: Acute History of Present Illness Date of Admission: 06/05/20 Chief Complaint: Nausea, vomiting, lightheadedness/dizziness. The patient is a 59 year old F who presents the emergency room due to intractable nausea, vomiting with associated lightheadedness/dizziness. Patient reports this began last . She has not been able to keep down any oral intake. Denies diarrhea. Denies abdominal pain. Denies fever, chills. Patient states she has lost weight recently. She is not able to tell this provider if she is currently undergoing chemotherapy. She does not now how often she has been getting paracentesis. She was scheduled to have paracentesis today however did not feel well and blood pressure was noted to be low, therefore she was referred to the emergency room. She is currently at [facility]. She has a past medical history of metastatic stage III ovarian cancer, type 2 diabetes mellitus, hypothyroidism, hyperlipidemia, GERD, severe protein calorie malnutrition. Past Medical History Past Medical History (Chronic Problems): Chronic Problems Ovarian cancer (Chronic) Hypothyroidism (Chronic) Anxiety and depression (Chronic) HLD (hyperlipidemia) (Chronic) Diabetes mellitus, type II (Chronic) Former tobacco use (Chronic) Neutropenia (Chronic) Taxol and carboplatin Allergies metformin Allergy (Verified 06/05/20 13:11) Rash Home Medications: Ambulatory Orders Medication Instructions Recorded Oxycodone [Oxyir] 5 mg PO Q6H PRN PRN #10 tab 03/08/20 Omeprazole 20 mg PO DAILY 03/25/20 Dexamethasone [Decadron] 4 mg PO DAILY@0800 tab 04/08/20 Dronabinol [Marinol] 2.5 mg PO BIDAC cap 04/08/20 Levothyroxine Sodium [Synthroid] 100 mcg PO DAILY 06/05/20 Metoclopramide [Reglan] 5 mg PO TID@0730,1130,1630 06/05/20 Mirtazapine [Remeron] 15 mg PO TID 06/05/20 Multivitamin with Minerals 1 tab PO DAILY 06/05/20 [Multiple Vitamin] Surgical History: - - Unclear gallbladder intervention as noted stones removed but her gallbladder was not, x1, port placement. 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 Review of Systems Constitutional: Reports: Malaise, Weakness, - - Weight loss. Denies: Chills, Fever HEENT: Denies: Head Aches, Sinus Congestion, Sinus Drainage Cardiovascular: Reports: Light Headedness. Denies: Chest Pain, Palpitations Respiratory: Denies: Cough, Shortness of breath at rest, Sputum production Gastrointestinal: Reports: Nausea, Vomiting. Denies: Abdominal Pain, Constipation, Diarrhea Genitourinary: Denies: Dysuria Musculoskeletal: Denies: Joint Pain, Joint Tenderness Skin: Denies: Rash, Wounds Neurological: Denies: Numbness, Tingling, Focal weakness Psychiatric: Denies: Anxiety, Depression, Homicidal Ideations, Suicidal Ideations Hematologic/ Lymphatic: Denies: Easy Bruising, Easy Bleeding VTE Information - Inpt Only VTE Present on Admission: No VTE Mechan Device Prophylaxis: None VTE Pharm Prophylaxis ordered?: Yes Patient Problems: Active and Suspected Problems Near syncope (Acute) Hypokalemia (Acute) - Physical Exam Vitals/I&O's: Vital Signs Temp Pulse Resp BP Pulse Ox 97.8 F 79 14 134/95 H 96 06/05/20 16:28 06/05/20 16:28 06/05/20 16:28 06/05/20 16:28 06/05/20 16:28 Oxygen Delivery Method Room Air Weight: 110 lb 0.171 oz Body Mass Index (BMI) 18.3 Finger Stick Blood Glucose 76 Intake and Output for Last 24 Hours 06/03/20 06/04/20 06/05/20 23:59 23:59 23:59 Intake Total 600 / 600 Balance 600 / 600 General: Alert, Oriented x3, Cooperative, - - Ill-appearing, cachectic/frail appearing HEENT: Atraumatic, PERRLA, EOMI, Normocephalic Oral: Dry Mucosa Neck: Supple, No JVD, Negative Carotid Bruits Lungs: Clear to auscultation, Diminished Cardiovascular: Regular rate, No murmurs Abdomen: Bowel Sounds Present, Soft, Non Tender, Non-Distended Extremities: No clubbing, No cyanosis, No edema Skin: No rashes Musculoskeletal: No Tenderness to Palpation of Joints or Extremities, Cachexia, Muscle Wasting Neurological: Cranial nerves II-XII grossly intact, Neuro grossly intact Psych/Mental Status: Flat Affect Laboratory Results 06/05/20 13:40: WBC 8.7, RBC 3.54 L, Hgb 10.8 L, Hct 32.7 L, MCV 92.4, MCH 30.5, MCHC 33.0, RDW Std Deviation 53.6 H, RDW Coeff of Frank 15.7 H, Plt Count 135 L, MPV 9.8, Immature Gran % (Auto) 0.600, Neut % (Auto) 76.2 H, Lymph % (Auto) 14.5 L, Callahan % (Auto) 8.0, Eos % (Auto) 0.6, Baso % (Auto) 0.1, Absolute Neuts (auto) 6.7, Absolute Lymphs (auto) 1.27, Nucleated RBC % 0 06/05/20 13:40: Sodium 136, Potassium 2.8 L, Chloride 99, Carbon Dioxide 31.0, Anion Gap 6, BUN 15, Creatinine 0.65, Estim Creat Clear Calc 74.32, Est GFR (MDRD) Af Amer 120, Est GFR (MDRD) Non-Af 100, BUN/Creatinine Ratio 23.1 H, Glucose 84, Calcium 8.4 L, Total Bilirubin 2.00 H, AST 22, ALT 11 L, Alkaline Phosphatase 108, Total Protein 5.6 L, Albumin 2.3 L, Globulin 3.3, Albumin/Globulin Ratio 0.7 L, Lipase 104 06/05/20 14:05: Urine Color Yellow, Urine Clarity Sl. Cloudy, Urine pH 7.0, Ur Specific [place] 1.010, Urine Protein 30 H, Urine Glucose (UA) Normal, Urine Ketones 5 H, Urine Occult Blood 10 H, Urine Nitrite Negative, Urine Bilirubin 3 H, Urine Urobilinogen 8 H, Ur Leukocyte Esterase 500 H, Urine RBC 0 SEEN, Urine WBC 0 SEEN, Ur Squamous Epith Cells 0 SEEN, Urine Bacteria 0 SEEN, Urine Mucus 0 SEEN, Urine Yeast 3+ Assessment/Plan All Active Problems Near syncope (Acute) Nausea & vomiting (Acute) Hypokalemia (Acute) 1. Intractable nausea/vomiting secondary to chemotherapy regimen-PRN antiemetics. IV fluids. Per [facility] records, patient follows with palliative medicine currently. During recent admission March, patient required TPN. Dietitian consult. 2. Metastatic ovarian cancer-undergoes weekly paracentesis for ascites. Follows with Dr. Flood. Following with palliative care per [facility] outpatient note. Continues to undergo chemotherapy. Patient was scheduled for paracentesis today however unable to perform due to symptomatic hypotension and nausea, vomiting. 3. Pancytopenia-recent blood transfusion as outpatient. Trend CBC. 4. Hypokalemia-secondary to #1. Replaced per protocol. Trend BMP. 5. Severe protein calorie malnutrition-as evidenced by weight loss, poor oral intake, cachectic appearance and muscle loss. Dietitian consult 6. Type 2 diabetes mellitus- not on regimen. Hemoglobin A1c 5.7% in February. 7. Hypothyroidism-continue Synthroid regimen. 8. Hyperlipidemia- continue statin. 9. GERD-continue PPI. 10. Debility-currently resides in SNF. PT/OT. DVT prophylaxis-Lovenox CODE STATUS: Discussed in length with patient, patient requests DNR CCA no inpatient status. This patient was seen by K[facility] Murdock under the supervision of Dr. Caldera. <Sarah Caldera - Last Filed: 06/05/20 19:08> History of Present Illness Date of Admission: 06/05/20 I agree with the above and and the following is a reflection of my independent history and PE. The patient is a 59 year old F who has a h/o metastatic ovarian cancer that was diagnosed about 7 mos ago. She is unsure when she had her last treatment with chemo and was to have a paracentesis today but when she arrived for her paracentesis today she was not feeling well and it was noted that she was hypotensive. She has had multiple admissions for nausea and vomiting with decreased PO intake and admits that her PO intake has been very poor again lately. She states that she still would like to pursue aggressive treatment but continue with palliative care following. She has now had some IVF and does admit that she is feeling a bit better. Past Medical History Allergies metformin Allergy (Verified 06/05/20 13:11) Rash Surgical History: - Review of Systems Constitutional: Reports: Anorexia, Malaise, Weakness, Weight Change - lost 90 lbs since diagnosis, Fatigue, -. Denies: Chills, Fever, Night Sweats Eyes: Reports: Blurred vision, Eyelid Inflammation, Pain, Redness, Vision Change HEENT: Reports: Difficulty Hearing, Difficulty Swallowing, Head Aches. Denies: Nasal bleeding, Nasal Congestion, Post Nasal Drip, Sinus Drainage, Sore Throat Cardiovascular: Reports: Light Headedness. Denies: Chest Pain, Chest Pressure, Chest Tightness, Heaviness, Orthopnea, Palpitations, Paroxysmal Noc. Dyspnea, Syncope Respiratory: Denies: Cough, Shortness of Breath, Shortness of breath at rest, Shortness of breath upon exertion, Sputum production, Wheezing Gastrointestinal: Reports: Nausea, Vomiting. Denies: Abdominal Pain, Constipation, Diarrhea, Dyspepsia, Hematemesis, Hematochezia, Melena Genitourinary: Denies: Dysuria, Frequency, Hematuria, Hesitancy, Incontinence, Nocturia, Retention, Urgency Musculoskeletal: Denies: Back Pain, Joint Pain, Joint stiffness, Joint swelling, Joint Tenderness, Muscle pain, Neck Pain Skin: Denies: Dryness, Jaundice, Lesions, Pruritis, Rash, Skin Changes, Wounds Neurological: Denies: Balance problems, Blurred vision, Double vision, Difficulty swallowing, Focal weakness, Incoordination, Tingling, Tremor, Seizures Psychiatric: Denies: Anxiety, Depression Endocrine: Reports: Change in Body Habitus. Denies: Heat/ Cold Intolerance, Polydipsia, Polyuria Hematologic/ Lymphatic: Reports: Anemia. Denies: Adenopathy, Easy Bruising, Easy Bleeding, Petechiae, Purpura VTE Information - Inpt Only VTE Present on Admission: No VTE Mechan Device Prophylaxis: None VTE Pharm Prophylaxis ordered?: Yes - Physical Exam Vitals/I&O's: Vital Signs Temp Pulse Resp BP Pulse Ox 97.7 F L 81 16 121/71 H 96 06/05/20 17:06 06/05/20 17:09 06/05/20 17:06 06/05/20 17:06 06/05/20 17:06 Oxygen Delivery Method Room Air Weight: 49.1 kg Body Mass Index (BMI) 18.0 Finger Stick Blood Glucose 76 Intake and Output for Last 24 Hours 06/03/20 06/04/20 06/05/20 23:59 23:59 23:59 Intake Total 600 / 600 Balance 600 / 600 General: Alert, Oriented x3, Cooperative, No apparent distress, - - Ill-appeari ng, cachectic/frail appearing, temporal wasting and decreased lean mm mass HEENT: Atraumatic, PERRLA, EOMI, Normocephalic, EAC Clear Oral: No Gingival or Mucosal Lesions/ Ulcerations, Dry Mucosa Neck: Supple, No JVD, Negative Carotid Bruits, Trachea Midline, Thyroid Normal Size and Texture Lungs: Clear to auscultation, Normal air movement, No rhonchi, No wheeze, No rales Cardiovascular: Regular rate, Regular Rhythm, Normal S1, Normal S2, No murmurs, No Ectopic Activity, No rub noted, No Gallop Abdomen: Bowel Sounds Present, Soft, Non Tender, Non-Distended, - - no notable fluid wave or marked acities Extremities: No clubbing, No cyanosis, No edema, Capillary Refill Less than 3 Seconds, No Calf Tenderness, Peripheral Pulses Normal Skin: No rashes, No breakdown Musculoskeletal: No Tenderness to Palpation of Joints or Extremities, Cachexia, Muscle Wasting - marked Lymphatic: No Cervical, Supraclavicular, or Inguinal Adenopathy Neurological: Cranial nerves II-XII grossly intact, Deep Tendon Reflexes 2+/4 and Symmetrical, Neuro grossly intact, - - generalized weakness Psych/Mental Status: Appropriate, Flat Affect Laboratory Results 06/05/20 13:40: WBC 8.7, RBC 3.54 L, Hgb 10.8 L, Hct 32.7 L, MCV 92.4, MCH 30.5, MCHC 33.0, RDW Std Deviation 53.6 H, RDW Coeff of Frank 15.7 H, Plt Count 135 L, MPV 9.8, Immature Gran % (Auto) 0.600, Neut % (Auto) 76.2 H, Lymph % (Auto) 14.5 L, Callahan % (Auto) 8.0, Eos % (Auto) 0.6, Baso % (Auto) 0.1, Absolute Neuts (auto) 6.7, Absolute Lymphs (auto) 1.27, Nucleated RBC % 0 06/05/20 13:40: Sodium 136, Potassium 2.8 L, Chloride 99, Carbon Dioxide 31.0, Anion Gap 6, BUN 15, Creatinine 0.65, Estim Creat Clear Calc 74.32, Est GFR (MDRD) Af Amer 120, Est GFR (MDRD) Non-Af 100, BUN/Creatinine Ratio 23.1 H, Glucose 84, Calcium 8.4 L, Total Bilirubin 2.00 H, AST 22, ALT 11 L, Alkaline Phosphatase 108, Total Protein 5.6 L, Albumin 2.3 L, Globulin 3.3, Albumin/Globulin Ratio 0.7 L, Lipase 104 06/05/20 13:40: Magnesium 1.5 L 06/05/20 14:05: Urine Color Yellow, Urine Clarity Sl. Cloudy, Urine pH 7.0, Ur Specific [place] 1.010, Urine Protein 30 H, Urine Glucose (UA) Normal, Urine Ketones 5 H, Urine Occult Blood 10 H, Urine Nitrite Negative, Urine Bilirubin 3 H, Urine Urobilinogen 8 H, Ur Leukocyte Esterase 500 H, Urine RBC 0 SEEN, Urine WBC 0 SEEN, Ur Squamous Epith Cells 0 SEEN, Urine Bacteria 0 SEEN, Urine Mucus 0 SEEN, Urine Yeast 3+ Current Medications Acetaminophen (Tylenol) 650 mg PO Q6H PRN PRN PRN Reason: Pain Score 1-10/Temp > 100.7 F Dexamethasone (Decadron) 4 mg PO DAILY@0800 [facility] Dronabinol (Marinol) 2.5 mg PO BIDAC [facility] Enoxaparin Sodium (Lovenox) 40 mg SC DAILY [facility] Haloperidol Lactate (Haldol) 1 mg IM Q6H PRN PRN PRN Reason: NAUSEA Famotidine 20 mg/ Sodium (Chloride) 10 mls @ 300 mls/hr IV Q12 [facility] Sodium Chloride () 1,000 mls @ 125 mls/hr IV .Q8H [facility] Last Admin: 06/05/20 18:11 Dose: 125 mls/hr Documented by: Potassium Chloride () 10 meq in 100 mls @ 100 mls/hr IV BOLUS Q1H [facility] Stop: 06/05/20 21:59 Last Admin: 06/05/20 18:24 Dose: 100 mls/hr Documented by: Levothyroxine Sodium (Synthroid) 100 mcg PO DAILY@0600 [facility] Mirtazapine (Remeron) 15 mg PO TID [facility] Morphine Sulfate () 2 mg IV Q3H PRN PRN PRN Reason: Pain Score 6-10/10 Nutritional Formula (Lactose Free) (Glucerna Shake) 120 ml PO 4X/DAY [facility] Ondansetron HCl (Zofran) 4 mg IV Q8H PRN PRN PRN Reason: NAUSEA/VOMITING Prochlorperazine Edisylate (Compazine Iv) 5 mg IV Q4H PRN PRN PRN Reason: Breakthrough nausea/vomiting Assessment/Plan I agree with the above and and the following is a reflection of my independent history and PE. ASSESSMENT Hypotension Intractable Nausea and Vomiting DEVON Hypokalemia Hypomagnesemia Metastatic Ovarian Cancer Hyperbilirubinemia Anemia Thrombocytopenia Hypothyroidism HU-9-Lkycrivh with wgt loss HPL GERD Debility Severe Malnutrition PLAN -IVF with NS at 125 cc/hr for now -BP are better with IVF -pt refused PO K replacement--> replaced IV -replace Mag 2 gm and repeat in am -Palliative Care consult -no current needs for Para -continue decadron/marinol/Phenergan -CLD for now -continue Synthroid -repeat am lab -pt states that she is still wanting to pursue aggressive treatment and is not yet ready for hospice referral -DNR CCA no ETT Inpatient E&M: 71693 Init Hosp L3
--- NOTE | 2020-06-05 16:45 | ED.RN ---
CALLED [facility], NO NURSE AVAILABLE TO TAKE REPORT, LEFT MESSAGE WITH MEDIA TECHNICIAN THAT PT WAS BEING ADMITTED TO [facility], GAVE NUMBER TO CALL FOR FURTHER DETAILS.
[2020-06-05 17:19] LABS: Magnesium 1.5 mg/dL (1.6-2.6)
[2020-06-05] MEDS: 0.9% Normal Saline 1,000 ML 125 ML IV (18:11)
[2020-06-05] MEDS: Famotidine 200 MG/20 ML MDV 20 MG in 0.9% Normal Saline (Pres. free 8 ML 300 MG IV (22:51)
[2020-06-06] MEDS: Ondansetron 4 MG/2 ML Vial IV ×2 (01:37→09:38)
[2020-06-06] MEDS: 0.9% Normal Saline 1,000 ML 125 ML IV ×2 (01:43→09:30)
[2020-06-06 04:15] VITALS: BP 117/65; PULSE 64; RESP 16; TEMP 36.6; O2SAT 100
[2020-06-06] MEDS: Morphine 2 MG/ML Syringe IV (05:59)
[2020-06-06 06:26] LABS: Absolute Lymphocyte Count 1.54 X10^3/uL (0.83-4.51); Absolute Neutrophil Count 4.9 X10^3/uL (2.0-7.7); Basophil# 0.01 X10^3/uL; Basophil% 0.1 % (0-1); Eosinophil# 0.06 X10^3/uL; Eosinophils% 0.9 % (0-5); Hematocrit 34.1 % (37-47); Hemoglobin 11.1 g/dL (12.0-15.0); Lymphocyte # 1.54 X10^3/ul (4.0); Lymphocyte % 21.9 % (19-41); Mean Corp Hgb Conc 32.6 g/dL (32-36); Mean Corpuscular Hgb 31.3 pg (27.0-32.0); Mean Corpuscular Volume 96.1 fL (81-99); Mean Platelet Vol. 10.1 fl (6.2-12.0); Monocyte# 0.46 X10^3/uL; Monocyte% 6.5 % (0-10); NRBC Flagged by Analyzer 0 % (0-5); Neutrophil # 4.92 X10^3/uL (2.7-7.7); Platelet Count 107 K/mm3 (150-450); RBC Distribution Width CV 15.9 % (11.6-14.6); RBC Distribution Width SD 56.1 fl (35.1-43.9); Red Blood Count 3.55 M/mm3 (4.2-5.4)
[2020-06-06 06:48] LABS: Anion Gap 8 (5-15); BUN 12 mg/dL (7-18); BUN/Creat Ratio 19.6 RATIO (10-20); Calcium,Total 7.9 mg/dL (8.5-10.1); Chloride 103 mmol/L (98-107); Creatinine, Serum 0.61 mg/dL (0.55-1.02); EST Glomerular Filtration Rate 107 mL/min (>60); Est Glom Filt Rate - Afr Amer 129 mL/min (>60); Estimated Creatinine Clearance 77.92 ml/min; Glucose 62 mg/dL (74-106); Magnesium 2.4 mg/dL (1.6-2.6); Potassium 3.7 mmol/L (3.5-5.1); Sodium Level 137 mmol/L (136-145)
[2020-06-06 08:33] VITALS: BP 109/63; PULSE 65; RESP 16; TEMP 36.4; O2SAT 97
[2020-06-06] MEDS: Famotidine 200 MG/20 ML MDV 20 MG in 0.9% Normal Saline (Pres. free 8 ML 300 MG IV ×2 (09:38→21:33)
[2020-06-06] MEDS: Enoxaparin 40 MG/0.4 ML Syringe SC (09:41)
--- NOTE | 2020-06-06 10:39 | CASEMGMT ---
Patient is from [facility] at [place]. SW faxed clinicals to [facility]. SW will follow for return to [facility]. Patient will need pre-cert before she can return to [facility]. Plan: Return to [facility]. Caryl LIU
[2020-06-06] MEDS: proCHLORPERazine 10 MG/2 ML Vial 5 MG IV (11:00)
--- NOTE | 2020-06-06 13:17 | CASEMGMT ---
Physician spoke with patient about Hospice. She agreed to talk with Hospice. SW spoke with patient and she confirmed this information. She would like [facility]. SW told her they will call her room phone so she should be sure to answer it. SW called Hospice with referral and also faxed information. Caryl ARTEAGA MSW
--- NOTE | 2020-06-06 13:40 | CASEMGMT ---
SW spoke with Palmira from Hospice and she said that she talked with patient and she did not want to talk with them today. They will call her tomorrow am. Palmira also suggested she have a catheter placed to drain her abdomen. Patient also told her she wants to go home on Hospice. SW will talk with physician and patient. Caryl LIU
[2020-06-06 13:47] VITALS: BP 99/62; PULSE 73; RESP 14; TEMP 36.5; O2SAT 99
--- NOTE | 2020-06-06 14:24 | PCM.PN.HOSP ---
Patient Problems: Active and Suspected Problems Near syncope (Acute) Hypokalemia (Acute) Subjective: She still has significant nausea and generalized abdominal pain. She states that her biggest issue is her nausea that she is unable to get under control because that she has no appetite. Vitals/I&O's: Vital Signs Temp Pulse Resp BP Pulse Ox 97.7 F L 73 14 99/62 99 06/06/20 13:47 06/06/20 13:47 06/06/20 13:47 06/06/20 13:47 06/06/20 13:47 Oxygen Delivery Method Room Air Weight: 108 lb 3.951 oz Body Mass Index (BMI) 18.0 Finger Stick Blood Glucose 76 Intake and Output for Last 24 Hours 06/04/20 06/05/20 06/06/20 23:59 23:59 23:59 Intake Total 1735 / 1735 1303.59 / 1303.59 Output Total 400 / 400 Balance 1335 / 1335 1303.59 / 1303.59 General: Alert, Oriented x3, Cooperative, No apparent distress, - - Ill and cachectic HEENT: Atraumatic, PERRLA, EOMI, Normocephalic Oral: Moist Mucosa Neck: Supple, No JVD Lungs: Clear to auscultation, Normal air movement, No rhonchi, No wheeze, No rales Cardiovascular: Regular rate, Regular Rhythm, Normal S1, Normal S2, No murmurs Abdomen: Soft, Non Tender, Non-Distended, No Hepato-splenomegaly Extremities: No edema, Capillary Refill Less than 3 Seconds Skin: No rashes, No breakdown Musculoskeletal: Cachexia Neurological: Neuro grossly intact, Sensory exam intact to light touch and pain Psych/Mental Status: Flat Affect Laboratory Results 06/05/20 13:40: Magnesium 1.5 L 06/06/20 06:06: WBC 7.0, RBC 3.55 L, Hgb 11.1 L, Hct 34.1 L, MCV 96.1, MCH 31.3, MCHC 32.6, RDW Std Deviation 56.1 H, RDW Coeff of Frank 15.9 H, Plt Count 107 L, MPV 10.1, Immature Gran % (Auto) 0.600, Neut % (Auto) 70.0, Lymph % (Auto) 21.9, [place] % (Auto) 6.5, Eos % (Auto) 0.9, Baso % (Auto) 0.1, Absolute Neuts (auto) 4.9, Absolute Lymphs (auto) 1.54, Nucleated RBC % 0 06/06/20 06:06: Sodium 137, Potassium 3.7, Chloride 103, Carbon Dioxide 26.0, Anion Gap 8, BUN 12, Creatinine 0.61, Estim Creat Clear Calc 77.92, Est GFR (MDRD) Af Amer 129, Est GFR (MDRD) Non-Af 107, BUN/Creatinine Ratio 19.6, Glucose 62 L, Calcium 7.9 L, Magnesium 2.4 Current Medications Acetaminophen (Tylenol) 650 mg PO Q6H PRN PRN PRN Reason: Pain Score 1-10/Temp > 100.7 F Dexamethasone (Decadron) 4 mg PO DAILY@0800 [facility] Last Admin: 06/06/20 09:40 Dose: Not Given Documented by: Dronabinol (Marinol) 2.5 mg PO BIDAC [facility] Last Admin: 06/06/20 06:51 Dose: Not Given Documented by: Enoxaparin Sodium (Lovenox) 40 mg SC DAILY [facility] Last Admin: 06/06/20 09:41 Dose: 40 mg Documented by: Haloperidol Lactate (Haldol) 1 mg IM Q6H PRN PRN PRN Reason: NAUSEA Famotidine 20 mg/ Sodium (Chloride) 10 mls @ 300 mls/hr IV Q12 [facility] Last Infusion: 06/06/20 09:42 Dose: Infused Documented by: Levothyroxine Sodium (Synthroid) 100 mcg PO DAILY@0600 [facility] Last Admin: 06/06/20 06:20 Dose: Not Given Documented by: Mirtazapine (Remeron) 15 mg PO TID [facility] Last Admin: 06/06/20 14:15 Dose: Not Given Documented by: Morphine Sulfate () 2 mg IV Q3H PRN PRN PRN Reason: Pain Score 6-10/10 Last Admin: 06/06/20 05:59 Dose: 2 mg Documented by: Nutritional Formula (Lactose Free) (Glucerna Shake) 120 ml PO 4X/DAY [facility] Last Admin: 06/06/20 14:15 Dose: Not Given Documented by: Ondansetron HCl (Zofran) 4 mg IV Q8H PRN PRN PRN Reason: NAUSEA/VOMITING Last Admin: 06/06/20 09:38 Dose: 4 mg Documented by: Prochlorperazine Edisylate (Compazine Iv) 5 mg IV Q4H PRN PRN PRN Reason: Breakthrough nausea/vomiting Last Admin: 06/06/20 11:00 Dose: 5 mg Documented by: Promethazine HCl (Phenergan) 12.5 mg IV Q4H PRN PRN PRN Reason: NAUSEA/VOMITING STROKE Vital Signs/Narrative: Vital Signs Temp Pulse Resp BP Pulse Ox 06/06/20 13:47 97.7 F L 73 14 99/62 99 Medical Necessity - Tobacco Use Smoking Status: Former smoker Tobacco Use: Cigarettes Assessment/Plan All Active Problems Near syncope (Acute) Nausea & vomiting (Acute) Hypokalemia (Acute) 1. Intractable nausea and vomiting secondary to chemotherapy for her metastatic ovarian cancer with severe protein calorie malnutrition/pancytopenia -She has lost approximately 45 pounds. She does not eat very well. -She is on Haldol, Zofran, Compazine, Marinol, Decadron and now Phenergan to help control her nausea -We will continue with Remeron to help stimulate her appetite -I discussed the case with both her and her oncologist for over 30 minutes. She is not a surgical candidate and she is too weak to tolerate any further chemo. She states that she would like to discontinue treatment at this time and would like to pursue hospice however she is too ill today to talk to hospice. Also discussed the possibility of a tunneled peritoneal catheter for repeated paracenteses while on hospice. -Pancytopenia likely secondary to cancer and chemotherapy will continue to monitor 2. DM 2 -Her A1c was 5.7 in February -We will continue to monitor her blood sugar 3. Hypothyroidism -Stable -Continue Synthroid 4. GERD -Stable -Continue with PPI DVT: Lovenox Inpatient E&M: 61768 Subs Hosp L2 Procedures: 35985 Advncd Care Plan 30 Min
--- NOTE | 2020-06-06 14:35 | PCM.NTREPORT ---
Nutrition Therapy Report - History Nutrition Services has been consulted to:: Manage nutrient details of diet order Current diet / nutrition support order:: clear liquid; glucerna 120mL 4x/day - Anthropometric Measurements Height:: 5 ft 5 in Weight:: 49.1 kg Body Mass Index (BMI):: 18.0 - Relevant Labs Relevant Labs:: RBC 3.55 M/mm3 (4.2-5.4) L 06/06/20 06:06 Hgb 11.1 g/dL (12.0-15.0) L 06/06/20 06:06 Hct 34.1 % (37-47) L 06/06/20 06:06 RDW Std Deviation 56.1 fl (35.1-43.9) H 06/06/20 06:06 RDW Coeff of Frank 15.9 % (11.6-14.6) H 06/06/20 06:06 Plt Count 107 K/mm3 (150-450) L 06/06/20 06:06 Neut % (Auto) 76.2 % (47-70) H 06/05/20 13:40 Lymph % (Auto) 14.5 % (19-41) L 06/05/20 13:40 Potassium 2.8 mmol/L (3.5-5.1) L 06/05/20 13:40 BUN/Creatinine Ratio 23.1 RATIO (10-20) H 06/05/20 13:40 Glucose 62 mg/dL (74-106) L 06/06/20 06:06 Calcium 7.9 mg/dL (8.5-10.1) L 06/06/20 06:06 Magnesium 1.5 mg/dL (1.6-2.6) L 06/05/20 13:40 Total Bilirubin 2.00 mg/dL (0.20-1.00) H 06/05/20 13:40 ALT 11 U/L (13-56) L 06/05/20 13:40 Total Protein 5.6 g/dL (6.4-8.2) L 06/05/20 13:40 Albumin 2.3 g/dL (3.2-5.0) L 06/05/20 13:40 Albumin/Globulin Ratio 0.7 RATIO (0.9-2.4) L 06/05/20 13:40 - Assessment Food / Nutrition-Related History:: 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 Most recently admitted in March 2020 w/ intractable n/v r/t chemotherapy. During previous admission, TPN was trialed but d/c'd d/t pt's fluid status. PEG tube was then recommended, but it was determined to be contraindicated d/t ascites and thrombocytopenia. Pt reports n/v x1 week prior to this admission; but states appetite/PO has continued to be very poor w/ little PO intake over last few months d/t chemo, altered tastes. Review of wts in EMR- was 152.1# on 02/20/20 and CBW 108.2#-43.9#/28.8% wt loss x 3 months, significant for severe malnutrition. At time of assessment, pt had not had any tolerated PO fluids/foods since [facility] admission. Pt continues to have paracenteses on regular basis d/t fluid status. - Nutrition Diagnosis Problem / Etiology / Signs & Symptoms (PES):: Severe malnutrition related to increased energy needs w/ metastatic disease as evidenced by inadequate PO intake meeting <50% of estimated nutritional needs x3 months and wt loss of 43.9#/28.8% x 3 months. Evidence of Malnutrition Exists:: Yes Severe PCM:: Chronic Illness - Nutrition Intervention Nutrition Prescription:: [id number] calories/day, 60-70 g protein - Food / Nutrient Delivery Interventions Summary of nutrition intervention:: Pt states she would be willing to try cream of wheat when diet advanced, but does not feel she will tolerate it d/t nausea. Spoke w/ RN Gilda- diet to be advanced if nausea subsides/plan of care further determined. Hospitalist and oncologist to discuss transition to hopce care today. Nutrition support ordered as / adjusted to:: recommend advance diet as tolerated to regular. It appears obvious that pt will not consume enough nutrition via PO diet to maintain/gain wt at this time. Would recommend nutrition support if indicated, however per records from March admission, it appears pt is not a candidate for TPN or PEG placement. May consider NGT for short-term nutrition support, if appropriate and pt agreeable. Consult RDN for further recommendations if indicated. - MNT Monitoring Further MNT monitoring and evaluation required?: Yes MNT Follow-up in:: 3-5 days
[2020-06-06 14:41] VITALS: BMI 18.0
[2020-06-06] MEDS: Dronabinol 2.5 MG Capsule PO (15:56)
--- NOTE | 2020-06-06 17:29 | PN_ITS ---
Progress Note Oncology progress note: I had a long discussion with Mrs. Lynn today regarding plan of care and goals of treatment for her ovarian cancer. Mrs. Lynn has not been able to receive palliative chemotherapy for the last 2 months because of progressive decline, recurrent abdominal pain, severe malnutrition and intractable nausea & vomiting. She had minimal response after 3 cycle of carboplatin /paclitaxel chemotherapy. 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 Further chemotherapy may not improve her condition, but will exacerbate her symptom of weight loss, nausea and vomiting. After a long discussion, Mrs Lynn agree that quality of life is more important than prolonging life with uncontrollable symptoms. She has a DNR comfort care order. I recommend that she be refer to hospice for pain and symptom management. Possible tunnel peritoneal catheter for drainage of malignant ascites if needed. Recommendations: -Refer to hospice for pain and symptom management -Cancel chemotherapy treatment -Possible tunneled peritoneal catheter for malignant ascites cc: Dr. Bay Sue- [facility], Dr. Bernabe Horowitz, Dr. Redd Alcala STROKE Vital Signs/Narrative: Vital Signs Temp Pulse Resp BP Pulse Ox 06/06/20 13:47 97.7 F L 73 14 99/62 99
[2020-06-06 19:50] VITALS: BP 110/67; PULSE 70; RESP 16; TEMP 36.6; O2SAT 99
[2020-06-06 21:40] VITALS: BP 96/59; PULSE 78; RESP 16; TEMP 36.5; O2SAT 99
[2020-06-07] VITALS (8 sets, daily range): BP systolic 97–117; BP diastolic 57–75; PULSE 77–99; RESP 12–16; TEMP 36.4–36.6; O2SAT 96–100
[2020-06-07] MEDS: Morphine 2 MG/ML Syringe IV ×2 (04:09→08:32)
[2020-06-07] MEDS: Ondansetron 4 MG/2 ML Vial IV ×2 (04:09→16:39)
[2020-06-07] MEDS: proMETHazine 25 MG/ML Syringe 12.5 MG IV (05:53)
[2020-06-07 07:14] LABS: Absolute Lymphocyte Count 1.13 X10^3/uL (0.83-4.51); Basophil# 0.01 X10^3/uL; Basophil% 0.1 % (0-1); Eosinophils% 1.5 % (0-5); Hematocrit 31.6 % (37-47); Hemoglobin 10.3 g/dL (12.0-15.0); Lymphocyte # 1.13 X10^3/ul (4.0); Lymphocyte % 16.7 % (19-41); Mean Corp Hgb Conc 32.6 g/dL (32-36); Mean Corpuscular Hgb 31.1 pg (27.0-32.0); Mean Corpuscular Volume 95.5 fL (81-99); Mean Platelet Vol. 10.1 fl (6.2-12.0); Monocyte# 0.45 X10^3/uL; Monocyte% 6.6 % (0-10); NRBC Flagged by Analyzer 0 % (0-5); Neutrophil # 5.04 X10^3/uL (2.7-7.7); Neutrophil % 74.4 % (47-70); Platelet Count 112 K/mm3 (150-450); RBC Distribution Width SD 55.8 fl (35.1-43.9); Red Blood Count 3.31 M/mm3 (4.2-5.4); White Blood Count 6.8 K/mm3 (4.4-11.0)
[2020-06-07 07:32] LABS: Anion Gap 10 (5-15); BUN 12 mg/dL (7-18); BUN/Creat Ratio 20.9 RATIO (10-20); Chloride 104 mmol/L (98-107); Creatinine, Serum 0.58 mg/dL (0.55-1.02); EST Glomerular Filtration Rate 114 mL/min (>60); Est Glom Filt Rate - Afr Amer 138 mL/min (>60); Estimated Creatinine Clearance 81.95 ml/min; Glucose 58 mg/dL (74-106); Magnesium 2.1 mg/dL (1.6-2.6); Potassium 3.5 mmol/L (3.5-5.1); Sodium Level 138 mmol/L (136-145)
[2020-06-07] MEDS: proCHLORPERazine 10 MG/2 ML Vial 5 MG IV (08:33)
[2020-06-07] MEDS: Enoxaparin 40 MG/0.4 ML Syringe SC (08:33)
[2020-06-07] MEDS: Famotidine 200 MG/20 ML MDV 20 MG in 0.9% Normal Saline (Pres. free 8 ML 300 MG IV (08:33)
--- NOTE | 2020-06-07 09:27 | CON.PCM_ITS ---
Problem List (1) Ovarian cancer Status: Chronic Qualifiers: Laterality: left Qualified Code(s): C56.2 - Malignant neoplasm of left ovary Reason for Consult Date of Consultation: 06/07/20 Reason for Consultation: Ovarian cancer possible Pleurx abdominal catheter History of Present Illness: The patient is a 59 year old F with metastatic ovarian cancer. 1. The patient has had paracentesis in the past. The last record I can see if paracentesis was back in March. The patient knows that she has had multiple drainages in the past. I saw the patient this morning her abdomen is very soft and nondistended. At this time I do not believe a Pleurx abdominal catheter would be able to be placed as there is no target for percutaneous tube placement. If the patient develops tense ascites she should follow-up with me and I will schedule her for an immediate Pleurx catheter placement. Dimitri Rey MD Pager: [facility] [address] [place] [address], [address] [place] [address] Office: Past Medical History Past Medical History (Chronic Problems): Chronic Problems Ovarian cancer (Chronic) Hypothyroidism (Chronic) Anxiety and depression (Chronic) HLD (hyperlipidemia) (Chronic) Diabetes mellitus, type II (Chronic) Former tobacco use (Chronic) Neutropenia (Chronic) Taxol and carboplatin Allergies metformin Allergy (Verified 06/05/20 13:11) Rash Home Medications: Ambulatory Orders Medication Instructions Recorded Oxycodone [Oxyir] 5 mg PO Q6H PRN PRN #10 tab 03/08/20 Omeprazole 20 mg PO DAILY 03/25/20 Dexamethasone [Decadron] 4 mg PO DAILY@0800 tab 04/08/20 Dronabinol [Marinol] 2.5 mg PO BIDAC cap 04/08/20 Levothyroxine Sodium [Synthroid] 100 mcg PO DAILY 06/05/20 Metoclopramide [Reglan] 5 mg PO TID@0730,1130,1630 06/05/20 Mirtazapine [Remeron] 15 mg PO TID 06/05/20 Multivitamin with Minerals 1 tab PO DAILY 06/05/20 [Multiple Vitamin] Surgical History: - Psychiatric History: Anxiety, Depression [employer] History: ovarian cancer Lives: Long-Term Smoking Status: Former smoker Tobacco Use: Cigarettes Alcohol: None Drugs: None - *Family History Maternal History Items: Diabetes Paternal History Items: - - Patient denies any market paternal family history including heart disease, diabetes or cancer. Patient Problems: Active and Suspected Problems Near syncope (Acute) Hypokalemia (Acute) - Physical Exam Vitals/I&O's: Vital Signs Temp Pulse Resp BP Pulse Ox 97.5 F L 82 16 117/75 96 06/07/20 08:56 06/07/20 09:05 06/07/20 09:05 06/07/20 08:56 06/07/20 09:05 Oxygen Delivery Method Room Air Weight: 108 lb 3.951 oz Body Mass Index (BMI) 18.0 Finger Stick Blood Glucose 76 Intake and Output for Last 24 Hours 06/05/20 06/06/20 06/07/20 23:59 23:59 23:59 Intake Total 1735 / 1735 2513.59 / 2513.59 Output Total 400 / 400 175 / 175 Balance 1335 / 1335 2338.59 / 2338.59 Laboratory Results 06/07/20 06:17: WBC 6.8, RBC 3.31 L, Hgb 10.3 L, Hct 31.6 L, MCV 95.5, MCH 31.1, MCHC 32.6, RDW Std Deviation 55.8 H, RDW Coeff of Frank 16.0 H, Plt Count 112 L, MPV 10.1, Immature Gran % (Auto) 0.700, Neut % (Auto) 74.4 H, Lymph % (Auto) 16.7 L, [place] % (Auto) 6.6, Eos % (Auto) 1.5, Baso % (Auto) 0.1, Absolute Neuts (auto) 5.0, Absolute Lymphs (auto) 1.13, Nucleated RBC % 0 06/07/20 06:17: Sodium 138, Potassium 3.5, Chloride 104, Carbon Dioxide 24.0, Anion Gap 10, BUN 12, Creatinine 0.58, Estim Creat Clear Calc 81.95, Est GFR (MDRD) Af Amer 138, Est GFR (MDRD) Non-Af 114, BUN/Creatinine Ratio 20.9 H, Glucose 58 L, Calcium 8.0 L, Magnesium 2.1 Current Medications Acetaminophen (Tylenol) 650 mg PO Q6H PRN PRN PRN Reason: Pain Score 1-10/Temp > 100.7 F Dexamethasone (Decadron) 4 mg PO DAILY@0800 [facility] Last Admin: 06/07/20 08:24 Dose: Not Given Documented by: Dronabinol (Marinol) 2.5 mg PO BIDAC [facility] Last Admin: 06/07/20 06:38 Dose: Not Given Documented by: Enoxaparin Sodium (Lovenox) 40 mg SC DAILY [facility] Last Admin: 06/07/20 08:33 Dose: 40 mg Documented by: Famotidine 20 mg/ Sodium (Chloride) 10 mls @ 300 mls/hr IV Q12 [facility] Last Infusion: 06/07/20 08:35 Dose: Infused Documented by: Levothyroxine Sodium (Synthroid) 100 mcg PO DAILY@0600 [facility] Last Admin: 06/07/20 05:30 Dose: Not Given Documented by: Mirtazapine (Remeron) 15 mg PO TID [facility] Last Admin: 06/07/20 05:30 Dose: Not Given Documented by: Morphine Sulfate () 2 mg IV Q3H PRN PRN PRN Reason: Pain Score 6-10/10 Last Admin: 06/07/20 08:32 Dose: 2 mg Documented by: Nutritional Formula (Lactose Free) (Glucerna Shake) 120 ml PO 4X/DAY [facility] Last Admin: 06/07/20 08:23 Dose: Not Given Documented by: Olanzapine (Zyprexa Zydis) 5 mg PO DAILY [facility] Stop: 06/10/20 10:01 Ondansetron HCl (Zofran) 4 mg IV Q8H PRN PRN PRN Reason: NAUSEA/VOMITING Last Admin: 06/07/20 04:09 Dose: 4 mg Documented by: Prochlorperazine Edisylate (Compazine Iv) 5 mg IV Q4H PRN PRN PRN Reason: Breakthrough nausea/vomiting Last Admin: 06/07/20 08:33 Dose: 5 mg Documented by: Promethazine HCl (Phenergan) 12.5 mg IV Q4H PRN PRN PRN Reason: NAUSEA/VOMITING Last Admin: 06/07/20 05:53 Dose: 12.5 mg Documented by: Assessment/Plan All Active Problems Near syncope (Acute) Nausea & vomiting (Acute) Hypokalemia (Acute)
--- NOTE | 2020-06-07 10:37 | PCM.PN.HOSP ---
Patient Problems: Active and Suspected Problems Near syncope (Acute) Hypokalemia (Acute) Subjective: Still complaining of nausea and has had poor p.o. intake. Her generalized abdominal pain is about the same Vitals/I&O's: Vital Signs Temp Pulse Resp BP Pulse Ox 97.5 F L 82 16 117/75 96 06/07/20 08:56 06/07/20 09:05 06/07/20 09:05 06/07/20 08:56 06/07/20 09:05 Oxygen Delivery Method Room Air Weight: 108 lb 3.951 oz Body Mass Index (BMI) 18.0 Finger Stick Blood Glucose 76 Intake and Output for Last 24 Hours 06/05/20 06/06/20 06/07/20 23:59 23:59 23:59 Intake Total 1735 / 1735 2513.59 / 2513.59 Output Total 400 / 400 175 / 175 Balance 1335 / 1335 2338.59 / 2338.59 General: Alert, Oriented x3, Cooperative, No apparent distress, - - Ill and cachectic HEENT: Atraumatic, PERRLA, EOMI, Normocephalic Oral: Moist Mucosa Neck: Supple, No JVD Lungs: Clear to auscultation, Normal air movement, No rhonchi, No wheeze, No rales Cardiovascular: Regular rate, Regular Rhythm, Normal S1, Normal S2, No murmurs Abdomen: Soft, Non Tender, Non-Distended, No Hepato-splenomegaly Extremities: No edema, Capillary Refill Less than 3 Seconds Skin: No rashes, No breakdown Musculoskeletal: Cachexia Neurological: Neuro grossly intact, Sensory exam intact to light touch and pain Psych/Mental Status: Flat Affect Laboratory Results 06/07/20 06:17: WBC 6.8, RBC 3.31 L, Hgb 10.3 L, Hct 31.6 L, MCV 95.5, MCH 31.1, MCHC 32.6, RDW Std Deviation 55.8 H, RDW Coeff of Frank 16.0 H, Plt Count 112 L, MPV 10.1, Immature Gran % (Auto) 0.700, Neut % (Auto) 74.4 H, Lymph % (Auto) 16.7 L, [place] % (Auto) 6.6, Eos % (Auto) 1.5, Baso % (Auto) 0.1, Absolute Neuts (auto) 5.0, Absolute Lymphs (auto) 1.13, Nucleated RBC % 0 06/07/20 06:17: Sodium 138, Potassium 3.5, Chloride 104, Carbon Dioxide 24.0, Anion Gap 10, BUN 12, Creatinine 0.58, Estim Creat Clear Calc 81.95, Est GFR (MDRD) Af Amer 138, Est GFR (MDRD) Non-Af 114, BUN/Creatinine Ratio 20.9 H, Glucose 58 L, Calcium 8.0 L, Magnesium 2.1 Current Medications Acetaminophen (Tylenol) 650 mg PO Q6H PRN PRN PRN Reason: Pain Score 1-10/Temp > 100.7 F Dexamethasone (Decadron) 4 mg PO DAILY@0800 [facility] Last Admin: 06/07/20 08:24 Dose: Not Given Documented by: Dronabinol (Marinol) 2.5 mg PO BIDAC [facility] Last Admin: 06/07/20 06:38 Dose: Not Given Documented by: Enoxaparin Sodium (Lovenox) 40 mg SC DAILY [facility] Last Admin: 06/07/20 08:33 Dose: 40 mg Documented by: Famotidine 20 mg/ Sodium (Chloride) 10 mls @ 300 mls/hr IV Q12 [facility] Last Infusion: 06/07/20 08:35 Dose: Infused Documented by: Levothyroxine Sodium (Synthroid) 100 mcg PO DAILY@0600 [facility] Last Admin: 06/07/20 05:30 Dose: Not Given Documented by: Mirtazapine (Remeron) 15 mg PO TID [facility] Last Admin: 06/07/20 05:30 Dose: Not Given Documented by: Morphine Sulfate () 2 mg IV Q3H PRN PRN PRN Reason: Pain Score 6-10/10 Last Admin: 06/07/20 08:32 Dose: 2 mg Documented by: Nutritional Formula (Lactose Free) (Glucerna Shake) 120 ml PO 4X/DAY [facility] Last Admin: 06/07/20 08:23 Dose: Not Given Documented by: Olanzapine (Zyprexa Zydis) 5 mg PO DAILY [facility] Stop: 06/10/20 10:01 Ondansetron HCl (Zofran) 4 mg IV Q8H PRN PRN PRN Reason: NAUSEA/VOMITING Last Admin: 06/07/20 04:09 Dose: 4 mg Documented by: Prochlorperazine Edisylate (Compazine Iv) 5 mg IV Q4H PRN PRN PRN Reason: Breakthrough nausea/vomiting Last Admin: 06/07/20 08:33 Dose: 5 mg Documented by: Promethazine HCl (Phenergan) 12.5 mg IV Q4H PRN PRN PRN Reason: NAUSEA/VOMITING Last Admin: 06/07/20 05:53 Dose: 12.5 mg Documented by: STROKE Vital Signs/Narrative: Vital Signs Temp Pulse Resp BP Pulse Ox 06/07/20 09:05 82 16 96 06/07/20 08:56 97.5 F L 82 16 117/75 96 Medical Necessity - Tobacco Use Smoking Status: Former smoker Tobacco Use: Cigarettes Assessment/Plan All Active Problems Near syncope (Acute) Nausea & vomiting (Acute) Hypokalemia (Acute) 1. Intractable nausea and vomiting secondary to chemotherapy for her metastatic ovarian cancer with severe protein calorie malnutrition/pancytopenia -She has lost approximately 45 pounds. She does not eat very well. -She is on olanzapine, Zofran, Compazine, Marinol, Decadron and now Phenergan to help control her nausea -We will continue with Remeron to help stimulate her appetite -I discussed the case with both her and her oncologist for over 30 minutes. She is not a surgical candidate and she is too weak to tolerate any further chemo. She states that she would like to discontinue treatment at this time and would like to pursue hospice however she was too ill yesterday to talk to hospice. Surgery was consulted for possible tunneled peritoneal catheter however they do not feel that there is enough ascites at this time to be able to find a target and to warrant tunneled catheter. If she does have development of ascites is in the future she can follow-up with him as an outpatient -Pancytopenia likely secondary to cancer and chemotherapy will continue to monitor 2. DM 2 -Her A1c was 5.7 in February -We will continue to monitor her blood sugar 3. Hypothyroidism -Stable -Continue Synthroid 4. GERD -Stable -Continue with PPI DVT: Lovenox Inpatient E&M: 53192 Subs Hosp L2
[2020-06-07] MEDS: OLANZapine 5 MG/TAB TAB.RAPDIS PO (10:47)
[2020-06-07] MEDS: Scopolamine 1mg/72hr Patch 1 PATCH TRANSDERM. (15:13)
--- NOTE | 2020-06-07 15:54 | NURSING ---
Read and reviewed SN documentation
--- NOTE | 2020-06-07 16:30 | DCINST_ITS ---
- Discharge Diagnoses Current Active Problems: Current Active and Chronic Problems Near syncope (Acute) Ovarian cancer (Chronic) Hypokalemia (Acute) You will use the following diet at home:: No restrictions, Regular Your food should be the consistency of: Regular Your liquids should be the consistency of: Regular/Thin Discharge Activity: Return to Normal Activity Allergies/Adverse Reactions: Allergies metformin Allergy (Verified 06/05/20 13:11) Rash Medications to take at Discharge Oxycodone [Oxyir] 5 mg PO Q6H PRN PRN #10 tab 03/08/20 Omeprazole 20 mg PO DAILY 03/25/20 Dexamethasone [Decadron] 4 mg PO DAILY@0800 tab 04/08/20 Dronabinol [Marinol] 2.5 mg PO BIDAC cap 04/08/20 Levothyroxine Sodium [Synthroid] 100 mcg PO DAILY 06/05/20 Metoclopramide [Reglan] 5 mg PO TID@0730,1130,1630 06/05/20 Mirtazapine [Remeron] 15 mg PO TID 06/05/20 Multivitamin with Minerals [Multiple Vitamin] 1 tab PO DAILY 06/05/20 Primary Care Physician: Redd Alcala MD [Primary Care Provider] - Test Results: Test results from this visit will be discussed in further detail at your follow- up appointment, if applicable.
--- NOTE | 2020-06-07 17:31 | PCM.DC.SUM ---
Discharge Date and Diagnosis - Problem List Patient Problems: Active and Suspected Problems Near syncope (Acute) Hypokalemia (Acute) Date of Admission: 06/05/20 Date of Discharge: 06/07/20 - Primary Discharge Diagnosis Acute Problems: Active Problems Near syncope (Acute) Hypokalemia (Acute) - Secondary Discharge Diagnosis Chronic Problems: Chronic Problems Ovarian cancer (Chronic) Hypothyroidism (Chronic) Anxiety and depression (Chronic) HLD (hyperlipidemia) (Chronic) Diabetes mellitus, type II (Chronic) Former tobacco use (Chronic) Neutropenia (Chronic) Taxol and carboplatin Hospital Course and Treatment Consults: General Surgery Operations: None Procedures: None Summary of Care Provided: Per HPI: The patient is a 59 year old F who presents the emergency room due to intractable nausea, vomiting with associated lightheadedness/dizziness. Patient reports this began last . She has not been able to keep down any oral intake. Denies diarrhea. Denies abdominal pain. Denies fever, chills. Patient states she has lost weight recently. She is not able to tell this provider if she is currently undergoing chemotherapy. She does not now how often she has been getting paracentesis. She was scheduled to have paracentesis today however did not feel well and blood pressure was noted to be low, therefore she was referred to the emergency room. [facility] is currently at SNF. She has a past medical history of metastatic stage III ovarian cancer, type 2 diabetes mellitus, hypothyroidism, hyperlipidemia, GERD, severe protein calorie malnutrition. Hospital Course: 1. Intractable nausea and vomiting secondary to chemotherapy for metastatic ovarian cancer severe protein calorie malnutrition/[id number]-[id number]-old female who was recently diagnosed with ovarian cancer. She is not a surgical candidate and she has had such poor tolerance to chemotherapy that she is no longer chemotherapy candidate. Her oncologist discussed that with her last evening. She states that she no longer wants treatment regardless and would like to go hospice. Initially she want to go hospice at home however multiple attempts to reach her went unanswered and multiple voicemails were left that were also never returned. Therefore hospice discussed with her the possibility of placement in the inpatient hospice unit to get her symptoms under control, and she agreed. At home prior to admission she was on Marinol and Reglan, here in the hospital these medications were continued but she was also added Compazine, Phenergan, scopolamine, Zofran, and olanzapine. She has still continued to have nausea while on this regimen. Also she has lost over 45 pounds since being diagnosed with ovarian cancer and she had been undergoing weekly paracentesis to drain fluid. There was discussion and a consultation had been placed to general surgery to evaluate for possible tunneled peritoneal drainage catheter however there is not enough ascites rhythm to be able to even target placement of the catheter. I discussed with her the plan for discharge to hospice today and she expressed understanding of the risk benefits of going to hospice inpatient today. Patient Problems: Active and Suspected Problems Near syncope (Acute) Hypokalemia (Acute) - Physical Exam Vitals/I&O's: Vital Signs Temp Pulse Resp BP Pulse Ox 97.6 F L 84 16 107/72 98 06/07/20 16:31 06/07/20 16:31 06/07/20 16:31 06/07/20 16:31 06/07/20 16:31 Oxygen Delivery Method Room Air Weight: 108 lb 3.951 oz Body Mass Index (BMI) 18.0 Finger Stick Blood Glucose 76 Intake and Output for Last 24 Hours 06/05/20 06/06/20 06/07/20 23:59 23:59 23:59 Intake Total 1735 / 1735 2513.59 / 2513.59 10 / 10 Output Total 400 / 400 175 / 175 175 / 175 Balance 1335 / 1335 2338.59 / 2338.59 -165 / -165 Microbiology Past 72 Hours 06/05/20 14:05 Urine Catheter - Catheter Urine Culture - Preliminary Yeast Like Organism Laboratory Results 06/07/20 06:17: WBC 6.8, RBC 3.31 L, Hgb 10.3 L, Hct 31.6 L, MCV 95.5, MCH 31.1, MCHC 32.6, RDW Std Deviation 55.8 H, RDW Coeff of Frank 16.0 H, Plt Count 112 L, MPV 10.1, Immature Gran % (Auto) 0.700, Neut % (Auto) 74.4 H, Lymph % (Auto) 16.7 L, [place] % (Auto) 6.6, Eos % (Auto) 1.5, Baso % (Auto) 0.1, Absolute Neuts (auto) 5.0, Absolute Lymphs (auto) 1.13, Nucleated RBC % 0 06/07/20 06:17: Sodium 138, Potassium 3.5, Chloride 104, Carbon Dioxide 24.0, Anion Gap 10, BUN 12, Creatinine 0.58, Estim Creat Clear Calc 81.95, Est GFR (MDRD) Af Amer 138, Est GFR (MDRD) Non-Af 114, BUN/Creatinine Ratio 20.9 H, Glucose 58 L, Calcium 8.0 L, Magnesium 2.1 Current Medications Acetaminophen (Tylenol) 650 mg PO Q6H PRN PRN PRN Reason: Pain Score 1-10/Temp > 100.7 F Dexamethasone (Decadron) 4 mg PO DAILY@0800 [facility] Last Admin: 06/07/20 08:24 Dose: Not Given Documented by: Dronabinol (Marinol) 2.5 mg PO BIDAC [facility] Last Admin: 06/07/20 16:29 Dose: Not Given Documented by: Enoxaparin Sodium (Lovenox) 40 mg SC DAILY [facility] Last Admin: 06/07/20 08:33 Dose: 40 mg Documented by: Famotidine 20 mg/ Sodium (Chloride) 10 mls @ 300 mls/hr IV Q12 [facility] Last Infusion: 06/07/20 08:35 Dose: Infused Documented by: Levothyroxine Sodium (Synthroid) 100 mcg PO DAILY@0600 [facility] Last Admin: 06/07/20 05:30 Dose: Not Given Documented by: Metoclopramide HCl (Reglan) 10 mg IV Q8H PRN PRN PRN Reason: NAUSEA/VOMITING Mirtazapine (Remeron) 15 mg PO TID [facility] Last Admin: 06/07/20 14:53 Dose: Not Given Documented by: Morphine Sulfate () 2 mg IV Q3H PRN PRN PRN Reason: Pain Score 6-10/10 Last Admin: 06/07/20 08:32 Dose: 2 mg Documented by: Nutritional Formula (Lactose Free) (Glucerna Shake) 120 ml PO 4X/DAY [facility] Last Admin: 06/07/20 16:29 Dose: Not Given Documented by: Olanzapine (Zyprexa Zydis) 5 mg PO DAILY [facility] Stop: 06/10/20 10:01 Last Admin: 06/07/20 10:47 Dose: 5 mg Documented by: Ondansetron HCl (Zofran) 4 mg IV Q8H PRN PRN PRN Reason: NAUSEA/VOMITING Last Admin: 06/07/20 16:39 Dose: 4 mg Documented by: Prochlorperazine Edisylate (Compazine Iv) 5 mg IV Q4H PRN PRN PRN Reason: Breakthrough nausea/vomiting Last Admin: 06/07/20 08:33 Dose: 5 mg Documented by: Promethazine HCl (Phenergan) 12.5 mg IV Q4H PRN PRN PRN Reason: NAUSEA/VOMITING Last Admin: 06/07/20 05:53 Dose: 12.5 mg Documented by: Scopolamine HBr (Transderm-Scop) 1 patch TRANSDERM. Q72H ANGELA Last Admin: 06/07/20 15:13 Dose: 1 patch Documented by: Discharge Activity: Return to Normal Activity Home Medications: Medications to take at Discharge Oxycodone [Oxyir] 5 mg PO Q6H PRN PRN #10 tab 03/08/20 Omeprazole 20 mg PO DAILY 03/25/20 Dexamethasone [Decadron] 4 mg PO DAILY@0800 tab 04/08/20 Dronabinol [Marinol] 2.5 mg PO BIDAC cap 04/08/20 Levothyroxine Sodium [Synthroid] 100 mcg PO DAILY 06/05/20 Metoclopramide [Reglan] 5 mg PO TID@0730,1130,1630 06/05/20 Mirtazapine [Remeron] 15 mg PO TID 06/05/20 Multivitamin with Minerals [Multiple Vitamin] 1 tab PO DAILY 06/05/20 Primary Care Physician: Redd Alcala MD [Primary Care Provider] - Disposition: Hospice Medical Facility Minutes spent on discharge:: 35 Patient Condition:: Stable Medical Necessity - Tobacco Use Smoking Status: Former smoker Tobacco Use: Cigarettes Meaningful Use Info Meaningful Use Diagnoses (Choose all that apply): None applicable Inpatient E&M: 26800 Disch Hosp
--- NOTE | 2020-06-07 18:06 | CASEMGMT ---
Social Work SW met with pt multiple times throughout the day. Earlier in the day pt was groggy and not waking to converse with SW. CHAPITO spoke with Luis M at hospice who attempted to call pt GUICHO Brown multiple times and left multiple messages with no return calls from Kevin. Later in the day pt more alert and able to converse. Pt is agreeable to speaking with hospice. RNCM asking pt if she has other family to contact and pt gave name of sister Susan. With permission, phone call to pt sister Susan Jaramillo ([phone]). Susan has no other contact numbers for Kevin. Susan informed SW pt has a son and two daughters as well as a father that is still living. Susan stating she talked to pt yesterday and pt informed her that she will be going [facility] care. Nursing reporting pt is alert and talking on phone to her daughter. CHAPITO placed phone call to Luis M at Hospice and asked to come see pt at this time. Luis M arrived and spoke with pt who signed papers with hospice and is agreeable to go to [facility]. Nursing updated pt sister. [facility] to transport [facility]. SW notified Nydia [facility] that pt will not be returning. Plan: [facility] REGGIE Baker
== END 2020-06-07 18:00 | disposition hospice, inpatient (51) | DRG 249 ==
LOC: ED 16:27 → PCU 16:56
PROVIDERS: Internal Medicine; Admitting Provider Nurse Practitioner Family; Emergency Provider Emergency Medicine; PCP Family Medicine; Visit Provider Family Medicine
DX: R11.2 Nausea with vomiting, unspecified (principal); R18.0 Malignant ascites; C56.2 Malignant neoplasm of left ovary; T45.1X5A Adverse effect of antineoplastic and immunosuppressive drugs, initial encounter; R55 Syncope and collapse; E87.6 Hypokalemia; E78.5 Hyperlipidemia, unspecified; E11.9 Type 2 diabetes mellitus without complications; E43 Unspecified severe protein-calorie malnutrition; K21.9 Gastro-esophageal reflux disease without esophagitis; Z79.891 Long term (current) use of opiate analgesic; Z79.899 Other long term (current) drug therapy; Z87.891 Personal history of nicotine dependence; Z68.1 Body mass index [BMI] 19.9 or less, adult; D61.810 Antineoplastic chemotherapy induced pancytopenia; E03.9 Hypothyroidism, unspecified; R53.81 Other malaise; Z66 Do not resuscitate; C79.9 Secondary malignant neoplasm of unspecified site
CPT/HCPCS: 36415; 36591; 80048; 80053; 81001; 83690; 83735; 85025; 85027; 85610; 87086; 87088; 93005; 97802; 99285; J7030; A4216; J2405; J3490